=== PATIENT | male | born 1945 | race Caucasian/White ===

== ENCOUNTER → 2016-11-20 | Outpatient (REF) | payer MEDICARE, OTHER ==
[~2016-11-20] MED LIST: /DICL25CA; /FENT50PA; /FENT50PA TD; /IPRAINH INH; /MIRT15TA; /MIRT15TA PO; /QUET10TA; /SALMDISK; /TAMS4CA; ACET-654 PO; ALBU17IN INH; ALBU83IN INH; ALBUTEROL INH; ALEN70SO PO; ALEN70TA39 PO; ARIC10TA PO; ARTISOL10 OU; ASPI325T OR; ATAM25TA2 OR; ATROVENT; AUGM875T27 PO; BACT800T5 PO; BISA10SU2 RE; BUSP10TA PO; BUSP10TA2; BUSP10TA2 PO; CALCIUM/VITAMIN D PO; CALCTAB68 PO; CARB25TA PO; CIPR500T3 PO; CLOB0.057 TOP; CLON0.5T OR; CLON0.5T PO; CLON1TAB PO; COLA50CA; CYCL25CA5 OU; DENTCRE3 PO; DONETAB6 PO; EXCETAB; EXCETAB80 PO; FENT1DIS14 TD; FENT50PA TOP; FISH1000 PO; FLUN25SP; FLUTISP; FORMOTEROL FUMARATE INH; FURO20TA2; GABA300C3 PO; HYPROMELLOSE OD; IMIT100T OR; KLON1TAB; LIDO2JELLY TOP; LORA2TAB; LUBR0.5D OU; MELOPOW; META28.35 PO; META800T82 PO; MIDODRINE PO; MILKSUS PO; MIRALEX PO; MOMETASONE INH; NEUR300C PO; NICOTINE GUM; NORCOTAB PO; OLAN15TA PO; OLAN5TAB PO; OLAN7.5T PO; OMEP20CA3 PO; OMEP20TA7 OR; OXYC-517 PO; OXYC10TA12; OXYC10TA12 OR; PHEN16.2; PHEN16.2 OR; PHEN16.2 PO; PRED15SO3; PRIL20CA; REFR0.5D8 OP; REST0.05 OU; RISP4TAB OR; RIZA10TA4 PO; SENN8.6T5 PO; SENO8.6T10 PO; SIMV40TA2 PO; SIMV80TA; SIMV80TA OR; SKEL-29 PO; SKEL800T5; SKEL800T5 OR; SYMB16INH INH; TOBROPO OU; TROS20TA3 PO; VENL100T PO; VENL150C43 PO; VENL75TA2; VESICARE; VESICARE PO; VITA100066 PO; VITAMIN D50000 UNT; ZONI100C2 PO; ZONISAMIDE PO; ZOSTCRE TOP; [UNRECOGNIZED DRUG - OTHER]; asmanex; citracal; zonisamide
== END ==
LOC: M SFHCLERA 13:47
PROVIDERS: ATTEND Physician Assistant
DX: T83.510A Infection and inflammatory reaction due to cystostomy catheter, initial encounter (principal); Y93.89 Activity, other specified; Y92.89 Other specified places as the place of occurrence of the external cause; Y99.8 Other external cause status; X58.XXXA Exposure to other specified factors, initial encounter
CPT/HCPCS: 81002; 87070; 87077; 87088; 87186; G0463

== ENCOUNTER 2017-01-21 19:49 | Emergency (ER) | payer MEDICARE, OTHER ==
[~2017-01-21] VITALS: Ht 182.9 cm; Wt 95.2 kg
[~2017-01-21 19:49] MED LIST changes: +GABA-282 PO; -GABA300C3 PO
[2017-01-21 20:34] LABS: BASO % 0.8 % (0.0-1.0); EOS # 0.1 K/mm3 (0.0-0.50); LARGE UNSTAINED CELL # 0.3 K/mm3 (0.0-0.4); LARGE UNSTAINED CELL % 4.3 % (0.0-4.0); LYMPH # 2.4 K/mm3 (1.5-4.5); LYMPH % 41.8 % (24.0-44.0); MEAN CORPUSCULAR HEMOGLOBIN 31.7 pg (27.0-33.0); MEAN CORPUSCULAR HGB CONC 30.8 g/dl (32.0-36.5); MONO # 0.4 K/mm3 (0.0-0.8); MONO % 7.3 % (0.0-5.0); NEUTROPHILS # 2.6 K/mm3 (1.8-7.7); NEUTROPHILS % 43.8 % (36.0-66.0); PLATELET COUNT, AUTOMATED 308 k/mm3 (150-450); RED CELL DISTRIBUTION WIDTH 14.7 % (11.5-14.5); WHITE BLOOD COUNT 5.8 K/mm3 (4.0-10.0)
[2017-01-21 20:50] LABS: ANION GAP 10 MEQ/L (8-16); BLOOD UREA NITROGEN 21 MG/DL (7-18); CALCIUM LEVEL 8.8 MG/DL (8.8-10.2); CARBON DIOXIDE LEVEL 23 MEQ/L (21-32); CHLORIDE LEVEL 108 MEQ/L (98-107); CREATININE FOR GFR 0.91 MG/DL (0.70-1.30); GLOMERULAR FILTRATION RATE > 60.0 (>42); GLUCOSE, FASTING 89 MG/DL (83-110); PHENOBARBITAL LEVEL 2.8 UG/ML (15.0-40.0); POTASSIUM SERUM 4.2 MEQ/L (3.5-5.1); SODIUM LEVEL 141 MEQ/L (136-145)
[2017-01-21] MEDS ORDERED: NS 500 ML IV ONE (21:15)
[2017-01-21 22:16] VITALS: BP 115/63
== END 2017-01-21 23:03 | disposition home or self-care (01) ==
LOC: EDBD 19:49 → M ED 20:35
DX: F10.220 Alcohol dependence with intoxication, uncomplicated (principal); J44.9 Chronic obstructive pulmonary disease, unspecified; N40.0 Benign prostatic hyperplasia without lower urinary tract symptoms; E78.5 Hyperlipidemia, unspecified; K21.9 Gastro-esophageal reflux disease without esophagitis; G40.909 Epilepsy, unspecified, not intractable, without status epilepticus; N31.9 Neuromuscular dysfunction of bladder, unspecified; Z79.899 Other long term (current) drug therapy; Z88.1 Allergy status to other antibiotic agents; Z88.8 Allergy status to other drugs, medicaments and biological substances; Z91.018 Allergy to other foods; Z91.048 Other nonmedicinal substance allergy status
CPT/HCPCS: 36415; 80048; 80184; 85025; 96360; 96361; 99284; G0480

== ENCOUNTER → 2017-03-30 | Outpatient (CLI) | payer MEDICARE, OTHER ==
[~2017-03-30] MED LIST changes: -ACET-654 PO; +ACET1TAB17 PO; +ANEC4CRE3 TOP; -AUGM875T27 PO; +AUGM875T28 PO; +BACI500O8 TOP; +CALC1TAB74 PO; +DICL1GEL3 TD; +EUCECRE3 TOP; +FLON1SPR; +META1TAB22 PO; -META800T82 PO; +MIRA33504 PO; +MIRT15TA3 PO; +OXYC1SOL3 PO; +REFR1DRO6 OU; +SENN8.6T7 PO; +SIMV80TA PO; -SKEL-29 PO; +SKEL800T97 PO; +SODI0.9S IR; +TRIA25CR TOP; +VITA-121 PO
--- NOTE | 2017-03-30 14:48 | REP ---
PA and lateral chest: Comparison is 02/12/2016. Lung coombs are clear. Cardiac size is normal. The asha, mediastinum, bony thorax unremarkable. 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 Impression: There are no acute cardiopulmonary findings. Signed by Etienne Chang MD 03/30/2017 02:40 P
== END ==
LOC: M LRY 13:16
PROVIDERS: ATTEND Physician Assistant
DX: R05 Cough (principal); J44.1 Chronic obstructive pulmonary disease with (acute) exacerbation; J32.9 Chronic sinusitis, unspecified; T83.511A Infection and inflammatory reaction due to indwelling urethral catheter, initial encounter; N39.0 Urinary tract infection, site not specified
CPT/HCPCS: 71020; 81002; 87088; 87186; G0463

== ENCOUNTER → 2017-03-30 | Outpatient (REF) | payer MEDICARE, OTHER ==
[~2017-03-30] MED LIST changes: +ACET-654 PO; -ACET1TAB17 PO; -ANEC4CRE3 TOP; +AUGM875T27 PO; -AUGM875T28 PO; -BACI500O8 TOP; -CALC1TAB74 PO; -DICL1GEL3 TD; -EUCECRE3 TOP; -FLON1SPR; -META1TAB22 PO; +META800T82 PO; -MIRA33504 PO; -MIRT15TA3 PO; -OXYC1SOL3 PO; -REFR1DRO6 OU; -SENN8.6T7 PO; -SIMV80TA PO; +SKEL-29 PO; -SKEL800T97 PO; -SODI0.9S IR; -TRIA25CR TOP; -VITA-121 PO
== END ==
LOC: M SFHCLERA 14:55
PROVIDERS: ATTEND Physician Assistant
DX: N39.0 Urinary tract infection, site not specified (principal)

== ENCOUNTER 2017-06-17 12:15 | Emergency (ER) | payer OTHER, MEDICARE ==
[~2017-06-17] VITALS: Ht 175.3 cm; Wt 93.6 kg
[~2017-06-17 12:15] MED LIST changes: -ACET-654 PO; +ACET1TAB17 PO; -AUGM875T27 PO; +AUGM875T28 PO; +META1TAB22 PO; -META800T82 PO; -SKEL-29 PO; +SKEL800T97 PO
[2017-06-17] MEDS ORDERED: OXYC1SOL3 PO (12:29)
[2017-06-17 13:07] LABS: BASO % 0.7 % (0.0-1.0); EOS # 0.3 K/mm3 (0.0-0.50); EOS % 4.6 % (0.0-3.0); LARGE UNSTAINED CELL # 0.3 K/mm3 (0.0-0.4); LARGE UNSTAINED CELL % 4.4 % (0.0-4.0); LYMPH # 1.6 K/mm3 (1.5-4.5); MEAN CORPUSCULAR HEMOGLOBIN 32.8 pg (27.0-33.0); MEAN CORPUSCULAR HGB CONC 32.4 g/dl (32.0-36.5); MEAN CORPUSCULAR VOLUME 100.9 fl (80.0-96.0); MONO # 0.5 K/mm3 (0.0-0.8); MONO % 8.5 % (0.0-5.0); NEUTROPHILS # 3.6 K/mm3 (1.8-7.7); NEUTROPHILS % 56.7 % (36.0-66.0); PLATELET COUNT, AUTOMATED 306 k/mm3 (150-450); RED CELL DISTRIBUTION WIDTH 13.5 % (11.5-14.5); WHITE BLOOD COUNT 6.4 K/mm3 (4.0-10.0)
--- NOTE | 2017-06-17 13:34 | REP ---
Chest one-view HISTORY: Chest pain Comparison: 03/30/2017 Linear densities are present in the left lower lobe consistent with scar. The right lung is clear. The heart is normal in size. The pulmonary vasculature is normal in appearance. Impression: Left lower lobe scar. Signed by Jim Davis MD 06/17/2017 01:25 P
[2017-06-17] MEDS ORDERED: CARB25TA PO (13:49)
[2017-06-17] MEDS ORDERED: TOBROPO OU (13:49)
[2017-06-17] MEDS ORDERED: META1TAB22 PO (13:49)
[2017-06-17] MEDS ORDERED: DONETAB6 PO (13:49)
[2017-06-17] MEDS ORDERED: PHEN16.2 PO (13:49)
[2017-06-17] MEDS ORDERED: CALC1TAB74 PO (13:49)
[2017-06-17] MEDS ORDERED: SODI0.9S IR (13:49)
[2017-06-17] MEDS ORDERED: CLON1TAB PO (13:49)
[2017-06-17] MEDS ORDERED: ANEC4CRE3 TOP (13:49)
[2017-06-17] MEDS ORDERED: BACI500O8 TOP (13:49)
[2017-06-17] MEDS ORDERED: REST0.05 OU (13:49)
[2017-06-17] MEDS ORDERED: SIMV80TA PO (13:49)
[2017-06-17] MEDS ORDERED: ACET1TAB17 PO (13:49)
[2017-06-17] MEDS ORDERED: TROS20TA3 PO (13:49)
[2017-06-17] MEDS ORDERED: TRIA25CR TOP (13:49)
[2017-06-17] MEDS ORDERED: MIRA33504 PO (13:49)
[2017-06-17] MEDS ORDERED: SENN8.6T7 PO (13:49)
[2017-06-17] MEDS ORDERED: FLON1SPR (13:49)
[2017-06-17] MEDS ORDERED: EUCECRE3 TOP (13:49)
[2017-06-17] MEDS ORDERED: OXYC-517 PO (13:49)
[2017-06-17] MEDS ORDERED: OMEP20CA3 PO (13:49)
[2017-06-17] MEDS ORDERED: ZONI100C2 PO (13:49)
[2017-06-17] MEDS ORDERED: REFR1DRO6 OU (13:49)
[2017-06-17] MEDS ORDERED: ALBU83IN INH (13:49)
[2017-06-17] MEDS ORDERED: ALEN70TA39 PO (13:49)
[2017-06-17] MEDS ORDERED: VITA-121 PO (13:49)
[2017-06-17] MEDS ORDERED: RIZA10TA4 PO (13:49)
[2017-06-17] MEDS ORDERED: DICL1GEL3 TD (13:49)
[2017-06-17] MEDS ORDERED: MIRT15TA3 PO (13:51)
[2017-06-17] MEDS ORDERED: OLAN7.5T PO (13:51)
[2017-06-17] MEDS ORDERED: VENL150C43 PO (13:51)
[2017-06-17 14:20] LABS: ANION GAP 10 MEQ/L (8-16); BLOOD UREA NITROGEN 18 MG/DL (7-18); CALCIUM LEVEL 9.6 MG/DL (8.8-10.2); CARBON DIOXIDE LEVEL 26 MEQ/L (21-32); CHLORIDE LEVEL 107 MEQ/L (98-107); CREATININE FOR GFR 0.96 MG/DL (0.70-1.30); GLOMERULAR FILTRATION RATE > 60.0 (>42); GLUCOSE, FASTING 98 MG/DL (83-110); POTASSIUM SERUM 4.7 MEQ/L (3.5-5.1); SODIUM LEVEL 143 MEQ/L (136-145)
[2017-06-17] MEDS ORDERED: IPRATROPIUM 0.5MG/ALBUTEROL 2.5MG INH SOL UD 3ML (DUONEB)(J7620) NEB ONE (14:30)
[2017-06-17 15:08] VITALS: BP 154/69
--- NOTE | 2017-06-17 21:40 | ECGEPIP ---
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
== END 2017-06-17 15:14 | disposition home or self-care (01) ==
LOC: M ED 12:15
DX: M94.0 Chondrocostal junction syndrome [Tietze] (principal); J44.9 Chronic obstructive pulmonary disease, unspecified; Z87.891 Personal history of nicotine dependence; R06.02 Shortness of breath

== ENCOUNTER → 2017-08-03 | Outpatient (CLI) | payer MEDICARE, OTHER ==
[~2017-08-03] MED LIST changes: +ANEC4CRE3 TOP; +BACI500O8 TOP; +CALC1TAB74 PO; +DICL1GEL3 TD; +EUCECRE3 TOP; +FLON1SPR; +MIRA33504 PO; +MIRT15TA3 PO; +OXYC1SOL3 PO; +REFR1DRO6 OU; +SENN8.6T7 PO; +SIMV80TA PO; +SODI0.9S IR; +TRIA25CR TOP; +VITA-121 PO
--- NOTE | 2017-08-03 14:19 | REP ---
Chest x-ray: Two views. History: Shortness of breath. Comparison study: June 17, 2017 and March 30, 2017. Findings: The lungs are symmetrically aerated and free of infiltrate. Emphysematous changes are noted in the upper lobes, right more so than left. The pleural angles are sharp. Heart size is normal. Pulmonary vasculature is not increased. Impression: Hyperinflation consistent with some degree of COPD. No acute infiltrate. Signed by Jose Angel Benavides MD 08/03/2017 02:50 P
== END ==
LOC: M LRY 13:15
PROVIDERS: ATTEND Nurse Practitioner Family
DX: R06.02 Shortness of breath (principal); J98.4 Other disorders of lung
CPT/HCPCS: 71020; G0463

== ENCOUNTER 2017-09-09 08:25 | Inpatient (IN) | payer MEDICARE, OTHER ==
[~2017-09-09] VITALS: Ht 175.3 cm; Wt 89.0 kg
[2017-09-09 09:26] LABS: VENOUS BASE EXCESS -5.2 (-2.0-2.0); VENOUS O2 SATURATION 88.8 % (60.0-80.0); VENOUS PARTIAL PRESSURE CO2 33.4 mmHg (38.0-50.0); VENOUS TOTAL CO2 20.2 MEQ/L (24.0-28.0)
--- NOTE | 2017-09-09 09:26 | ECGEPIP ---
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
[2017-09-09 09:28] LABS: MEAN CORPUSCULAR HEMOGLOBIN 33.5 pg (27.0-33.0); MEAN CORPUSCULAR HGB CONC 34.3 g/dl (32.0-36.5); MEAN CORPUSCULAR VOLUME 97.8 fl (80.0-96.0); PLATELET COUNT, AUTOMATED 152 10^3/uL (150-450); RED CELL DISTRIBUTION WIDTH 13.8 % (11.5-14.5); WHITE BLOOD COUNT 16.2 10^3/uL (4.0-10.0)
[2017-09-09 09:29] LABS: POSITIVE MORPH POS FLAG
[2017-09-09 09:30] LABS: ADD MANUAL DIFFER YES; BLASTS POS FLAG; DIFF SLIDE NUMBER 156
--- NOTE | 2017-09-09 09:41 | REP ---
PORTABLE CHEST: Single view. HISTORY: Altered mental status. COMPARISON STUDY: August 03, 2017. FINDINGS: The lungs are symmetrically aerated and clear. Pleural angles are sharp. Heart is not enlarged. The left hemidiaphragm is very slightly elevated. Pulmonary vasculature is not increased. EKG monitoring electrodes overlie the chest. No significant bony abnormality is seen. IMPRESSION: No active disease. Signed by Jose Angel Benavides MD 09/09/2017 11:18 A
[2017-09-09 09:53] LABS: ALBUMIN 2.7 GM/DL (3.2-5.2); ALBUMIN/GLOBULIN RATIO 0.71 (1.00-1.93); ALKALINE PHOSPHATASE 63 U/L (45-117); ALT/SGPT 9 U/L (12-78); ANION GAP 11 MEQ/L (8-16); AST/SGOT 33 U/L (7-37); BILIRUBIN,DIRECT 0.2 MG/DL (0.0-0.2); BILIRUBIN,TOTAL 0.3 MG/DL (0.2-1.0); BLOOD UREA NITROGEN 13 MG/DL (7-18); CALCIUM LEVEL 9.1 MG/DL (8.8-10.2); CARBON DIOXIDE LEVEL 21 MEQ/L (21-32); CHLORIDE LEVEL 96 MEQ/L (98-107); CREATININE FOR GFR 1.38 MG/DL (0.70-1.30); GLOMERULAR FILTRATION RATE 54.1 (>42); GLUCOSE, FASTING 123 MG/DL (83-110); POTASSIUM SERUM 3.3 MEQ/L (3.5-5.1); SODIUM LEVEL 128 MEQ/L (136-145); TOTAL PROTEIN 6.5 GM/DL (6.4-8.2)
[2017-09-09 09:57] LABS: METHADONE URINE NEGATIVE (NEGATIVE)
[2017-09-09 10:04] LABS: BANDS 12 % (< 11)
[2017-09-09 10:05] LABS: TOXIC VACUOLATION 1+
[2017-09-09] MEDS ORDERED: GRX1OIN TOP (10:07)
[2017-09-09 10:15] LABS: OSMOLALITY SERUM 265 MOSM/KG (280-301)
[2017-09-09] MEDS ORDERED: REST0.05 OU (10:23)
[2017-09-09] MEDS ORDERED: CEFTRIAXONE SOD 2 GM in APPROPRIATE DILUENT 1 EA IV ONE (10:30)
[2017-09-09] MEDS ORDERED: NS 500 ML IV ONE (10:30)
[2017-09-09] MEDS ORDERED: ONDANSETRON 4MG/2ML VIAL (J2405) IV PRN (11:45)
--- NOTE | 2017-09-09 11:48 | REP ---
Clinical: Flank pain. Comparison: 05/08/2016. Findings: Acute left perinephric and periureteral stranding without hydroureternephrosis or obstructing calculus suggests pyelonephritis and should be correlated clinically. Bilateral renovascular calcifications are identified along with 2 mm nonobstructing left renal calculus. Liver, spleen, pancreas, gallbladder, and bilateral adrenal glands are normal for noncontrast evaluation. IVC filter is identified and stable in position. The enteric system is without obstruction or acute inflammatory process. A suprapubic catheter is identified in partially collapsed bladder. Prostate gland is within normal limits. No ascites. No free air. No adenopathy. Atherosclerotic changes to the vasculature without aneurysm. Musculoskeletal structures demonstrate degenerative changes. Lung bases demonstrate chronic interstitial changes. Impression: 1. Findings most compatible with acute left pyelonephritis. 2. Chronic stable changes as described above. Signed by Moe García MD 09/09/2017 11:39 A
[2017-09-09] MEDS ORDERED: TRIAMCINOLONE ACETONIDE 0.025 % 80 GM CREAM TOP PRN (12:00)
[2017-09-09] MEDS ORDERED: oxyCODONE 5MG TAB PO PRN (12:00)
[2017-09-09] MEDS ORDERED: ALBUTEROL SULFATE 2.5 MG/0.5 ML INH NEB SOLN INH PRN (12:00)
[2017-09-09] MEDS ORDERED: BACITRACIN OINT 30GM TOP PRN (12:00)
[2017-09-09] MEDS ORDERED: VANCOMYCIN HCL 1,000 MG, VIAL MATE ADAPTER 1 EACH in D5W 250 ML IV ONE (12:00)
[2017-09-09] MEDS ORDERED: clonazePAM 1 MG TAB PO PRN (12:00)
[2017-09-09] MEDS ORDERED: MIRALAX *UNIT DOSE* 17GM PACKET PO PRN (12:00)
[2017-09-09] MEDS: NS 1,000 ML IV SCH (12:11)
[2017-09-09] MEDS ORDERED: ACETAMINOPHEN 325 MG TAB PO ONE (12:30)
[2017-09-09] MEDS ORDERED: POTASSIUM CHLORIDE 10 MEQ SR TABLET PO ONE (12:30)
[2017-09-09] MEDS ORDERED: oxyCODONE 5MG TAB PO ONE (12:30)
[2017-09-09] MEDS: LACTOBACILLUS ACIDOPHILUS CAP (BACID) PO SCH ×2 (12:30→18:00)
[2017-09-09] MEDS ORDERED: NS 1,000 ML IV ONE (13:00)
[2017-09-09 13:01] LABS: CALCIUM LEVEL 9.3 MG/DL (8.8-10.2); CREATININE FOR GFR 1.44 MG/DL (0.70-1.30); GLOMERULAR FILTRATION RATE 51.5 (>42); POTASSIUM SERUM 3.5 MEQ/L (3.5-5.1)
--- NOTE | 2017-09-09 13:25 | HPE ---
DATE OF ADMISSION: 09/09/2017 [facility] CHIEF COMPLAINT: Fever, chills. HISTORY OF PRESENT ILLNESS: This is a 72-year-old male with history of chronic indwelling Hearn catheter changed monthly, history cerebral vascular accident (CVA), chronic obstructive pulmonary disease (COPD), deep venous thrombosis (DVT), persistent left-sided weakness, reflux, degenerative joint disease, Parkinson's disease, hypercholesterolemia, posttraumatic stress syndrome (PTSD), seizure disorder and venous insufficiency who presents to the emergency room with 3-day complaint of ongoing fevers, which are subjective not documented, chills since Thursday as well as cloudy urine. The patient complains of generalized weakness, malaise, and a dry cough with no nausea or vomiting, no rhinorrhea, sore throat, changes in vision or headaches due to patient's came home from a shift and saw him shaking in the bathroom, very weak and brought him to the emergency room. She had noticed cloudy malodorous urine. In the emergency room , he was found to be shivering with acute left pyelonephritis on CT abdomen and pelvis. The hospitalist service was called for admission. PAST MEDICAL HISTORY: 1. Recurrent urinary tract infection (UTI) secondary to chronic indwelling catheter changed every month. 2. CVA with persistent left-sided weakness. 3. COPD. 4. Deep venous thrombosis. 5. Reflux. 6. Degenerative joint disease. 7. Hypercholesterolemia. 8. Parkinson's disease. 9. PTSD. 10. Seizure disorder. 11. Venous insufficiency. PAST SURGICAL HISTORY: Carpal tunnel repair bilaterally. HOME MEDICATIONS: - calcium vitamin D one tablet by mouth twice a day - acetaminophen 650 by mouth four times a day as needed - rizatriptan 10 mg as needed for migraines - alendronate 70 mg weekly. - ANE cream topically every 6 hours as needed. - Refresh eye drops one OU nightly. - donepezil 10 mg daily - menthol topically every 6 hours - phenobarbital 16.2 mg nightly - Restasis 0.05% OU twice a day. SOCIAL HISTORY: Denies active smoking. No alcohol use. Lives with his . Has caregivers 24-7. Walks with a wheeled walker. Retired. FAMILY HISTORY: Noncontributory due to age. REVIEW OF SYSTEMS: Per history of present illness (HPI), 12-point system otherwise negative. PHYSICAL EXAMINATION: Vitals: Temperature 99.7, pulse 130, sinus rhythm. Respiratory rate 20, blood pressure 165/71, 99% on room air. Generally, the patient is awake, alert, oriented to person and place. Able to answer questions. He is shivering at the bedside without rigors. No jugular venous distention or thyromegaly. Dry mucous membranes. No cervical lymphadenopathy or thyromegaly. Lungs are clear to auscultation. No wheezing, rales or rhonchi. Heart: S1, S2, sinus tachycardia. No murmurs, rubs or gallops. Abdomen is soft nontender, nondistended. Positive bowel sounds. Indwelling Hearn catheter, malodorous urine noted on the UA. Extremities: No cyanosis, clubbing or pitting edema. Left-sided CVA tenderness. LAB DATA: White count 16.2, hemoglobin 10, hematocrit 31, platelet count 152, sodium 128, potassium 3.2, chloride 96, bicarbonate 21, BUN 13, creatinine 1.38, m glucose of 265, lactic acid 1.3, calcium 9.1. Total bilirubin 0.3, direct bilirubin 0.28, AST 33, ALT 9, alkaline phosphatase 63, ammonia 18, total CK 291 , MB fraction 2.7, troponin less than 0.02. Total protein 6.5, albumin at 2.7, TSH0.885. CT abdomen and pelvis shows left-sided pyelonephritis. Chronic stable changes as above. Chest x-ray: No acute cardiopulmonary process. Previous urine culture results shows Pseudomonas proteus and Enterococcus enterobacter. Current urine culture is still pending. The patient's baseline creatinine from June 2017 of 0.96. ASSESSMENT/PLAN: This is a 72-year-old male with history of CVA, Parkinson's, degenerative joint disease, deep venous thrombosis, reflux, posttraumatic stress syndrome, hypercholesterolemia, seizure, venous insufficiency was in her usual state of health until Thursday when he developed subjective fevers, malodorous urine, malaise and generalized weakness found to have left-sided pyelonephritis. CURRENT ISSUES: 1. Sepsis secondary to urinary tract infection. White count is 16,000, heart rate of 130 with abnormal urinalysis and symptoms consistent with urinary tract infection. The patient will be admitted for IV antibiotics intravenous fluids and supportive care, pain management. 2. Left-sided pyelonephritis: Previous culture results grew out Citrobacter, Pseudomonas Enterococcus, enterobacter and Klebsiella, therefore, will provide with broad spectrum coverage with ceftriaxone and vancomycin for now. Once culture results are available, we will de-escalate the antibiotics, Bacid to prevent C difficile. 3. Hyponatremia was likely secondary to dehydration due to fevers. Will recheck basic metabolic panel every 6 hours and adjust fluids accordingly. Chest x-ray remains clear. No signs of pulmonary nodules to suggest syndrome of inappropriate secretion of antidiuretic hormone (SIADH). 4. Electrolyte abnormalities: He has been supplemented with potassium. Check magnesium level and supplement if needed. 5. History of Parkinson's disease: Resume all medications. 6. Chronic indwelling Hearn catheter currently with pyelonephritis changed every month. 7. Anemia of chronic disease: No acute indication for red blood cell transfusion. 8. Sinus tachycardia secondary to acute sepsis from urinary tract infection. Supportive care, IV fluids and antibiotics. 9. History of seizure disorder: Resume home medications. 10. Hyperlipidemia on Zocor. 11. Chronic back pain in Skelaxin and oxycodone. 12. Deep venous thrombosis prophylaxis with heparin subcutaneously. MTDD
--- NOTE | 2017-09-09 15:32 | PHACANCOPD ---
PHARMACY VANCOMYCIN DOSING Pt Demographics Demographics Patient Age:72 , Weight:98.180 , Gender: male Adjusted Body Weight Date: 09/09/17, Adjusted Body Weight: Kg Events Past 24 Hours Events Past 24 Hours: YES: Elevation in WBC, Pending Diagnostics Vancomycin Vancomycin indication: UTI - ENTEROCOCCUS Vancomycin Target Ranges: 10-20 mcg/ml Vancomycin Load Y/N: No Load Dose Date Time Vancomycin Load Dose: Date: Time: Vancomycin Dose Date: 09/09/17. Current Vancomycin Dose: [1g IV Q12H] Intermittent Dosing?: No Labs Labs Item Value Date Time White Blood Count 16.2 10^3/uL H 09/09/17 0915 Band Neutrophils 12 % H 09/09/17 0915 Creatinine 1.44 MG/DL H 09/09/17 1223 Creatinine 1.38 MG/DL H 09/09/17 0916 Urine Leukocyte Esterase 2+ H 09/09/17 0924 Urine WBC (Auto) TNTC /HPF H 09/09/17 0924 Micro Microbiology 09/09/17 Blood Culture, Received Pending 09/09/17 Blood Culture, Received Pending 09/09/17 MRSA Screen, Resulted Pending 09/09/17 Respiratory Virus Panel (PCR) (CHIP) - Final, Resulted 09/09/17 Urine Culture, Received Pending Creatinine Clearance Date:09/09/17. Estimated Creatinine Clearance: [~49ml/min]. Assessment and Plan Maintaining Current Dose?: Yes Reason for dose change: No Dose Change Pharmacist Note Pharmacist Note Date: 09/09/17. Pharmacist note: Day #1 IV vancomycin initiated at 1g IV Q12H for the treatment of a UTI - aiming for a goal trough of 10-20mcg/ml. The patient has a chronic indwelling leon catheter and a remarkable urinalysis with WBC TNTC and + leukocyte esterase. WBC, bands, and pulse are all elevated. The patient is currently afebrile. No PMH of MRSA or vanco use here at [facility]. The patient's baseline scr is ~1, and his current scr is 1.38. We will continue to monitor and schedule a vancomycin trough when needed. [facility] Sep 09, 2017 15:32
[2017-09-09 16:00] VITALS: BP 146/74
[2017-09-09] MEDS: SINEMET 25-100 MG TAB PO SCH ×2 (16:00→22:59)
[2017-09-09] MEDS: METAXALONE 800 MG TABLET PO SCH ×2 (16:00→23:01)
[2017-09-09] MEDS: SENOKOT S TAB PO SCH ×2 (17:27→23:00)
[2017-09-09] MEDS: VENLAFAXINE **XR** 75MG CAPSULE PO SCH (17:27)
[2017-09-09] MEDS: HEPARIN SOD (PORCINE) 5000 UNITS/ML VIAL SC SCH ×2 (17:30→23:02)
[2017-09-09 18:33] LABS: CALCIUM LEVEL 8.8 MG/DL (8.8-10.2); CREATININE FOR GFR 1.32 MG/DL (0.70-1.30); GLOMERULAR FILTRATION RATE 56.9 (>42); POTASSIUM SERUM 3.3 MEQ/L (3.5-5.1)
[2017-09-09 20:00] VITALS: BP 120/58
[2017-09-09 21:25] VITALS: BP 138/74
[2017-09-09] MEDS: ZONISAMIDE 100 MG CAP (ZONEGRAN) PO SCH (22:59)
[2017-09-09] MEDS: SIMVASTATIN 40 MG TAB PO SCH (22:59)
[2017-09-09] MEDS: MIRTAZAPINE 15 MG TAB PO SCH (23:00)
[2017-09-09] MEDS: TROSPIUM 20 MG TAB PO SCH (23:00)
[2017-09-09] MEDS: OLANZapine 2.5MG TABLET PO SCH (23:01)
[2017-09-09] MEDS: TOBRADEX OPHTH OINT 3.5 GM OU SCH (23:01)
[2017-09-09] MEDS: OMEPRAZOLE 20 MG CAP PO SCH (23:04)
[2017-09-09] MEDS: VANCOMYCIN HCL 1,000 MG, VIAL MATE ADAPTER 1 EACH in D5W 250 ML IV SCH (23:04)
[2017-09-09] MEDS: ACETAMINOPHEN TAB 650MG DOSE (2X325MG) PO PRN (23:39)
[2017-09-09 23:59] VITALS: BP 146/82
[2017-09-10] VITALS (8 sets, daily range): BP systolic 111–144; BP diastolic 58–80
[2017-09-10 00:50] LABS: CREATININE FOR GFR 1.42 MG/DL (0.70-1.30); GLOMERULAR FILTRATION RATE 52.3 (>42); POTASSIUM SERUM 3.7 MEQ/L (3.5-5.1)
[2017-09-10 05:39] LABS: BASO % 0.1 % (0.0-1.0); IMMATURE GRANULOCYTE % 0.7 % (0-0); LYMPH # 1.2 10^3/uL (1.5-4.5); LYMPH % 8.5 % (24.0-44.0); MEAN CORPUSCULAR HEMOGLOBIN 32.8 pg (27.0-33.0); MEAN CORPUSCULAR HGB CONC 33.2 g/dl (32.0-36.5); MEAN CORPUSCULAR VOLUME 98.7 fl (80.0-96.0); MONO # 1.2 10^3/uL (0.0-0.8); MONO % 9.1 % (0.0-5.0); NEUTROPHILS # 11.2 10^3/uL (1.8-7.7); NEUTROPHILS % 81.6 % (36.0-66.0); PLATELET COUNT, AUTOMATED 136 10^3/uL (150-450); WHITE BLOOD COUNT 13.7 10^3/uL (4.0-10.0)
[2017-09-10] MEDS: NS 1,000 ML IV SCH (05:47)
[2017-09-10] MEDS: HEPARIN SOD (PORCINE) 5000 UNITS/ML VIAL SC SCH ×3 (06:00→21:43)
[2017-09-10 06:01] LABS: CALCIUM LEVEL 8.6 MG/DL (8.8-10.2); CREATININE FOR GFR 1.35 MG/DL (0.70-1.30); GLOMERULAR FILTRATION RATE 55.5 (>42); POTASSIUM SERUM 3.6 MEQ/L (3.5-5.1)
[2017-09-10] MEDS: ACETAMINOPHEN TAB 650MG DOSE (2X325MG) PO PRN ×3 (06:16→17:33)
[2017-09-10] MEDS: PIPERACILLIN/TAZOBACTAM SOD 3.375 GM in APPROPRIATE DILUENT 1 EA IV SCH ×3 (08:48→20:14)
[2017-09-10] MEDS: EUCERIN 120GM CREAM TOP SCH (08:49)
--- NOTE | 2017-09-10 08:56 | ECGEPIP ---
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
--- NOTE | 2017-09-10 10:51 | REP ---
Clinical: Shortness of breath . Comparison: 09/09/2017 . Findings: The mediastinum and cardiac silhouette are stable and within normal limits for portable technique. The lung coombs are clear without acute consolidation, effusion, or pneumothorax. Skeletal structures are intact. Impression: No acute cardiopulmonary process appreciated. Signed by Moe García MD 09/10/2017 10:42 A
--- NOTE | 2017-09-10 10:58 | IPN ---
DATE: 09/09/2017 Patient seen and examined at the bedside. Chart has been reviewed. This morning, the patient appears lethargic. Had received one dose of oxycodone yesterday due to chronic pain. He is repeatedly febrile despite vancomycin and ceftriaxone. Patient does have a history of Enterococcus enterobacter, Pseudomonas Citrobacter in the urine in the past. This morning, patient otherwise denies any dysuria, urgency or frequency. He has had some fever, but no chills. No chest pain, pressure or tightness. No cough and no nausea or vomiting, abdominal pain or any diarrhea. He continues to be lethargic but is answering questions, though is slightly slow to respond, but no upper or lower extremity paresthesias or weakness. The patient's sodium level has improved from 128 at 9 a.m. yesterday morning to 133 less than 10-12 mEq over a 24 hour period. He appears to be answering questions appropriately this morning. Vitals: T-max of 102.2, current temperature 99.1, pulse 103 sinus rhythm, episodes of sinus tachycardia, respiratory rate 18-20, blood pressure 126/63, 96% on 2 liters nasal cannula. Generally, patient is lethargic, answers questions however. He is appropriate with his name, where he is and the date. No facial asymmetry. Tongue is midline. No pronator drift. Able to speak in full sentences. Lungs are diminished. Heart S1, S2. Sinus tachycardia. Abdomen is soft, nontender, nondistended. Positive bowel sounds. Extremities no cyanosis or clubbing. [place] in color. Warm to touch. LABORATORY DATA: White count 13.7, hemoglobin 10, hematocrit 31, platelet count 136, sodium 133, potassium 3.6, chloride 104, bicarb 21, BUN 14, creatinine 1.35, glucose 100, previous creatinine was 1.42. INPUT AND OUTPUT: Input of 2350, output 1425. Current weight is 98.18 kg yesterday, 94 kg today. Microbiology: Urine culture is pending. Blood culture preliminary with gram negative rods. Urine culture 09/09 appears contaminated. Methicillin-resistant Staphylococcus aureus (MRSA) screen respiratory panel is pending. CT abdomen and pelvis shows acute left pyelonephritis, chronic stable changes, pneumonia, arterial blood gas are pending. ASSESSMENT/PLAN: This is a 72-year-old male with history of CVA with chronic right sided weakness, Parkinson's disease, dementia, seizure disorder, chronic obstructive pulmonary disease (COPD), reflux, venous insufficiency, DVT, dyslipidemia, neuropathy, bladder dysfunction with suprapubic catheter, history of migraines headaches, posttraumatic stress disorder (PTSD), former smoker, chronic left sided weakness from old CVA, carpal tunnel repair who presents to the emergency room with confusion and lethargy, malodorous urine and cloudy urine since Thursday. Patient has had a prior history of Citrobacter, Enterococcus, enterobacter and Pseudomonas urinary tract infection admitted yesterday for UTI sepsis, found to have a left pyelonephritis on CT of the abdomen and pelvis with a white count of 16.2000, fever 101.2. CURRENT ISSUES: 1. Sepsis secondary to acute left pyelonephritis. The patient has been given broad spectrum antibiotics with vancomycin due to prior history of Enterococcus as well as gram negative coverage with ceftriaxone, however due to persistent fever and deteriorating clinical status, the patient's ceftriaxone was discontinued and he was placed on broad spectrum coverage with intravenous Zosyn for better gram negative coverage. AST this time, urine culture appears contaminated. Will reobtain a urine culture. Continue with full supportive care. 2. Acute metabolic encephalopathy secondary to sepsis urinary tract infection with persistent white count of 13,000, fever of 102.2, currently on broad spectrum antibiotics. Will obtain arterial blood gas, ammonia level to rule out other metabolic causes. Due to prior history of CVA will obtain a CT of the head without contrast and if coal neurological deficit is noted will check neuro checks every 4 hours. 3. Hyponatremia. Sodium level 128 on admission was likely secondary to dehydration. Improved to 133 at 5:00 a.m. this morning with less than 10 mEq waste/materials exchange specialist a 24 hour period and less likely to cause central pontine myelinolysis. At this time, patient is lethargic and therefore we will discontinue his opioids, oxycodone and monitor his clinical status. 4. History of seizure disorder. Continue with his home medications. 5. Previous evaluation for seizure disorder with EEG performed and read by neurology due to worsening mental state. If patient is stable may obtain an EEG to rule out epileptiform activity. 6. History of chronic indwelling Hearn catheter. At risk for recurrent UTIs. Currently being treated with broad spectrum antibiotics, Hearn care with changes every month. 7. Chronic obstructive pulmonary disease (COPD) on nebulizers as needed. Continue supplemental oxygen for saturations 90-92%. 8. History of Parkinson's disease. Chronic. 9. PTSD, chronic. 10. Venous insufficiency, chronic. 11. Hypercholesterolemia, chronic. 12. Reflux, chronic. 13. Deep vein thrombosis (DVT) prophylaxis with compression stockings and subcutaneous heparin. 14. Bacteremia with gram negative rods. Continue with Zosyn for now. Recheck blood cultures in the morning.
[2017-09-10] MEDS ORDERED: CEFTRIAXONE SOD 2 GM in APPROPRIATE DILUENT 1 EA IV SCH (11:00)
--- NOTE | 2017-09-10 11:02 | REP ---
Clinical: Altered mental status possible acute cerebrovascular infarct. Comparison: 04/01/2016 . Findings: Age-related atrophy, periventricular leukomalacia and microvascular ischemic changes are appreciated. The ventricles and sulci are symmetric. Rubio-white differentiation is maintained. There is no evidence for acute intracranial hemorrhage, mass/mass effect, pathology or infarction. No extra-axial fluid collection. Calvarium is intact. Paranasal sinuses and mastoid air cells are clear. Impression: Age related atrophy and microvascular ischemic changes. No acute intracranial hemorrhage, infarction, or mass/mass effect. Signed by Moe García MD 09/10/2017 10:53 A
[2017-09-10] MEDS: VANCOMYCIN HCL 1,000 MG, VIAL MATE ADAPTER 1 EACH in D5W 250 ML IV SCH (11:21)
[2017-09-10] MEDS: TROSPIUM 20 MG TAB PO SCH ×2 (11:25→20:16)
[2017-09-10] MEDS: LACTOBACILLUS ACIDOPHILUS CAP (BACID) PO SCH ×3 (11:25→17:33)
[2017-09-10] MEDS: FLUTICASONE PROP 0.05% NASAL SPRAY 16 GM (FLONASE) SCH (11:25)
[2017-09-10] MEDS: SINEMET 25-100 MG TAB PO SCH ×3 (11:25→20:15)
[2017-09-10] MEDS: VENLAFAXINE **XR** 75MG CAPSULE PO SCH (11:25)
[2017-09-10] MEDS: VITAMIN D 1,000 INTERNATIONAL UNITS TABLET PO SCH (11:29)
[2017-09-10] MEDS: SENOKOT S TAB PO SCH ×3 (11:30→20:15)
[2017-09-10] MEDS: OMEPRAZOLE 20 MG CAP PO SCH ×2 (11:30→20:15)
[2017-09-10] MEDS ORDERED: FUROSEMIDE 100 MG/10 ML VIAL (J1940) IV ONE (11:45)
[2017-09-10 12:36] LABS: CREATININE FOR GFR 1.55 MG/DL (0.70-1.30); GLOMERULAR FILTRATION RATE 47.3 (>42); POTASSIUM SERUM 3.6 MEQ/L (3.5-5.1)
--- NOTE | 2017-09-10 15:05 | REP ---
Ventilation-perfusion lung scan: History: Shortness of breath. Comparison chest x-ray September 10, 2017. Technique: 1.0 mCi of technetium-99m DTPA aerosol is administered for the ventilation study and is followed by a 5.5 mCi dose of technetium-99m MAA for the perfusion study. A series of eight planar images are acquired for each portion of the study. Findings: The ventilation images demonstrate central bronchial deposition of inspired tracer bilaterally consistent with some degree of COPD. On perfusion exam images there is more homogeneous distribution of tracer throughout the lung coombs bilaterally. No definite perfusion defect is seen. Impression: Low probability scan for pulmonary embolus. Signed by Jose Angel Benavides MD 09/10/2017 04:09 P
[2017-09-10 15:25] LABS: ABG BASE EXCESS -3.7 (-2.0-2.0); ABG HCO3 19.4 MEQ/L (22.0-26.0); ABG PARTIAL PRESSURE O2 81.9 mmHg (75.0-100.0); ABG STANDARD HCO3 21.3 MEQ/L (22.0-26.0); ABG TOTAL CO2 20.3 MEQ/L (23.0-31.0); ABG pH (ARTERIAL) 7.444 UNITS (7.350-7.450)
[2017-09-10 18:34] LABS: CALCIUM LEVEL 8.7 MG/DL (8.8-10.2); CREATININE FOR GFR 1.61 MG/DL (0.70-1.30); GLOMERULAR FILTRATION RATE 45.3 (>42); POTASSIUM SERUM 3.3 MEQ/L (3.5-5.1)
[2017-09-10] MEDS ORDERED: POTASSIUM CHLORIDE 10 MEQ SR TABLET PO ONE (20:00)
[2017-09-10] MEDS: SIMVASTATIN 40 MG TAB PO SCH (20:15)
[2017-09-10] MEDS: ZONISAMIDE 100 MG CAP (ZONEGRAN) PO SCH (20:15)
[2017-09-10] MEDS: OLANZapine 2.5MG TABLET PO SCH (20:16)
[2017-09-10] MEDS: MIRTAZAPINE 15 MG TAB PO SCH (20:16)
[2017-09-10] MEDS: TOBRADEX OPHTH OINT 3.5 GM OU SCH (20:16)
[2017-09-10 21:31] LABS: CALCIUM LEVEL 8.5 MG/DL (8.8-10.2); CREATININE FOR GFR 1.67 MG/DL (0.70-1.30); GLOMERULAR FILTRATION RATE 43.4 (>42); POTASSIUM SERUM 3.2 MEQ/L (3.5-5.1)
[2017-09-11] VITALS: BP 158/79
[2017-09-11] MEDS: VANCOMYCIN HCL 1,000 MG, VIAL MATE ADAPTER 1 EACH in D5W 250 ML IV SCH ×3 (00:11→23:36)
[2017-09-11] MEDS: ACETAMINOPHEN TAB 650MG DOSE (2X325MG) PO PRN (00:13)
[2017-09-11 00:17] LABS: CALCIUM LEVEL 8.9 MG/DL (8.8-10.2); CREATININE FOR GFR 1.76 MG/DL (0.70-1.30); GLOMERULAR FILTRATION RATE 40.8 (>42); POTASSIUM SERUM 3.4 MEQ/L (3.5-5.1)
[2017-09-11] MEDS ORDERED: POTASSIUM CHLORIDE 10 MEQ SR TABLET PO ONE ×2 (01:30→06:45)
[2017-09-11] MEDS: PIPERACILLIN/TAZOBACTAM SOD 3.375 GM in APPROPRIATE DILUENT 1 EA IV SCH ×5 (01:39→20:10)
[2017-09-11 04:00] VITALS: BP 121/69
[2017-09-11] MEDS: HEPARIN SOD (PORCINE) 5000 UNITS/ML VIAL SC SCH ×3 (05:31→21:58)
[2017-09-11 05:44] LABS: BASO % 0.1 % (0.0-1.0); EOS % 0.2 % (0.0-3.0); IMMATURE GRANULOCYTE % 0.5 % (0-0); LYMPH # 1.1 10^3/uL (1.5-4.5); LYMPH % 9.6 % (24.0-44.0); MEAN CORPUSCULAR HEMOGLOBIN 32.5 pg (27.0-33.0); MEAN CORPUSCULAR HGB CONC 34.2 g/dl (32.0-36.5); MEAN CORPUSCULAR VOLUME 94.9 fl (80.0-96.0); MONO # 1.4 10^3/uL (0.0-0.8); MONO % 12.3 % (0.0-5.0); NEUTROPHILS # 8.5 10^3/uL (1.8-7.7); NEUTROPHILS % 77.3 % (36.0-66.0); PLATELET COUNT, AUTOMATED 149 10^3/uL (150-450); RED CELL DISTRIBUTION WIDTH 14.1 % (11.5-14.5)
[2017-09-11 06:05] LABS: CALCIUM LEVEL 8.8 MG/DL (8.8-10.2); CREATININE FOR GFR 1.71 MG/DL (0.70-1.30); GLOMERULAR FILTRATION RATE 42.2 (>42); POTASSIUM SERUM 3.3 MEQ/L (3.5-5.1)
[2017-09-11] MEDS ORDERED: KCL 10MEQ IN 100ML SWI (KRUN) 10 MEQ in APPROPRIATE DILUENT 1 EA IV ONE ×2 (06:30)
[2017-09-11 07:45] VITALS: BP 130/78
[2017-09-11] MEDS: LACTOBACILLUS ACIDOPHILUS CAP (BACID) PO SCH ×3 (08:00→17:01)
--- NOTE | 2017-09-11 09:14 | REP ---
Urinary tract sonography: History: Acute on chronic renal failure. Comparison CT abdomen study is from September 09, 2017. Sonographic findings: Scanning through the level of the urinary bladder shows a Hearn catheter in an otherwise empty urinary bladder. Renal cortical echogenicity pattern is unremarkable. There are is no evidence of hydronephrosis on either side. Right renal dimensions are 10.1 x 6.3 x 5.2 cm. Left renal dimensions are 10.7 x 6.4 x 7.5 cm. No renal mass, cyst or a definite calculus is seen. There is a trace of free fluid in Morison's pouch between the liver and the right kidney. Incidental note is made of question of minimal amount of sludge in the gallbladder. Impression: No evidence of hydronephrosis. No cyst or mass seen. No calculus identified. Signed by Jose Angel Benavides MD 09/11/2017 09:38 A
[2017-09-11] MEDS: FLUTICASONE PROP 0.05% NASAL SPRAY 16 GM (FLONASE) SCH (09:21)
[2017-09-11] MEDS: NS 1,000 ML IV SCH ×2 (09:21→21:58)
[2017-09-11] MEDS: EUCERIN 120GM CREAM TOP SCH (09:22)
[2017-09-11] MEDS: TROSPIUM 20 MG TAB PO SCH ×2 (10:57→20:17)
[2017-09-11] MEDS: SINEMET 25-100 MG TAB PO SCH ×3 (10:57→20:17)
[2017-09-11] MEDS: OMEPRAZOLE 20 MG CAP PO SCH ×2 (10:57→20:16)
[2017-09-11] MEDS: SENOKOT S TAB PO SCH ×3 (10:57→20:17)
[2017-09-11 11:31] LABS: CREATININE FOR GFR 1.81 MG/DL (0.70-1.30); GLOMERULAR FILTRATION RATE 39.5 (>42); POTASSIUM SERUM 3.3 MEQ/L (3.5-5.1)
[2017-09-11 12:00] VITALS: BP 131/67
[2017-09-11] MEDS: VENLAFAXINE **XR** 75MG CAPSULE PO SCH (12:22)
[2017-09-11] MEDS: VITAMIN D 1,000 INTERNATIONAL UNITS TABLET PO SCH (12:22)
--- NOTE | 2017-09-11 13:57 | IPN ---
DATE: 09/11/2017 Patient seen and examined at the bedside. Chart has been reviewed. Patient continues to be febrile with T-max of 102. Microbiology grew out E. Coli. Two sets of blood cultures, most likely secondary to sepsis from UTI. White count however is improved from 16,000 on admission to 11,000. The patient has noted that he has been choking on solids. Swallow evaluation today was negative for aspiration. He was resumed back no his normal diet. Intake and output has been adequate through his Hearn catheter. He had 3.8 liters yesterday, current weight is 95.9 kg. He has no complaints of dysuria, urgency or frequency, or chills, despite fever of 102 T-max. Urinalysis was contaminated from admission. Vital signs: T-max of 102, current temperature 101. Blood pressure 130/78. Pulse of 118, respiratory rate of 30. 92% on 3 liters nasal cannula. Generally, awake, alert and oriented to person and place. No jugular venous distention (JVD). Lungs are diminished. Heart S1, S2. Sinus tachycardia. Abdomen is soft, nontender, nondistended. Suprapubic catheter noted. Extremities no cyanosis or clubbing. LABORATORY DATA: White count 11, hemoglobin 10, hematocrit 29, platelet count 149, sodium 131, potassium 3.3, chloride 99, bicarb 21, BUN 17, creatinine 1.8, glucose 107. Two sets of blood cultures 09/09, E. Coli. Urine culture contaminated 09/09. Methicillin-resistant Staphylococcus aureus (MRSA) and respiratory syncytial virus (RSV) panel was negative. ASSESSMENT/PLAN: This is a 72-year-old male with history of chronic indwelling Hearn catheter, changed monthly. History of cerebrovascular accident (CVA), chronic obstructive pulmonary disease (COPD), prior history of deep vein thrombosis (DVT), left sided weakness, reflux, Parkinson's, posttraumatic stress disorder (PTSD), and seizure disorder who presented to the emergency room with a three day history of fever, cloudy urine, altered mental status, found to have left sided pyelonephritis. CURRENT ISSUES: 1. Left sided acute pyelonephritis. The patient is currently on Zosyn. Urine culture was contaminated. No signs of Enterococcus on the blood culture. At this time, repeat UA to be done to rule out Enterococcus infection, then will discontinue and deescalate the patient's antibiotics. The patient will need 14 days of antibiotics for E. coli bacteremia, which appears to be transient from his pyelonephritis. White count is decreasing despite persistent fevers. Will change antibiotics once the patient is afebrile for 24 hours. 2. Acute on chronic renal failure. Creatinine 1.8 from baseline of 1.3 to 1.4. Avoid nephrotoxins. Renally dose all medications. Trial of IV fluids. 3. Dysphagia to solids. Nothing by mouth status, swallow evaluation. Rule out aspiration. If negative, may resume diet. 4. Parkinson's disease. Continue on home medications. 5. Hyperlipidemia. Continue simvastatin. History of seizure disorder. Continue on home medications. 5. Reflux. Continue omeprazole. 6. History of CVA with chronic right sided weakness. Physical therapy and occupational therapy. Patient will need continued intravenous antibiotics for at least 10 days to 14 days due to bacteremia. Await final culture results before changing antibiotics. The patient is medically stable for medical/surgical. [facility]
[2017-09-11 15:45] VITALS: BP 159/81
[2017-09-11 18:28] LABS: CALCIUM LEVEL 8.5 MG/DL (8.8-10.2); CREATININE FOR GFR 1.57 MG/DL (0.70-1.30); GLOMERULAR FILTRATION RATE 46.6 (>42); POTASSIUM SERUM 3.4 MEQ/L (3.5-5.1)
[2017-09-11] MEDS: ZONISAMIDE 100 MG CAP (ZONEGRAN) PO SCH (20:16)
[2017-09-11] MEDS: OLANZapine 2.5MG TABLET PO SCH (20:17)
[2017-09-11] MEDS: MIRTAZAPINE 15 MG TAB PO SCH (20:17)
[2017-09-11] MEDS: SIMVASTATIN 40 MG TAB PO SCH (21:57)
[2017-09-11 22:00] VITALS: BP 153/78
[2017-09-11] MEDS: TOBRADEX OPHTH OINT 3.5 GM OU SCH (23:36)
[2017-09-12] MEDS: PIPERACILLIN/TAZOBACTAM SOD 3.375 GM in APPROPRIATE DILUENT 1 EA IV SCH (02:10)
[2017-09-12] MEDS: ACETAMINOPHEN TAB 650MG DOSE (2X325MG) PO PRN (04:27)
[2017-09-12] MEDS: HEPARIN SOD (PORCINE) 5000 UNITS/ML VIAL SC SCH ×3 (05:44→21:25)
[2017-09-12 06:00] VITALS: BP 160/80
[2017-09-12 06:08] LABS: BASO % 0.1 % (0.0-1.0); EOS # 0.1 10^3/uL (0.0-0.50); EOS % 1.3 % (0.0-3.0); IMMATURE GRANULOCYTE % 0.9 % (0-0); LYMPH # 1.2 10^3/uL (1.5-4.5); LYMPH % 12.3 % (24.0-44.0); MEAN CORPUSCULAR HEMOGLOBIN 32.5 pg (27.0-33.0); MEAN CORPUSCULAR HGB CONC 34.5 g/dl (32.0-36.5); MEAN CORPUSCULAR VOLUME 94.2 fl (80.0-96.0); MONO % 10.6 % (0.0-5.0); NEUTROPHILS % 74.8 % (36.0-66.0); PLATELET COUNT, AUTOMATED 178 10^3/uL (150-450); RED CELL DISTRIBUTION WIDTH 14.1 % (11.5-14.5); WHITE BLOOD COUNT 9.4 10^3/uL (4.0-10.0)
[2017-09-12 07:28] LABS: CALCIUM LEVEL 8.3 MG/DL (8.8-10.2); CREATININE FOR GFR 1.42 MG/DL (0.70-1.30); GLOMERULAR FILTRATION RATE 52.3 (>42); POTASSIUM SERUM 3.4 MEQ/L (3.5-5.1)
--- NOTE | 2017-09-12 09:24 | IPNPDOC ---
Date Seen The patient was seen on 09/12/17. Progress Note SUBJECTIVE: Patient seen and examined at the bedside. Chart has been reviewed. He complains of generalized weakness and fatigue. Microbiology grew out E. Coli. Two sets of blood cultures, most likely secondary to sepsis from UTI. White count however is improved from 16,000 on admission to 11,000. The patient has noted that he has been choking on solids. Swallow evaluation was negative for aspiration. He was resumed back no his normal diet. He has no complaints of dysuria, urgency or frequency, or chills Urinalysis was contaminated from admission. Vital signs stable Generally, awake, alert and oriented to person and place. No jugular venous distention (JVD). Lungs are diminished. Heart S1, S2. Sinus tachycardia. Abdomen is soft, nontender, nondistended. Suprapubic catheter noted. Extremities no cyanosis or clubbing. LABORATORY DATA: reviewed Two sets of blood cultures 09/09, E. Coli. Urine culture contaminated 09/09. Methicillin-resistant Staphylococcus aureus (MRSA) and respiratory syncytial virus (RSV) panel was negative. ASSESSMENT/PLAN: This is a 72-year-old male with history of chronic indwelling Hearn catheter, changed monthly. History of cerebrovascular accident (CVA), chronic obstructive pulmonary disease (COPD), prior history of deep vein thrombosis (DVT), left sided weakness, reflux, Parkinson's, posttraumatic stress disorder (PTSD), and seizure disorder who presented to the emergency room with a three day history of fever, cloudy urine, altered mental status, found to have left sided pyelonephritis. CURRENT ISSUES: 1. Left sided acute pyelonephritis/Transient bacteremia from UTI. The patient is currently on Zosyn. Urine culture was contaminated. No signs of Enterococcus on the blood culture. At this time, repeat UA to be done to rule out Enterococcus infection, then will discontinue and deescalate the patient's antibiotics. The patient will need 14 days of antibiotics for E. coli bacteremia, which appears to be transient from his pyelonephritis. White count is decreasing despite persistent fevers. Will change antibiotics once the patient is afebrile for 24 hours. Awaiting urine culture prior to discontinuation of vancomycin for possible enterococcus. repeat ua still concerning with bacteremia and pyuria. 2. Acute on chronic renal failure. Creatinine 1.8 from baseline of 1.3 to 1.4. Avoid nephrotoxins. Renally dose all medications. Trial of IV fluids. 3. Dysphagia to solids.Swallow eval was negative for aspiration. may resume previous oral diet 4. Parkinson's disease. Continue on home medications. 5. Hyperlipidemia. Continue simvastatin. History of seizure disorder. Continue on home medications. 5. Reflux. Continue omeprazole. 6. Transient E. coli bacteremia secondary to acute pyelonepritis. white count is normal. will continue zosyn. 7. History of CVA with chronic right sided weakness. Physical therapy and occupational therapy. Patient will need continued intravenous antibiotics for at least 10 days to 14 days due to bacteremia. Await final culture results before changing antibiotics. The patient is medically stable for medical/surgical. VS, I&O, 24H, [facility] Vital Signs/I&O Vital Signs Date Time Temp Pulse Resp B/P (MAP) Pulse Ox O2 Delivery O2 Flow Rate FiO2 09/12/17 06:00 98.2 105 17 160/80 (106) 95 Nasal Cannula 3.0 Laboratory Data 24H LABS Laboratory Tests 2 09/11/17 10:58: Anion Gap 11, Glomerular Filtration Rate 39.5L, Blood Urea Nitrogen 17, Creatinine 1.81H, Sodium Level 131L, Potassium Level 3.3L, Chloride Level 99, Carbon Dioxide Level 21, Calcium Level 9.0, Vancomycin Level Trough 14.4 09/11/17 13:31: Urine Appearance CLOUDYH, Urine Color YELLOW, Urine pH 5.0, Urine Specific Elrod 1.013, Urine Protein 2+H, Urine Glucose (UA) NEGATIVE, Urine Ketones NEGATIVE, Urine Urobilinogen 0.2, Urine Bilirubin NEGATIVE, Urine Leukocyte Esterase 2+H, Urine Blood 2+H, Urine Nitrite NEGATIVE, Urine WBC (Auto) 26H, Urine RBC (Auto) 9H, Urine Hyaline Casts (Auto) 0, Urine Bacteria (Auto) 1+H, Urine Squamous Epithelial Cells 1, Urine Amorphous Sediment SMALLH, Urine Mucus (Auto) SMALL, Urine Sperm (Auto) 09/11/17 18:00: Anion Gap 10, Glomerular Filtration Rate 46.6, Blood Urea Nitrogen 18, Creatinine 1.57H, Sodium Level 130L, Potassium Level 3.4L, Chloride Level 99, Carbon Dioxide Level 21, Calcium Level 8.5L 09/12/17 05:38: Immature Granulocyte % (Auto) 0.9H, White Blood Count 9.4, Red Blood Count 2.77L , Hemoglobin 9.0L, Hematocrit 26.1L, Mean Corpuscular Volume 94.2, Mean Corpuscular Hemoglobin 32.5, Mean Corpuscular Hemoglobin Concent 34.5, Red Cell Distribution Width 14.1, Platelet Count 178, Neutrophils (%) (Auto) 74.8H, Lymphocytes (%) (Auto) 12.3L, Monocytes (%) (Auto) 10.6H, Eosinophils (%) (Auto ) 1.3, Basophils (%) (Auto) 0.1, Neutrophils # (Auto) 7.0, Lymphocytes # (Auto) 1.2L, Monocytes # (Auto) 1.0H, Eosinophils # (Auto) 0.1, Basophils # (Auto) 0.0 , Immature Granulocyte # (Auto) 0.1H, Nucleated Red Blood Cells % (auto) 0.0 CBC/BMP Laboratory Tests 09/11/17 10:58 Calcium Level 9.0 09/11/17 18:00 Calcium Level 8.5 L 09/12/17 05:38 Red Blood Count 2.77 L, Mean Corpuscular Volume 94.2, Mean Corpuscular Hemoglobin 32.5, Mean Corpuscular Hemoglobin Concent 34.5, Red Cell Distribution Width 14.1, Neutrophils (%) (Auto) 74.8 H, Lymphocytes (%) (Auto) 12.3 L, Monocytes (%) (Auto) 10.6 H, Eosinophils (%) (Auto) 1.3, Basophils (%) ( Auto) 0.1, Neutrophils # (Auto) 7.0, Lymphocytes # (Auto) 1.2 L, Monocytes # ( Auto) 1.0 H, Eosinophils # (Auto) 0.1, Basophils # (Auto) 0.0 Microbiology Microbiology 09/11/17 Blood Culture - Preliminary, Resulted No growth after 24 hours . All specim... 09/11/17 Blood Culture - Preliminary, Resulted No growth after 24 hours . All specim... 09/09/17 Blood Culture - Final, Complete Escherichia Coli 09/09/17 Blood Culture - Final, Complete Escherichia Coli 09/09/17 MRSA Screen - Final, Complete 09/09/17 Respiratory Virus Panel (PCR) ([facility]) - Final, Complete 09/09/17 Urine Culture - Final, Complete VIRAJ,RADHA C. MD Sep 12, 2017 07:12
[2017-09-12] MEDS: SINEMET 25-100 MG TAB PO SCH ×3 (10:22→21:23)
[2017-09-12] MEDS: SENOKOT S TAB PO SCH ×3 (10:22→21:23)
[2017-09-12] MEDS: OMEPRAZOLE 20 MG CAP PO SCH ×2 (10:22→21:23)
[2017-09-12] MEDS: VITAMIN D 1,000 INTERNATIONAL UNITS TABLET PO SCH (10:22)
[2017-09-12] MEDS: LACTOBACILLUS ACIDOPHILUS CAP (BACID) PO SCH ×3 (10:22→17:38)
[2017-09-12] MEDS: TROSPIUM 20 MG TAB PO SCH ×2 (10:22→21:32)
[2017-09-12] MEDS: FLUTICASONE PROP 0.05% NASAL SPRAY 16 GM (FLONASE) SCH (10:23)
[2017-09-12] MEDS: EUCERIN 120GM CREAM TOP SCH (10:23)
[2017-09-12] MEDS: CEFTRIAXONE SOD 2 GM in APPROPRIATE DILUENT 1 EA IV SCH (11:15)
[2017-09-12] MEDS: VENLAFAXINE **XR** 75MG CAPSULE PO SCH (13:59)
[2017-09-12 14:00] VITALS: BP 130/72
[2017-09-12] MEDS: VANCOMYCIN HCL 1,000 MG, VIAL MATE ADAPTER 1 EACH in D5W 250 ML IV SCH ×2 (14:00→23:58)
--- NOTE | 2017-09-12 15:10 | EEG ---
DATE OF PROCEDURE: 09/11/2017 REFERRING PHYSICIAN: Dr. Christina Fong DIAGNOSIS: Lethargy, history of seizures. EEG NUMBER: [id number]. HISTORY: The patient is a 72-year-old man with a history of stroke and seizures who was admitted to [facility] due to subjective fever, malaise and generalized weakness. This EEG was done to rule out epileptic potential. He is currently taking vancomycin, Zosyn, zonisamide, Sinemet, Zyprexa, mirtazapine, Effexor, simvastatin. TECHNICAL DESCRIPTION: This digital EEG was recorded by 21 scalp, ear and two EKG electrodes and was reviewed in bipolar and referential montages following reformatting in 10-20 international electrode placement system. INTERPRETATION: The patient was noted to be in awake and drowsy states during this EEG. Resting awake background rhythm consisted of 7 Hz theta activity measuring 15-50 microvolts in amplitude. Stage I and II sleep were reviewed and were symmetric bilaterally. Hyperventilation could not be performed. Photic stimulation remained unremarkable. EKG revealed normal sinus rhythm. No focal, lateralizing or epileptiform abnormalities were seen. No clinical or electrographic seizures were recorded. CONCLUSION: This EEG in awake, drowsy states, stage I and II sleep is abnormal due to presence of mild generalized slowing and disorganization of background consistent with nonspecific diffuse cerebral dysfunction such as seen in encephalopathy due to multiple potential causes. No epileptiform abnormalities were seen. Clinical correlation is recommended.
[2017-09-12] MEDS: SIMVASTATIN 40 MG TAB PO SCH (21:22)
[2017-09-12] MEDS: ZONISAMIDE 100 MG CAP (ZONEGRAN) PO SCH (21:23)
[2017-09-12] MEDS: OLANZapine 2.5MG TABLET PO SCH (21:23)
[2017-09-12] MEDS: TOBRADEX OPHTH OINT 3.5 GM OU SCH (21:24)
[2017-09-12] MEDS: MIRTAZAPINE 15 MG TAB PO SCH (21:24)
[2017-09-13 05:53] LABS: BASO % 0.4 % (0.0-1.0); EOS # 0.2 10^3/uL (0.0-0.50); EOS % 1.4 % (0.0-3.0); IMMATURE GRANULOCYTE % 1.6 % (0-0); LYMPH # 1.3 10^3/uL (1.5-4.5); LYMPH % 11.2 % (24.0-44.0); MEAN CORPUSCULAR HEMOGLOBIN 32.4 pg (27.0-33.0); MEAN CORPUSCULAR HGB CONC 34.7 g/dl (32.0-36.5); MEAN CORPUSCULAR VOLUME 93.6 fl (80.0-96.0); MONO # 1.2 10^3/uL (0.0-0.8); MONO % 10.2 % (0.0-5.0); NEUTROPHILS # 8.6 10^3/uL (1.8-7.7); NEUTROPHILS % 75.2 % (36.0-66.0); PLATELET COUNT, AUTOMATED 250 10^3/uL (150-450); RED CELL DISTRIBUTION WIDTH 14.3 % (11.5-14.5); WHITE BLOOD COUNT 11.4 10^3/uL (4.0-10.0)
[2017-09-13 06:00] VITALS: BP 142/77
[2017-09-13 06:10] LABS: CALCIUM LEVEL 9.3 MG/DL (8.8-10.2); CREATININE FOR GFR 1.36 MG/DL (0.70-1.30); POTASSIUM SERUM 3.1 MEQ/L (3.5-5.1)
[2017-09-13] MEDS: HEPARIN SOD (PORCINE) 5000 UNITS/ML VIAL SC SCH ×3 (06:13→21:53)
[2017-09-13] MEDS ORDERED: POTASSIUM CHLORIDE 10 MEQ SR TABLET PO ONE (08:00)
--- NOTE | 2017-09-13 08:24 | IPNPDOC ---
Date Seen The patient was seen on 09/13/17. Progress Note Patient seen and examined at the bedside. Chart has been reviewed. He complains of generalized weakness and fatigue, improved from yesterday. He denies fever. Microbiology grew out E. Coli. Two sets of blood cultures, most likely secondary to sepsis from UTI. White count however is improved from 16,000 on admission to 11,000. The patient has noted that he has been choking on solids. Swallow evaluation was negative for aspiration. He was resumed back no his normal diet. He has no complaints of dysuria, urgency or frequency, or chills Urinalysis was contaminated from admission. Vital signs stable Generally, awake, alert and oriented to person and place. No jugular venous distention (JVD). Lungs are diminished. Heart S1, S2. Sinus tachycardia. Abdomen is soft, nontender, nondistended. Suprapubic catheter noted. Extremities no cyanosis or clubbing. LABORATORY DATA: reviewed Two sets of blood cultures 09/09, E. Coli. Urine culture contaminated 09/09. Methicillin-resistant Staphylococcus aureus (MRSA) and respiratory syncytial virus (RSV) panel was negative. ASSESSMENT/PLAN: This is a 72-year-old male with history of chronic indwelling Hearn catheter, changed monthly. History of cerebrovascular accident (CVA), chronic obstructive pulmonary disease (COPD), prior history of deep vein thrombosis (DVT), left sided weakness, reflux, Parkinson's, posttraumatic stress disorder (PTSD), and seizure disorder who presented to the emergency room with a three day history of fever, cloudy urine, altered mental status, found to have left sided pyelonephritis. CURRENT ISSUES: 1. Left sided acute pyelonephritis/Transient bacteremia from UTI. The patient is currently on Zosyn. Urine culture was contaminated. No signs of Enterococcus on the blood culture. At this time, repeat UA to be done to rule out Enterococcus infection, then will discontinue and deescalate the patient's antibiotics. The patient will need 14 days of antibiotics for E. coli bacteremia, which appears to be transient from his pyelonephritis. White count is decreasing despite persistent fevers. Will change antibiotics once the patient is afebrile for 24 hours. Awaiting urine culture prior to discontinuation of vancomycin for possible enterococcus. repeat ua still concerning with bacteremia and pyuria. 2. Acute on chronic renal failure. Creatinine 1.8 from baseline of 1.3 to 1.4. Avoid nephrotoxins. Renally dose all medications. Trial of IV fluids. 3. Dysphagia to solids.Swallow eval was negative for aspiration. may resume previous oral diet 4. Parkinson's disease. Continue on home medications. 5. Hyperlipidemia. Continue simvastatin. History of seizure disorder. Continue on home medications. 5. Reflux. Continue omeprazole. 6. Transient E. coli bacteremia secondary to acute pyelonepritis. white count is normal. will continue zosyn. 7. History of CVA with chronic right sided weakness. Physical therapy and occupational therapy. Patient will need continued intravenous antibiotics for at least 10 days to 14 days due to bacteremia. Await final urine culture results before changing antibiotics. Discontinue vancomycin if negative enterococcus in urine culture. VS, I&O, 24H, [facility] Vital Signs/I&O Vital Signs Date Time Temp Pulse Resp B/P (MAP) Pulse Ox O2 Delivery O2 Flow Rate FiO2 09/12/17 22:00 98.6 74 20 94 Nasal Cannula 3.0 09/12/17 14:00 130/72 (91) Laboratory Data Microbiology Microbiology 09/11/17 Blood Culture - Preliminary, Resulted No growth after 24 hours . All specim... 09/11/17 Blood Culture - Preliminary, Resulted No growth after 24 hours . All specim... 09/09/17 Blood Culture - Final, Complete Escherichia Coli 09/09/17 Blood Culture - Final, Complete Escherichia Coli 09/09/17 MRSA Screen - Final, Complete 09/09/17 Respiratory Virus Panel (PCR) ([facility]) - Final, Complete 09/12/17 Urine Culture, Received Pending 09/09/17 Urine Culture - Final, Complete RADHA CALI MD Sep 13, 2017 05:44
[2017-09-13] MEDS: SINEMET 25-100 MG TAB PO SCH ×3 (09:56→21:53)
[2017-09-13] MEDS: SENOKOT S TAB PO SCH ×3 (09:56→21:53)
[2017-09-13] MEDS: TROSPIUM 20 MG TAB PO SCH ×2 (09:56→21:55)
[2017-09-13] MEDS: OMEPRAZOLE 20 MG CAP PO SCH ×2 (09:56→21:53)
[2017-09-13] MEDS: VITAMIN D 1,000 INTERNATIONAL UNITS TABLET PO SCH (09:56)
[2017-09-13] MEDS: LACTOBACILLUS ACIDOPHILUS CAP (BACID) PO SCH ×3 (09:56→17:10)
[2017-09-13] MEDS: EUCERIN 120GM CREAM TOP SCH (09:57)
[2017-09-13] MEDS: FLUTICASONE PROP 0.05% NASAL SPRAY 16 GM (FLONASE) SCH (09:57)
[2017-09-13] MEDS: CEFTRIAXONE SOD 2 GM in APPROPRIATE DILUENT 1 EA IV SCH (10:07)
--- NOTE | 2017-09-13 12:02 | PHACANCOPD ---
PHARMACY VANCOMYCIN DOSING Pt Demographics Demographics Patient Age:72 , Weight:95.900 , Gender: male Adjusted Body Weight Date: 09/09/17, Adjusted Body Weight: Kg Events Past 24 Hours Events Past 24 Hours: YES: Change in CrCl, NO: Dialysis, Diuretic Therapy, Fever, Elevation in WBC, Pending Diagnostics , Pending Procedures, Other Vancomycin Vancomycin indication: UTI - ENTEROCOCCUS Vancomycin Target Ranges: 10-20 mcg/ml Vancomycin Load Y/N: No Load Dose Date Time Vancomycin Load Dose: Date: Time: Vancomycin Dose Date: 09/13/17. Current Vancomycin Dose: [750mg IV q12h @16] Date: 09/09/17. Current Vancomycin Dose: [1g IV Q12H] Intermittent Dosing?: No Labs Labs Item Value Date Time White Blood Count 11.4 10^3/uL H 09/13/17 0515 White Blood Count 9.4 10^3/uL 09/12/17 0538 White Blood Count 11.0 10^3/uL H 09/11/17 0516 Vancomycin Level Trough 21.4 UG/ML H 09/13/17 1056 Vancomycin Level Trough 14.4 UG/ML 09/11/17 1058 Creatinine 1.36 MG/DL H 09/13/17 0515 Creatinine 1.42 MG/DL H 09/12/17 0538 Creatinine 1.57 MG/DL H 09/11/17 1800 Micro Microbiology 09/11/17 Blood Culture - Preliminary, Resulted No Growth after 48 hours. All Specime... 09/11/17 Blood Culture - Preliminary, Resulted No Growth after 48 hours. All Specime... 09/09/17 Blood Culture - Final, Complete Escherichia Coli 09/09/17 Blood Culture - Final, Complete Escherichia Coli 09/09/17 MRSA Screen - Final, Complete 09/09/17 Respiratory Virus Panel (PCR) ([facility]) - Final, Complete 09/12/17 Urine Culture, Received Pending 09/09/17 Urine Culture - Final, Complete Creatinine Clearance Date:09/09/17. Estimated Creatinine Clearance: [~49ml/min]. Assessment and Plan Maintaining Current Dose?: No Reason for dose change: Change in serum Cr, Trough too high Pharmacist Note Pharmacist Note Date: 09/13/17. Pharmacist note: repeat vanco trough came back high at 21.4 mcg/ ml. I have reduced his dosing to 750mg IV q12h. First urine culture was contaminated, repeat urine culture done yesterday is pending. Blood cultures positive for E. coli x2, on IV Rocephin. MRSA screen is negative. SCr continues to fluctuate. We will continue to monitor renal function and make adjustments as necessary. Date: 09/09/17. Pharmacist note: Day #1 IV vancomycin initiated at 1g IV Q12H for the treatment of a UTI - aiming for a goal trough of 10-20mcg/ml. The patient has a chronic indwelling leon catheter and a remarkable urinalysis with WBC TNTC and + leukocyte esterase. WBC, bands, and pulse are all elevated. The patient is currently afebrile. No PMH of MRSA or vanco use here at [facility]. The patient's baseline scr is ~1, and his current scr is 1.38. We will continue to monitor and schedule a vancomycin trough when needed. Tino Suazo.D. Sep 13, 2017 12:02
[2017-09-13 14:00] VITALS: BP 130/77
[2017-09-13] MEDS: VENLAFAXINE **XR** 75MG CAPSULE PO SCH (14:22)
[2017-09-13] MEDS: VANCOMYCIN HCL 750 MG, VIAL MATE ADAPTER 1 EACH in D5W 250 ML IV SCH (17:10)
[2017-09-13] MEDS: ZONISAMIDE 100 MG CAP (ZONEGRAN) PO SCH (21:54)
[2017-09-13] MEDS: SIMVASTATIN 40 MG TAB PO SCH (21:55)
[2017-09-13] MEDS: MIRTAZAPINE 15 MG TAB PO SCH (21:55)
[2017-09-13] MEDS: OLANZapine 2.5MG TABLET PO SCH (21:56)
[2017-09-13] MEDS: TOBRADEX OPHTH OINT 3.5 GM OU SCH (21:56)
[2017-09-13 22:00] VITALS: BP 156/84
[2017-09-14] MEDS: VANCOMYCIN HCL 750 MG, VIAL MATE ADAPTER 1 EACH in D5W 250 ML IV SCH ×2 (03:52→15:59)
[2017-09-14 06:00] VITALS: BP 132/71
[2017-09-14] MEDS: HEPARIN SOD (PORCINE) 5000 UNITS/ML VIAL SC SCH ×3 (06:01→22:18)
[2017-09-14 06:11] LABS: BASO # 0.1 10^3/uL (0.0-0.2); BASO % 0.4 % (0.0-1.0); EOS # 0.1 10^3/uL (0.0-0.50); EOS % 1.1 % (0.0-3.0); IMMATURE GRANULOCYTE % 2.2 % (0-0); LYMPH # 1.9 10^3/uL (1.5-4.5); LYMPH % 16.6 % (24.0-44.0); MEAN CORPUSCULAR HEMOGLOBIN 32.9 pg (27.0-33.0); MEAN CORPUSCULAR HGB CONC 35.1 g/dl (32.0-36.5); MEAN CORPUSCULAR VOLUME 93.6 fl (80.0-96.0); MONO # 1.2 10^3/uL (0.0-0.8); MONO % 10.1 % (0.0-5.0); NEUTROPHILS % 69.6 % (36.0-66.0); PLATELET COUNT, AUTOMATED 327 10^3/uL (150-450); RED CELL DISTRIBUTION WIDTH 14.6 % (11.5-14.5); WHITE BLOOD COUNT 11.5 10^3/uL (4.0-10.0)
[2017-09-14 07:05] LABS: CALCIUM LEVEL 9.3 MG/DL (8.8-10.2); CREATININE FOR GFR 1.31 MG/DL (0.70-1.30); GLOMERULAR FILTRATION RATE 57.4 (>42); POTASSIUM SERUM 3.4 MEQ/L (3.5-5.1)
[2017-09-14] MEDS: TROSPIUM 20 MG TAB PO SCH ×2 (10:18→22:17)
[2017-09-14] MEDS: SENOKOT S TAB PO SCH ×3 (10:18→22:16)
[2017-09-14] MEDS: LACTOBACILLUS ACIDOPHILUS CAP (BACID) PO SCH ×3 (10:18→18:05)
[2017-09-14] MEDS: OMEPRAZOLE 20 MG CAP PO SCH ×2 (10:18→22:17)
[2017-09-14] MEDS: SINEMET 25-100 MG TAB PO SCH ×3 (10:19→22:17)
[2017-09-14] MEDS: EUCERIN 120GM CREAM TOP SCH (10:19)
[2017-09-14] MEDS: VITAMIN D 1,000 INTERNATIONAL UNITS TABLET PO SCH (10:19)
[2017-09-14] MEDS: FLUTICASONE PROP 0.05% NASAL SPRAY 16 GM (FLONASE) SCH (10:19)
[2017-09-14] MEDS: CEFTRIAXONE SOD 2 GM in APPROPRIATE DILUENT 1 EA IV SCH (10:21)
--- NOTE | 2017-09-14 11:13 | IPNPDOC ---
Date Seen The patient was seen on 09/14/17. Progress Note SUBJECTIVE: Patient seen and examined at the bedside. Chart has been reviewed. He is anxious to go home, but complains of generalized weakness and fatigue, improved from yesterday. He denies fever. Microbiology grew out E. Coli. Two sets of blood cultures, most likely secondary to sepsis from UTI. White count however is improved from 16,000 on admission to 11,000. The patient has noted that he has been choking on solids. Swallow evaluation was negative for aspiration. He was resumed back no his normal diet. He has no complaints of dysuria, urgency or frequency, or chills Urinalysis was contaminated from admission. Vital signs stable Generally, awake, alert and oriented to person and place. No jugular venous distention (JVD). Lungs are diminished. Heart S1, S2. Sinus tachycardia. Abdomen is soft, nontender, nondistended. Suprapubic catheter noted. Extremities no cyanosis or clubbing. LABORATORY DATA: reviewed Two sets of blood cultures 09/09, E. Coli. Urine culture contaminated 09/09. Methicillin-resistant Staphylococcus aureus (MRSA) and respiratory syncytial virus (RSV) panel was negative. ASSESSMENT/PLAN: This is a 72-year-old male with history of chronic indwelling Hearn catheter, changed monthly. History of cerebrovascular accident (CVA), chronic obstructive pulmonary disease (COPD), prior history of deep vein thrombosis (DVT), left sided weakness, reflux, Parkinson's, posttraumatic stress disorder (PTSD), and seizure disorder who presented to the emergency room with a three day history of fever, cloudy urine, altered mental status, found to have left sided pyelonephritis. CURRENT ISSUES: 1. Left sided acute pyelonephritis/Transient bacteremia from UTI. The patient is on ceftriaxone and vancomycin, s/p zosyn. Urine culture was contaminated. No signs of Enterococcus on the blood culture. At this time, repeat UA and waiting for urine culture to rule out Enterococcus infection, then will discontinue vancomycin and deescalate the patient's antibiotics. The patient will need 14 days of antibiotics for E. coli bacteremia, which appears to be transient from his pyelonephritis. Afebrile and feeling better.Awaiting urine culture prior to discontinuation of vancomycin for possible enterococcus. 2. Acute on chronic renal failure. resolved. Avoid nephrotoxins. Renally dose all medications. s/p Trial of IV fluids. 3. Dysphagia to solids.Swallow eval was negative for aspiration. may resume previous oral diet 4. Parkinson's disease. Continue on home medications. 5. Hyperlipidemia. Continue simvastatin. History of seizure disorder. Continue on home medications. 5. Reflux. Continue omeprazole. 6. Transient E. coli bacteremia secondary to acute pyelonephritis. white count is normal. will continue zosyn. 7. History of CVA with chronic right sided weakness. Physical therapy and occupational therapy. Disposition: Awaiting physical therapy clearance. Patient will need antibiotics for at least 10 days to 14 days for pyelonephritis and transient bacteremia. Await final urine culture results before hospital discharge. Discontinue vancomycin if negative enterococcus in urine culture. VS, I&O, 24H, Fishbone Vital Signs/I&O Vital Signs Date Time Temp Pulse Resp B/P (MAP) Pulse Ox O2 Delivery O2 Flow Rate FiO2 09/14/17 06:00 98.0 103 20 132/71 (91) 96 Nasal Cannula 2.0 Laboratory Data 24H LABS Laboratory Tests 2 09/13/17 10:56: Vancomycin Level Trough 21.4H 09/14/17 05:46: Immature Granulocyte % (Auto) 2.2H, White Blood Count 11.5H, Red Blood Count 2.98L, Hemoglobin 9.8L, Hematocrit 27.9L, Mean Corpuscular Volume 93.6, Mean Corpuscular Hemoglobin 32.9, Mean Corpuscular Hemoglobin Concent 35.1, Red Cell Distribution Width 14.6H, Platelet Count 327, Neutrophils (%) (Auto) 69.6H, Lymphocytes (%) (Auto) 16.6L, Monocytes (%) (Auto) 10.1H, Eosinophils (%) (Auto ) 1.1, Basophils (%) (Auto) 0.4, Neutrophils # (Auto) 8.0H, Lymphocytes # (Auto ) 1.9, Monocytes # (Auto) 1.2H, Eosinophils # (Auto) 0.1, Basophils # (Auto) 0.1 , Immature Granulocyte # (Auto) 0.3H, Nucleated Red Blood Cells % (auto) 0.0 CBC/BMP Laboratory Tests 09/14/17 05:46 Red Blood Count 2.98 L, Mean Corpuscular Volume 93.6, Mean Corpuscular Hemoglobin 32.9, Mean Corpuscular Hemoglobin Concent 35.1, Red Cell Distribution Width 14.6 H, Neutrophils (%) (Auto) 69.6 H, Lymphocytes (%) (Auto ) 16.6 L, Monocytes (%) (Auto) 10.1 H, Eosinophils (%) (Auto) 1.1, Basophils (% ) (Auto) 0.4, Neutrophils # (Auto) 8.0 H, Lymphocytes # (Auto) 1.9, Monocytes # (Auto) 1.2 H, Eosinophils # (Auto) 0.1, Basophils # (Auto) 0.1 Microbiology Microbiology 09/11/17 Blood Culture - Preliminary, Resulted No Growth after 72 hours. All specime... 09/11/17 Blood Culture - Preliminary, Resulted No Growth after 72 hours. All specime... 09/09/17 Blood Culture - Final, Complete Escherichia Coli 09/09/17 Blood Culture - Final, Complete Escherichia Coli 09/09/17 MRSA Screen - Final, Complete 09/09/17 Respiratory Virus Panel (PCR) ([facility]) - Final, Complete 09/12/17 Urine Culture, Received Pending 09/09/17 Urine Culture - Final, Complete RADHA CALI MD Sep 14, 2017 06:48
[2017-09-14] MEDS: VENLAFAXINE **XR** 75MG CAPSULE PO SCH (12:43)
[2017-09-14 14:00] VITALS: BP 129/72
[2017-09-14] MEDS: TOBRADEX OPHTH OINT 3.5 GM OU SCH (21:00)
[2017-09-14 22:00] VITALS: BP 143/81
[2017-09-14] MEDS: ZONISAMIDE 100 MG CAP (ZONEGRAN) PO SCH (22:16)
[2017-09-14] MEDS: OLANZapine 2.5MG TABLET PO SCH (22:16)
[2017-09-14] MEDS: MIRTAZAPINE 15 MG TAB PO SCH (22:17)
[2017-09-14] MEDS: SIMVASTATIN 40 MG TAB PO SCH (22:18)
[2017-09-15] MEDS: VANCOMYCIN HCL 750 MG, VIAL MATE ADAPTER 1 EACH in D5W 250 ML IV SCH ×2 (04:02→16:49)
[2017-09-15] MEDS: HEPARIN SOD (PORCINE) 5000 UNITS/ML VIAL SC SCH ×3 (05:48→21:53)
[2017-09-15 06:00] VITALS: BP 134/91
--- NOTE | 2017-09-15 07:49 | PHACANCOPD ---
PHARMACY VANCOMYCIN DOSING Pt Demographics Demographics Patient Age:72 , Weight:95.900 , Gender: male Adjusted Body Weight Date: 09/09/17, Adjusted Body Weight: Kg Vancomycin Vancomycin indication: UTI - ENTEROCOCCUS Vancomycin Target Ranges: 10-20 mcg/ml Vancomycin Load Y/N: No Load Dose Date Time Vancomycin Load Dose: Date: Time: Vancomycin Dose Date: 09/13/17. Current Vancomycin Dose: [750mg IV q12h @16] Date: 09/09/17. Current Vancomycin Dose: [1g IV Q12H] Intermittent Dosing?: No Labs Micro Microbiology 09/11/17 Blood Culture - Preliminary, Resulted No Growth after 72 hours. All specime... 09/11/17 Blood Culture - Preliminary, Resulted No Growth after 72 hours. All specime... 09/09/17 Blood Culture - Final, Complete Escherichia Coli 09/09/17 Blood Culture - Final, Complete Escherichia Coli 09/09/17 MRSA Screen - Final, Complete 09/09/17 Respiratory Virus Panel (PCR) ([facility]) - Final, Complete 09/12/17 Urine Culture, Received Pending 09/09/17 Urine Culture - Final, Complete Creatinine Clearance Date:09/09/17. Estimated Creatinine Clearance: [~49ml/min]. Assessment and Plan Maintaining Current Dose?: Yes Reason for dose change: No Dose Change Pharmacist Note Pharmacist Note 09/15/17: I have scheduled a follow-up vancomycin trough to be drawn today at 1500, prior to the 5th dose on the new 750mg q12h regimen, to ensure that the pt is therapeutic. Urine culture is still pending. We will continue to monitor and make further dose adjustments if needed. Date: 09/13/17. Pharmacist note: repeat vanco trough came back high at 21.4 mcg/ ml. I have reduced his dosing to 750mg IV q12h. First urine culture was contaminated, repeat urine culture done yesterday is pending. Blood cultures positive for E. coli x2, on IV Rocephin. MRSA screen is negative. SCr continues to fluctuate. We will continue to monitor renal function and make adjustments as necessary. Date: 09/09/17. Pharmacist note: Day #1 IV vancomycin initiated at 1g IV Q12H for the treatment of a UTI - aiming for a goal trough of 10-20mcg/ml. The patient has a chronic indwelling leon catheter and a remarkable urinalysis with WBC TNTC and + leukocyte esterase. WBC, bands, and pulse are all elevated. The patient is currently afebrile. No PMH of MRSA or vanco use here at [facility]. The patient's baseline scr is ~1, and his current scr is 1.38. We will continue to monitor and schedule a vancomycin trough when needed. [facility] Sep 15, 2017 07:49
[2017-09-15] MEDS: LACTOBACILLUS ACIDOPHILUS CAP (BACID) PO SCH ×3 (07:56→16:49)
[2017-09-15] MEDS: TROSPIUM 20 MG TAB PO SCH ×2 (09:23→21:54)
[2017-09-15] MEDS: VITAMIN D 1,000 INTERNATIONAL UNITS TABLET PO SCH (09:24)
[2017-09-15] MEDS: SINEMET 25-100 MG TAB PO SCH ×3 (09:24→21:54)
[2017-09-15] MEDS: SENOKOT S TAB PO SCH ×3 (09:24→21:54)
[2017-09-15] MEDS: OMEPRAZOLE 20 MG CAP PO SCH ×2 (09:24→21:54)
[2017-09-15] MEDS: FLUTICASONE PROP 0.05% NASAL SPRAY 16 GM (FLONASE) SCH (09:25)
[2017-09-15] MEDS: EUCERIN 120GM CREAM TOP SCH (09:25)
[2017-09-15 10:00] VITALS: BP 158/90
[2017-09-15] MEDS: CEFTRIAXONE SOD 2 GM in APPROPRIATE DILUENT 1 EA IV SCH (10:30)
[2017-09-15] MEDS: VENLAFAXINE **XR** 75MG CAPSULE PO SCH (13:18)
--- NOTE | 2017-09-15 13:32 | IPNPDOC ---
Text Note Date of Service The patient was seen on 09/15/17. NOTE SUBJECTIVE: Patient seen and examined at the bedside. Does not offer any new complaints. Does say he still has some abdominal pain. No fever or chills, no chest pain or cough , says his left side is weak. PHYSICAL EXAM: Vital signs : as below General : awake, alert and oriented to person and place. HEENT: Normocephalic atraumatic , moist mucus membranes, anicteric eyes. NECK: No jugular venous distention (JVD). RESP: Bilateral vesicular breath sounds, no ronchi or crackles. CVS: Heart S1, S2 regular, no rub murmur or gallop. Abdomen : soft, nontender, nondistended. Suprapubic catheter noted. Extremities: no cyanosis or clubbing. LABORATORY DATA: reviewed Two sets of blood cultures 09/09, E. Coli. Urine culture contaminated 09/09. Methicillin-resistant Staphylococcus aureus (MRSA) and respiratory syncytial virus (RSV) panel was negative. 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 PLAN: Acute pyelonephritis from UTI related to chronic suprapubic catheter: The patient is on ceftriaxone and vancomycin. Urine culture initially contaminated awaiting new one. will continue current antibiotics till final culture back. Transient E. coli bacteremia secondary to acute pyelonephritis. white count is normal. will continue ceftriaxone and vancomycin till final urine cultures are back. Encephalopathy: from infection on the background of dementia. Acute on chronic renal failure. resolved. Avoid nephrotoxins. Renally dose all medications. s/p Trial of IV fluids. Dysphagia to solids.Swallow evaluation was negative for aspiration. Parkinson's disease. Continue on home medications. Hyperlipidemia. Continue simvastatin. History of seizure disorder. Continue on home medications. Reflux. Continue omeprazole. History of CVA with chronic left sided weakness. Physical therapy and occupational therapy. Dementia: related to old CVA and parkinsons disease. will continue with donepezil COPD with chronic respiratory failure with hypoxia : will continue with prn nebulizations and oxygen. History of Urinary retention: Has chronic suprapubic catheter Disposition: Awaiting physical therapy clearance. Patient will need antibiotics for at least 10 days to 14 days for pyelonephritis and transient bacteremia. Await final urine culture results before hospital discharge. Discontinue vancomycin if negative enterococcus in urine culture. VS,Fishbone, I+O VS, Fishbone, I+O Vital Signs Date Time Temp Pulse Resp B/P (MAP) Pulse Ox O2 Delivery O2 Flow Rate FiO2 09/15/17 10:00 98.1 124 17 158/90 (112) 92 Nasal Cannula 2.0 I&O- Last 24 Hours up to 6 AM 09/16/17 06:00 Intake Total 480 ml Output Total 1200 ml Balance -720 ml TITO LUNA MD Sep 15, 2017 13:31
[2017-09-15 14:00] VITALS: BP 134/68
[2017-09-15] MEDS: DONEPEZIL 5 MG TAB PO SCH (16:49)
[2017-09-15] MEDS: OLANZapine 2.5MG TABLET PO SCH (21:53)
[2017-09-15] MEDS: ZONISAMIDE 100 MG CAP (ZONEGRAN) PO SCH (21:53)
[2017-09-15] MEDS: MIRTAZAPINE 15 MG TAB PO SCH (21:54)
[2017-09-15] MEDS: SIMVASTATIN 40 MG TAB PO SCH (21:54)
[2017-09-15] MEDS: PHENobarbital 30 MG TAB PO SCH (21:54)
[2017-09-15] MEDS: TOBRADEX OPHTH OINT 3.5 GM OU SCH (21:55)
[2017-09-15 22:00] VITALS: BP 133/73
[2017-09-15] MEDS: ACETAMINOPHEN TAB 650MG DOSE (2X325MG) PO PRN (22:01)
[2017-09-16] MEDS: VANCOMYCIN HCL 750 MG, VIAL MATE ADAPTER 1 EACH in D5W 250 ML IV SCH ×2 (03:52→16:45)
[2017-09-16 06:00] VITALS: BP 155/84
[2017-09-16] MEDS: HEPARIN SOD (PORCINE) 5000 UNITS/ML VIAL SC SCH ×3 (06:00→23:12)
[2017-09-16 06:31] LABS: MEAN CORPUSCULAR HEMOGLOBIN 31.9 pg (27.0-33.0); MEAN CORPUSCULAR HGB CONC 34.4 g/dl (32.0-36.5); MEAN CORPUSCULAR VOLUME 92.9 fl (80.0-96.0); PLATELET COUNT, AUTOMATED 438 10^3/uL (150-450); RED CELL DISTRIBUTION WIDTH 15.1 % (11.5-14.5); WHITE BLOOD COUNT 13.8 10^3/uL (4.0-10.0)
[2017-09-16 06:34] LABS: ADD MANUAL DIFFER YES; DIFF SLIDE NUMBER 82; POS COUNT POS FLAG; POSITIVE MORPH POS FLAG
[2017-09-16 06:56] LABS: CALCIUM LEVEL 9.9 MG/DL (8.8-10.2); CREATININE FOR GFR 1.29 MG/DL (0.70-1.30); GLOMERULAR FILTRATION RATE 58.5 (>42); POTASSIUM SERUM 3.4 MEQ/L (3.5-5.1)
[2017-09-16 08:42] LABS: BASOPHILS 1 % (0-4); EOSINOPHILS 2 % (0-5)
[2017-09-16] MEDS: LACTOBACILLUS ACIDOPHILUS CAP (BACID) PO SCH ×3 (08:42→16:45)
[2017-09-16 10:00] VITALS: BP 160/80
[2017-09-16] MEDS: FLUTICASONE PROP 0.05% NASAL SPRAY 16 GM (FLONASE) SCH (10:29)
[2017-09-16] MEDS: EUCERIN 120GM CREAM TOP SCH (10:30)
[2017-09-16] MEDS: SINEMET 25-100 MG TAB PO SCH ×3 (10:31→23:11)
[2017-09-16] MEDS: OMEPRAZOLE 20 MG CAP PO SCH ×2 (10:31→23:11)
[2017-09-16] MEDS: TROSPIUM 20 MG TAB PO SCH ×2 (10:31→23:11)
[2017-09-16] MEDS: SENOKOT S TAB PO SCH ×3 (10:31→23:11)
[2017-09-16] MEDS: VITAMIN D 1,000 INTERNATIONAL UNITS TABLET PO SCH (10:32)
[2017-09-16] MEDS: DONEPEZIL 5 MG TAB PO SCH (10:32)
[2017-09-16] MEDS: CEFTRIAXONE SOD 2 GM in APPROPRIATE DILUENT 1 EA IV SCH (10:48)
[2017-09-16] MEDS: VENLAFAXINE **XR** 75MG CAPSULE PO SCH (11:43)
--- NOTE | 2017-09-16 11:48 | IPNPDOC ---
Text Note Date of Service The patient was seen on 09/16/17. NOTE SUBJECTIVE: Patient seen and examined at the bedside. Does say he still has some abdominal discomfort. Denies vomiting or nausea. Has been having soft bowel movements. No fever or chills, no chest pain or cough , says his left side is weak. A bed bug was found on the patient at admission. Says has been trying to get rid of bed bugs since summer . Has spent a lot of money on various treatments. PHYSICAL EXAM: Vital signs : as below General : awake, alert and oriented to person and place. HEENT: Normocephalic atraumatic , moist mucus membranes, anicteric eyes. NECK: No jugular venous distention (JVD). RESP: Bilateral vesicular breath sounds, no ronchi or crackles. CVS: Heart S1, S2 regular, no rub murmur or gallop. Abdomen : soft, nontender, nondistended. Suprapubic catheter noted. Extremities: no cyanosis or clubbing. LABORATORY DATA: reviewed Two sets of blood cultures 09/09, E. Coli. Urine culture contaminated 09/09. Methicillin-resistant Staphylococcus aureus (MRSA) and respiratory syncytial virus (RSV) panel was negative. 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 PLAN: Acute pyelonephritis from UTI related to chronic suprapubic catheter: The patient is on ceftriaxone and vancomycin. Urine culture initially contaminated New one still shows enterococcus again so will continue with the vancomycin. Transient E. coli bacteremia secondary to acute pyelonephritis. white count is normal. will continue ceftriaxone and vancomycin till final urine cultures are back. Encephalopathy: from infection on the background of dementia. Acute on chronic renal failure. resolved. Avoid nephrotoxins. Renally dose all medications. s/p Trial of IV fluids. Dysphagia to solids.Swallow evaluation was negative for aspiration. Parkinson's disease. Continue on home medications. Hyperlipidemia. Continue simvastatin. History of seizure disorder. Continue on home medications. Reflux. Continue omeprazole. History of CVA with chronic left sided weakness. Physical therapy and occupational therapy. Dementia: related to old CVA and parkinsons disease. will continue with donepezil COPD with chronic respiratory failure with hypoxia : will continue with prn nebulizations and oxygen. History of Urinary retention: Has chronic suprapubic catheter Disposition:Has 24 x7 care for ADLs at home. Will await PT recommendation. Patient will need antibiotics for 14 days for pyelonephritis and transient bacteremia related to suprapubic catheter. VS,Fishbone, I+O VS, Fishbone, I+O Laboratory Tests 09/16/17 06:02 Red Blood Count 3.10 L, Mean Corpuscular Volume 92.9, Mean Corpuscular Hemoglobin 31.9, Mean Corpuscular Hemoglobin Concent 34.4, Red Cell Distribution Width 15.1 H, Calcium Level 9.9 Vital Signs Date Time Temp Pulse Resp B/P (MAP) Pulse Ox O2 Delivery O2 Flow Rate FiO2 09/16/17 10:00 98.2 92 18 160/80 (106) 96 Nasal Cannula 2.0 TITO LUNA MD Sep 16, 2017 11:48
[2017-09-16 18:00] VITALS: BP 102/62
[2017-09-16 22:00] VITALS: BP 134/69
[2017-09-16] MEDS: ZONISAMIDE 100 MG CAP (ZONEGRAN) PO SCH (23:10)
[2017-09-16] MEDS: PHENobarbital 30 MG TAB PO SCH (23:10)
[2017-09-16] MEDS: MIRTAZAPINE 15 MG TAB PO SCH (23:10)
[2017-09-16] MEDS: SIMVASTATIN 40 MG TAB PO SCH (23:11)
[2017-09-16] MEDS: OLANZapine 2.5MG TABLET PO SCH (23:11)
[2017-09-16] MEDS: TOBRADEX OPHTH OINT 3.5 GM OU SCH (23:12)
[2017-09-17 04:00] VITALS: BP 145/73
[2017-09-17] MEDS: VANCOMYCIN HCL 750 MG, VIAL MATE ADAPTER 1 EACH in D5W 250 ML IV SCH (04:33)
[2017-09-17] MEDS: HEPARIN SOD (PORCINE) 5000 UNITS/ML VIAL SC SCH ×2 (06:21→13:20)
[2017-09-17 06:49] LABS: MEAN CORPUSCULAR HGB CONC 33.6 g/dl (32.0-36.5); MEAN CORPUSCULAR VOLUME 95.3 fl (80.0-96.0); PLATELET COUNT, AUTOMATED 471 10^3/uL (150-450); RED CELL DISTRIBUTION WIDTH 15.3 % (11.5-14.5); WHITE BLOOD COUNT 13.3 10^3/uL (4.0-10.0)
[2017-09-17 06:50] LABS: ADD MANUAL DIFFER YES; DIFF SLIDE NUMBER 60; POS COUNT POS FLAG; POSITIVE MORPH POS FLAG
[2017-09-17 07:19] LABS: ANION GAP 10 MEQ/L (8-16); BLOOD UREA NITROGEN 13 MG/DL (7-18); CALCIUM LEVEL 9.8 MG/DL (8.8-10.2); CARBON DIOXIDE LEVEL 22 MEQ/L (21-32); CHLORIDE LEVEL 104 MEQ/L (98-107); CREATININE FOR GFR 1.25 MG/DL (0.70-1.30); GLOMERULAR FILTRATION RATE > 60.0 (>42); GLUCOSE, FASTING 136 MG/DL (83-110); POTASSIUM SERUM 3.5 MEQ/L (3.5-5.1); SODIUM LEVEL 136 MEQ/L (136-145)
[2017-09-17 07:24] LABS: BANDS 1 % (< 11); BASOPHILS 1 % (0-4); EOSINOPHILS 1 % (0-5)
[2017-09-17 07:25] LABS: ANISOCYTOSIS 1+
[2017-09-17 08:00] VITALS: BP 142/72
[2017-09-17] MEDS: CEFTRIAXONE SOD 2 GM in APPROPRIATE DILUENT 1 EA IV SCH (10:00)
[2017-09-17] MEDS: FLUTICASONE PROP 0.05% NASAL SPRAY 16 GM (FLONASE) SCH (10:40)
[2017-09-17] MEDS: EUCERIN 120GM CREAM TOP SCH (10:40)
[2017-09-17] MEDS: OMEPRAZOLE 20 MG CAP PO SCH (10:41)
[2017-09-17] MEDS: TROSPIUM 20 MG TAB PO SCH (10:41)
[2017-09-17] MEDS: LACTOBACILLUS ACIDOPHILUS CAP (BACID) PO SCH ×2 (10:41→13:14)
[2017-09-17] MEDS: DONEPEZIL 5 MG TAB PO SCH (10:42)
[2017-09-17] MEDS: SENOKOT S TAB PO SCH (10:42)
[2017-09-17] MEDS: SINEMET 25-100 MG TAB PO SCH (10:42)
[2017-09-17] MEDS: VITAMIN D 1,000 INTERNATIONAL UNITS TABLET PO SCH (10:42)
[2017-09-17] MEDS ORDERED: LEVO500T3 PO (11:01)
[2017-09-17] MEDS: VENLAFAXINE **XR** 75MG CAPSULE PO SCH (11:11)
[2017-09-17 14:00] VITALS: BP 117/56
--- NOTE | 2017-09-19 18:29 | DSES ---
DATE OF ADMISSION: 09/09/2017 DATE OF DISCHARGE: 09/17/2017 PRIMARY CARE PROVIDER: [facility] in [place]. DISCHARGE DIAGNOSES: 1. Acute pyelonephritis. 2. Urinary tract infection (UTI) related to chronic suprapubic catheter. 3. Escherichia (E) coli bacteremia secondary to acute pyelonephritis. 4. Acute metabolic encephalopathy. 5. Acute on chronic renal failure. 6. Parkinson's disease. 7. Hyperlipidemia. 8. Dementia. 9. History of seizure disorder. 10. History of CVA with chronic left sided paresis. 11. Chronic obstructive pulmonary disease (COPD) with chronic respiratory failure on home oxygen. 12. History of urinary retention, has chronic suprapubic catheter. 13. Completely dependent of activities of daily living. 14. Posttraumatic stress disorder (PTSD). DISCHARGE MEDICATIONS: - levofloxacin 500 mg daily - acetaminophen 650 mg by mouth four times a day as needed for pain - albuterol sulfate 2.5 mg nebulizer solution one Respule every 6 hours as needed for shortness of breath - alendronate 70 mg once a week - Bacitracin one dose topically daily as needed for infection - calcium and vitamin D one tablet by mouth twice a day - carbidopa/levodopa 25/100 one tablet by mouth three times a day - Refresh 1% one drop in both eyes at bedtime - cholecalciferol 1000 units by mouth daily - temazepam 1 mg by mouth three times a day as needed for anxiety - diclofenac sodium 1% gel 2 grams topically twice a day as needed for pain - docusate senna two tablets by mouth three times a day - donepezil 10 mg by mouth daily - Eucerin cream one dose topically daily - Flonase one spray in both nostrils daily - GRX analgesic balm topically every 6 hours as needed for pain - metolazone 800 mg by mouth three times a day - mirtazapine 7.5 mg by mouth at bedtime - olanzapine 7.5 mg by mouth at bedtime - omeprazole 40 mg twice a day - oxycodone 5 mg by mouth twice a day as needed for pain - phenobarbital 16.2 mg by mouth at bedtime - MiraLAX 17 grams by mouth daily as needed for constipation - Restasis 0.05% both eyes twice a day - rizatriptan 10 mg by mouth as needed for migraine - simvastatin 40 mg at bedtime - Tobramycin dexamethasone eyedrops one drop in both eyes at bedtime - triamcinolone cream one dose topically three times a day as needed for itching - trospium 20 mg by mouth twice a day - venlafaxine 300 mg by mouth daily - zonisamide 300 mg by mouth at bedtime HOSPITAL COURSE: This is a 72-year-old male with a history of stroke with left sided hemiparesis, advanced Parkinson's disease, dementia, completely dependent with activities of daily living from home with 24/7 care, presented to the hospital for a fever and chills, along with cloudy urine. The patient also complained of weakness and malaise and a dry cough along with some noted increased sleepiness and abnormal baseline mental status. The patient was found to have chronic suprapubic catheter related urinary tract infection and pyelonephritis, along with E coli bacteremia. The patient was treated with ceftriaxone. The patient's urine also grew Enterococcus, so he also finished an 8 day course of vancomycin. Subsequently, the patient was changed to oral levofloxacin, to which both Enterococcus and E coli were sensitive, to complete a total of 14-day course. After treatment of his urinary tract infection, his mental status came back to baseline. He was evaluated by physical therapy (PT) and was felt to be at his baseline functional status. His repeat blood cultures after two days of antibiotics were negative. On the day of discharge, the patient did not have any complaints and his vitals were stable. PHYSICAL EXAMINATION: VITAL SIGNS: 98.1, pulse 105, respiratory rate 18, blood pressure 117/60, pulse oximetry 96% with 3 liters nasal cannula. GENERAL: The patient is alert and oriented to place and person. HEENT: Normocephalic, atraumatic. Moist mucous membranes. Anicteric eyes. CHEST: Clear to auscultation. CARDIOVASCULAR: S1, S2 regular. No rub, murmur, or gallop. ABDOMEN: Obese, soft, nontender. Bowel sounds present. EXTREMITIES: No edema. LABORATORY DATA: WBC 13.3, hemoglobin 9.6, platelets 471. Sodium 136, potassium 3.5, chloride 104, bicarbonate 22, BUN 13, creatinine 1.25, glucose 136, calcium 9.8. DISPOSITION: The patient is discharged home with reinstatement of home services. DISCHARGE INSTRUCTIONS: The patient is to followup with primary care provider in 1 to 2 weeks' time. Diet as tolerated. Activity as tolerated.
== END 2017-09-17 14:35 | disposition home or self-care (01) | DRG 871 ==
LOC: EDBD 08:25 → M ED 08:25 → M ED INP 11:40 → M PCU 21:21 → M MSPAV 09-11 15:16
PROVIDERS: ADMIT General Practice; ATTEND Internal Medicine Nephrology
DX: A41.9 Sepsis, unspecified organism (principal); G93.41 Metabolic encephalopathy; N39.0 Urinary tract infection, site not specified; E87.1 Hypo-osmolality and hyponatremia; I69.354 Hemiplegia and hemiparesis following cerebral infarction affecting left non-dominant side; N12 Tubulo-interstitial nephritis, not specified as acute or chronic; B96.20 Unspecified Escherichia coli [E. coli] as the cause of diseases classified elsewhere; J44.9 Chronic obstructive pulmonary disease, unspecified; E78.5 Hyperlipidemia, unspecified; K21.9 Gastro-esophageal reflux disease without esophagitis; G20 Parkinson's disease; E78.00 Pure hypercholesterolemia, unspecified; F43.10 Post-traumatic stress disorder, unspecified; Z87.440 Personal history of urinary (tract) infections; Z96.0 Presence of urogenital implants; Z79.899 Other long term (current) drug therapy; Z86.718 Personal history of other venous thrombosis and embolism; Z99.81 Dependence on supplemental oxygen

== ENCOUNTER 2017-12-21 18:53 | Inpatient (IN) | payer MEDICARE, OTHER ==
[2017-12-21 19:50] LABS: HEMATOCRIT 28.9 % (42.0-52.0); HEMOGLOBIN 9.4 g/dl (14.0-18.0); MEAN CORPUSCULAR HEMOGLOBIN 30.8 pg (27.0-33.0); MEAN CORPUSCULAR HGB CONC 32.5 g/dl (32.0-36.5); MEAN CORPUSCULAR VOLUME 94.8 fl (80.0-96.0); PLATELET COUNT, AUTOMATED 455 10^3/uL (150-450); RED BLOOD COUNT 3.05 10^6/uL (4.30-6.10); RED CELL DISTRIBUTION WIDTH 13.9 % (11.5-14.5); WHITE BLOOD COUNT 13.4 10^3/uL (4.0-10.0)
[2017-12-21 19:54] LABS: ADD MANUAL DIFFER YES; DIFF SLIDE NUMBER 337; POSITIVE MORPH POS FLAG
[2017-12-21 20:11] LABS: ALBUMIN 2.6 GM/DL (3.2-5.2); ALBUMIN/GLOBULIN RATIO 0.44 (1.00-1.93); ALKALINE PHOSPHATASE 238 U/L (45-117); ALT/SGPT 88 U/L (12-78); ANION GAP 10 MEQ/L (8-16); AST/SGOT 287 U/L (7-37); BILIRUBIN,DIRECT 0.5 MG/DL (0.0-0.2); BILIRUBIN,TOTAL 0.7 MG/DL (0.2-1.0); BLOOD UREA NITROGEN 12 MG/DL (7-18); CALCIUM LEVEL 9.8 MG/DL (8.8-10.2); CARBON DIOXIDE LEVEL 21 MEQ/L (21-32); CHLORIDE LEVEL 99 MEQ/L (98-107); CREATININE FOR GFR 1.18 MG/DL (0.70-1.30); GLOMERULAR FILTRATION RATE > 60.0 (>42); GLUCOSE, FASTING 101 MG/DL (70-100); POTASSIUM SERUM 3.7 MEQ/L (3.5-5.1); SODIUM LEVEL 130 MEQ/L (136-145); TOTAL PROTEIN 8.5 GM/DL (6.4-8.2)
[2017-12-21 20:16] LABS: AMORPHOUS SEDIMENT MODERATE (NEGATIVE); APPEARANCE, URINE CLOUDY (CLEAR); BACTERIA, URINE AUTO 3+ (NEGATIVE); BILIRUBIN, URINE AUTO NEGATIVE (NEGATIVE); BLOOD, URINE BLOOD 2+ (NEGATIVE); COLOR, URINE AMBER (YELLOW); GLUCOSE, URINE (UA) AUTO NEGATIVE (NEGATIVE); KETONE, URINE AUTO TRACE mg/dL (NEGATIVE); LEUKOCYTE ESTERASE, URINE AUTO 3+ (NEGATIVE); NITRITE, URINE AUTO POSITIVE (NEGATIVE); PROTEIN, URINE AUTO 2+ mg/dL (NEGATIVE); RBC, URINE AUTO 6 /HPF (0-3); SPECIFIC GRAVITY URINE AUTO 1.017 (1.002-1.035); SQUAMOUS EPITHELIAL CELL UR AU 1 /HPF (0-6); UROBILINOGEN, URINE AUTO 0.2 mg/dL (0.0-2.0); WBC, URINE AUTO TNTC /HPF (0-3)
[2017-12-21] MEDS: diphenhydrAMINE INJ 50MG/ML VIAL (J1200) IV (20:20)
[2017-12-21] MEDS: AZITHROMYCIN INJ 500 MG, VIAL MATE ADAPTER 1 EACH in D5W 250 ML IV (20:20)
[2017-12-21] MEDS: ACETAMINOPHEN 325 MG TAB PO (20:20)
[2017-12-21 20:24] LABS: LACTIC ACID SEPSIS PROTOCOL 0.9 MMOL/L (0.4-2.0)
[2017-12-21 20:29] LABS: ATYPICAL LYMPH 4 % (0-5); BANDS 2 % (< 11); LYMPHOCYTES 7 % (16-52); MONOCYTES 10 % (0-8); NEUTROPHILS 77 % (35-75)
[2017-12-21 20:30] LABS: HYPOCHROMASIA 1+; PLATELET ESTIMATE NORMAL (NORMAL)
[2017-12-21] MEDS: IPRATROPIUM 0.5MG/ALBUTEROL 2.5MG INH SOL UD 3ML (DUONEB)(J7620) NEB (20:54)
[2017-12-21] MEDS: CEFUROXIME SODIUM 1.5 GM in D5W MINI-BAG PLUS 50 ML IV (20:55)
[2017-12-21] MEDS ORDERED: SENOKOT S TAB PO (21:00)
[2017-12-21 21:25] LABS: INFLUENZA A AMPLIFICATION NEGATIVE (NEGATIVE); INFLUENZA B AMPLIFICATION NEGATIVE (NEGATIVE)
[2017-12-21] MEDS ORDERED: ONDANSETRON 4MG/2ML VIAL (J2405) IV (21:45)
[2017-12-21] MEDS ORDERED: FLUTICASONE PROP 0.05% NASAL SPRAY 16 GM (FLONASE) (21:45)
[2017-12-21] MEDS ORDERED: ACETAMINOPHEN TAB 650MG DOSE (2X325MG) PO (21:45)
[2017-12-21] MEDS ORDERED: TRIAMCINOLONE ACETONIDE 0.025 % 80 GM CREAM TOP (21:45)
[2017-12-21] MEDS ORDERED: RIZATRIPTAN MLT 10 MG TAB PO (21:45)
[2017-12-21] MEDS ORDERED: ALBUTEROL SULFATE 2.5 MG/0.5 ML INH NEB SOLN NEB (21:45)
[2017-12-21] MEDS: clonazePAM 1 MG TAB PO (22:42)
[2017-12-21] MEDS: MIRTAZAPINE 15 MG TAB PO (22:42)
[2017-12-21] MEDS: SIMVASTATIN 40 MG TAB PO (22:45)
[2017-12-21] MEDS: ZONISAMIDE 100 MG CAP (ZONEGRAN) PO (22:45)
[2017-12-21] MEDS: SINEMET 25-100 MG TAB PO (22:45)
[2017-12-21] MEDS: OLANZapine 2.5MG TABLET PO (22:46)
[2017-12-21] MEDS: TOBRADEX OPHTH OINT 3.5 GM OU (22:46)
[2017-12-21] MEDS: NS 1,000 ML IV (22:48)
[2017-12-22] MEDS ORDERED: AMPICILLIN SOD/SULBACTAM SOD 1.5 GM in D5W 50 ML IV
[2017-12-22] MEDS ORDERED: CEFTRIAXONE SOD 2 GM in APPROPRIATE DILUENT 1 EA IV (02:00)
[2017-12-22] MEDS: PIPERACILLIN/TAZOBACTAM SOD 3.375 GM in APPROPRIATE DILUENT 1 EA IV ×4 (02:27→21:48)
[2017-12-22] MEDS: HEPARIN SOD (PORCINE) 5000 UNITS/ML VIAL SC ×3 (05:51→21:50)
[2017-12-22] MEDS: NS 1,000 ML IV ×2 (05:51→14:24)
[2017-12-22 06:09] LABS: HEMATOCRIT 27.1 % (42.0-52.0); HEMOGLOBIN 8.8 g/dl (14.0-18.0); MEAN CORPUSCULAR HEMOGLOBIN 30.4 pg (27.0-33.0); MEAN CORPUSCULAR HGB CONC 32.5 g/dl (32.0-36.5); MEAN CORPUSCULAR VOLUME 93.8 fl (80.0-96.0); PLATELET COUNT, AUTOMATED 459 10^3/uL (150-450); RED BLOOD COUNT 2.89 10^6/uL (4.30-6.10); RED CELL DISTRIBUTION WIDTH 13.7 % (11.5-14.5); WHITE BLOOD COUNT 13.5 10^3/uL (4.0-10.0)
[2017-12-22 06:25] LABS: ANION GAP 8 MEQ/L (8-16); BLOOD UREA NITROGEN 16 MG/DL (7-18); CALCIUM LEVEL 9.4 MG/DL (8.8-10.2); CARBON DIOXIDE LEVEL 23 MEQ/L (21-32); CHLORIDE LEVEL 102 MEQ/L (98-107); CREATININE FOR GFR 1.32 MG/DL (0.70-1.30); GLOMERULAR FILTRATION RATE 56.9 (>42); GLUCOSE, FASTING 97 MG/DL (70-100); POTASSIUM SERUM 3.8 MEQ/L (3.5-5.1); SODIUM LEVEL 133 MEQ/L (136-145)
[2017-12-22 08:11] LABS: ALBUMIN 2.4 GM/DL (3.2-5.2); ALBUMIN/GLOBULIN RATIO 0.44 (1.00-1.93); ALKALINE PHOSPHATASE 273 U/L (45-117); ALT/SGPT 106 U/L (12-78); AST/SGOT 863 U/L (7-37); BILIRUBIN,DIRECT 0.4 MG/DL (0.0-0.2); BILIRUBIN,TOTAL 0.6 MG/DL (0.2-1.0); TOTAL PROTEIN 7.9 GM/DL (6.4-8.2)
[2017-12-22] MEDS ORDERED: TROSPIUM 20 MG TAB PO (09:00)
[2017-12-22] MEDS: clonazePAM 1 MG TAB PO ×3 (10:36→21:49)
[2017-12-22] MEDS: EUCERIN 120GM CREAM TOP (10:36)
[2017-12-22] MEDS: VITAMIN D 1,000 INTERNATIONAL UNITS TABLET PO (10:36)
[2017-12-22] MEDS: METAXALONE 800 MG TABLET PO ×3 (10:36→21:48)
[2017-12-22] MEDS: OMEPRAZOLE 20 MG CAP PO ×2 (10:36→21:49)
[2017-12-22] MEDS: SINEMET 25-100 MG TAB PO ×3 (10:36→21:49)
[2017-12-22] MEDS: VENLAFAXINE **XR** 75MG CAPSULE PO (10:37)
[2017-12-22] MEDS: SENOKOT S TAB PO ×3 (10:37→21:58)
[2017-12-22 13:20] LABS: CPK CREATINE PHOSPHOKINASE 149 U/L (39-308); TROPONIN I < 0.02 NG/ML (< 0.10)
[2017-12-22 13:27] LABS: MB/CK RELATIVE INDEX 0.67 (< OR =4)
[2017-12-22 13:36] LABS: ACETAMINOPHEN LEVEL < 2.0 UG/ML (10.0-30.0)
[2017-12-22] MEDS ORDERED: AZITHROMYCIN INJ 500 MG, VIAL MATE ADAPTER 1 EACH in D5W 250 ML IV (21:00)
[2017-12-22] MEDS ORDERED: AZITHROMYCIN 250 MG TAB PO (21:00)
[2017-12-22] MEDS: SIMVASTATIN 40 MG TAB PO (21:48)
[2017-12-22] MEDS: OLANZapine 2.5MG TABLET PO (21:49)
[2017-12-22] MEDS: ZONISAMIDE 100 MG CAP (ZONEGRAN) PO (21:49)
[2017-12-22] MEDS: TOBRADEX OPHTH OINT 3.5 GM OU (21:50)
[2017-12-22] MEDS: MIRTAZAPINE 15 MG TAB PO (21:50)
[2017-12-23] MEDS: PIPERACILLIN/TAZOBACTAM SOD 3.375 GM in APPROPRIATE DILUENT 1 EA IV ×4 (03:15→21:40)
[2017-12-23] MEDS: NS 1,000 ML IV (03:16)
[2017-12-23] MEDS: HEPARIN SOD (PORCINE) 5000 UNITS/ML VIAL SC ×3 (05:57→21:40)
[2017-12-23 06:33] LABS: HEMATOCRIT 23.7 % (42.0-52.0); HEMOGLOBIN 7.6 g/dl (14.0-18.0); MEAN CORPUSCULAR HEMOGLOBIN 30.2 pg (27.0-33.0); MEAN CORPUSCULAR HGB CONC 32.1 g/dl (32.0-36.5); PLATELET COUNT, AUTOMATED 433 10^3/uL (150-450); RED BLOOD COUNT 2.52 10^6/uL (4.30-6.10); RED CELL DISTRIBUTION WIDTH 14.1 % (11.5-14.5); WHITE BLOOD COUNT 11.4 10^3/uL (4.0-10.0)
[2017-12-23 07:09] LABS: ALBUMIN/GLOBULIN RATIO 0.41 (1.00-1.93); ALKALINE PHOSPHATASE 282 U/L (45-117); ALT/SGPT 208 U/L (12-78); ANION GAP 10 MEQ/L (8-16); AST/SGOT 2051 U/L (7-37); BILIRUBIN,DIRECT 0.4 MG/DL (0.0-0.2); BILIRUBIN,TOTAL 0.5 MG/DL (0.2-1.0); BLOOD UREA NITROGEN 13 MG/DL (7-18); CALCIUM LEVEL 8.1 MG/DL (8.8-10.2); CARBON DIOXIDE LEVEL 21 MEQ/L (21-32); CHLORIDE LEVEL 107 MEQ/L (98-107); CREATININE FOR GFR 1.08 MG/DL (0.70-1.30); GLOMERULAR FILTRATION RATE > 60.0 (>42); GLUCOSE, FASTING 92 MG/DL (70-100); MAGNESIUM LEVEL 2.1 MG/DL (1.8-2.4); POTASSIUM SERUM 3.1 MEQ/L (3.5-5.1); SODIUM LEVEL 138 MEQ/L (136-145); TOTAL PROTEIN 6.9 GM/DL (6.4-8.2)
[2017-12-23] MEDS: POTASSIUM CHLORIDE 10 MEQ SR TABLET PO (08:36)
[2017-12-23] MEDS: clonazePAM 1 MG TAB PO ×3 (08:37→21:40)
[2017-12-23] MEDS: SINEMET 25-100 MG TAB PO ×3 (08:37→21:40)
[2017-12-23] MEDS: OMEPRAZOLE 20 MG CAP PO ×2 (08:37→21:40)
[2017-12-23] MEDS: METAXALONE 800 MG TABLET PO ×3 (08:37→21:39)
[2017-12-23] MEDS: VITAMIN D 1,000 INTERNATIONAL UNITS TABLET PO (08:37)
[2017-12-23] MEDS: EUCERIN 120GM CREAM TOP (08:38)
[2017-12-23 08:41] LABS: INR 0.97
[2017-12-23 08:42] LABS: PARTIAL THROMBOPLASTIN TIME 42.8 SECONDS (26.8-37.9)
[2017-12-23] MEDS: SENOKOT S TAB PO ×3 (08:42→21:42)
[2017-12-23 09:04] LABS: LDH LACTATE DEHYDROGENASE 1406 U/L (87-241)
[2017-12-23 09:34] LABS: HEPATITIS B SURFACE ANTIGEN NEGATIVE (NEGATIVE)
[2017-12-23 09:50] LABS: HEPATITIS B CORE ANTIBODY IGM NEGATIVE (NEGATIVE)
[2017-12-23 09:50] LABS: HEPATITIS C VIRUS ABY INDEX 0.1 INDEX (<0.8)
[2017-12-23 09:52] LABS: HEPATITIS A ANTIBODY IGM NEGATIVE (NEGATIVE)
[2017-12-23] MEDS: VENLAFAXINE **XR** 75MG CAPSULE PO (11:19)
[2017-12-23 12:10] LABS: HEMATOCRIT 24.6 % (42.0-52.0); HEMOGLOBIN 8.1 g/dl (14.0-18.0)
[2017-12-23] MEDS: ZONISAMIDE 100 MG CAP (ZONEGRAN) PO (21:39)
[2017-12-23] MEDS: OLANZapine 2.5MG TABLET PO (21:39)
[2017-12-23] MEDS: TOBRADEX OPHTH OINT 3.5 GM OU (21:40)
[2017-12-23] MEDS: MIRTAZAPINE 15 MG TAB PO (21:40)
[2017-12-24] MEDS: PIPERACILLIN/TAZOBACTAM SOD 3.375 GM in APPROPRIATE DILUENT 1 EA IV (03:15)
[2017-12-24] MEDS: HEPARIN SOD (PORCINE) 5000 UNITS/ML VIAL SC ×3 (05:20→21:33)
[2017-12-24 05:53] LABS: HEMATOCRIT 27.3 % (42.0-52.0); HEMOGLOBIN 8.8 g/dl (14.0-18.0); MEAN CORPUSCULAR HEMOGLOBIN 30.1 pg (27.0-33.0); MEAN CORPUSCULAR HGB CONC 32.2 g/dl (32.0-36.5); MEAN CORPUSCULAR VOLUME 93.5 fl (80.0-96.0); PLATELET COUNT, AUTOMATED 514 10^3/uL (150-450); RED BLOOD COUNT 2.92 10^6/uL (4.30-6.10); RED CELL DISTRIBUTION WIDTH 14.6 % (11.5-14.5); WHITE BLOOD COUNT 11.7 10^3/uL (4.0-10.0)
[2017-12-24 06:32] LABS: ALBUMIN/GLOBULIN RATIO 0.36 (1.00-1.93); ALKALINE PHOSPHATASE 307 U/L (45-117); ALT/SGPT 184 U/L (12-78); ANION GAP 10 MEQ/L (8-16); AST/SGOT 1201 U/L (7-37); BILIRUBIN,TOTAL 0.4 MG/DL (0.2-1.0); BLOOD UREA NITROGEN 13 MG/DL (7-18); CALCIUM LEVEL 8.9 MG/DL (8.8-10.2); CARBON DIOXIDE LEVEL 21 MEQ/L (21-32); CHLORIDE LEVEL 108 MEQ/L (98-107); CREATININE FOR GFR 1.09 MG/DL (0.70-1.30); GLOMERULAR FILTRATION RATE > 60.0 (>42); GLUCOSE, FASTING 97 MG/DL (70-100); MAGNESIUM LEVEL 2.2 MG/DL (1.8-2.4); POTASSIUM SERUM 3.4 MEQ/L (3.5-5.1); SODIUM LEVEL 139 MEQ/L (136-145); TOTAL PROTEIN 7.6 GM/DL (6.4-8.2)
[2017-12-24] MEDS: CEFDINIR 300 MG CAP (OMNICEF) PO ×2 (07:40→21:30)
[2017-12-24] MEDS: SENOKOT S TAB PO ×3 (07:40→21:00)
[2017-12-24] MEDS: SINEMET 25-100 MG TAB PO ×3 (07:41→21:31)
[2017-12-24] MEDS: METAXALONE 800 MG TABLET PO ×3 (07:41→21:31)
[2017-12-24] MEDS: VITAMIN D 1,000 INTERNATIONAL UNITS TABLET PO (07:41)
[2017-12-24] MEDS: OMEPRAZOLE 20 MG CAP PO ×2 (07:41→21:30)
[2017-12-24] MEDS: clonazePAM 1 MG TAB PO ×3 (07:41→21:31)
[2017-12-24] MEDS: EUCERIN 120GM CREAM TOP (07:42)
[2017-12-24] MEDS: POTASSIUM CHLORIDE 10 MEQ SR TABLET PO (07:42)
[2017-12-24] MEDS: VENLAFAXINE **XR** 75MG CAPSULE PO (11:48)
[2017-12-24] MEDS: ZONISAMIDE 100 MG CAP (ZONEGRAN) PO (21:30)
[2017-12-24] MEDS: OLANZapine 2.5MG TABLET PO (21:30)
[2017-12-24] MEDS: MIRTAZAPINE 15 MG TAB PO (21:31)
[2017-12-24] MEDS: TOBRADEX OPHTH OINT 3.5 GM OU (21:33)
[2017-12-25] MEDS: oxyCODONE 5MG TAB PO ×2 (01:58→21:58)
[2017-12-25] MEDS: HEPARIN SOD (PORCINE) 5000 UNITS/ML VIAL SC ×3 (05:24→21:52)
[2017-12-25 07:05] LABS: HEMATOCRIT 25.7 % (42.0-52.0); HEMOGLOBIN 8.5 g/dl (14.0-18.0); MEAN CORPUSCULAR HEMOGLOBIN 30.7 pg (27.0-33.0); MEAN CORPUSCULAR HGB CONC 33.1 g/dl (32.0-36.5); MEAN CORPUSCULAR VOLUME 92.8 fl (80.0-96.0); PLATELET COUNT, AUTOMATED 580 10^3/uL (150-450); RED BLOOD COUNT 2.77 10^6/uL (4.30-6.10); RED CELL DISTRIBUTION WIDTH 14.5 % (11.5-14.5); WHITE BLOOD COUNT 13.4 10^3/uL (4.0-10.0)
[2017-12-25 07:27] LABS: ALBUMIN 2.1 GM/DL (3.2-5.2); ALBUMIN/GLOBULIN RATIO 0.38 (1.00-1.93); ALKALINE PHOSPHATASE 269 U/L (45-117); ALT/SGPT 226 U/L (12-78); ANION GAP 10 MEQ/L (8-16); AST/SGOT 806 U/L (7-37); BILIRUBIN,TOTAL 0.4 MG/DL (0.2-1.0); BLOOD UREA NITROGEN 10 MG/DL (7-18); CALCIUM LEVEL 8.7 MG/DL (8.8-10.2); CARBON DIOXIDE LEVEL 20 MEQ/L (21-32); CHLORIDE LEVEL 106 MEQ/L (98-107); CREATININE FOR GFR 1.03 MG/DL (0.70-1.30); GLOMERULAR FILTRATION RATE > 60.0 (>42); GLUCOSE, FASTING 94 MG/DL (70-100); POTASSIUM SERUM 3.2 MEQ/L (3.5-5.1); SODIUM LEVEL 136 MEQ/L (136-145); TOTAL PROTEIN 7.7 GM/DL (6.4-8.2)
[2017-12-25] MEDS: EUCERIN 120GM CREAM TOP (08:51)
[2017-12-25] MEDS: SINEMET 25-100 MG TAB PO ×3 (08:51→21:47)
[2017-12-25] MEDS: CEFDINIR 300 MG CAP (OMNICEF) PO ×2 (08:51→21:47)
[2017-12-25] MEDS: METAXALONE 800 MG TABLET PO ×3 (08:51→21:47)
[2017-12-25] MEDS: clonazePAM 1 MG TAB PO ×3 (08:51→21:46)
[2017-12-25] MEDS: OMEPRAZOLE 20 MG CAP PO ×2 (08:51→21:46)
[2017-12-25] MEDS: SENOKOT S TAB PO ×3 (08:51→21:46)
[2017-12-25] MEDS: VITAMIN D 1,000 INTERNATIONAL UNITS TABLET PO (08:51)
[2017-12-25] MEDS: VENLAFAXINE **XR** 75MG CAPSULE PO (11:06)
[2017-12-25] MEDS: POTASSIUM CHLORIDE 10 MEQ SR TABLET PO (13:16)
[2017-12-25] MEDS: ZONISAMIDE 100 MG CAP (ZONEGRAN) PO (21:46)
[2017-12-25] MEDS: OLANZapine 2.5MG TABLET PO (21:47)
[2017-12-25] MEDS: MIRTAZAPINE 15 MG TAB PO (21:49)
[2017-12-25] MEDS: TOBRADEX OPHTH OINT 3.5 GM OU (21:49)
[2017-12-26] MEDS: HEPARIN SOD (PORCINE) 5000 UNITS/ML VIAL SC ×3 (05:25→20:52)
[2017-12-26 06:43] LABS: HEMATOCRIT 27.5 % (42.0-52.0); MEAN CORPUSCULAR HEMOGLOBIN 30.6 pg (27.0-33.0); MEAN CORPUSCULAR HGB CONC 32.7 g/dl (32.0-36.5); MEAN CORPUSCULAR VOLUME 93.5 fl (80.0-96.0); PLATELET COUNT, AUTOMATED 602 10^3/uL (150-450); RED BLOOD COUNT 2.94 10^6/uL (4.30-6.10); RED CELL DISTRIBUTION WIDTH 14.6 % (11.5-14.5); WHITE BLOOD COUNT 14.9 10^3/uL (4.0-10.0)
[2017-12-26 07:00] LABS: ALBUMIN 2.3 GM/DL (3.2-5.2); ALKALINE PHOSPHATASE 234 U/L (45-117); ALT/SGPT 186 U/L (12-78); ANION GAP 12 MEQ/L (8-16); AST/SGOT 334 U/L (7-37); BILIRUBIN,TOTAL 0.3 MG/DL (0.2-1.0); BLOOD UREA NITROGEN 9 MG/DL (7-18); CALCIUM LEVEL 9.4 MG/DL (8.8-10.2); CARBON DIOXIDE LEVEL 20 MEQ/L (21-32); CHLORIDE LEVEL 106 MEQ/L (98-107); CREATININE FOR GFR 0.94 MG/DL (0.70-1.30); GLOMERULAR FILTRATION RATE > 60.0 (>42); GLUCOSE, FASTING 102 MG/DL (70-100); MAGNESIUM LEVEL 2.3 MG/DL (1.8-2.4); POTASSIUM SERUM 3.5 MEQ/L (3.5-5.1); SODIUM LEVEL 138 MEQ/L (136-145); TOTAL PROTEIN 8.1 GM/DL (6.4-8.2)
[2017-12-26] MEDS: METAXALONE 800 MG TABLET PO ×3 (08:55→20:54)
[2017-12-26] MEDS: VITAMIN D 1,000 INTERNATIONAL UNITS TABLET PO (08:55)
[2017-12-26] MEDS: clonazePAM 1 MG TAB PO ×3 (08:56→20:56)
[2017-12-26] MEDS: OMEPRAZOLE 20 MG CAP PO ×2 (08:56→20:55)
[2017-12-26] MEDS: SENOKOT S TAB PO ×3 (08:56→20:56)
[2017-12-26] MEDS: BACTRIM 160MG/800MG DS TAB PO ×2 (08:56→20:54)
[2017-12-26] MEDS: SINEMET 25-100 MG TAB PO ×3 (08:56→20:58)
[2017-12-26] MEDS: LevoFLOXacin 500 MG TABLET PO (08:56)
[2017-12-26] MEDS: EUCERIN 120GM CREAM TOP (08:57)
[2017-12-26] MEDS: oxyCODONE 5MG TAB PO ×2 (09:04→19:20)
[2017-12-26] MEDS: VENLAFAXINE **XR** 75MG CAPSULE PO (11:43)
[2017-12-26] MEDS: ZONISAMIDE 100 MG CAP (ZONEGRAN) PO (20:53)
[2017-12-26] MEDS: OLANZapine 2.5MG TABLET PO (20:54)
[2017-12-26] MEDS: MIRTAZAPINE 15 MG TAB PO (20:57)
[2017-12-26] MEDS: TOBRADEX OPHTH OINT 3.5 GM OU (21:00)
[2017-12-27] MEDS: LevoFLOXacin 500 MG TABLET PO (06:19)
[2017-12-27] MEDS: HEPARIN SOD (PORCINE) 5000 UNITS/ML VIAL SC ×3 (06:19→20:40)
[2017-12-27 06:32] LABS: HEMATOCRIT 29.1 % (42.0-52.0); HEMOGLOBIN 9.4 g/dl (14.0-18.0); MEAN CORPUSCULAR HEMOGLOBIN 30.2 pg (27.0-33.0); MEAN CORPUSCULAR HGB CONC 32.3 g/dl (32.0-36.5); MEAN CORPUSCULAR VOLUME 93.6 fl (80.0-96.0); PLATELET COUNT, AUTOMATED 640 10^3/uL (150-450); RED BLOOD COUNT 3.11 10^6/uL (4.30-6.10); RED CELL DISTRIBUTION WIDTH 14.9 % (11.5-14.5); WHITE BLOOD COUNT 15.1 10^3/uL (4.0-10.0)
[2017-12-27 06:52] LABS: ALBUMIN 2.3 GM/DL (3.2-5.2); ALBUMIN/GLOBULIN RATIO 0.38 (1.00-1.93); ALKALINE PHOSPHATASE 218 U/L (45-117); ALT/SGPT 130 U/L (12-78); ANION GAP 12 MEQ/L (8-16); AST/SGOT 191 U/L (7-37); BILIRUBIN,TOTAL 0.2 MG/DL (0.2-1.0); BLOOD UREA NITROGEN 10 MG/DL (7-18); CALCIUM LEVEL 9.6 MG/DL (8.8-10.2); CARBON DIOXIDE LEVEL 19 MEQ/L (21-32); CHLORIDE LEVEL 104 MEQ/L (98-107); CREATININE FOR GFR 0.96 MG/DL (0.70-1.30); GLOMERULAR FILTRATION RATE > 60.0 (>42); GLUCOSE, FASTING 101 MG/DL (70-100); MAGNESIUM LEVEL 2.1 MG/DL (1.8-2.4); POTASSIUM SERUM 3.5 MEQ/L (3.5-5.1); SODIUM LEVEL 135 MEQ/L (136-145); TOTAL PROTEIN 8.3 GM/DL (6.4-8.2)
[2017-12-27] MEDS: VITAMIN D 1,000 INTERNATIONAL UNITS TABLET PO (08:41)
[2017-12-27] MEDS: SENOKOT S TAB PO ×3 (08:42→20:40)
[2017-12-27] MEDS: EUCERIN 120GM CREAM TOP (08:42)
[2017-12-27] MEDS: SINEMET 25-100 MG TAB PO ×3 (08:42→20:41)
[2017-12-27] MEDS: BACTRIM 160MG/800MG DS TAB PO ×2 (08:42→20:39)
[2017-12-27] MEDS: OMEPRAZOLE 20 MG CAP PO ×2 (08:42→20:40)
[2017-12-27] MEDS: clonazePAM 1 MG TAB PO ×3 (08:43→20:40)
[2017-12-27] MEDS: METAXALONE 800 MG TABLET PO ×3 (08:46→20:41)
[2017-12-27 08:51] LABS: REASON FOR REVIEW WBC/LEUKEMIA/BLAST; SLIDE REVIEW Report; SOURCE PERIPHERAL SMEAR
[2017-12-27] MEDS: VENLAFAXINE **XR** 75MG CAPSULE PO (12:30)
[2017-12-27] MEDS: DONEPEZIL 5 MG TAB PO (15:44)
[2017-12-27] MEDS: PHENobarbital 30 MG TAB PO (20:39)
[2017-12-27] MEDS: OLANZapine 2.5MG TABLET PO (20:39)
[2017-12-27] MEDS: ZONISAMIDE 100 MG CAP (ZONEGRAN) PO (20:40)
[2017-12-27] MEDS: MIRTAZAPINE 15 MG TAB PO (20:41)
[2017-12-27] MEDS: TOBRADEX OPHTH OINT 3.5 GM OU (20:41)
[2017-12-27] MEDS: oxyCODONE 5MG TAB PO (21:09)
[2017-12-28] MEDS: LevoFLOXacin 500 MG TABLET PO (06:31)
[2017-12-28] MEDS: HEPARIN SOD (PORCINE) 5000 UNITS/ML VIAL SC ×3 (06:31→21:55)
[2017-12-28 07:24] LABS: HEMATOCRIT 31.4 % (42.0-52.0); HEMOGLOBIN 10.1 g/dl (14.0-18.0); MEAN CORPUSCULAR HGB CONC 32.2 g/dl (32.0-36.5); MEAN CORPUSCULAR VOLUME 93.2 fl (80.0-96.0); PLATELET COUNT, AUTOMATED 730 10^3/uL (150-450); RED BLOOD COUNT 3.37 10^6/uL (4.30-6.10); RED CELL DISTRIBUTION WIDTH 14.9 % (11.5-14.5); WHITE BLOOD COUNT 15.3 10^3/uL (4.0-10.0)
[2017-12-28 07:46] LABS: ALBUMIN 2.5 GM/DL (3.2-5.2); ALKALINE PHOSPHATASE 211 U/L (45-117); ALT/SGPT 169 U/L (12-78); ANION GAP 10 MEQ/L (8-16); AST/SGOT 234 U/L (7-37); BILIRUBIN,TOTAL 0.2 MG/DL (0.2-1.0); BLOOD UREA NITROGEN 13 MG/DL (7-18); CALCIUM LEVEL 10.2 MG/DL (8.8-10.2); CARBON DIOXIDE LEVEL 22 MEQ/L (21-32); CHLORIDE LEVEL 103 MEQ/L (98-107); CREATININE FOR GFR 1.07 MG/DL (0.70-1.30); GLOMERULAR FILTRATION RATE > 60.0 (>42); GLUCOSE, FASTING 112 MG/DL (70-100); MAGNESIUM LEVEL 2.3 MG/DL (1.8-2.4); POTASSIUM SERUM 3.9 MEQ/L (3.5-5.1); SODIUM LEVEL 135 MEQ/L (136-145); TOTAL PROTEIN 8.8 GM/DL (6.4-8.2)
[2017-12-28] MEDS: VITAMIN D 1,000 INTERNATIONAL UNITS TABLET PO (08:58)
[2017-12-28] MEDS: METAXALONE 800 MG TABLET PO ×3 (08:59→21:56)
[2017-12-28] MEDS: clonazePAM 1 MG TAB PO ×3 (08:59→21:56)
[2017-12-28] MEDS: BACTRIM 160MG/800MG DS TAB PO (08:59)
[2017-12-28] MEDS: OMEPRAZOLE 20 MG CAP PO ×2 (08:59→21:56)
[2017-12-28] MEDS: SENOKOT S TAB PO ×3 (08:59→21:56)
[2017-12-28] MEDS: SINEMET 25-100 MG TAB PO ×3 (08:59→21:57)
[2017-12-28] MEDS: DONEPEZIL 5 MG TAB PO (09:00)
[2017-12-28] MEDS: oxyCODONE 5MG TAB PO ×2 (09:00→18:43)
[2017-12-28] MEDS: EUCERIN 120GM CREAM TOP (09:01)
[2017-12-28] MEDS: VENLAFAXINE **XR** 75MG CAPSULE PO (13:12)
[2017-12-28] MEDS: LIDOCAINE 5% OINT 30 GM TOP (18:49)
[2017-12-28] MEDS: TOBRADEX OPHTH OINT 3.5 GM OU (21:55)
[2017-12-28] MEDS: PHENobarbital 30 MG TAB PO (21:56)
[2017-12-28] MEDS: MIRTAZAPINE 15 MG TAB PO (21:57)
[2017-12-28] MEDS: ZONISAMIDE 100 MG CAP (ZONEGRAN) PO (21:57)
[2017-12-28] MEDS: OLANZapine 2.5MG TABLET PO (22:00)
[2017-12-29] MEDS: LevoFLOXacin 750 MG TABLET PO (05:59)
[2017-12-29] MEDS: HEPARIN SOD (PORCINE) 5000 UNITS/ML VIAL SC ×3 (05:59→20:27)
[2017-12-29 07:29] LABS: ALBUMIN 2.5 GM/DL (3.2-5.2); ALKALINE PHOSPHATASE 189 U/L (45-117); ALT/SGPT 120 U/L (12-78); ANION GAP 12 MEQ/L (8-16); AST/SGOT 193 U/L (7-37); BILIRUBIN,TOTAL 0.3 MG/DL (0.2-1.0); BLOOD UREA NITROGEN 18 MG/DL (7-18); CALCIUM LEVEL 10.2 MG/DL (8.8-10.2); CARBON DIOXIDE LEVEL 21 MEQ/L (21-32); CHLORIDE LEVEL 101 MEQ/L (98-107); CREATININE FOR GFR 1.29 MG/DL (0.70-1.30); GLOMERULAR FILTRATION RATE 58.5 (>42); GLUCOSE, FASTING 101 MG/DL (70-100); MAGNESIUM LEVEL 2.2 MG/DL (1.8-2.4); SODIUM LEVEL 134 MEQ/L (136-145); TOTAL PROTEIN 8.8 GM/DL (6.4-8.2)
[2017-12-29] MEDS: SENOKOT S TAB PO ×3 (10:58→20:30)
[2017-12-29] MEDS: SINEMET 25-100 MG TAB PO ×3 (10:58→20:29)
[2017-12-29] MEDS: OMEPRAZOLE 20 MG CAP PO ×2 (10:58→20:30)
[2017-12-29] MEDS: VENLAFAXINE **XR** 75MG CAPSULE PO (10:58)
[2017-12-29] MEDS: EUCERIN 120GM CREAM TOP (10:59)
[2017-12-29] MEDS: DONEPEZIL 5 MG TAB PO (10:59)
[2017-12-29] MEDS: METAXALONE 800 MG TABLET PO ×3 (10:59→20:30)
[2017-12-29] MEDS: VITAMIN D 1,000 INTERNATIONAL UNITS TABLET PO (10:59)
[2017-12-29] MEDS: clonazePAM 1 MG TAB PO ×3 (10:59→20:30)
[2017-12-29 15:44] LABS: CONTROL LINE MONO RF C INT CTR LINE PRESENT; MONO REFLEX EBV COMP NEGATIVE (NEGATIVE)
[2017-12-29 15:59] LABS: FERRITIN 259 NG/ML (26-388); IRON (FE) 33 UG/DL (65-175); PERCENT SATURATION 12.8 % (19.7-50.0); TOTAL IRON BINDING CAPACITY 258 UG/DL (250-450)
[2017-12-29] MEDS: LIDOCAINE 5% (LIDODERM) PATCH TD (16:21)
[2017-12-29] MEDS: OLANZapine 2.5MG TABLET PO (20:28)
[2017-12-29] MEDS: PHENobarbital 30 MG TAB PO (20:28)
[2017-12-29] MEDS: MIRTAZAPINE 15 MG TAB PO (20:28)
[2017-12-29] MEDS: ZONISAMIDE 100 MG CAP (ZONEGRAN) PO (20:29)
[2017-12-29] MEDS: **NOTE PATIENT COMMENT** MISC XX (20:30)
[2017-12-29] MEDS: TOBRADEX OPHTH OINT 3.5 GM OU (20:30)
[2017-12-30] MEDS: LevoFLOXacin 750 MG TABLET PO (05:40)
[2017-12-30] MEDS: HEPARIN SOD (PORCINE) 5000 UNITS/ML VIAL SC ×3 (05:41→21:01)
[2017-12-30 06:47] LABS: BASO # 0.1 10^3/uL (0.0-0.2); BASO % 0.9 % (0.0-1.0); EOS # 0.2 10^3/uL (0.0-0.50); EOS % 2.1 % (0.0-3.0); HEMATOCRIT 30.8 % (42.0-52.0); HEMOGLOBIN 9.9 g/dl (14.0-18.0); IMMATURE GRANULOCYTE % 4.2 % (0-3.0); LYMPH # 2.7 10^3/uL (1.5-4.5); LYMPH % 26.9 % (24.0-44.0); MEAN CORPUSCULAR HEMOGLOBIN 29.8 pg (27.0-33.0); MEAN CORPUSCULAR HGB CONC 32.1 g/dl (32.0-36.5); MEAN CORPUSCULAR VOLUME 92.8 fl (80.0-96.0); MONO # 1.1 10^3/uL (0.0-0.8); MONO % 11.4 % (0.0-5.0); NEUTROPHILS # 5.4 10^3/uL (1.8-7.7); NEUTROPHILS % 54.5 % (36.0-66.0); PLATELET COUNT, AUTOMATED 697 10^3/uL (150-450); RED BLOOD COUNT 3.32 10^6/uL (4.30-6.10); RED CELL DISTRIBUTION WIDTH 14.9 % (11.5-14.5); WHITE BLOOD COUNT 9.9 10^3/uL (4.0-10.0)
[2017-12-30 06:57] LABS: INR 1.04; PARTIAL THROMBOPLASTIN TIME 30.9 SECONDS (26.8-37.9); PROTHROMBIN TIME 13.7 SECONDS (12.4-14.5)
[2017-12-30 07:09] LABS: ALBUMIN 2.5 GM/DL (3.2-5.2); ALBUMIN/GLOBULIN RATIO 0.37 (1.00-1.93); ALKALINE PHOSPHATASE 192 U/L (45-117); ALT/SGPT 137 U/L (12-78); ANION GAP 10 MEQ/L (8-16); AST/SGOT 166 U/L (7-37); BILIRUBIN,TOTAL 0.2 MG/DL (0.2-1.0); BLOOD UREA NITROGEN 20 MG/DL (7-18); C REACTIVE PROTEIN QUANTITATIV 8.34 MG/DL (0.00-0.30); CALCIUM LEVEL 10.2 MG/DL (8.8-10.2); CARBON DIOXIDE LEVEL 21 MEQ/L (21-32); CHLORIDE LEVEL 102 MEQ/L (98-107); CREATININE FOR GFR 1.28 MG/DL (0.70-1.30); GLUCOSE, FASTING 104 MG/DL (70-100); POTASSIUM SERUM 4.2 MEQ/L (3.5-5.1); SODIUM LEVEL 133 MEQ/L (136-145); TOTAL PROTEIN 9.2 GM/DL (6.4-8.2)
[2017-12-30] MEDS: OMEPRAZOLE 20 MG CAP PO ×2 (09:05→21:01)
[2017-12-30] MEDS: clonazePAM 1 MG TAB PO ×3 (09:06→21:01)
[2017-12-30] MEDS: SENOKOT S TAB PO ×3 (09:06→21:01)
[2017-12-30] MEDS: METAXALONE 800 MG TABLET PO ×3 (09:06→21:01)
[2017-12-30] MEDS: DONEPEZIL 5 MG TAB PO (09:06)
[2017-12-30] MEDS: VITAMIN D 1,000 INTERNATIONAL UNITS TABLET PO (09:06)
[2017-12-30] MEDS: SINEMET 25-100 MG TAB PO ×3 (09:07→21:00)
[2017-12-30] MEDS: LIDOCAINE 5% (LIDODERM) PATCH TD (09:07)
[2017-12-30] MEDS: EUCERIN 120GM CREAM TOP (09:08)
[2017-12-30] MEDS: VENLAFAXINE **XR** 75MG CAPSULE PO (12:18)
[2017-12-30] MEDS: oxyCODONE 5MG TAB PO (14:33)
[2017-12-30] MEDS: **NOTE PATIENT COMMENT** MISC XX (21:00)
[2017-12-30] MEDS: OLANZapine 2.5MG TABLET PO (21:00)
[2017-12-30] MEDS: TOBRADEX OPHTH OINT 3.5 GM OU (21:00)
[2017-12-30] MEDS: ZONISAMIDE 100 MG CAP (ZONEGRAN) PO (21:00)
[2017-12-30] MEDS: MIRTAZAPINE 15 MG TAB PO (21:01)
[2017-12-30] MEDS: PHENobarbital 30 MG TAB PO (21:01)
[2017-12-31] MEDS: LevoFLOXacin 750 MG TABLET PO (05:14)
[2017-12-31] MEDS: HEPARIN SOD (PORCINE) 5000 UNITS/ML VIAL SC (05:14)
[2017-12-31 06:50] LABS: BASO # 0.1 10^3/uL (0.0-0.2); BASO % 0.7 % (0.0-1.0); EOS # 0.2 10^3/uL (0.0-0.50); EOS % 2.4 % (0.0-3.0); HEMATOCRIT 31.9 % (42.0-52.0); HEMOGLOBIN 10.1 g/dl (14.0-18.0); IMMATURE GRANULOCYTE % 3.8 % (0-3.0); LYMPH # 2.7 10^3/uL (1.5-4.5); LYMPH % 31.8 % (24.0-44.0); MEAN CORPUSCULAR HEMOGLOBIN 29.9 pg (27.0-33.0); MEAN CORPUSCULAR HGB CONC 31.7 g/dl (32.0-36.5); MEAN CORPUSCULAR VOLUME 94.4 fl (80.0-96.0); MONO # 0.9 10^3/uL (0.0-0.8); MONO % 10.6 % (0.0-5.0); NEUTROPHILS # 4.2 10^3/uL (1.8-7.7); NEUTROPHILS % 50.7 % (36.0-66.0); PLATELET COUNT, AUTOMATED 639 10^3/uL (150-450); RED BLOOD COUNT 3.38 10^6/uL (4.30-6.10); RED CELL DISTRIBUTION WIDTH 14.9 % (11.5-14.5); WHITE BLOOD COUNT 8.4 10^3/uL (4.0-10.0)
[2017-12-31 07:13] LABS: ALBUMIN 2.7 GM/DL (3.2-5.2); ALBUMIN/GLOBULIN RATIO 0.44 (1.00-1.93); ALKALINE PHOSPHATASE 176 U/L (45-117); ALT/SGPT 113 U/L (12-78); ANION GAP 8 MEQ/L (8-16); AST/SGOT 163 U/L (7-37); BILIRUBIN,TOTAL 0.2 MG/DL (0.2-1.0); BLOOD UREA NITROGEN 23 MG/DL (7-18); C REACTIVE PROTEIN QUANTITATIV 5.92 MG/DL (0.00-0.30); CALCIUM LEVEL 10.4 MG/DL (8.8-10.2); CARBON DIOXIDE LEVEL 22 MEQ/L (21-32); CHLORIDE LEVEL 104 MEQ/L (98-107); CREATININE FOR GFR 1.31 MG/DL (0.70-1.30); GLOMERULAR FILTRATION RATE 57.4 (>42); GLUCOSE, FASTING 100 MG/DL (70-100); POTASSIUM SERUM 4.1 MEQ/L (3.5-5.1); SODIUM LEVEL 134 MEQ/L (136-145); TOTAL PROTEIN 8.8 GM/DL (6.4-8.2)
[2017-12-31] MEDS: LIDOCAINE 5% (LIDODERM) PATCH TD (08:24)
[2017-12-31] MEDS: ACETAMINOPHEN TAB 650MG DOSE (2X325MG) PO (08:25)
[2017-12-31] MEDS: clonazePAM 1 MG TAB PO (08:55)
[2017-12-31] MEDS: SINEMET 25-100 MG TAB PO (09:16)
[2017-12-31] MEDS: DONEPEZIL 5 MG TAB PO (09:16)
[2017-12-31] MEDS: OMEPRAZOLE 20 MG CAP PO (09:17)
[2017-12-31] MEDS: METAXALONE 800 MG TABLET PO (09:17)
[2017-12-31] MEDS: VITAMIN D 1,000 INTERNATIONAL UNITS TABLET PO (09:17)
[2017-12-31] MEDS: EUCERIN 120GM CREAM TOP (09:18)
[2017-12-31] MEDS: SENOKOT S TAB PO (09:23)
[2017-12-31] MEDS: VENLAFAXINE **XR** 75MG CAPSULE PO (12:13)
[2018-01-01 00:07] LABS: EBV VIRAL CAPSID AG IgM <36.0 U/mL (0.0-35.9)
[2018-01-01 00:07] LABS: EBV AB TO NUCLEAR ANTIGEN <18.0 U/mL (0.0-17.9); EBV VIRAL CAPSID AG IgG <18.0 U/mL (0.0-17.9)
[2018-01-02 00:06] LABS: BODY FLUID CULTURE Not Indicated (.); LEGIONELLA ANTIGEN URINE Negative (Negative); ORGANISM ID Not indicated. (.); SPECIMEN SOURCE Urine (.); URINE STREP PNEUMONIAE ANTIGEN Negative (Negative)
== END 2017-12-31 12:50 | DRG 698 ==
LOC: M MSPAV 12-22 00:06 → M MS5PR 12-25 15:49 → M ED 18:53 → M ED INP 22:45
DX: T83.518A Infection and inflammatory reaction due to other urinary catheter, initial encounter (principal); J18.9 Pneumonia, unspecified organism; N39.0 Urinary tract infection, site not specified; I69.354 Hemiplegia and hemiparesis following cerebral infarction affecting left non-dominant side; E87.1 Hypo-osmolality and hyponatremia; J44.9 Chronic obstructive pulmonary disease, unspecified; K21.9 Gastro-esophageal reflux disease without esophagitis; E78.00 Pure hypercholesterolemia, unspecified; G20 Parkinson's disease; G40.909 Epilepsy, unspecified, not intractable, without status epilepticus; D63.8 Anemia in other chronic diseases classified elsewhere; F43.10 Post-traumatic stress disorder, unspecified; R74.0 Nonspecific elevation of levels of transaminase and lactic acid dehydrogenase [LDH]; I87.2 Venous insufficiency (chronic) (peripheral); Z99.81 Dependence on supplemental oxygen; Z79.899 Other long term (current) drug therapy; Z88.1 Allergy status to other antibiotic agents; Z88.8 Allergy status to other drugs, medicaments and biological substances; Z91.018 Allergy to other foods; Y84.6 Urinary catheterization as the cause of abnormal reaction of the patient, or of later complication, without mention of misadventure at the time of the procedure; M54.2 Cervicalgia; G43.909 Migraine, unspecified, not intractable, without status migrainosus; B96.20 Unspecified Escherichia coli [E. coli] as the cause of diseases classified elsewhere; B95.61 Methicillin susceptible Staphylococcus aureus infection as the cause of diseases classified elsewhere; B95.5 Unspecified streptococcus as the cause of diseases classified elsewhere; Z87.891 Personal history of nicotine dependence

== ENCOUNTER 2018-03-10 14:15 | Inpatient (IN) | payer OTHER, MEDICARE ==
[2018-03-11 01:19] LABS: CK-MB VALUE MASS 1.3 NG/ML (<3.6); CPK CREATINE PHOSPHOKINASE 52 U/L (39-308); TROPONIN I < 0.02 NG/ML (< 0.10)
[2018-03-11] MEDS ORDERED: MOM 30ML SUSPENSION UDC PO (02:15)
[2018-03-11] MEDS ORDERED: DOCUSATE SODIUM 100 MG CAP PO (02:15)
[2018-03-11] MEDS ORDERED: ALBUTEROL SULFATE 2.5 MG/0.5 ML INH NEB SOLN INH (02:15)
[2018-03-11] MEDS ORDERED: ACETAMINOPHEN TAB 650MG DOSE (2X325MG) PO (02:15)
[2018-03-11] MEDS ORDERED: ONDANSETRON 4MG/2ML VIAL (J2405) IV (02:15)
[2018-03-11] MEDS: MIRTAZAPINE 7.5MG PER 1/2 TABLET PO ×2 (03:37→20:30)
[2018-03-11] MEDS: OLANZapine 2.5MG TABLET PO ×2 (03:37→20:31)
[2018-03-11] MEDS: ZONISAMIDE 100 MG CAP (ZONEGRAN) PO ×2 (03:38→20:32)
[2018-03-11 05:24] LABS: BASO # 0.1 10^3/uL (0.0-0.2); BASO % 0.8 % (0.0-1.0); EOS # 0.4 10^3/uL (0.0-0.50); EOS % 4.8 % (0.0-3.0); HEMATOCRIT 30.9 % (42.0-52.0); IMMATURE GRANULOCYTE % 0.4 % (0-3.0); LYMPH # 2.6 10^3/uL (1.5-4.5); LYMPH % 32.5 % (24.0-44.0); MEAN CORPUSCULAR HEMOGLOBIN 31.5 pg (27.0-33.0); MEAN CORPUSCULAR HGB CONC 32.4 g/dl (32.0-36.5); MEAN CORPUSCULAR VOLUME 97.5 fl (80.0-96.0); MONO # 0.9 10^3/uL (0.0-0.8); NEUTROPHILS % 50.5 % (36.0-66.0); PLATELET COUNT, AUTOMATED 280 10^3/uL (150-450); RED BLOOD COUNT 3.17 10^6/uL (4.30-6.10); RED CELL DISTRIBUTION WIDTH 15.7 % (11.5-14.5); WHITE BLOOD COUNT 7.8 10^3/uL (4.0-10.0)
[2018-03-11 05:45] LABS: ANION GAP 6 MEQ/L (8-16); BLOOD UREA NITROGEN 21 MG/DL (7-18); CALCIUM LEVEL 7.9 MG/DL (8.8-10.2); CARBON DIOXIDE LEVEL 24 MEQ/L (21-32); CHLORIDE LEVEL 112 MEQ/L (98-107); CPK CREATINE PHOSPHOKINASE 58 U/L (39-308); CREATININE FOR GFR 1.18 MG/DL (0.70-1.30); GLOMERULAR FILTRATION RATE > 60.0 (>42); GLUCOSE, FASTING 101 MG/DL (70-100); MB/CK RELATIVE INDEX 1.72 (< OR =4); POTASSIUM SERUM 3.6 MEQ/L (3.5-5.1); SODIUM LEVEL 142 MEQ/L (136-145); TROPONIN I < 0.02 NG/ML (< 0.10)
[2018-03-11] MEDS: METAXALONE 800 MG TABLET PO ×2 (09:02→20:33)
[2018-03-11] MEDS: SINEMET 25-100 MG TAB PO ×3 (09:02→20:33)
[2018-03-11] MEDS: OMEPRAZOLE 20 MG CAP PO ×2 (09:02→20:33)
[2018-03-11] MEDS: CALCIUM/VITAMIN D 500 MG TAB PO ×2 (09:02→20:31)
[2018-03-11] MEDS: FLUTICASONE PROP 0.05% NASAL SPRAY 16 GM (FLONASE) (09:02)
[2018-03-11] MEDS: VITAMIN D 1,000 INTERNATIONAL UNITS TABLET PO (09:03)
[2018-03-11] MEDS: clonazePAM 1 MG TAB PO (09:06)
[2018-03-11] MEDS: oxyCODONE 5MG TAB PO ×2 (09:09→20:32)
[2018-03-11] MEDS: VENLAFAXINE **XR** 75MG CAPSULE PO (12:36)
[2018-03-11 12:52] LABS: CK-MB VALUE MASS 1.1 NG/ML (<3.6); CPK CREATINE PHOSPHOKINASE 65 U/L (39-308); MB/CK RELATIVE INDEX 1.69 (< OR =4); TROPONIN I < 0.02 NG/ML (< 0.10)
[2018-03-11 14:21] LABS: KETONE, URINE AUTO RFX NEGATIVE (NEGATIVE); LEUKOCYTE ESTERASE UR AUTO RFX 2+ (NEGATIVE); NITRITE, URINE AUTO RFX POSITIVE (NEGATIVE); RBC, URINE AUTO RFX 1 /HPF (0-3); SQUAM EPITHELIAL CELL UR AURFX 0 /HPF (0-6); WBC, URINE AUTO RFX 3 /HPF (0-3)
[2018-03-11] MEDS: SIMVASTATIN 40 MG TAB PO (20:33)
[2018-03-12 05:48] LABS: BASO # 0.1 10^3/uL (0.0-0.2); BASO % 0.8 % (0.0-1.0); EOS # 0.3 10^3/uL (0.0-0.50); EOS % 3.1 % (0.0-3.0); HEMATOCRIT 34.4 % (42.0-52.0); HEMOGLOBIN 10.8 g/dl (13.5-17.5); IMMATURE GRANULOCYTE % 0.4 % (0-3.0); LYMPH # 2.7 10^3/uL (1.5-4.5); LYMPH % 32.8 % (24.0-44.0); MEAN CORPUSCULAR HEMOGLOBIN 31.1 pg (27.0-33.0); MEAN CORPUSCULAR HGB CONC 31.4 g/dl (32.0-36.5); MEAN CORPUSCULAR VOLUME 99.1 fl (80.0-96.0); MONO % 12.2 % (0.0-5.0); NEUTROPHILS # 4.2 10^3/uL (1.8-7.7); NEUTROPHILS % 50.7 % (36.0-66.0); PLATELET COUNT, AUTOMATED 276 10^3/uL (150-450); RED BLOOD COUNT 3.47 10^6/uL (4.30-6.10); RED CELL DISTRIBUTION WIDTH 15.7 % (11.5-14.5); WHITE BLOOD COUNT 8.4 10^3/uL (4.0-10.0)
[2018-03-12 06:09] LABS: ANION GAP 6 MEQ/L (8-16); BLOOD UREA NITROGEN 13 MG/DL (7-18); CALCIUM LEVEL 8.8 MG/DL (8.8-10.2); CARBON DIOXIDE LEVEL 24 MEQ/L (21-32); CHLORIDE LEVEL 110 MEQ/L (98-107); CREATININE FOR GFR 1.23 MG/DL (0.70-1.30); GLOMERULAR FILTRATION RATE > 60.0 (>42); GLUCOSE, FASTING 117 MG/DL (70-100); SODIUM LEVEL 140 MEQ/L (136-145)
[2018-03-12] MEDS: VITAMIN D 1,000 INTERNATIONAL UNITS TABLET PO (08:02)
[2018-03-12] MEDS: METAXALONE 800 MG TABLET PO (08:02)
[2018-03-12] MEDS: CALCIUM/VITAMIN D 500 MG TAB PO (08:02)
[2018-03-12] MEDS: SINEMET 25-100 MG TAB PO (08:02)
[2018-03-12] MEDS: OMEPRAZOLE 20 MG CAP PO (08:02)
[2018-03-12] MEDS: FLUTICASONE PROP 0.05% NASAL SPRAY 16 GM (FLONASE) (08:06)
[2018-03-12] MEDS: oxyCODONE 5MG TAB PO (08:06)
[2018-03-12] MEDS: CEFEPIME HCL 1 GM in D5W MINI-BAG PLUS 50 ML IV (10:55)
[2018-03-12] MEDS: VENLAFAXINE **XR** 75MG CAPSULE PO (11:55)
== END 2018-03-12 12:47 | disposition home or self-care (01) | DRG 463 ==
LOC: M ED 14:15 → M PCU 21:18
DX: N39.0 Urinary tract infection, site not specified (principal); J96.11 Chronic respiratory failure with hypoxia; G20 Parkinson's disease; E55.9 Vitamin D deficiency, unspecified; J44.9 Chronic obstructive pulmonary disease, unspecified; G40.909 Epilepsy, unspecified, not intractable, without status epilepticus; B96.5 Pseudomonas (aeruginosa) (mallei) (pseudomallei) as the cause of diseases classified elsewhere; M54.5 Low back pain; Z66 Do not resuscitate; I95.1 Orthostatic hypotension; J30.9 Allergic rhinitis, unspecified; M81.0 Age-related osteoporosis without current pathological fracture; K21.9 Gastro-esophageal reflux disease without esophagitis; E78.00 Pure hypercholesterolemia, unspecified; R33.9 Retention of urine, unspecified; F32.9 Major depressive disorder, single episode, unspecified; Z87.440 Personal history of urinary (tract) infections; Z87.820 Personal history of traumatic brain injury; Z96.0 Presence of urogenital implants; Z91.018 Allergy to other foods; Z88.8 Allergy status to other drugs, medicaments and biological substances; Z87.891 Personal history of nicotine dependence; Z79.899 Other long term (current) drug therapy; Z88.1 Allergy status to other antibiotic agents

== ENCOUNTER → 2018-03-10 | Outpatient (CLI) | payer OTHER ==
[~2018-03-10] MED LIST changes: -/DICL25CA; -/FENT50PA; -/FENT50PA TD; -/IPRAINH INH; -/MIRT15TA; -/MIRT15TA PO; -/QUET10TA; -/SALMDISK; -/TAMS4CA; -ACET1TAB17 PO; -ALBU17IN INH; -ALBU83IN INH; -ALBUTEROL INH; -ALEN70SO PO; -ALEN70TA39 PO; -ANEC4CRE3 TOP; -ARIC10TA PO; -ARTISOL10 OU; -ASPI325T OR; -ATAM25TA2 OR; -ATROVENT; -AUGM875T28 PO; -BACI500O8 TOP; -BACT800T5 PO; -BISA10SU2 RE; -BUSP10TA PO; -BUSP10TA2; -BUSP10TA2 PO; -CALC1TAB74 PO; -CALCIUM/VITAMIN D PO; -CALCTAB68 PO; -CARB25TA PO; -CIPR500T3 PO; -CLOB0.057 TOP; -CLON0.5T OR; -CLON0.5T PO; -CLON1TAB PO; -COLA50CA; -CYCL25CA5 OU; -DENTCRE3 PO; -DICL1GEL3 TD; -DONETAB6 PO; -EUCECRE3 TOP; -EXCETAB; -EXCETAB80 PO; -FENT1DIS14 TD; -FENT50PA TOP; -FISH1000 PO; -FLON1SPR; -FLUN25SP; -FLUTISP; -FORMOTEROL FUMARATE INH; -FURO20TA2; -GABA-282 PO; -HYPROMELLOSE OD; -IMIT100T OR; -KLON1TAB; -LIDO2JELLY TOP; +LIDOCAINE 5% (LIDODERM) PATCH As Ordered; +LIDOCAINE 5% (LIDODERM) PATCH TD; -LORA2TAB; -LUBR0.5D OU; -MELOPOW; -META1TAB22 PO; -META28.35 PO; -MIDODRINE PO; -MILKSUS PO; -MIRA33504 PO; -MIRALEX PO; -MIRT15TA3 PO; -MOMETASONE INH; -NEUR300C PO; -NICOTINE GUM; -NORCOTAB PO; -OLAN15TA PO; -OLAN5TAB PO; -OLAN7.5T PO; -OMEP20CA3 PO; -OMEP20TA7 OR; -OXYC-517 PO; -OXYC10TA12; -OXYC10TA12 OR; -OXYC1SOL3 PO; -PHEN16.2; -PHEN16.2 OR; -PHEN16.2 PO; -PRED15SO3; -PRIL20CA; -REFR0.5D8 OP; -REFR1DRO6 OU; -REST0.05 OU; -RISP4TAB OR; -RIZA10TA4 PO; -SENN8.6T5 PO; -SENN8.6T7 PO; -SENO8.6T10 PO; -SIMV40TA2 PO; -SIMV80TA; -SIMV80TA OR; -SIMV80TA PO; -SKEL800T5; -SKEL800T5 OR; -SKEL800T97 PO; -SODI0.9S IR; -SYMB16INH INH; -TOBROPO OU; -TRIA25CR TOP; -TROS20TA3 PO; -VENL100T PO; -VENL150C43 PO; -VENL75TA2; -VESICARE; -VESICARE PO; -VITA-121 PO; -VITA100066 PO; -VITAMIN D50000 UNT; -ZONI100C2 PO; -ZONISAMIDE PO; -ZOSTCRE TOP; -[UNRECOGNIZED DRUG - OTHER]; -asmanex; -citracal; +oxyCODONE 5MG TAB As Ordered; +oxyCODONE 5MG TAB PO; -zonisamide
[2018-03-10 22:39] LABS: ABG BASE EXCESS -3.1 (-2.0-2.0); ABG HCO3 21.6 MEQ/L (22.0-26.0); ABG O2 SATURATION 95.3 % (95.0-99.0); ABG PARTIAL PRESSURE O2 91.3 mmHg (75.0-100.0); ABG STANDARD HCO3 21.9 MEQ/L (22.0-26.0); ABG TOTAL CO2 22.7 MEQ/L (23.0-31.0); ABG pH (ARTERIAL) 7.384 UNITS (7.350-7.450)
[2018-03-10 23:29] LABS: ALBUMIN 3.2 GM/DL (3.2-5.2); ALBUMIN/GLOBULIN RATIO 0.89 (1.00-1.93); ALKALINE PHOSPHATASE 41 U/L (45-117); ALT/SGPT 14 U/L (12-78); ANION GAP 8 MEQ/L (8-16); AST/SGOT 22 U/L (7-37); BILIRUBIN,DIRECT < 0.1 MG/DL (0.0-0.2); BILIRUBIN,TOTAL 0.2 MG/DL (0.2-1.0); BLOOD UREA NITROGEN 26 MG/DL (7-18); CALCIUM LEVEL 8.3 MG/DL (8.8-10.2); CARBON DIOXIDE LEVEL 23 MEQ/L (21-32); CHLORIDE LEVEL 111 MEQ/L (98-107); CK-MB VALUE MASS 1.5 NG/ML (<3.6); CPK CREATINE PHOSPHOKINASE 58 U/L (39-308); CREATININE FOR GFR 1.35 MG/DL (0.70-1.30); GLOMERULAR FILTRATION RATE 55.5 (>42); GLUCOSE, FASTING 129 MG/DL (70-100); MB/CK RELATIVE INDEX 2.58 (< OR =4); POTASSIUM SERUM 4.1 MEQ/L (3.5-5.1); SODIUM LEVEL 142 MEQ/L (136-145); TOTAL PROTEIN 6.8 GM/DL (6.4-8.2); TROPONIN I < 0.02 NG/ML (< 0.10)
[2018-03-11 01:30] LABS: HEMOGLOBIN 10.1 g/dl (13.5-17.5); MEAN CORPUSCULAR HEMOGLOBIN 31.2 pg (27.0-33.0); MEAN CORPUSCULAR HGB CONC 31.6 g/dl (32.0-36.5); MEAN CORPUSCULAR VOLUME 98.8 fl (80.0-96.0); PLATELET COUNT, AUTOMATED 302 10^3/uL (150-450); RED BLOOD COUNT 3.24 10^6/uL (4.30-6.10); RED CELL DISTRIBUTION WIDTH 15.9 % (11.5-14.5); WHITE BLOOD COUNT 7.2 10^3/uL (4.0-10.0)
[2018-03-11 02:29] LABS: APPEARANCE, URINE CLEAR (CLEAR); BACTERIA, URINE AUTO NEGATIVE (NEGATIVE); BILIRUBIN, URINE AUTO NEGATIVE (NEGATIVE); BLOOD, URINE BLOOD NEGATIVE (NEGATIVE); COLOR, URINE YELLOW (YELLOW); GLUCOSE, URINE (UA) AUTO NEGATIVE (NEGATIVE); KETONE, URINE AUTO NEGATIVE (NEGATIVE); LEUKOCYTE ESTERASE, URINE AUTO 2+ (NEGATIVE); NITRITE, URINE AUTO POSITIVE (NEGATIVE); PROTEIN, URINE AUTO NEGATIVE (NEGATIVE); RBC, URINE AUTO 1 /HPF (0-3); SQUAMOUS EPITHELIAL CELL UR AU 0 /HPF (0-6); UROBILINOGEN, URINE AUTO 0.2 mg/dL (0.0-2.0); WBC, URINE AUTO 3 /HPF (0-3)
[2018-03-11 14:59] LABS: PROLACTIN 10.4 NG/ML (2.1-17.7)
== END ==
LOC: M RAD 13:45
DX: M54.16 Radiculopathy, lumbar region (principal)

== ENCOUNTER 2018-09-24 14:20 | Inpatient (IN) | payer OTHER, MEDICARE ==
[2018-09-24 15:29] LABS: HEMOGLOBIN 9.4 g/dl (13.5-17.5); MEAN CORPUSCULAR HEMOGLOBIN 32.8 pg (27.0-33.0); MEAN CORPUSCULAR HGB CONC 32.4 g/dl (32.0-36.5); PLATELET COUNT, AUTOMATED 166 10^3/uL (150-450); RED BLOOD COUNT 2.87 10^6/uL (4.30-6.10); RED CELL DISTRIBUTION WIDTH 13.7 % (11.5-14.5); WHITE BLOOD COUNT 9.7 10^3/uL (4.0-10.0)
[2018-09-24 15:32] LABS: ADD MANUAL DIFFER YES; DIFF SLIDE NUMBER 250; POSITIVE MORPH POS FLAG
[2018-09-24 15:37] LABS: APPEARANCE, URINE HAZY (CLEAR); BACTERIA, URINE AUTO 1+ (NEGATIVE); BILIRUBIN, URINE AUTO NEGATIVE (NEGATIVE); BLOOD, URINE BLOOD 2+ (NEGATIVE); COLOR, URINE YELLOW (YELLOW); GLUCOSE, URINE (UA) AUTO NEGATIVE (NEGATIVE); KETONE, URINE AUTO NEGATIVE (NEGATIVE); LEUKOCYTE ESTERASE, URINE AUTO 3+ (NEGATIVE); NITRITE, URINE AUTO NEGATIVE (NEGATIVE); PROTEIN, URINE AUTO 2+ mg/dL (NEGATIVE); RBC, URINE AUTO 6 /HPF (0-3); RENAL EPITHELIAL CELLS 4 /HPF; SPECIFIC GRAVITY URINE AUTO 1.009 (1.002-1.035); SQUAMOUS EPITHELIAL CELL UR AU 1 /HPF (0-6); UROBILINOGEN, URINE AUTO 0.2 mg/dL (0.0-2.0); WBC, URINE AUTO 87 /HPF (0-3)
[2018-09-24 15:49] LABS: LACTIC ACID SEPSIS PROTOCOL 1.3 MMOL/L (0.4-2.0)
[2018-09-24 15:53] LABS: ALBUMIN 2.4 GM/DL (3.2-5.2); ALBUMIN/GLOBULIN RATIO 0.57 (1.00-1.93); ALKALINE PHOSPHATASE 65 U/L (45-117); ALT/SGPT 6 U/L (12-78); ANION GAP 8 MEQ/L (8-16); AST/SGOT 27 U/L (7-37); BILIRUBIN,DIRECT 0.2 MG/DL (0.0-0.2); BILIRUBIN,TOTAL 0.4 MG/DL (0.2-1.0); BLOOD UREA NITROGEN 15 MG/DL (7-18); CALCIUM LEVEL 8.7 MG/DL (8.8-10.2); CARBON DIOXIDE LEVEL 24 MEQ/L (21-32); CHLORIDE LEVEL 96 MEQ/L (98-107); CPK CREATINE PHOSPHOKINASE 166 U/L (39-308); GLOMERULAR FILTRATION RATE 42.4 (>42); GLUCOSE, FASTING 121 MG/DL (70-100); MB/CK RELATIVE INDEX 1.45 (< OR =4); POTASSIUM SERUM 3.5 MEQ/L (3.5-5.1); SODIUM LEVEL 128 MEQ/L (136-145); TOTAL PROTEIN 6.6 GM/DL (6.4-8.2); TROPONIN I < 0.02 NG/ML (< 0.10)
[2018-09-24 15:54] LABS: BANDS 15 % (< 11); BASOPHILS 1 % (0-4); LYMPHOCYTES 14 % (16-52); MONOCYTES 8 % (0-8); NEUTROPHILS 62 % (35-75); PLATELET ESTIMATE NORMAL (NORMAL)
[2018-09-24 16:11] LABS: INFLUENZA A AMPLIFICATION NEGATIVE (NEGATIVE); INFLUENZA B AMPLIFICATION NEGATIVE (NEGATIVE)
[2018-09-24] MEDS: NS 1,000 ML IV (16:34)
[2018-09-24] MEDS: CEFEPIME HCL 2 GM in D5W MINI-BAG PLUS 50 ML IV (16:47)
[2018-09-24] MEDS ORDERED: ONDANSETRON 4MG/2ML VIAL (J2405) IV (18:15)
[2018-09-24] MEDS ORDERED: FLUTICASONE PROP 0.05% NASAL SPRAY 16 GM (FLONASE) (18:15)
[2018-09-24] MEDS ORDERED: MOM 30ML SUSPENSION UDC PO (18:15)
[2018-09-24] MEDS ORDERED: RIZATRIPTAN MLT 10 MG TAB PO (18:15)
[2018-09-24] MEDS ORDERED: SENOKOT S TAB PO (18:15)
[2018-09-24] MEDS ORDERED: PILL CRUSHER/CUTTER 1 EACH XX (19:15)
[2018-09-24] MEDS: VANCOMYCIN HCL 1,000 MG, VIAL MATE ADAPTER 1 EACH in D5W 250 ML IV ×2 (20:01→21:55)
[2018-09-24] MEDS ORDERED: VANCOMYCIN HCL 750 MG, VIAL MATE ADAPTER 1 EACH in D5W 250 ML IV (21:00)
[2018-09-24] MEDS: OLANZapine 2.5MG TABLET PO (21:55)
[2018-09-24] MEDS: TOBRADEX OPHTH OINT 3.5 GM OU (21:55)
[2018-09-24] MEDS: TROSPIUM 20 MG TAB PO (21:55)
[2018-09-24] MEDS: PHENobarbital 30 MG TAB PO (21:56)
[2018-09-24] MEDS: ZONISAMIDE 100 MG CAP (ZONEGRAN) PO (21:56)
[2018-09-24] MEDS: SINEMET 25-100 MG TAB PO (21:56)
[2018-09-24] MEDS: OMEPRAZOLE 20 MG CAP PO (21:56)
[2018-09-24] MEDS: SIMVASTATIN 40 MG TAB PO (21:56)
[2018-09-24] MEDS: VITAMIN D 1,000 INTERNATIONAL UNITS TABLET PO (21:57)
[2018-09-24] MEDS: MIRTAZAPINE 15 MG TAB PO (21:57)
[2018-09-24] MEDS: HEPARIN SOD (PORCINE) 5000 UNITS/ML VIAL SC (21:57)
[2018-09-24] MEDS: clonazePAM 1 MG TAB PO (21:57)
[2018-09-24] MEDS: SYMBICORT 160/4.5MCG INHALER 6GM INH (23:20)
[2018-09-25] MEDS: CEFEPIME HCL 2 GM in D5W MINI-BAG PLUS 50 ML IV ×2 (04:11→17:24)
[2018-09-25] MEDS: HEPARIN SOD (PORCINE) 5000 UNITS/ML VIAL SC ×3 (05:08→21:21)
[2018-09-25] MEDS: LIDOCAINE 5% (LIDODERM) PATCH TD (05:09)
[2018-09-25 06:43] LABS: BASO % 0.1 % (0.0-1.0); EOS % 0.2 % (0.0-3.0); HEMATOCRIT 28.1 % (42.0-52.0); HEMOGLOBIN 9.3 g/dl (13.5-17.5); IMMATURE GRANULOCYTE % 0.6 % (0-3.0); LYMPH # 1.4 10^3/uL (1.5-4.5); LYMPH % 12.6 % (24.0-44.0); MEAN CORPUSCULAR HEMOGLOBIN 32.5 pg (27.0-33.0); MEAN CORPUSCULAR HGB CONC 33.1 g/dl (32.0-36.5); MEAN CORPUSCULAR VOLUME 98.3 fl (80.0-96.0); MONO # 1.6 10^3/uL (0.0-0.8); MONO % 14.7 % (0.0-5.0); NEUTROPHILS # 7.9 10^3/uL (1.8-7.7); NEUTROPHILS % 71.8 % (36.0-66.0); PLATELET COUNT, AUTOMATED 167 10^3/uL (150-450); RED BLOOD COUNT 2.86 10^6/uL (4.30-6.10); RED CELL DISTRIBUTION WIDTH 13.6 % (11.5-14.5); WHITE BLOOD COUNT 11.1 10^3/uL (4.0-10.0)
[2018-09-25 07:09] LABS: ANION GAP 10 MEQ/L (8-16); BLOOD UREA NITROGEN 17 MG/DL (7-18); CALCIUM LEVEL 8.5 MG/DL (8.8-10.2); CARBON DIOXIDE LEVEL 22 MEQ/L (21-32); CHLORIDE LEVEL 99 MEQ/L (98-107); CREATININE FOR GFR 1.69 MG/DL (0.70-1.30); GLOMERULAR FILTRATION RATE 42.7 (>42); GLUCOSE, FASTING 106 MG/DL (70-100); POTASSIUM SERUM 3.6 MEQ/L (3.5-5.1); SODIUM LEVEL 131 MEQ/L (136-145)
[2018-09-25] MEDS: SYMBICORT 160/4.5MCG INHALER 6GM INH ×2 (07:26→20:24)
[2018-09-25] MEDS: MIRALAX *UNIT DOSE* 17GM PACKET PO (09:19)
[2018-09-25] MEDS: clonazePAM 1 MG TAB PO ×2 (09:19→21:20)
[2018-09-25] MEDS: TROSPIUM 20 MG TAB PO ×2 (09:19→21:19)
[2018-09-25] MEDS: VANCOMYCIN HCL 1,000 MG, VIAL MATE ADAPTER 1 EACH in D5W 250 ML IV ×2 (09:19→21:21)
[2018-09-25] MEDS: SINEMET 25-100 MG TAB PO ×3 (09:19→21:19)
[2018-09-25] MEDS: VITAMIN D 1,000 INTERNATIONAL UNITS TABLET PO ×2 (09:19→21:19)
[2018-09-25] MEDS: OMEPRAZOLE 20 MG CAP PO ×2 (09:19→21:20)
[2018-09-25] MEDS: EUCERIN 120GM CREAM TOP (09:20)
[2018-09-25] MEDS: VENLAFAXINE **XR** 75MG CAPSULE PO (13:42)
[2018-09-25] MEDS: NS 1,000 ML IV (13:47)
[2018-09-25 13:58] LABS: RETIC HEMOGLOBIN EQUIVALENT 28.6 pg (24-36); RETICULOCYTE # 28.7 10^9/L (17-77)
[2018-09-25 14:02] LABS: FERRITIN 84 NG/ML (26-388); IRON (FE) 9 UG/DL (65-175); TOTAL IRON BINDING CAPACITY 226 UG/DL (250-450)
[2018-09-25] MEDS: OLANZapine 2.5MG TABLET PO (21:19)
[2018-09-25] MEDS: ZONISAMIDE 100 MG CAP (ZONEGRAN) PO (21:19)
[2018-09-25] MEDS: PHENobarbital 30 MG TAB PO (21:19)
[2018-09-25] MEDS: SIMVASTATIN 40 MG TAB PO (21:20)
[2018-09-25] MEDS: MIRTAZAPINE 15 MG TAB PO (21:20)
[2018-09-25] MEDS: TOBRADEX OPHTH OINT 3.5 GM OU (21:21)
[2018-09-25] MEDS: **NOTE PATIENT COMMENT** MISC XX (21:39)
[2018-09-26] MEDS: CEFEPIME HCL 2 GM in D5W MINI-BAG PLUS 50 ML IV (05:03)
[2018-09-26] MEDS: HEPARIN SOD (PORCINE) 5000 UNITS/ML VIAL SC ×3 (05:39→22:00)
[2018-09-26] MEDS: ALBUTEROL SULFATE 2.5 MG/0.5 ML INH NEB SOLN INH (06:00)
[2018-09-26] MEDS: SYMBICORT 160/4.5MCG INHALER 6GM INH ×2 (07:23→19:49)
[2018-09-26 08:04] LABS: HEMATOCRIT 28.8 % (42.0-52.0); HEMOGLOBIN 9.3 g/dl (13.5-17.5); MEAN CORPUSCULAR HGB CONC 32.3 g/dl (32.0-36.5); PLATELET COUNT, AUTOMATED 197 10^3/uL (150-450); RED BLOOD COUNT 2.91 10^6/uL (4.30-6.10); RED CELL DISTRIBUTION WIDTH 13.7 % (11.5-14.5); WHITE BLOOD COUNT 10.1 10^3/uL (4.0-10.0)
[2018-09-26 08:25] LABS: ANION GAP 10 MEQ/L (8-16); BLOOD UREA NITROGEN 16 MG/DL (7-18); CALCIUM LEVEL 8.6 MG/DL (8.8-10.2); CARBON DIOXIDE LEVEL 22 MEQ/L (21-32); CHLORIDE LEVEL 100 MEQ/L (98-107); CREATININE FOR GFR 1.51 MG/DL (0.70-1.30); GLOMERULAR FILTRATION RATE 48.6 (>42); GLUCOSE, FASTING 108 MG/DL (70-100); POTASSIUM SERUM 3.2 MEQ/L (3.5-5.1); SODIUM LEVEL 132 MEQ/L (136-145); VANCOMYCIN LEVEL TROUGH 24.5 UG/ML (10.0-20.0)
[2018-09-26] MEDS: MIRALAX *UNIT DOSE* 17GM PACKET PO (08:34)
[2018-09-26] MEDS: SINEMET 25-100 MG TAB PO ×3 (08:34→20:40)
[2018-09-26] MEDS: VITAMIN D 1,000 INTERNATIONAL UNITS TABLET PO ×2 (08:34→20:41)
[2018-09-26] MEDS: TROSPIUM 20 MG TAB PO ×2 (08:35→20:40)
[2018-09-26] MEDS: EUCERIN 120GM CREAM TOP (08:35)
[2018-09-26] MEDS: clonazePAM 1 MG TAB PO ×2 (08:35→20:40)
[2018-09-26] MEDS: OMEPRAZOLE 20 MG CAP PO ×2 (08:35→20:40)
[2018-09-26] MEDS: NS 1,000 ML IV (11:22)
[2018-09-26] MEDS: VENLAFAXINE **XR** 75MG CAPSULE PO (11:22)
[2018-09-26 12:34] LABS: REASON FOR REVIEW RBC MORPHOLOGY; RETIC HEMOGLOBIN EQUIVALENT 24.8 pg (24-36); RETICULOCYTE # 23.2 10^9/L (17-77); RETICULOCYTE % 0.8 % (0.5-1.5); SLIDE REVIEW Report; SOURCE PERIPHERAL SMEAR
[2018-09-26] MEDS: POTASSIUM CHLORIDE 10 MEQ SR TABLET PO (13:09)
[2018-09-26] MEDS: cefTRIAXone SOD 1 GM in D5W MINI-BAG PLUS 50 ML IV (13:09)
[2018-09-26] MEDS ORDERED: VANCOMYCIN HCL 1,000 MG, VIAL MATE ADAPTER 1 EACH in D5W 250 ML IV (17:00)
[2018-09-26] MEDS: ZONISAMIDE 100 MG CAP (ZONEGRAN) PO (20:40)
[2018-09-26] MEDS: OLANZapine 2.5MG TABLET PO (20:40)
[2018-09-26] MEDS: MIRTAZAPINE 15 MG TAB PO (20:41)
[2018-09-26] MEDS: TOBRADEX OPHTH OINT 3.5 GM OU (20:41)
[2018-09-26] MEDS: SIMVASTATIN 40 MG TAB PO (20:41)
[2018-09-26] MEDS: PHENobarbital 30 MG TAB PO (20:42)
[2018-09-27 05:14] LABS: HEMATOCRIT 30.4 % (42.0-52.0); HEMOGLOBIN 9.8 g/dl (13.5-17.5); MEAN CORPUSCULAR HGB CONC 32.2 g/dl (32.0-36.5); MEAN CORPUSCULAR VOLUME 99.3 fl (80.0-96.0); PLATELET COUNT, AUTOMATED 233 10^3/uL (150-450); RED BLOOD COUNT 3.06 10^6/uL (4.30-6.10); RED CELL DISTRIBUTION WIDTH 13.9 % (11.5-14.5); WHITE BLOOD COUNT 7.1 10^3/uL (4.0-10.0)
[2018-09-27 05:41] LABS: ANION GAP 9 MEQ/L (8-16); BLOOD UREA NITROGEN 14 MG/DL (7-18); CALCIUM LEVEL 9.1 MG/DL (8.8-10.2); CARBON DIOXIDE LEVEL 22 MEQ/L (21-32); CHLORIDE LEVEL 104 MEQ/L (98-107); CREATININE FOR GFR 1.41 MG/DL (0.70-1.30); GLOMERULAR FILTRATION RATE 52.6 (>42); GLUCOSE, FASTING 101 MG/DL (70-100); POTASSIUM SERUM 4.1 MEQ/L (3.5-5.1); SODIUM LEVEL 135 MEQ/L (136-145)
[2018-09-27] MEDS: NS 1,000 ML IV (06:09)
[2018-09-27] MEDS: HEPARIN SOD (PORCINE) 5000 UNITS/ML VIAL SC ×3 (06:09→21:32)
[2018-09-27] MEDS: VITAMIN D 1,000 INTERNATIONAL UNITS TABLET PO ×2 (08:41→20:43)
[2018-09-27] MEDS: TROSPIUM 20 MG TAB PO ×2 (08:42→20:42)
[2018-09-27] MEDS: MIRALAX *UNIT DOSE* 17GM PACKET PO (08:42)
[2018-09-27] MEDS: SINEMET 25-100 MG TAB PO ×3 (08:42→20:42)
[2018-09-27] MEDS: clonazePAM 1 MG TAB PO ×2 (08:42→20:42)
[2018-09-27] MEDS: OMEPRAZOLE 20 MG CAP PO ×2 (08:42→20:43)
[2018-09-27] MEDS: EUCERIN 120GM CREAM TOP (08:43)
[2018-09-27] MEDS: SYMBICORT 160/4.5MCG INHALER 6GM INH ×2 (09:27→21:17)
[2018-09-27 11:19] LABS: VITAMIN B12 LEVEL 546 PG/ML (247-911)
[2018-09-27 11:19] LABS: FOLATE 17.2 NG/ML (>5.4)
[2018-09-27] MEDS: VENLAFAXINE **XR** 75MG CAPSULE PO (11:57)
[2018-09-27] MEDS: cefTRIAXone SOD 1 GM in D5W MINI-BAG PLUS 50 ML IV (13:52)
[2018-09-27] MEDS: ZONISAMIDE 100 MG CAP (ZONEGRAN) PO (20:41)
[2018-09-27] MEDS: OLANZapine 2.5MG TABLET PO (20:42)
[2018-09-27] MEDS: SIMVASTATIN 40 MG TAB PO (20:42)
[2018-09-27] MEDS: MIRTAZAPINE 15 MG TAB PO (20:43)
[2018-09-27] MEDS: PHENobarbital 30 MG TAB PO (20:44)
[2018-09-27] MEDS: TOBRADEX OPHTH OINT 3.5 GM OU (20:44)
[2018-09-28] MEDS: HEPARIN SOD (PORCINE) 5000 UNITS/ML VIAL SC ×3 (05:51→21:01)
[2018-09-28] MEDS: SYMBICORT 160/4.5MCG INHALER 6GM INH ×2 (07:15→20:44)
[2018-09-28 07:56] LABS: HEMATOCRIT 28.7 % (42.0-52.0); HEMOGLOBIN 9.4 g/dl (13.5-17.5); MEAN CORPUSCULAR HEMOGLOBIN 32.3 pg (27.0-33.0); MEAN CORPUSCULAR HGB CONC 32.8 g/dl (32.0-36.5); MEAN CORPUSCULAR VOLUME 98.6 fl (80.0-96.0); PLATELET COUNT, AUTOMATED 303 10^3/uL (150-450); RED BLOOD COUNT 2.91 10^6/uL (4.30-6.10); WHITE BLOOD COUNT 9.1 10^3/uL (4.0-10.0)
[2018-09-28] MEDS: EUCERIN 120GM CREAM TOP (07:56)
[2018-09-28] MEDS: MIRALAX *UNIT DOSE* 17GM PACKET PO (07:57)
[2018-09-28] MEDS: VITAMIN D 1,000 INTERNATIONAL UNITS TABLET PO ×2 (07:57→20:57)
[2018-09-28] MEDS: OMEPRAZOLE 20 MG CAP PO ×2 (07:57→20:56)
[2018-09-28] MEDS: SINEMET 25-100 MG TAB PO ×3 (07:58→20:57)
[2018-09-28] MEDS: TROSPIUM 20 MG TAB PO ×2 (07:58→20:57)
[2018-09-28] MEDS: clonazePAM 1 MG TAB PO ×2 (07:58→20:57)
[2018-09-28 08:25] LABS: ANION GAP 8 MEQ/L (8-16); BLOOD UREA NITROGEN 12 MG/DL (7-18); CARBON DIOXIDE LEVEL 22 MEQ/L (21-32); CHLORIDE LEVEL 104 MEQ/L (98-107); CREATININE FOR GFR 1.23 MG/DL (0.70-1.30); GLOMERULAR FILTRATION RATE > 60.0 (>42); GLUCOSE, FASTING 105 MG/DL (70-100); POTASSIUM SERUM 3.8 MEQ/L (3.5-5.1); SODIUM LEVEL 134 MEQ/L (136-145)
[2018-09-28] MEDS: VENLAFAXINE **XR** 75MG CAPSULE PO (12:13)
[2018-09-28] MEDS: cefTRIAXone SOD 1 GM in D5W MINI-BAG PLUS 50 ML IV (13:20)
[2018-09-28] MEDS: PHENobarbital 30 MG TAB PO (20:56)
[2018-09-28] MEDS: MIRTAZAPINE 15 MG TAB PO (20:57)
[2018-09-28] MEDS: OLANZapine 2.5MG TABLET PO (20:57)
[2018-09-28] MEDS: SIMVASTATIN 40 MG TAB PO (20:58)
[2018-09-28] MEDS: ZONISAMIDE 100 MG CAP (ZONEGRAN) PO (20:58)
[2018-09-28] MEDS: TOBRADEX OPHTH OINT 3.5 GM OU (20:58)
[2018-09-28] MEDS: ACETAMINOPHEN TAB 650MG DOSE (2X325MG) PO (21:08)
[2018-09-29] MEDS: HEPARIN SOD (PORCINE) 5000 UNITS/ML VIAL SC ×3 (05:32→21:26)
[2018-09-29 06:00] LABS: HEMATOCRIT 31.4 % (42.0-52.0); HEMOGLOBIN 10.2 g/dl (13.5-17.5); MEAN CORPUSCULAR HEMOGLOBIN 32.1 pg (27.0-33.0); MEAN CORPUSCULAR HGB CONC 32.5 g/dl (32.0-36.5); MEAN CORPUSCULAR VOLUME 98.7 fl (80.0-96.0); PLATELET COUNT, AUTOMATED 383 10^3/uL (150-450); RED BLOOD COUNT 3.18 10^6/uL (4.30-6.10)
[2018-09-29 06:21] LABS: ANION GAP 10 MEQ/L (8-16); BLOOD UREA NITROGEN 14 MG/DL (7-18); CALCIUM LEVEL 9.7 MG/DL (8.8-10.2); CARBON DIOXIDE LEVEL 22 MEQ/L (21-32); CHLORIDE LEVEL 106 MEQ/L (98-107); CREATININE FOR GFR 1.25 MG/DL (0.70-1.30); GLOMERULAR FILTRATION RATE > 60.0 (>42); GLUCOSE, FASTING 112 MG/DL (70-100); POTASSIUM SERUM 3.8 MEQ/L (3.5-5.1); SODIUM LEVEL 138 MEQ/L (136-145)
[2018-09-29] MEDS: SINEMET 25-100 MG TAB PO ×3 (08:24→20:27)
[2018-09-29] MEDS: OMEPRAZOLE 20 MG CAP PO ×2 (08:24→20:25)
[2018-09-29] MEDS: MIRALAX *UNIT DOSE* 17GM PACKET PO (08:24)
[2018-09-29] MEDS: TROSPIUM 20 MG TAB PO ×2 (08:24→20:27)
[2018-09-29] MEDS: clonazePAM 1 MG TAB PO ×2 (08:24→20:25)
[2018-09-29] MEDS: VITAMIN D 1,000 INTERNATIONAL UNITS TABLET PO ×2 (08:24→20:27)
[2018-09-29] MEDS: EUCERIN 120GM CREAM TOP (08:24)
[2018-09-29] MEDS: SYMBICORT 160/4.5MCG INHALER 6GM INH ×2 (09:50→21:23)
[2018-09-29] MEDS: VENLAFAXINE **XR** 75MG CAPSULE PO (12:25)
[2018-09-29] MEDS: ALBUTEROL SULFATE 2.5 MG/0.5 ML INH NEB SOLN INH (13:08)
[2018-09-29] MEDS: cefTRIAXone SOD 1 GM in D5W MINI-BAG PLUS 50 ML IV (14:42)
[2018-09-29] MEDS: ZONISAMIDE 100 MG CAP (ZONEGRAN) PO (20:25)
[2018-09-29] MEDS: MIRTAZAPINE 15 MG TAB PO (20:26)
[2018-09-29] MEDS: TOBRADEX OPHTH OINT 3.5 GM OU (20:27)
[2018-09-29] MEDS: SIMVASTATIN 40 MG TAB PO (20:27)
[2018-09-29] MEDS: PHENobarbital 30 MG TAB PO (20:27)
[2018-09-29] MEDS: OLANZapine 2.5MG TABLET PO (20:27)
[2018-09-30] MEDS: HEPARIN SOD (PORCINE) 5000 UNITS/ML VIAL SC ×3 (05:20→22:00)
[2018-09-30 06:14] LABS: HEMATOCRIT 29.9 % (42.0-52.0); HEMOGLOBIN 9.8 g/dl (13.5-17.5); MEAN CORPUSCULAR HEMOGLOBIN 32.1 pg (27.0-33.0); MEAN CORPUSCULAR HGB CONC 32.8 g/dl (32.0-36.5); PLATELET COUNT, AUTOMATED 473 10^3/uL (150-450); RED BLOOD COUNT 3.05 10^6/uL (4.30-6.10); WHITE BLOOD COUNT 10.4 10^3/uL (4.0-10.0)
[2018-09-30 06:36] LABS: ANION GAP 10 MEQ/L (8-16); BLOOD UREA NITROGEN 15 MG/DL (7-18); CARBON DIOXIDE LEVEL 23 MEQ/L (21-32); CHLORIDE LEVEL 103 MEQ/L (98-107); CREATININE FOR GFR 1.26 MG/DL (0.70-1.30); GLOMERULAR FILTRATION RATE 59.9 (>42); GLUCOSE, FASTING 126 MG/DL (70-100); POTASSIUM SERUM 3.8 MEQ/L (3.5-5.1); SODIUM LEVEL 136 MEQ/L (136-145)
[2018-09-30] MEDS: SYMBICORT 160/4.5MCG INHALER 6GM INH ×2 (07:57→20:36)
[2018-09-30] MEDS: MIRALAX *UNIT DOSE* 17GM PACKET PO (09:00)
[2018-09-30] MEDS: clonazePAM 1 MG TAB PO ×2 (09:49→22:24)
[2018-09-30] MEDS: OMEPRAZOLE 20 MG CAP PO ×2 (09:49→22:22)
[2018-09-30] MEDS: EUCERIN 120GM CREAM TOP (09:49)
[2018-09-30] MEDS: TROSPIUM 20 MG TAB PO ×2 (09:49→22:24)
[2018-09-30] MEDS: SINEMET 25-100 MG TAB PO ×3 (09:49→22:24)
[2018-09-30] MEDS: VITAMIN D 1,000 INTERNATIONAL UNITS TABLET PO ×2 (09:49→22:24)
[2018-09-30] MEDS: VENLAFAXINE **XR** 75MG CAPSULE PO (13:11)
[2018-09-30] MEDS: cefTRIAXone SOD 1 GM in D5W MINI-BAG PLUS 50 ML IV (13:11)
[2018-09-30] MEDS: TOBRADEX OPHTH OINT 3.5 GM OU (21:00)
[2018-09-30] MEDS: PHENobarbital 30 MG TAB PO (22:22)
[2018-09-30] MEDS: OLANZapine 2.5MG TABLET PO (22:23)
[2018-09-30] MEDS: SIMVASTATIN 40 MG TAB PO (22:23)
[2018-09-30] MEDS: MIRTAZAPINE 15 MG TAB PO (22:24)
[2018-09-30] MEDS: ZONISAMIDE 100 MG CAP (ZONEGRAN) PO (22:24)
[2018-10-01] MEDS: HEPARIN SOD (PORCINE) 5000 UNITS/ML VIAL SC ×2 (06:00→14:44)
[2018-10-01 06:11] LABS: HEMATOCRIT 33.1 % (42.0-52.0); HEMOGLOBIN 10.8 g/dl (13.5-17.5); MEAN CORPUSCULAR HEMOGLOBIN 32.1 pg (27.0-33.0); MEAN CORPUSCULAR HGB CONC 32.6 g/dl (32.0-36.5); MEAN CORPUSCULAR VOLUME 98.5 fl (80.0-96.0); PLATELET COUNT, AUTOMATED 533 10^3/uL (150-450); RED BLOOD COUNT 3.36 10^6/uL (4.30-6.10); RED CELL DISTRIBUTION WIDTH 14.4 % (11.5-14.5); WHITE BLOOD COUNT 10.6 10^3/uL (4.0-10.0)
[2018-10-01 06:31] LABS: ANION GAP 9 MEQ/L (8-16); BLOOD UREA NITROGEN 16 MG/DL (7-18); CALCIUM LEVEL 10.1 MG/DL (8.8-10.2); CARBON DIOXIDE LEVEL 23 MEQ/L (21-32); CHLORIDE LEVEL 105 MEQ/L (98-107); GLOMERULAR FILTRATION RATE 57.8 (>42); GLUCOSE, FASTING 107 MG/DL (70-100); POTASSIUM SERUM 4.1 MEQ/L (3.5-5.1); SODIUM LEVEL 137 MEQ/L (136-145)
[2018-10-01] MEDS: SYMBICORT 160/4.5MCG INHALER 6GM INH (08:06)
[2018-10-01] MEDS: VITAMIN D 1,000 INTERNATIONAL UNITS TABLET PO (08:47)
[2018-10-01] MEDS: EUCERIN 120GM CREAM TOP (08:47)
[2018-10-01] MEDS: TROSPIUM 20 MG TAB PO (08:47)
[2018-10-01] MEDS: SINEMET 25-100 MG TAB PO (08:47)
[2018-10-01] MEDS: clonazePAM 1 MG TAB PO (08:47)
[2018-10-01] MEDS: OMEPRAZOLE 20 MG CAP PO (08:47)
[2018-10-01] MEDS: ACETAMINOPHEN TAB 650MG DOSE (2X325MG) PO (08:48)
[2018-10-01] MEDS: VENLAFAXINE **XR** 75MG CAPSULE PO (12:40)
[2018-10-01] MEDS: cefTRIAXone SOD 1 GM in D5W MINI-BAG PLUS 50 ML IV (14:00)
== END 2018-10-01 15:26 | disposition home health service (06) | DRG 698 ==
LOC: M ED 14:20 → M ED INP 18:09 → M PCU 20:14
DX: T83.518A Infection and inflammatory reaction due to other urinary catheter, initial encounter (principal); A41.51 Sepsis due to Escherichia coli [E. coli]; G93.41 Metabolic encephalopathy; N17.9 Acute kidney failure, unspecified; E87.1 Hypo-osmolality and hyponatremia; I69.354 Hemiplegia and hemiparesis following cerebral infarction affecting left non-dominant side; G40.909 Epilepsy, unspecified, not intractable, without status epilepticus; G43.909 Migraine, unspecified, not intractable, without status migrainosus; F41.9 Anxiety disorder, unspecified; F32.9 Major depressive disorder, single episode, unspecified; K21.9 Gastro-esophageal reflux disease without esophagitis; J44.9 Chronic obstructive pulmonary disease, unspecified; G20 Parkinson's disease; D64.9 Anemia, unspecified; Z79.899 Other long term (current) drug therapy; M81.0 Age-related osteoporosis without current pathological fracture; R33.9 Retention of urine, unspecified; M54.5 Low back pain; E78.49 Other hyperlipidemia; Y83.1 Surgical operation with implant of artificial internal device as the cause of abnormal reaction of the patient, or of later complication, without mention of misadventure at the time of the procedure

== ENCOUNTER → 2019-01-10 | Outpatient (REF) | payer MEDICARE, OTHER ==
[~2019-01-10] MED LIST changes: +ACET1TAB55 PO; +ALBU17IN INH; +ALBU83IN INH; +ALBUTEROL INH; +ALEN70SO PO; +ALEN70TA74 PO; +ANEC4CRE3 TOP; +ARIC10TA PO; +ARTISOL10 OU; +ASPI325T OR; +ATAM25TA2 OR; +ATRO0.063 INH; +ATROVENT; +AUGM875T28 PO; +BACI500O8 TOP; +BACT800T5 PO; +BISA10SU2 RE; +BUSP10TA PO; +BUSP10TA2; +BUSP10TA2 PO; +CALC1TAB74 PO; +CALCIUM/VITAMIN D PO; +CALCTAB68 PO; +CARB25TA9 PO; +CEFD1CAP8 PO; +CEFD300CAP PO; +CIPR500T3 PO; +CLOB0.057 TOP; +CLON0.5T OR; +CLON0.5T PO; +CLON1TAB8 PO; +COLA50CA; +CYCL25CA5 OU; +DENTCRE3 PO; +DICL1CAP; +DICL1GEL3 TD; +DONETAB6 PO; +EUCECRE3 TOP; +EXCETAB; +EXCETAB80 PO; +FENT1DIS14 TD; +FENT1DIS15; +FENT1DIS15 TD; +FENT50DI33 TOP; +FISH1000 PO; +FLOM0.4C39; +FLON1SPR; +FLUN25SP; +FLUT50SP12; +FORMOTEROL FUMARATE INH; +FURO20TA2; +GABA-843 PO; +GRX1OIN TOP; +HYDR-3715 PO; +HYPROMELLOSE OD; +IMIT100T OR; +KLON1TAB; +LEVA750T7 PO; +LEVO500T3 PO; +LIDO1CRE2 TOP; +LIDO2JELLY TOP; +LIDO5TD TD; -LIDOCAINE 5% (LIDODERM) PATCH As Ordered; -LIDOCAINE 5% (LIDODERM) PATCH TD; +LORA2TAB; +LUBR0.5D OU; +MELOPOW; +META1TAB22 PO; +META28.35 PO; +MIDODRINE PO; +MILK120011 PO; +MIRA33504 PO; +MIRALEX PO; +MIRT15TA3 PO; +MIRT1TAB20; +MIRT1TAB20 PO; +MOMETASONE INH; +NEUR300C PO; +NICOTINE GUM; +OLAN15TA PO; +OLAN5TAB PO; +OLAN7.5T PO; +OMEP20CA3 PO; +OMEP20TA7 OR; +OXYC-517 PO; +OXYC10TA12; +OXYC10TA12 OR; +OXYC1SOL3 PO; +PHEN16.2; +PHEN16.2 OR; +PHEN16.2 PO; +PRED15SO3; +PRIL20CA; +REFR0.5D8 OP; +REFR1DRO6 OU; +REST0.05 OU; +RISP4TAB OR; +RIZA10TA4 PO; +SENN1TAB41 PO; +SENN8.6T5 PO; +SENO8.6T10 PO; +SERE1AER; +SERO1TAB; +SIMV40TA2 PO; +SIMV80TA; +SIMV80TA OR; +SIMV80TA13 PO; +SKEL800T5; +SKEL800T5 OR; +SKEL800T97 PO; +SODI0.9S IR; +SYMB16INH INH; +TOBROPO OU; +TRIA25CR TOP; +TROS20TA3 PO; +VENL100T PO; +VENL150C43 PO; +VENL75TA2; +VESICARE; +VESICARE PO; +VITA-121 PO; +VITA100066 PO; +VITAMIN D50000 UNT; +ZONI100C2 PO; +ZONISAMIDE PO; +ZOSTCRE TOP; +[UNRECOGNIZED DRUG - OTHER]; +asmanex; +citracal; -oxyCODONE 5MG TAB As Ordered; -oxyCODONE 5MG TAB PO; +zonisamide
== END ==
LOC: M SFHCLERA 11:45
PROVIDERS: ATTEND Physician Assistant
DX: R82.90 Unspecified abnormal findings in urine (principal)
CPT/HCPCS: 81002; 87088; 87186; G0463

== ENCOUNTER → 2019-02-02 | Outpatient (CLI) | payer OTHER ==
--- NOTE | 2019-02-04 23:44 | ECHO ---
DATE OF PROCEDURE: 02/02/2019 DATE OF : 1945 AGE: 73 REFERRING PROVIDER: Azeb Jones MD, [employer] PATIENT LOCATION: Outpatient. REASON FOR THE ECHOCARDIOGRAM: Shortness of breath, diastolic heart failure. 2D MEASUREMENTS: IVS: 1.1 cm LV: 3.5 cm LVPW: 1.1 cm LA: 4.6 cm Aorta: 3.2 cm DOPPLER MEASUREMENTS: Peak velocity across the aortic valve: 0.84 m/s Peak velocity across the LVOT: 0.73 m/s Mitral E: 0.63, Mitral A: 0.7 with a ratio of 0.8 2D COMMENTS: 1. Normal left ventricular size, wall thickness, and normal global left ventricular systolic function. The estimated global left ventricular systolic ejection fraction is 65-70%. 2. Mildly enlarged left atrium. Normal right atrium and right ventricle. 3. The atrial septum appeared to be normal without evidence of defect or shunt. 4. Normal aortic root. 5. Trace to small pericardial effusion noted, no evidence of cardiac tamponade. 6. Mildly calcified aortic valve with normal leaflet excursion. Mildly calcified mitral annulus with normal anterior mitral valve leaflet motion. Normal tricuspid valve. The pulmonic valve and proximal pulmonary artery branches were not well visualized. 7. The inferior vena cava was not visualized. DOPPLER: It detects trace mitral regurgitation. Abnormal relaxation pattern was noted across the mitral valve leaflets as well as the mitral valve annulus consistent with trace of grade 1 left ventricular diastolic dysfunction. IMPRESSION: 1. Normal global left ventricular systolic function. There are some features of left ventricular diastolic dysfunction, impaired relaxation. 2. Aortic valve sclerosis without stenosis or aortic regurgitation. 3. Mitral annulus calcification with trace mitral regurgitation and a mildly enlarged left atrium. 4. Trace to small pericardial effusion noted, no evidence of cardiac tamponade. 5. Could not assess the pulmonary artery pressure, there was no significant tricuspid regurgitation detected. 6. Not mentioned above, the study was technically limited due to poor acoustic window.
== END ==
LOC: M CARPUL 08:58
DX: I50.32 Chronic diastolic (congestive) heart failure (principal); I35.8 Other nonrheumatic aortic valve disorders

== ENCOUNTER → 2019-02-19 | Outpatient (REF) | payer MEDICARE, OTHER | LOC: M SFHCLERA 15:49 | PROVIDERS: ATTEND Physician Assistant | DX: R50.9 Fever, unspecified (principal) | CPT/HCPCS: 81002; 87088; 87186; 96372; G0463; J0696 ==

== ENCOUNTER → 2019-03-02 | Outpatient (CLI) | payer OTHER ==
--- NOTE | 2019-03-02 15:52 | REP ---
Clinical: Bilateral lower extremity swelling/edema . Technique: Rubio scale and color Doppler evaluation using linear high frequency transducer. Findings: Ultrasound examination of the right and left lower extremity deep venous structures from the common femoral vein to the popliteal vein demonstrates normal compressibility flow and wave patterns in response to respiration and augmentation. There is no evidence for deep venous thrombosis. A 2.2 x 1.0 x 1.5 cm lymph node is identified in the right groin. Partial duplication to the right mid femoral vein. Impression: No evidence for deep venous thrombosis. Electronically Signed by Moe García MD 03/02/2019 03:44 P
== END ==
LOC: M RAD 09:43
PROVIDERS: ATTEND Internal Medicine Pulmonary Disease
DX: Z86.718 Personal history of other venous thrombosis and embolism (principal)

== ENCOUNTER 2019-05-24 11:53 | Emergency (ER) | payer MEDICARE, OTHER ==
[~2019-05-24] VITALS: Ht 175.3 cm; Wt 100.0 kg
[~2019-05-24 11:53] MED LIST changes: -OMEP20CA3 PO; +OMEP20CA4 PO
[2019-05-24 13:53] LABS: BASO # 0.1 10^3/uL (0.0-0.2); BASO % 0.6 % (0.0-1.0); EOS # 0.2 10^3/uL (0.0-0.50); EOS % 2.6 % (0.0-3.0); HEMATOCRIT 31.9 % (42.0-52.0); LYMPH # 1.9 10^3/uL (1.5-4.5); MEAN CORPUSCULAR HEMOGLOBIN 32.6 pg (27.0-33.0); MEAN CORPUSCULAR HGB CONC 31.3 g/dl (32.0-36.5); MEAN CORPUSCULAR VOLUME 103.9 fl (80.0-96.0); MONO # 0.9 10^3/uL (0.0-0.8); MONO % 11.1 % (0.0-5.0); NEUTROPHILS # 5.1 10^3/uL (1.8-7.7); NEUTROPHILS % 62.1 % (36.0-66.0); PLATELET COUNT, AUTOMATED 309 10^3/uL (150-450); RED BLOOD COUNT 3.07 10^6/uL (4.30-6.10); WHITE BLOOD COUNT 8.2 10^3/uL (4.0-10.0)
[2019-05-24 15:48] LABS: BLOOD UREA NITROGEN 12 MG/DL (7-18); CALCIUM LEVEL 9.1 MG/DL (8.8-10.2); CARBON DIOXIDE LEVEL 23 MEQ/L (21-32); CHLORIDE LEVEL 114 MEQ/L (98-107); CK-MB VALUE MASS 1.9 NG/ML (<3.6); CPK CREATINE PHOSPHOKINASE 75 U/L (39-308); CREATININE FOR GFR 1.19 MG/DL (0.70-1.30); GLOMERULAR FILTRATION RATE > 60.0 (>42); GLUCOSE, FASTING 94 MG/DL (70-100); MB/CK RELATIVE INDEX 2.53 (< OR =4); POTASSIUM SERUM 3.9 MEQ/L (3.5-5.1); SODIUM LEVEL 145 MEQ/L (136-145); TROPONIN I < 0.02 NG/ML (< 0.10)
[2019-05-24] MEDS ORDERED: D 101000 PO (17:11)
[2019-05-24] MEDS ORDERED: EUCE1CRE2 TOP (17:11)
[2019-05-24] MEDS ORDERED: MIRA3350 PO (17:11)
[2019-05-24] MEDS ORDERED: VENTAER INH (17:11)
[2019-05-24] MEDS ORDERED: MILKSUS3 PO (17:11)
[2019-05-24] MEDS ORDERED: REME15TA PO (17:11)
[2019-05-24] MEDS ORDERED: REFR1GEL OU (17:11)
[2019-05-24] MEDS ORDERED: ZOCO80TA PO (17:11)
[2019-05-24] MEDS ORDERED: TIOT18INH INH (17:13)
--- NOTE | 2019-05-24 17:14 | HPEPDOC ---
General Date of Admission PATIENT IS DECLINING ADMISSION . Date of Service: May 24, [address] PETERSON Chief Complaint The patient is a 73-year-old male admitted with a reason for visit of FALL. Patient has 24 hour caregivers and states this AM he was undressing to take a shower, removed his urostomy pouch and slipped on his clothes. He states he did not have syncope, did not hit his head and did not have a seizure or pass out. He states he called for the nurse who was "sitting and chatting on the phone", he was able to pick himself up and she called EMS. patient states he does not want to stay in the hospital He had syncope work up in February with negative MRI, and normal echo. Source: Patient Exam Limitations: No limitations Home Medications Scheduled Alendronate Sodium (Alendronate Sodium) 70 Mg Tab, 70 MG PO QWEEK, (Reported) THURSDAY Budesonide/Formoterol (Symbicort 160-4.5 Mcg Inhaler) 60 Puff/Inhaler Aers, 2 PUFF INH BID, (Reported) Calcium Carbonate/Vitamin D3 (Calcium 600-Vit D3 400 Tablet) 1 Tab Tab, 1 TAB PO BID, (Reported) Carbidopa/Levodopa (Carbidopa-Levodopa 25-100 Tab) 1 Tab Tab, 1 TAB PO TID, (Reported) Carboxymethylcellulose Sodium (Refresh Liquigel) 1 % Chandan, 1 DROP OU TID, (Reported) Cefdinir (Cefdinir) 300 Mg Cap, 300 MG PO BID Cholecalciferol (Vitamin D-3) 1,000 Unit Tab, 1,000 UNIT PO BID, (Reported) Clonazepam (Clonazepam) 1 Mg Tab, 1 MG PO BID, (Reported) Cyclosporine (Restasis) 0.05 % Emu, 1 DROP OU BID, (Reported) Donepezil Hcl (Donepezil HCl Odt) 10 Mg Tab, 10 MG PO DAILY, (Reported) Eucerin (Eucerin) 1 Cre Cre, 1 DOSE TOP DAILY, (Reported) APPLY TO AREAS WITH DRY SKIN Metaxalone (Metaxalone) 800 Mg Tab, 800 MG PO TID, (Reported) Mirtazapine (Mirtazapine) 15 Mg Tab, 7.5 MG PO QHS, (Reported) Olanzapine (Olanzapine) 7.5 Mg Tab, 7.5 MG PO QHS, (Reported) Omeprazole (Omeprazole) 20 Mg Cap, 40 MG PO BID, (Reported) Phenobarbital (Phenobarbital) 16.2 Mg Tab, 16.2 MG PO QHS, (Reported) Polyethylene Glycol (Miralax) 1 Pow Pow, 17 GM PO DAILY, (Reported) Simvastatin - High Dose (Simvastatin) 80 Mg Tab, 40 MG PO QHS, (Reported) Tobramycin/Dexamethasone (Tobradex Eye Ointment) 1 Dose/3.5 Gm Oint, 1 DOSE OU QHS, (Reported) Trospium Chloride (Trospium Chloride) 20 Mg Tab, 20 MG PO BID, (Reported) Venlafaxine HCl (Venlafaxine HCl ER) 150 Mg Cap, 300 MG PO DAILY, (Reported) 1200 Zonisamide (Zonisamide) 100 Mg Cap, 300 MG PO QHS, (Reported) Scheduled PRN Acetaminophen (Acetaminophen) 325 Mg Tab, 650 MG PO QID PRN for PAIN, (Reported) Albuterol Sulf (Albuterol Sulfate) 2.5 Mg/3 Ml Nebu, 2.5 MG INH Q6H PRN for SHORTNESS OF BREATH, (Reported) Diclofenac Sodium (Diclofenac Sodium) 1 % Gel, 2 GRAMS TD BID PRN for PAIN, (Reported) APPLIES TO PAINFUL AREAS ON HIPS, KNEES AND BACK PRN Fluticasone Propionate (Flonase Allergy Relief) 50 Mcg/Act Spr, 1 SPRAY NA DAILY PRN for NASAL CONGESTION, (Reported) Lidocaine (Lidocaine) 4 % Cre, 1 DOSE TOP Q6H PRN for PAIN, (Reported) MIX WITH MENTHOL M SALICYLATE Lidocaine (Lidocaine) 5 % Pad, 1 PATCH TD DAILY PRN for PAIN, (Reported) Methyl Salicylate/Menthol (Analgesic [place]) 30 Gm Oint, 1 DOSE TOP Q6H PRN for PAIN, (Reported) MIX WITH ANECREAM 4% Milk Of Magnesia (Milk of Magnesia) 1,200 Mg/15 Ml Shameka, 30 ML PO DAILY PRN for CONSTIPATION, (Reported) Oxycodone HCl (Oxycodone HCl) 5 Mg Tab, 5 MG PO BID PRN for PAIN, (Reported) Rizatriptan Benzoate (Rizatriptan) 10 Mg Tab, 10 MG PO BID PRN for MIGRAINE, (Reported) Sennosides/Docusate Sodium (Senna-S Tablet) 1 Tab Tab, 2 TAB PO TID PRN for CONSTIPATION, (Reported) Allergies Coded Allergies: chocolate flavor (Verified Allergy, Severe, DIFFICULTY BREATHING, 05/24/19) erythromycin base (Verified Allergy, Mild, RASH, 05/24/19) nicotine (Verified Allergy, Unknown, PATCH, 05/24/19) carbamazepine (Verified Adverse Reaction, Intermediate, PANCREATITIS, 05/24/19) phenytoin (Verified Adverse Reaction, Intermediate, PANCREATITIS, 05/24/19) sertraline (Verified Adverse Reaction, Intermediate, HALLUCINATIONS, 05/24/19) valproic acid (Verified Adverse Reaction, Intermediate, PANCREATITIS, 05/24/19) Past Medical History Medical History history of Parkinson's, history of Traumatic brain injury, seizure disorder, COPD and 2 L home O2, depression, osteoporosis, chronic lower back pain Neurogenic bladder with chronic suprapubic catheter Pseudomonas UTI - treated in 09/2018; recurrent UTI Chronic venous stasis PAST SURGICAL HISTORY: Carpal tunnel, suprapubic catheter, left shoulder repair SOCIAL HISTORY: Occasional alcohol. E-cigarette use. FAMILY HISTORY: father from parkinson complications, mother brain tumor A-FIB/CHADSVASC A-FIB History Current/History of A-Fib/PAF?: No Review of Systems Other systems 10 systems reviewed and negative except as per HPI. Patient states recurrent falls due to parkinson/imbalance Physical Examination General Exam: Positive: Alert, Cooperative, No Acute Distress Eye Exam: Positive: PERRLA, Conjunctiva & lids normal, EOMI ENT Exam: Positive: Atraumatic, Mucous membr. moist/pink, Pharynx Normal, Other ENT (masked facies) Neck Exam: Positive: Supple, +2 carotid pulse wo bruit Chest Exam: Positive: Clear to auscultation, Normal air movement Heart Exam: Positive: Rate Normal Extremity Exam: Positive: Other (venous stasis changes chronic to bilateral lower legs) Neuro Exam: Positive: Normal Speech, Strength at 5/5 X4 ext, Normal Tone, Sens ation Intact, Cranial Nerves 3-12 NL, Other (tremor; normal for age Hip ROM and leg lifts.) Psych Exam: Positive: Mental status NL, Mood NL, Oriented x 3 Vital Signs Vital Signs Date Time Temp Pulse Resp B/P (MAP) Pulse Ox O2 Delivery O2 Flow Rate FiO2 05/24/19 15:38 113 17 99 05/24/19 15:30 153/71 (98) 05/24/19 12:18 97.9 Nasal Cannula 3.0 Laboratory Data Labs 24H Laboratory Tests 2 05/24/19 12:28: Immature Granulocyte % (Auto) 0.6, White Blood Count 8.2, Red Blood Count 3.07L, Hemoglobin 10.0L, Hematocrit 31.9L, Mean Corpuscular Volume 103.9H, Mean Corpuscular Hemoglobin 32.6, Mean Corpuscular Hemoglobin Concent 31.3L, Red Cell Distribution Width 15.2H, Platelet Count 309, Neutrophils (%) (Auto) 62.1, Lymphocytes (%) (Auto) 23.0L, Monocytes (%) (Auto) 11.1H, Eosinophils (%) (Auto) 2.6, Basophils (%) (Auto) 0.6, Neutrophils # (Auto) 5.1, Lymphocytes # (Auto) 1.9, Monocytes # (Auto) 0.9H, Eosinophils # (Auto) 0.2, Basophils # (Auto) 0.1, Nucleated Red Blood Cells % (auto) 0.0 05/24/19 13:26: Bedside Glucose (Misc Panel) 100 05/24/19 14:55: Anion Gap 8, Glomerular Filtration Rate > 60.0, Blood Urea Nitrogen 12, Creatinine 1.19, Sodium Level 145, Potassium Level 3.9, Chloride Level 114H, Carbon Dioxide Level 23, Calcium Level 9.1, Total Creatine Kinase 75, Creatine Kinase MB 1.9, Creatine Kinase MB Relative Index 2.53, Troponin I < 0.02, Thyroid Stimulating Hormone (TSH) 1.880 CBC/BMP Laboratory Tests 05/24/19 12:28 Red Blood Count 3.07 L, Mean Corpuscular Volume 103.9 H, Mean Corpuscular Hemoglobin 32.6, Mean Corpuscular Hemoglobin Concent 31.3 L, Red Cell Distribu tion Width 15.2 H, Neutrophils (%) (Auto) 62.1, Lymphocytes (%) (Auto) 23.0 L, Monocytes (%) (Auto) 11.1 H, Eosinophils (%) (Auto) 2.6, Basophils (%) (Auto) 0.6, Neutrophils # (Auto) 5.1, Lymphocytes # (Auto) 1.9, Monocytes # (Auto) 0.9 H, Eosinophils # (Auto) 0.2, Basophils # (Auto) 0.1 05/24/19 14:55 Calcium Level 9.1, Total Creatine Kinase 75 Assessment/Plan S/P fall due to gait instability associated with parkinson Patient has 24 hour caregivers at home. Uses walker. declines hospitalization. Caregiver at bedside and states patient is at his baseline condition Admission is being cancelled since this is NOT syncope but a fall without i njury/sequelae. Plan / VTE VTE Prophylaxis Ordered?: No JORGE FANG DO May 24, 2019 16:10
[2019-05-24] MEDS ORDERED: EUCECRE8 TOP (17:15)
--- NOTE | 2019-05-24 17:26 | REP ---
CT HEAD WITHOUT CONTRAST: REASON: Unilateral weakness, facial droop. COMPARISON: CT head without contrast of 03/10/2018. TECHNIQUE: Axial CT of the head was performed without contrast. FINDINGS: There is no acute intracranial hemorrhage, midline shift or mass effect. There is similar appearance of cerebral volume loss with prominence of the ventricles. There is asymmetry of the lateral ventricles, left smaller than right, unchanged in appearance. There are similar periventricular white matter changes which are nonspecific but suggestive of microvascular ischemic disease. Note is made of carotid and vertebral artery calcification. There is no visible soft tissue swelling or calvarial fracture. The orbits are intact. The visualized paranasal sinuses are grossly aerated. The mastoid air cells are partially opacified, similar to prior. IMPRESSION: 1. No acute intracranial abnormality. 2. Similar white matter changes suggestive of microvascular ischemic disease. 3. Dense vascular calcifications. 4. Fluid within the mastoid air cells bilaterally, similar to prior. Electronically Signed by Leobardo Azar MD 05/25/2019 07:28 A
[2019-05-24] MEDS ORDERED: MAXA10TA14 PO (17:31)
[2019-05-24] MEDS ORDERED: DONE10TA90 PO (17:35)
[2019-05-24 17:49] VITALS: BP 161/75
--- NOTE | 2019-05-24 18:09 | REP ---
CT CERVICAL SPINE WITHOUT CONTRAST: REASON FOR EXAMINATION: Syncope. COMPARISON: CT of the cervical spine of 02/12/2016. TECHNIQUE: Axial CT of the cervical spine was performed without contrast with bone reformatted images in the axial, sagittal and coronal planes. FINDINGS: There is no acute fracture or subluxation. There is a similar appearance of multilevel degenerative changes with disc osteophyte complex formation, disc space narrowing and subchondral cyst formation, most notably at C5-C6. Note is made of ossification of the cervical ligaments at C1-C2, similar to prior. The spinal canal is unremarkable. The posterior paraspinal soft-tissues are within normal limits. Note is made of bilateral cervical carotid artery calcifications. There is no apical pneumothorax. IMPRESSION: 1. No acute fracture or subluxation of the cervical spine. 2. Degenerative cervical changes, most significant at C5-C6, similar to prior. Electronically Signed by Leobardo Azar MD 05/25/2019 07:37 A
[2019-05-24] MEDS ORDERED: HEPARIN SOD (PORCINE) 5000 UNITS/ML VIAL SQ SCH (21:00)
--- NOTE | 2019-05-25 07:16 | ECGEPIP ---
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
== END 2019-05-24 18:01 | disposition home or self-care (01) ==
LOC: M ED 11:53 → EDBD 11:53 → M ED INP 16:01 → UNDOADMIN 16:01 → M ED 18:01
DX: R55 Syncope and collapse (principal); G20 Parkinson's disease; M54.30 Sciatica, unspecified side; I87.2 Venous insufficiency (chronic) (peripheral); Z87.820 Personal history of traumatic brain injury; J44.9 Chronic obstructive pulmonary disease, unspecified; F33.9 Major depressive disorder, recurrent, unspecified; M81.0 Age-related osteoporosis without current pathological fracture; G40.909 Epilepsy, unspecified, not intractable, without status epilepticus; N31.9 Neuromuscular dysfunction of bladder, unspecified; Z79.899 Other long term (current) drug therapy; Z88.1 Allergy status to other antibiotic agents; Z88.8 Allergy status to other drugs, medicaments and biological substances; Z91.018 Allergy to other foods

== ENCOUNTER → 2019-08-03 | Outpatient (CLI) | payer MEDICARE, OTHER ==
[~2019-08-03] MED LIST changes: +D 101000 PO; +DONE10TA90 PO; +EUCE1CRE2 TOP; +EUCECRE8 TOP; +MAXA10TA14 PO; +MILKSUS3 PO; +MIRA3350 PO; +REFR1GEL OU; +REME15TA PO; -RIZA10TA4 PO; +RIZA10TA58 PO; +TIOT18INH INH; +VENTAER INH; +ZOCO80TA PO
--- NOTE | 2019-08-03 11:37 | REP ---
Two views right clavicle: 08/03/2019. Indication: Clavicular pain. Comparison: CT study dated 05/24/2019. Findings: There is no acute fracture, subluxation or dislocation. The acromioclavicular and sternoclavicular joints are unremarkable. Impression: No acute fracture. Electronically Signed by Dale Menard DO 08/03/2019 11:28 A
--- NOTE | 2019-08-03 12:06 | REP ---
Six views right ribs/chest: 08/03/2019. Indication: Right rib pain. Comparison: 03/10/2018. Findings: Osseous structures are diffusely osteopenic. No acute right rib fracture is detected. Chronic seventh rib fracture on the right is redemonstrated. There is no evidence of lung contusion. There is no pleural effusion or pneumothorax. The cardiomediastinal silhouette is unremarkable. Vena cava filter is noted. Impression: No acute rib fracture, or lung contusion. Electronically Signed by Dale Menard DO 08/03/2019 11:57 A
== END ==
LOC: M LRY 10:32
PROVIDERS: ATTEND Nurse Practitioner Family
DX: R07.81 Pleurodynia (principal)
CPT/HCPCS: 71101; 73000; G0463

== ENCOUNTER → 2019-08-22 | Outpatient (CLI) | payer MEDICARE, OTHER ==
--- NOTE | 2019-08-22 15:10 | REP ---
Digital diagnostic unilateral left breast mammography with CAD, 3-D tomography, and focused left breast sonography. History: Painful lump left breast. Followup imaging. Gynecomastia pattern in the past. Comparison mammography and sonography May 10, 2018 from [facility]. Mammographic findings: There is a flame-shaped area of subareolar density on the left breast consistent with gynecomastia. This is radiographically unchanged from the May 10, 2018 prior study. No mass-like features are noted. No spiculation or architectural distortion is seen. No microcalcification or worrisome skin changes appreciated. Sonographic findings: Subareolar region of the left and right breast are scanned sonographically. There is hypoechoic fibroglandular tissue posterior to the right nipple consistent with mild gynecomastia. There is more hypoechoic tissue posterior the left nipple in an area measuring 4.3 x 2.8 x 2.0 cm. These findings are unchanged from comparison sonography. Impression: BIRADS 2: BI-RADS/ACR category 2 mammogram. Benign Findings. Stable BIRADS category 2 benign findings. Gynecomastia pattern left breast and to a lesser extent right breast. Unchanged. Clinical followup is advised. This mammogram was interpreted with the aid of an FDA-approved computer-aided detection system. The patient states that she/he has not had a clinical breast exam in over a year. The patient letter being requested is m2. Electronically Signed by Jose Angel Benavides MD 08/22/2019 05:11 P
== END ==
LOC: M RAD 10:13
PROVIDERS: ATTEND Internal Medicine
DX: R92.8 Other abnormal and inconclusive findings on diagnostic imaging of breast (principal)
CPT/HCPCS: 76642; 77065; G0279

== ENCOUNTER → 2021-01-07 | Outpatient (CLI) | payer OTHER, MEDICARE ==
[~2021-01-07] MED LIST changes: -ALEN70TA74 PO; +ALEN70TA82 PO; +GABA-282 PO; -GABA-843 PO; +MIRT-62 PO; +OMEP1CAP73 PO; -OMEP20CA4 PO; -REME15TA PO; -SIMV40TA2 PO; +SIMV40TA20 PO; +ZONI100C17 PO; -ZONI100C2 PO
--- NOTE | 2021-01-07 11:55 | REP ---
INDICATION: CONTUSION COMPARISON: None. TECHNIQUE: Frontal view of the chest with multiple views of the left hemithorax. FINDINGS: Frontal view of the chest demonstrates no acute cardiopulmonary process, contusion, effusion, or pneumothorax. Very subtle nondisplaced fracture along the anterolateral margin of the left 8/9 ribs cannot be excluded. IMPRESSION: Cannot exclude very subtle nondisplaced anterolateral left 8/9 rib fracture. <Electronically signed by Moe García > 01/07/21 [id number]
== END ==
LOC: M WUC 10:58
PROVIDERS: ATTEND Physician Assistant
DX: S20.212A Contusion of left front wall of thorax, initial encounter (principal); X58.XXXA Exposure to other specified factors, initial encounter; Y92.89 Other specified places as the place of occurrence of the external cause; Y93.89 Activity, other specified; Y99.8 Other external cause status

== ENCOUNTER → 2021-01-31 | Outpatient (REF) | payer OTHER, MEDICARE ==
[2021-01-31 18:24] LABS: APPEARANCE, URINE HAZY (CLEAR); BACTERIA, URINE AUTO 2+ (NEGATIVE); BILIRUBIN, URINE AUTO NEGATIVE (NEGATIVE); BLOOD, URINE BLOOD 1+ (NEGATIVE); COLOR, URINE YELLOW (YELLOW); GLUCOSE, URINE (UA) AUTO NEGATIVE (NEGATIVE); KETONE, URINE AUTO NEGATIVE (NEGATIVE); LEUKOCYTE ESTERASE, URINE AUTO 2+ (NEGATIVE); MUCUS, URINE SMALL (NEGATIVE); NITRITE, URINE AUTO POSITIVE (NEGATIVE); PROTEIN, URINE AUTO NEGATIVE (NEGATIVE); RBC, URINE AUTO 1 /HPF (0-3); SPECIFIC GRAVITY URINE AUTO 1.005 (1.002-1.035); SQUAMOUS EPITHELIAL CELL UR AU 0 /HPF (0-6); UROBILINOGEN, URINE AUTO 0.2 mg/dL (0.0-2.0); WBC, URINE AUTO 4 /HPF (0-3)
== END ==
LOC: M LAB REF 16:34
PROVIDERS: ATTEND Physician Assistant
DX: N39.0 Urinary tract infection, site not specified (principal)

== ENCOUNTER → 2021-02-28 | Outpatient (CLI) | payer OTHER ==
--- NOTE | 2021-03-01 02:42 | REP ---
INDICATION: LUNG SCREENING COMPARISON: 05/28/2020 TECHNIQUE: Axial noncontrast images from the thoracic inlet to the upper abdomen using low-dose lung screening technique (LDCT). FINDINGS: Advanced COPD/emphysematous changes are again appreciated throughout the bilateral lung coombs. There is a stable 6.5 mm noncalcified nodule along the anterior periphery of the right middle lobe (image 67). No further acute consolidation, new suspicious nodule or mass lesion. No effusion. No pneumothorax. No obvious significant adenopathy. IMPRESSION: Stable 6.5 mm noncalcified nodule in the right middle lobe. No further acute consolidation or suspicious nodule/mass. Lung-RADS category 2. Annual low-dose CT surveillance recommended. <Electronically signed by Moe García > 03/01/21 [id number]
== END ==
LOC: M RAD 11:17
PROVIDERS: ATTEND Internal Medicine Pulmonary Disease
DX: Z12.2 Encounter for screening for malignant neoplasm of respiratory organs (principal); J44.9 Chronic obstructive pulmonary disease, unspecified; Z87.891 Personal history of nicotine dependence; R91.1 Solitary pulmonary nodule

== ENCOUNTER → 2021-04-12 | Outpatient (CLI) | payer OTHER ==
[~2021-04-12] MED LIST changes: -OLAN15TA PO; +OLAN15TA13 PO; +OLAN1TAB16 PO; -OLAN5TAB PO; -OLAN7.5T PO; +OLAN7.5T8 PO
--- NOTE | 2021-04-12 15:45 | REP ---
INDICATION: RETENSION OF URINE. COMPARISON: 09/11/2017. FINDINGS: Multiple ultrasonographic images of the right kidney show the right kidney to measure 10.6 x 5.4 x 3.9 cm. The renal cortical echotexture is unremarkable. There are no solid masses. Two subcentimeter sized tiny anechoic structures are seen both consistent with tiny renal cortical cysts. There is good corticomedullary differentiation. There is no hydronephrosis. There are no perinephric fluid collections. Multiple ultrasonographic images of the left kidney show the left kidney to measure 9.1 x 5.1 x 4.7 cm. The renal cortical echotexture is unremarkable. In the upper pole medially there is a 1.7 x 1.9 x 2.6 cm sized hypoechoic but solid-appearing nodule.. There is good corticomedullary differentiation. There is no hydronephrosis. There are no perinephric fluid collections. IMPRESSION: 1. Solid appearing left renal nodule as described above. Pre and postcontrast enhanced renal CT is recommended for further evaluation. 2. Tiny simple appearing right renal cyst. 3. Sludge within the gallbladder was identified when scanning the right kidney. <Electronically signed by Leonard Ortiz > 04/12/21 [id number]
== END ==
LOC: M RAD 14:37
PROVIDERS: ATTEND Urology
DX: N28.1 Cyst of kidney, acquired (principal); K82.9 Disease of gallbladder, unspecified

== ENCOUNTER → 2021-05-10 | Outpatient (REF) | payer OTHER ==
[2021-05-10 14:17] LABS: APPEARANCE, URINE CLEAR (CLEAR); BACTERIA, URINE AUTO NEGATIVE (NEGATIVE); BILIRUBIN, URINE AUTO NEGATIVE (NEGATIVE); BLOOD, URINE BLOOD NEGATIVE (NEGATIVE); COLOR, URINE STRAW (YELLOW); GLUCOSE, URINE (UA) AUTO NEGATIVE (NEGATIVE); KETONE, URINE AUTO NEGATIVE (NEGATIVE); LEUKOCYTE ESTERASE, URINE AUTO 2+ (NEGATIVE); MUCUS, URINE SMALL (NEGATIVE); NITRITE, URINE AUTO POSITIVE (NEGATIVE); PROTEIN, URINE AUTO NEGATIVE (NEGATIVE); RBC, URINE AUTO 1 /HPF (0-3); SPECIFIC GRAVITY URINE AUTO 1.006 (1.002-1.035); SQUAMOUS EPITHELIAL CELL UR AU 0 /HPF (0-6); UROBILINOGEN, URINE AUTO 0.2 mg/dL (0.0-2.0); WBC, URINE AUTO 8 /HPF (0-3)
== END ==
LOC: M SMT 12:48
PROVIDERS: ATTEND Urology
DX: R33.9 Retention of urine, unspecified (principal)

== ENCOUNTER 2021-08-31 23:59 | Emergency (ER) | payer OTHER ==
[~2021-08-31] VITALS: Ht 175.3 cm; Wt 86.4 kg
--- OUTSIDE RECORDS SUMMARY | 2021-09-01 00:04 | CCD ---
Author Author [facility] Organization [facility] Address Unknown Phone Unavailable Care Team Providers Care Rn Wound Name Role Phone Farzana Zepeda Unavailable Unavailable Farzana Zepeda Unavailable Unavailable Farzana Zepeda Unavailable Unavailable DuaneFarzana loredo Unavailable Unavailable DuaneFarzana loredo Unavailable Unavailable DuaneFarzana loredo Unavailable Unavailable DuaneFarzana loredo Unavailable Unavailable DuaneFarzana loredo Unavailable Unavailable DuaneFarzana loredo Unavailable Unavailable Farzana Zepeda Unavailable Unavailable Farzana Zepeda Unavailable Unavailable DuaneFarzana loredo Unavailable Unavailable DuaneFarzana loredo Unavailable Unavailable DuaneFarzana loredo Unavailable Unavailable DuaneFarzana loredo Unavailable Unavailable DuaneFarzana loredo Unavailable Unavailable DuaneFarzana loredo Unavailable Unavailable DuaneFarzana loredo Unavailable Unavailable DuaneFarzana loredo Unavailable Unavailable DuaneFarzana loredo Unavailable Unavailable DuaneFarzana loredo Unavailable Unavailable DuaneFarzana loredo Unavailable Unavailable DuaneFarzana loredo Unavailable Unavailable Duane, Matthew MD Unavailable Unavailable Duane, Matthew MD Unavailable Unavailable Duane, Matthew MD Unavailable Unavailable Duane, Matthew MD Unavailable Unavailable Duane, Matthew MD Unavailable Unavailable Duane, Matthew MD Unavailable Unavailable Duane, Matthew MD Unavailable Unavailable Duane, Matthew MD Unavailable Unavailable Duane, Matthew MD Unavailable Unavailable Duane, Matthew MD Unavailable Unavailable Duane, Matthew MD Unavailable Unavailable Duane, Matthew MD Unavailable Unavailable Duane, Matthew MD Unavailable Unavailable Duane, Matthew MD Unavailable Unavailable Duane, Matthew MD Unavailable Unavailable Duane, Matthew MD Unavailable Unavailable Duane, Matthew MD Unavailable Unavailable Duane, Matthew MD Unavailable Unavailable Duane, Matthew MD Unavailable Unavailable Duane, Matthew MD Unavailable Unavailable Duane, Matthew MD Unavailable Unavailable Duane, Matthew MD Unavailable Unavailable Duane, Matthew MD Unavailable Unavailable Duane, Matthew MD Unavailable Unavailable Duane, Matthew MD Unavailable Unavailable Duane, Matthew MD Unavailable Unavailable Duane, Matthew MD Unavailable Unavailable Duane, Matthew MD Unavailable Unavailable Duane, Matthew MD Unavailable Unavailable Duane, Matthew MD Unavailable Unavailable Duane, Matthew MD Unavailable Unavailable Duane, Matthew MD Unavailable Unavailable Duane, Matthew MD Unavailable Unavailable Duane, Matthew MD Unavailable Unavailable Duane, Matthew MD Unavailable Unavailable Duane, Matthew MD Unavailable Unavailable Duane, Matthew MD Unavailable Unavailable Duane, Matthew MD Unavailable Unavailable Duane, Matthew MD Unavailable Unavailable MbENRICO millerO EPOMASHA JAIN Unavailable Unavailable MbENRICO millerO KATE JAIN Unavailable Unavailable MbameENRICOO EPOMASHA JAIN Unavailable Unavailable MbameENRICOO EPOSI MD Unavailable Unavailable Mbame SILO EPOSI MD Unavailable Unavailable Mbpaul SILO EPOSI MD Unavailable Unavailable MIRIAM ARNDT MD Unavailable Unavailable MIRIAM ARNDT MD Unavailable Unavailable MIRIAM ARNDT MD Unavailable Unavailable MIRIAM ARNDT MD Unavailable Unavailable MIRIAM ARNDT MD Unavailable Unavailable MIRIAM ARNDT MD Unavailable Unavailable MIRIAM ARNDT MD Unavailable Unavailable MIRIAM ARNDT MD Unavailable Unavailable MIRIAM ARNDT MD Unavailable Unavailable MIRIAM ARNDT MD Unavailable Unavailable MIRIAM ARNDT MD Unavailable Unavailable MIRIAM ARNDT MD Unavailable Unavailable MIRIAM ARNDT MD Unavailable Unavailable MIRIAM ARNDT MD Unavailable Unavailable MIRIAM ARNDT MD Unavailable Unavailable MIRIAM ARNDT MD Unavailable Unavailable HEMIRIAM WOO MD Unavailable Unavailable SILVIA, SUZEI PA Unavailable Unavailable SILVIA, SUZIE PA Unavailable Unavailable SILVIA, SUZIE PA Unavailable Unavailable SILVIA, SUZIE PA Unavailable Unavailable SILVIA, SUZIE PA Unavailable Unavailable SILVIA, SUZIE PA Unavailable Unavailable SILVIA, SUZIE PA Unavailable Unavailable SILVIA, SUZIE PA Unavailable Unavailable SILVIA, SUZIE PA Unavailable Unavailable SILVIA, SUZIE PA Unavailable Unavailable SILVIA, SUZIE PA Unavailable Unavailable SILVIA, SUZIE PA Unavailable Unavailable SILVIA, SUZIE PA Unavailable Unavailable SILVIA, SUZIE PA Unavailable Unavailable SILVIA, SUZIE PA Unavailable Unavailable SILVIA, SUZIE PA Unavailable Unavailable SILVIA, SUZIE PA Unavailable Unavailable SILVIA, SUZIE PA Unavailable Unavailable SILVIA, SUZIE PA Unavailable Unavailable SILVIA, SUZIE PA Unavailable Unavailable SILVIA, SUZIE PA Unavailable Unavailable SILVIA, SUZIE PA Unavailable Unavailable SILVIA, SUZIE PA Unavailable Unavailable SILVIA, SUZIE PA Unavailable Unavailable SILVIA, SUZIE PA Unavailable Unavailable SILVIA, SUZIE PA Unavailable Unavailable SILVIA, SUZIE PA Unavailable Unavailable SILVIA, SUZIE PA Unavailable Unavailable SILVIA, SUZIE PA Unavailable Unavailable SILVIA, SUZIE PA Unavailable Unavailable SILVIA, SUZIE PA Unavailable Unavailable SILVIA, SUZIE PA Unavailable Unavailable SILVIA, SUZIE PA Unavailable Unavailable SILVIA, SUZIE PA Unavailable Unavailable SILVIA, SUZIE PA Unavailable Unavailable SILVIA, SUZIE PA Unavailable Unavailable Jumalon, M Екатерина PARTITION MAKING MACHINE OPERATOR Unavailable Unavailable Jumalon, M Екатерина PARTITION MAKING MACHINE OPERATOR Unavailable Unavailable Jumalon, M Екатерина PARTITION MAKING MACHINE OPERATOR Unavailable Unavailable Jumalon, M Екатерина PARTITION MAKING MACHINE OPERATOR Unavailable Unavailable Jumalon, M Екатерина PARTITION MAKING MACHINE OPERATOR Unavailable Unavailable Jumalon, M Екатерина PARTITION MAKING MACHINE OPERATOR Unavailable Unavailable Jumalon, M Екатерина PARTITION MAKING MACHINE OPERATOR Unavailable Unavailable Jumalon, M Екатерина PARTITION MAKING MACHINE OPERATOR Unavailable Unavailable Jumalon, M Екатерина PARTITION MAKING MACHINE OPERATOR Unavailable Unavailable Jumalon, M Екатерина PARTITION MAKING MACHINE OPERATOR Unavailable Unavailable Jumalon, M Екатерина PARTITION MAKING MACHINE OPERATOR Unavailable Unavailable Jumalon, M Екатерина PARTITION MAKING MACHINE OPERATOR Unavailable Unavailable Jumalon, M Екатерина PARTITION MAKING MACHINE OPERATOR Unavailable Unavailable Jumalon, M Екатерина PARTITION MAKING MACHINE OPERATOR Unavailable Unavailable Jumalon, M Екатерина PARTITION MAKING MACHINE OPERATOR Unavailable Unavailable Jumalon, M Екатерина PARTITION MAKING MACHINE OPERATOR Unavailable Unavailable Jumalon, M Екатерина PARTITION MAKING MACHINE OPERATOR Unavailable Unavailable Jumalon, M Екатерина PARTITION MAKING MACHINE OPERATOR Unavailable Unavailable Jumalon, M Екатерина PARTITION MAKING MACHINE OPERATOR Unavailable Unavailable Jumalon, M Екатерина PARTITION MAKING MACHINE OPERATOR Unavailable Unavailable Jumalon, M Екатерина PARTITION MAKING MACHINE OPERATOR Unavailable Unavailable Jumalon, M Екатерина PARTITION MAKING MACHINE OPERATOR Unavailable Unavailable Jumalon, M Екатерина PARTITION MAKING MACHINE OPERATOR Unavailable Unavailable Jumalon, M Екатерина PARTITION MAKING MACHINE OPERATOR Unavailable Unavailable Jumalon, M Екатерина PARTITION MAKING MACHINE OPERATOR Unavailable Unavailable Jumalon, M Екатерина PARTITION MAKING MACHINE OPERATOR Unavailable Unavailable Jumalon, M Екатерина PARTITION MAKING MACHINE OPERATOR Unavailable Unavailable Jumalon, M Екатерина PARTITION MAKING MACHINE OPERATOR Unavailable Unavailable Jumalon, M Екатерина PARTITION MAKING MACHINE OPERATOR Unavailable Unavailable Jumalon, M Екатерина PARTITION MAKING MACHINE OPERATOR Unavailable Unavailable Lencho PHILLIPS MD Unavailable Unavailable Lencho PHILLIPS MD Unavailable Unavailable Lencho PHILLIPS MD Unavailable Unavailable Lencho PHILLIPS MD Unavailable Unavailable Lencho PHILLIPS MD Unavailable Unavailable Lencho PHILLIPS MD Unavailable Unavailable Lencho PHILLIPS MD Unavailable Unavailable Lencho PHILLIPS MD Unavailable Unavailable Lencho PHILLIPS MD Unavailable Unavailable Lencho PHILLIPS MD Unavailable Unavailable Lencho PHILLIPS MD Unavailable Unavailable Lencho PHILLIPS MD Unavailable Unavailable Lencho PHILLIPS MD Unavailable Unavailable Lencho PHILLIPS MD Unavailable Unavailable Lencho PHILLIPS MD Unavailable Unavailable Lencho PHILLIPS MD Unavailable Unavailable Lencho PHILLIPS MD Unavailable Unavailable Lencho PHILLIPS MD Unavailable Unavailable Lencho PHILLIPS MD Unavailable Unavailable Lencho PHILLIPS MD Unavailable Unavailable Lencho PHILLIPS MD Unavailable Unavailable Lencho PHILLIPS MD Unavailable Unavailable Lencho PHILLIPS MD Unavailable Unavailable Lencho PHILLIPS MD Unavailable Unavailable Lencho HPILLIPS MD Unavailable Unavailable Lencho PHILLIPS MD Unavailable Unavailable Lencho PHILLIPS MD Unavailable Unavailable Lencho PHILLIPS MD Unavailable Unavailable Lencho PHILLIPS MD Unavailable Unavailable Lencho PHILLIPS MD Unavailable Unavailable Lencho PHILLIPS MD Unavailable Unavailable Lencho PHILLIPS MD Unavailable Unavailable Lencho PHILLIPS MD Unavailable Unavailable Lencho PHILLIPS MD Unavailable Unavailable Lencho PHILLIPS MD Unavailable Unavailable Lencho PHILLIPS MD Unavailable Unavailable Lencho PHILLIPS MD Unavailable Unavailable Lencho PHILLIPS MD Unavailable Unavailable Lencho PHILLIPS MD Unavailable Unavailable Lencho PHILLIPS MD Unavailable Unavailable Lencho PHILLIPS MD Unavailable Unavailable Lencho PHILLIPS MD Unavailable Unavailable Lencho PHILLIPS MD Unavailable Unavailable Lencho PHILLIPS MD Unavailable Unavailable Lencho PHILLIPS MD Unavailable Unavailable Lencho PHILLIPS MD Unavailable Unavailable Lencho PHILLIPS MD Unavailable Unavailable Lencho PHILLIPS MD Unavailable Unavailable Lencho PHILLIPS MD Unavailable Unavailable Lencho PHILLIPS MD Unavailable Unavailable Lencho PHILLIPS MD Unavailable Unavailable Lencho PHILLIPS MD Unavailable Unavailable Lencho PHILLIPS MD Unavailable Unavailable Lencho PHILLIPS MD Unavailable Unavailable Lencho PHILLIPS MD Unavailable Unavailable Lencho PHILLIPS MD Unavailable Unavailable Lencho PHILLIPS MD Unavailable Unavailable Lencho PHILLIPS MD Unavailable Unavailable Lencho PHILLIPS MD Unavailable Unavailable Lencho PHILLIPS MD Unavailable Unavailable Lencho PHILLIPS MD Unavailable Unavailable Lencho PHILLIPS MD Unavailable Unavailable Lencho PHILLIPS MD Unavailable Unavailable Lencho PHILLIPS MD Unavailable Unavailable Lencho PHILLIPS MD Unavailable Unavailable Lencho PHILLIPS MD Unavailable Unavailable CHRIS, J MARCELLA DPM PC Unavailable Unavailable CHRIS, J MARCELLA D[facility] Unavailable Unavailable CHRIS, J MARCELLA [facility] Unavailable Unavailable CHRIS, J MARCELLA [facility] Unavailable Unavailable CHRIS, J MARCELLA [facility] Unavailable Unavailable CHRIS, J MARCELLA [facility] Unavailable Unavailable CHRIS, J MARCELLA [facility] Unavailable Unavailable CHRIS, J MARCELLA [facility] Unavailable Unavailable CHRIS, J MARCELLA [facility] Unavailable Unavailable CHRIS, J MARCELLA [facility] Unavailable Unavailable CHRIS, J MARCELLA [facility] Unavailable Unavailable CHRIS, J MARCELLA [facility] Unavailable Unavailable CHRIS, J MARCELLA [facility] Unavailable Unavailable CHRIS, J MARCELLA [facility] Unavailable Unavailable CHRIS, J MARCELLA [facility] Unavailable Unavailable CHRIS, J MARCELLA [facility] Unavailable Unavailable CHRIS, J MARCELLA [facility] Unavailable Unavailable CHRIS, J MARCELLA [facility] Unavailable Unavailable CHRIS, J MARCELLA [facility] Unavailable Unavailable Lencho PEREZ [facility]CE[facility]A [facility] Unavailable Unavailable Lencho PEREZ [facility] Unavailable Unavailable Lencho PEREZ [facility] Unavailable Unavailable Lencho PEREZ [facility] Unavailable Unavailable Lencho PEREZ [facility] Unavailable Unavailable Lencho PEREZ [facility] Unavailable Unavailable Lencho PEREZ [facility] Unavailable Unavailable Lencho PEREZ [facility] Unavailable Unavailable Lencho PEREZA [facility] Unavailable Unavailable LARRY III, J MARLO Unavailable Unavailable LARRY III, J MALRO Unavailable Unavailable LARRY III, J MARLO Unavailable Unavailable LARRY III, J MARLO Unavailable Unavailable LARRY III, J MARLO Unavailable Unavailable LARRY III, J MARLO Unavailable Unavailable Re-disclosure Warning The records that you are about to access may contain information from federally-assisted alcohol or drug abuse programs. If such information is present, then the following federally mandated warning applies: This information has been disclosed to you from records protected by federal confidentiality rules (42 CFR part 2). The federal rules prohibit you from making any further disclosure of this information unless further disclosure is expressly permitted by the written consent of the person to whom it pertains or as otherwise permitted by 42 CFR part 2. A general authorization for the release of medical or other information is NOT sufficient for this purpose. The Federal rules restrict any use of the information to criminally investigate or prosecute any alcohol or drug abuse patient.The records that you are about to access may contain highly sensitive health information, the redisclosure of which is protected by Article 27-F of the [facility] Public Health law. If you continue you may have access to information: Regarding HIV / AIDS; Provided by facilities licensed or operated by the [facility] Office of Mental Health; or Provided by the [facility] Office for People With Developmental Disabilities. If such information is present, then the following [facility] mandated warning applies: This information has been disclosed to you from confidential records which are protected by state law. State law prohibits you from making any further disclosure of this information without the specific written consent of the person to whom it pertains, or as otherwise permitted by law. Any unauthorized further disclosure in violation of state law may result in a fine or correction sentence or both. A general authorization for the release of medical or other information is NOT sufficient authorization for further disc losure. Allergies and Adverse Reactions Type Description Substance Reaction Status Data Source(s ) Propensity to adverse reactions CARBAMAZEPINE CARBAMAZEPINE Propensity to adverse reactions LAMOTRIGINE LAMOTRIGINE Drug allergy DIVALPROEX SODIUM DIVALPROEX SODIUM Propensity to adverse reactions CHOCOLATE CHOCOLATE Propensity to adverse reactions NO KNOWN ALLERGIES NO KNOWN ALLERGIES Family History Family Member Name Family Member Gender Family Member Status Date o f Status Description Data Source(s) Unknown Unknown Problem [facility]ENT ([facility], ) Encounters Encounter Providers Location Date Indications Data Source(s ) Outpatient Attender: DELFINO PHILLIPS MD 08/20/2021 11:15: 00 AM [facility] Outpatient Attender: MARCELLA PEREZ DPM 08/07/2021 10:57:00 AM EDT - 08/07/2021 10:57:00 AM EDT [facility] Outpatient Attender: MARCELLA FRANKS 05/28/2021 09:56:00 AM EDT - 05/28/2021 09:56:00 AM EDT [facility] (Cysto1) Urology [address] [place] [address] 05/10/2021 12:00:00 AM EDT eCW1 ([facility]) Outpatient Attender: Matthew Zepeda MD Main office [facility] 04/22/2021 12:30:00 PM EDT [facility]ENT ([facility], ) [place] [address] [facility] [address] 04/05/2021 12:00:00 AM EDT eCW1 ([facility]) Outpatient Attender: MIRIAM ARNDT MDAkasandra tender: MARLO JUAREZ IIIAdmitter: KATE Bailey MDReferrer: KATE Bailey MD [id number] 03/20/2021 12:00:00 A M EDT - 03/21/2021 04:22:00 PM EDT Tachycardia, unspecified Tachycardia, unspecified Patient discharged. Outpatient Attender: MARCELLA PEREZ DPM 03/19/2021 09:11:00 AM EDT - 03/19/2021 09:11:00 AM EDT [facility] Outpatient Attender: MARCELLA PEREZ DPM [facility] 01/08/2021 08:55:00 AM EDT - 01/08/2021 08:55:00 AM EDT [facility] Outpatient Attender: SUZIE finnegan 01/07/2021 09:40:00 AM EDT MEDENT ([facility]) Outpatient Attender: MARCELLA PEREZ DPM PC 10/29/2020 09:26:00 AM EST - 10/29/2020 09:26:00 AM [facility] Outpatient Attender: MARCELLA PEREZ DPM PC 08/20/2020 09:25:00 AM EST - 08/20/2020 09:25:00 AM [facility] Екатерина [facility] Riley, OCCUPATIONAL SAFETY SPECIALIST: [id number], [address], [place] [address], Ph. Attender: Екатерина Riley PARTITION MAKING MACHINE OPERATOR [place] - [facility] - Main Office 08/06/2020 12:00:00 AM EDT ATHE NA ([facility]) Office Visit Attender: Matthew Zepeda MD Main office - [facility] 07/31/2020 11:00:00 AM EDT MED[facility] ([facility] ) Medications Medication Brand Name Start Date Product Form Dose Route Admi nistrative Instructions Pharmacy Instructions Status Indications Reaction Description Data Source(s) Carbidopa 25 MG / Levodopa 100 MG Oral Tablet [Sinemet] Sine met 04/22/2021 12:00:00 AM EDT ORAL active M EDENT ([facility]) Carbidopa 25 MG / Levodopa 100 MG Oral Tablet [Sinemet] Sine met 04/22/2021 12:00:00 AM EDT ORAL completed [facility] ([facility]) Mirtazapine 15 MG Oral Tablet mirtazapine (REMERON) ta blet 7.5 mg mirtazapine (REMERON) tablet 7.5 mg 03/21/2021 10:00:00 PM EDT 7.5 mg Oral active 7.5 mg, Oral, Nightly, First dose on Thu03/21/21 at 2200, For 30 days Medication administered onsite olanzapine 2.5 MG Oral Tablet OLANZapine (ZYPREXA) tab let 2.5 mg OLANZapine (ZYPREXA) tablet 2.5 mg 03/21/2021 10:00:00 PM EDT 2.5 mg Oral active 2.5 mg, Oral, Nightly, First dose on [facility] 03/21/21 at 2200, For 30 days Medication administered onsite Donepezil hydrochloride 5 MG Oral Tablet donepezil (AR ICEPT) tablet 10 mg donepezil (ARICEPT) tablet 10 mg 03/21/2021 10:00:00 PM EDT 10 mg Oral active 10 mg, Oral, Nightly, First dose on [facility] 03/21/21 at 2200, For 30 days Medication administered onsite Simvastatin 20 MG Oral Tablet simvastatin (ZOCOR) tabl et 40 mg simvastatin (ZOCOR) tablet 40 mg 03/21/2021 10:00:00 PM EDT 40 mg Oral active 40 mg, Oral, Nightly, First dose on [facility] 03/21/21 at 2200, For 30 days Medication administered onsite Phenobarbital 16.2 MG Oral Tablet PHENobarbital (LUMIN AL) tablet 16.2 mg PHENobarbital (LUMINAL) tablet 16.2 mg 03/21/2021 03:00:00 PM EDT 16.2 mg Oral active 16.2 mg, Oral, Every evening, First dose (after last modification) on [facility] 03/21/21 at 1500, For 30 days Medication administered onsite zonisamide 100 MG Oral Capsule zonisamide (ZONEGRAN) c apsule 300 mg zonisamide (ZONEGRAN) capsule 300 mg 03/21/2021 03:00:00 PM EDT 300 mg Oral active 300 mg, Oral, Every evening, First dose (after last modification) on [facility] 03/21/21 at 1500, For 30 days Medication administered onsite Carbidopa 25 MG / Levodopa 100 MG Oral T ablet carbidopa-levodopa (SINEMET) 25- 100 MG per tablet 1 tablet carbidopa-levodopa (SINEMET) 25-100 MG p er tablet 1 tablet 03/21/2021 03:00:00 PM EDT 1 {tbl} Oral active 1 tablet, Oral, Three Times Daily Standard, First dose (after last modification) on [facility] 03/21/21 at 1500, For 89 doses Medication administered onsite 0.4 ML Enoxaparin sodium 100 MG/ML Prefi lled Syringe enoxaparin sodium (LOVENOX) injection 40 mg enoxaparin sodium (LOVENOX) injection 40 mg 03/21/2021 09:00:00 AM EDT 40 mg Subcutaneous active 40 mg, Subcutaneous, Daily Standard, First dose on [facility] 03/21/21 at 0900, For 30 days
Non Patients: body weight < 150 kg, CrCl > 30 mL/min. Guidelines for Lovenox: MUST wait 24 hours before starting Enoxaparin if patient has epidural catheter. D/C Enoxaparin 10-12 hours prior to removing epidural catheter. May restart Enoxaparin 24 hours after epidural catheter has been removed.
Medication administered onsite 60 ACTUAT Budesonide 0.16 MG/ACTUAT / fo rmoterol fumarate 0.0045 MG/ACTUAT Metered Dose Inhaler budesonide-formoterol (SYMBICORT) 160-4.5 MCG/ACT inhaler 2 puff budesonide-formoterol (SYMBICORT) 160-4.5 MCG/ACT inha ler 2 puff 03/21/2021 09:00:00 AM EDT 2 {puff} Inhalation active 2 puff, Inhalation, 2 Times Daily, First dose on [facility] 03/21/21 at 0900, For 14 days
Shake well before using
Medication administered onsite Carbidopa 25 MG / Levodopa 100 MG Oral T ablet carbidopa-levodopa (SINEMET) 25- 100 MG per tablet 1 tablet carbidopa-levodopa (SINEMET) 25-100 MG p er tablet 1 tablet 03/21/2021 09:00:00 AM EDT 1 {tbl} Oral aborted 1 tablet, Oral, Three Times Daily Standard, First dose on [facility] 03/21/21 at 0900, For 30 days Medication administered onsite pantoprazole 40 MG Delayed Release Oral Tablet pantoprazole (PROTONIX) EC tablet 40 mg pantoprazole (PROTONIX) EC tablet 40 mg 03/21/2021 09:00:00 AM E DT 40 mg Oral active 40 mg, Ora l, Daily Standard, First dose on [facility] 03/21/21 at 0900, For 30 days
Do not crush or chew
Medication administered onsite psyllium powder 1 packet [id number] 03/21/2021 09:00:00 AM EDT 1 {p acket} Oral active 1 packet, Oral, Daily Standard, First dose on [facility] 03/21/21 at 0900, For 30 days Medication administered onsite POLYETHYLENE GLYCOL 3350 142 MG/ML Oral Solution polyethylene glycol (MIRALAX) packet 17 g polyethylene glycol (MIRALAX) packet 17 g 03/21/2021 0 9:00:00 AM EDT 17 g Oral active 17 g, Or al, Daily Standard, First dose on [facility] 03/21/21 at 0900, For 3 days Medication administered onsite tiotropium (SPIRIVA RESPIMAT) inhalation spray 2 puff [id number] 03/21/2021 09:00:00 AM EDT 2 {puff} Inhalation active 2 pu ff, Inhalation, Daily Standard, First dose on [facility] 03/21/21 at 0900, For 30 days Medication administered onsite 24 HR venlafaxine 150 MG Extended Releas e Oral Capsule venlafaxine (EFFEXOR-XR) 24 hr capsule 300 mg venlafaxine (EFFEXOR-XR) 24 hr capsule 300 mg 03/21/20 09:00:00 AM EDT 300 mg Oral active 300 mg, Oral, Daily Standard, First dose on [facility] 03/21/21 at 0900, For 30 days
Do not crush or chew
Medication administered onsite trospium chloride 20 MG Oral Tablet trospium (SANCTURA ) tablet 20 mg trospium (SANCTURA) tablet 20 mg 03/21/2021 09:00:00 AM EDT 20 mg Oral active 20 mg, Oral, 2 Times Daily, First dose on [facility] 03/21/21 at 0900, For 30 days Medication administered onsite Clonazepam 0.5 MG Oral Tablet clonazePAM (KLONOPIN) ta blet 0.25 mg clonazePAM (KLONOPIN) tablet 0.25 mg 03/21/2021 04:46:26 AM EDT 0.25 mg Oral active 0.25 mg, Oral, Three Times Daily-PRN, anxiety, Starting on Thu03/21/21 at 0446, For 3 days Medication administered onsite Carbidopa 25 MG / Levodopa 100 MG Extend ed Release Oral Tablet carbidopa- levodopa (SINEMET CR) 25-100 MG per tablet 1 tablet carbidopa-levodopa (SINEMET CR) 25-100 MG per tablet 1 tablet 03/21/2021 01:00:00 AM EDT 1 {tbl} Oral completed 1 tablet, Oral, Once , On [facility] 03/21/21 at 0100, For 1 dose
Do not crush or chew
Medication administered onsite Oxycodone Hydrochloride 5 MG Oral Tablet oxyCODONE (ROXICODONE) immediate release tablet 5 mg oxyCODONE (ROXICODONE) immediate release tablet 5 mg 03/21/2021 12:45:00 AM EDT 5 mg Oral completed 5 mg, Oral, Once, On [facility] 03/21/21 at 0045, For 1 dose
Oxycodone immediate release is limited to 10 mg per dose. Higher doses ( only) require Pain Service consultation and approval.
Medication administered onsite metaxalone 800 MG Oral Tablet metaxalone (SKELAXIN) ta blet 800 mg metaxalone (SKELAXIN) tablet 800 mg 03/20/2021 11:00:00 PM EDT 800 mg Oral active 800 mg, Oral, Every 8 hours, First dose on Thu 1 at 2300, For 30 days Medication administered onsite NaCl infusion 0.9 % [id number] 03/20/2021 11:00:00 PM EDT Intravenous active at 100 mL/hr, Intrav enous, Continuous, Starting on Thu03/20/21 at 2300, For 1 day Medication administered onsite Albuterol 0.83 MG/ML Inhalant Solution a lbuterol (PROVENTIL) nebulizer solution 2.5 mg albuterol (PROVENTIL) nebulizer solution 2.5 mg 2020 10:59:21 PM EDT 2.5 mg Nebulization active 2.5 mg, Nebulization, Every 6 hours PRN, Wheezing, Starting on Thu03/20/21 at 2259, For 4 days Medication administered onsite Acetaminophen 325 MG Oral Tablet acetaminophen (TYLENO L) tablet 650 mg acetaminophen (TYLENOL) tablet 650 mg 03/20/2021 10:59:20 PM EDT 65 0 mg Oral active 650 mg, Oral, E very 6 hours PRN, Mild Pain (Pain Scale Score 1- 3), Starting on Thu03/20/21 at 2259, For 30 days
Maximum daily dose of acetaminophen is 3,000 mg from all sources in 24 hours.
Medication administered onsite sodium chloride 0.9 % bolus 500 mL [id number] 03/20/2021 07:00:00 PM EDT 500 mL Intravenous completed 500 mL, Intravenous, Once, On Thu03/20/21 at 1900, For 1 dose Medication administered onsite sodium chloride 0.9 % bolus 500 mL [id number] 03/20/2021 05:15:00 PM EDT 500 mL Intravenous completed 500 mL, Intravenous, Once, On Thu03/20/21 at 1715, For 1 dose Medication administered onsite iohexol (OMNIPAQUE) 350 MG/ML contrast injection 75 mL [id number] 03/20/2021 01:15:00 PM EDT 75 mL Given by IV completed 75 mL, Given by IV, 1 TIME IMAGING, On Thu03/20/21 at 1315, For 1 dose Medication administered onsite Simvastatin 40 MG Oral Tablet Simvastatin 40 MG Oral T ablet (ZOCOR) Simvastatin 40 MG Oral Tablet (ZOCOR) 40 mg Oral aborted Take 40 mg by mouth nightly Simvastatin 80 MG Oral Tablet simvastatin (ZOCOR) 80 M G tablet simvastatin (ZOCOR) 80 MG tablet 80 mg Oral aborted Take 80 mg by mouth nightly. rizatriptan 10 MG Oral Tablet rizatriptan (MAXALT) 10 MG tablet rizatriptan (MAXALT) 10 MG tablet 10 mg Oral aborted Take 10 mg by mouth as needed for Migraine. May repeat in 2 hours if needed Ciprofloxacin 100 MG/ML Oral Suspension ciprofloxacin (CIPRO) 500 MG/5ML (10%) suspension ciprofloxacin (CIPRO) 500 MG/5ML (10%) suspension Oral aborted Take by mouth Two Times Daily. VITAMIN D, CHOLECALCIFEROL, PO 1 {tbl} Oral aborted Take 1 tablet by mouth daily olanzapine 2.5 MG Oral Tablet OLANZapine 2.5 MG Oral T ablet (ZYPREXA) OLANZapine 2.5 MG Oral Tablet (ZYPREXA) 2.5 mg Oral aborted Take 2.5 mg by mouth nightly Capsaicin 0.75 MG/ML Topical Cream capsicum (ZOSTRIX) 0.075 % topical cream capsicum (ZOSTRIX) 0.075 % topical cream Topical aborted Apply topically Three times daily. Carboxymethylcellulose Sodium 5 MG/ML Op hthalmic Solution carboxymethylcellulose (REFRESH PLUS) 0.5 % SOLN carboxymethylcellulose (REFRESH PLUS) 0.5 % SOLN 1 [drp] Both Eyes aborted Place 1 dr op into both eyes Three times daily as needed [place]asta-3 Fatty Acids (FISH OIL PO) Oral aborte d Take by mouth. 72 HR Fentanyl 0.05 MG/HR Transdermal Patch fentaNYL ( DURAGESIC) 50 MCG/HR fentaNYL (DURAGESIC) 50 MCG/HR 1 {patch} Transdermal aborted Place 1 patch onto the skin every 3 (three) days. flunisolide (NASALIDE) 25 MCG/ACT (0.025%) SOLN [id number] 2 {spray} Inhalation aborted Inhale 2 spray s into the lungs every 12 (twelve) hours. Docusate Sodium 50 MG Oral Capsule docusate sodium (CO LACE) 50 MG capsule docusate sodium (COLACE) 50 MG capsule Oral aborted Take by mouth daily. Donepezil hydrochloride 5 MG Oral Tablet donepezil (AR ICEPT) 5 MG tablet donepezil (ARICEPT) 5 MG tablet 5 mg Oral aborte d Take 5 mg by mouth nightly. Omeprazole 20 MG Delayed Release Oral Ca psule omeprazole (PRILOSEC) 20 MG capsule omeprazole (PRILOSEC) 20 MG capsule 20 mg Oral aborted Take 20 mg by mouth daily. midodrine hydrochloride 5 MG Oral Tablet midodrine (MS OAMATINE) 5 MG tablet midodrine (PROAMATINE) 5 MG tablet 5 mg Oral abo rted Take 5 mg by mouth Three times daily. Psyllium 14.2 MG/ML Oral Suspension psyllium (METAMUCI L) 28.3 % PACK psyllium (METAMUCIL) 28.3 % PACK 1 {packet} Oral aborted Take 1 packet by mouth daily With juice Insurance Providers Payer name Policy type / Coverage type Policy ID Covered democrat ID Covered democrat's relationship to rivero Policy Rivero Plan Information State Ins Fund () Workers Compensation [id number] Self [id number] A OTHER B [id number] Self [id number] 2 OTHER B [id number] Self [id number] COMMERCIAL GENERIC U [id number] Self [id number] HUMANA MEDICARE ADVANTAGE G [id number] Self [id number] OTHER B [id number] Self [id number] 2 OTHER B [id number] Self [id number] 'S ADMINISTRATION [id number] SP [id number] HUMANA GOLD [id number] SP [id number] [facility] OPTIONS [id number] SP [id number] MEDICARE PART A [facility] [id number] 18 [id number] OPTUM VA O [id number] S [id number] OPTUM VA O UNAVAILABLE [id number] S UNAVAILA BLE ONE CALL CARE MANAGEMENT O [id number] S [id number] MEDICARE [id number] SP [id number] [place] [id number] 18 [id number] MEDICARE [id number] SP [id number] HEALTH NET VA CHOICE [id number] SP [id number] [facility] O [id number] S [id number] MEDICARE [id number] SP [id number] MEDICARE PART A [facility] [id number] 18 [id number] ANSI-Commercial [id number] ANSI-Medicare Part B [id number] ANSI-Not a Secondary Insurance [id number] [place]/136E O [id number] S [id number] AARP O [id number] S [id number] MEDICARE C [id number] S [id number] A STATE INSURANCE FUND [id number] SP [id number] [facility]/136E O [id number] S [id number] [facility]ALTH [facility] VA CHOICE [id number] SP [id number] [employer]EFIT O [id number] S [id number] [employer] O [id number] S [id number] STATE INSURANCE FUND O [id number] S [id number] STATE INSURANCE FUND [id number] SP [id number] [facility] CHOICE O [id number] S [id number] [place] Medicare Primary [id number] Self [id number] [facility] Commercial [id number] Self [id number] OPTUM VA CCN [id number] SP [id number] STATE INSURANCE FUND [id number] SP [id number] NON VA CARE [id number] SP [id number] [facility]/136E [id number] SP [id number] [place] Medicare Primary [id number] Self VA CCN OPTUM [id number] S [id number] HUMANA MEDICARE O [id number] 18 [id number] VA CCN OPTUM [id number] 18 [id number] AARP HE[employer] CARE OPTIONS [id number] 18 [id number] OPTUM VA CCN [id number] SP [id number] [id number] SP [id number] 'S ADMINISTRATION [id number] SP [id number] Problems, Conditions, and Diagnoses Code Display Name Description Problem Type Effective Dates Data Source(s) R601 Generalized edema Generalized edema Diagnosis 08/07/2021 10:57:00 AM [facility] M2040 Other hammer toe(s) (acquired), unspecif ied foot Other hammer toe(s) (acquired), unspecified foot Diagnosis [facility] Enthesopathy, unspecified Enthesopathy, unspecified Di agnosis 08/07/2021 10:57:00 AM [facility] [id number] Pain in left foot Pain in left foot Diagnosis 08/07/2021 10:57:00 AM [facility] M46198 Pain in right foot Pain in right foot Diagnosis 10:57:00 AM [facility] L84 Corns and callosities Corns and callosities Diagnosis 08/07/2021 10:57:00 AM [facility] L600 Ingrowing nail Ingrowing nail Diagnosis 08/07/2021 10:57: 00 AM [facility] 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 Diagnosis 08/07/2021 10:57: 00 AM [facility] 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, bilateral legs Unspecified atherosclerosis of [place] ar teries of extremities, bilateral legs Diagnosis 08/07/2021 10:57:00 AM [facility] R00.0 Tachycardia, unspecified Tachycardia, unspecified Diag nosis 03/21/2021 05:34:55 AM [facility] neurological evaluation neurological evaluation Diagno sis 03/20/2021 01:00:00 PM [facility] R33.9 [id number] Retention of urine Problem 04/05/2021 12:00: 00 AM EDT [facility] ([facility]) N35.911 [id number] 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, unspecified stricture type Problem 04/05/2021 12:00:00 AM EDT [facility] ([facility]) S90.32xA Contusion of foot Contusion of foot Problem 01/08/2021 12:00:00 AM EDT [facility] ([facility]) Surgeries/Procedures Procedure Description Date Indications Data Source(s) [place] Hyperkeratotic Lesion, 2-4 05/28/2021 12:00:00 AM EDT [facility] ([facility]) Med: Lidocaine Jelly 2% 6ml Intravesically (Glydo) 05/10/2021 12:00:00 AM EDT eCW1 ([facility]) OFFICE OUTPATIENT VISIT 25 MINUTES 04/22/2021 12:00:00 AM EDT [facility] ([facility], ) STAPH AUREUS MRSA PCR <td>STAPH AUREUS MRSA PCR</td><td>Routine</td><td>03/21/2021 6:02 AM EDT</td><td></td><td> </td> 03/21/2021 06:02:00 AM [facility] HEPATITIS C ANTIBODY <td>HEPATITIS C ANTIBODY</td ><td>Routine</td><td>03/21/2021 1:03 AM EDT</td><td></td><td> </td> 03/21/2021 01:03:00 AM [facility] LACTATE <td>LACTIC ACID LEVEL, PLASM A</td><td>Routine</td><td>03/21/2021 1:03 AM EDT</td><td></td><td> </td> 03/21/2021 01:03:00 AM [facility] POCT ID NOW COVID-19 <td>POCT ID NOW COVID-19</td ><td>Routine</td><td>03/20/2021 10:40 PM EDT</td><td></td><td> </td> 03/20/2021 10:40:00 PM [facility] RESPIRATORY PATHOGEN PANEL <td>RESPIRATORY PATHOGEN PANEL</td><td>Routine</td><td>03/20/2021 10:32 PM EDT</td><td></td><td> </td> 03/20/2021 10:32:00 PM [facility] COVID-19 PCR <td>COVID-19 PCR</td><td>Rou misa</td><td>03/20/2021 10:32 PM EDT</td><td></td><td> </td> 03/20/2021 10:32:00 PM [facility] XR CHEST FRONTAL ONLY 18539 <td>XR CHEST FRONTAL ONLY 28624</td><td>STAT</td><td>03/20/2021 5:34 PM EDT</td><td></td><td> </td> 03/20/2021 05:34:04 PM [facility] URNLS DIP STICK/TABLET REAGENT AUTO MICROSCOPY <td>URI NALYSIS WITH MICROSCOPIC</td><td>STAT</td><td>03/20/2021 5:07 PM EDT</td><td></td><td> </td> 03/20/2021 05:07:00 PM [facility] EKG 12-LEAD - CMAXX REPORT <td>EKG 12-LEAD - CMAXX REPORT</td><td></td><td>03/20/2021 4:34 PM EDT</td><td></td><td></td> 03/20/2021 04:34:03 PM [facility] EKG 12-LEAD - CMAXX REPORT <td>EKG 12-LEAD - CMAXX REPORT</td><td></td><td>03/20/2021 4:34 PM EDT</td><td></td><td></td> 03/20/2021 04:34:03 PM [facility] EKG 12-LEAD <td>EKG 12-LEAD</td><td>STAT </td><td>03/20/2021 4:34 PM EDT</td><td></td><td> </td> 03/20/2021 04:34:03 PM [facility] EKG 12-LEAD - CMAXX REPORT <td>EKG 12-LEAD - CMAXX REPORT</td><td></td><td>03/20/2021 4:34 PM EDT</td><td></td><td></td> 03/20/2021 04:34:00 PM [facility] TROPONIN QUANTITATIVE <td>POCT ISTAT TROPONIN</td> <td>Routine</td><td>03/20/2021 1:32 PM EDT</td><td></td><td> </td> 03/20/2021 01:32:00 PM [facility] BASIC METABOLIC PANEL CALCIUM IONIZED <td>POCT ISTAT CHEM8</td><td>Routine</td><td>03/20/2021 1:30 PM EDT</td><td></td><td> </td> 03/20/2021 01:30:00 PM [facility] BLOOD GASES ANY COMBINATION PH PCO2 PO2 CO2 HCO3 <td>P OCT ISTAT VBG/LAC</td><td>Routine</td><td>03/20/2021 1:25 PM EDT</td><td></td><td> </td> 03/20/2021 01:25:00 PM [facility] COMPREHENSIVE METABOLIC PANEL <td>METABOLIC PANEL, COMPREHENSIVE</td><td>Routine</td><td>03/20/2021 1:21 PM EDT</td><td></td><td> </td> 03/20/2021 01:21:00 PM [facility] BLOOD COUNT COMPLETE AUTO&AUTO DIFRNTL WBC COUNT <td>C BC AND DIFFERENTIAL</td><td>Routine</td><td>03/20/2021 1:21 PM EDT</td><td></td><td> </td> 03/20/2021 01:21:00 PM [facility] TROPONIN QUANTITATIVE <td>TROPONIN T</td><td>Routi ne</td><td>03/20/2021 1:21 PM EDT</td><td></td><td> </td> 03/20/2021 01:21:00 PM [facility] DRUG SCREEN QUALITATIVE PHENOBARBITAL <td>PHENOBARBITA L LEVEL</td><td>Routine</td><td>03/20/2021 1:21 PM EDT</td><td></td><td> </td> 03/20/2021 01:21:00 PM [facility] CT ANGIOGRAPHY NECK W/CONTRAST/NONCONTRAST <td>CT WOJCIECH OGRAPHY NECK 06169</td><td>CODE</td><td>03/20/2021 1:19 PM EDT</td><td></td><td> </td> 03/20/2021 01:19:09 PM [facility] CT ANGIOGRAPHY HEAD W/CONTRAST/NONCONTRAST <td>CT WOJCIECH OGRAPHY HEAD 44916</td><td>CODE</td><td>03/20/2021 1:19 PM EDT</td><td></td><td> </td> 03/20/2021 01:19:09 PM [facility] Pare Hyperkeratotic Lesion, 2-4 03/19/2021 12:00:00 [facility] Pare Hyperkeratotic Lesion, 2-4 01/08/2021 12:00:00 AM EDT [facility] ([facility]) Pare Hyperkeratotic Lesion, 2-4 10/29/2020 12:00:00 AM EST [facility] ([facility]) Results ID Date Data Source URINE CULTURE 05/10/2021 12:00:00 AM EDT eCW1 ([facility]) Name Value Range Interpretation Code Description Data Yovana rce(s) Supporting Document(s) URINE CULTURE eCW1 ([facility]) ID Date Data Source UA URINALYSIS 05/10/2021 12:00:00 AM EDT eCW1 ([facility]) Name Value Range Interpretation Code Description Data Yovana rce(s) Supporting Document(s) UA URINALYSIS eCW1 ([facility]) ID Date Data Source [facility] RENAL US 04/12/2021 12:00:00 AM EDT eCW1 ([facility]) Name Value Range Interpretation Code Description Data Yovana rce(s) Supporting Document(s) [facility] RENAL US eCW1 ([facility]) ID Date Data Source [id number] 03/29/2021 10:00:35 AM EDT [facility] Name Value Range Interpretation Code Description Data Yovana rce(s) Supporting Document(s) ED Provider Note [facility] LNIFGm6pXlRRKpMy65/TFKvwHGXdn2GaJJoyVIp3WBqkGWGfJ2ZuMCU8vY7uKJL4JLxKIkQxIqWvMlO1 lbm [file] A+IW5hHAq+Gg1Em8WcnnW2fzJbNXt4NlGuBC0NHWOHX0RDJg== ID Date Data Source [id number] 03/21/2021 10:41:51 PM EDT [facility] Name Value Range Interpretation Code Description Data Yovana rce(s) Supporting Document(s) Progress Note [facility] PZVVMs4jEvXBKqCf58/CGHgrOQUbb5WlRAyfSOg6CFjrNTYaB6GlYXW3sX4uVCO6PJiWYvMlQmKaGpMc lbm [file] ICAgICAgICAgICAgICAgICAgICAgICAgICAgICAgIC AgICAgICAgICAgICAgICAgICAgICAgICAgICAgICAgDQogICAgICAgICAgICAgICAgICAgICAgICAgIC AgICAgICAgICAgICAgICAgICAgICAgICAgICAgICAgICAgICAgICAgICAgICAgICAgICAgICAgICAgIC AgICAgICAgICAgICAgDQogICAgICAgICAgICAgICAg ICAgICAgICAgICAgICAgICAgICAgICAgICAgICAgICAgICAgICAgICAgICAgICAgICAgICAgICAgICAg ICAgICAgICAgICAgICAgICAgICAgICAgDQogICAgICAgICAgICAgICAgICAgICAgICAgICAgICAgICAg ICAgICAgICAgICAgICAgICAgICAgICAgICAgICAgIC AgICAgICAgICAgICAgICAgICAgICAgICAgICAgICAgICAgDQogICAgICAgICAgICAgICAgICAgICAgIC AgICAgICAgICAgICAgICAgICAgICAgICAgICAgICAgICAgICAgICAgICAgICAgICAgICAgICAgICAgIC AgICAgICAgICAgICAgICAgDQogICAgICAgICAgICAg ICAgICAgICAgICAgICAgICAgICAgICAgICAgICAgICAgICAgICAgICAgICAgICAgICAgICAgICAgICAg ICAgICAgICAgICAgICAgICAgICAgICAgICAgDQogICAgICAgICAgICAgICAgICAgICAgICAgICAgICAg ICAgICAgICAgICAgICAgICAgICAgICAgICAgICAgIC AgICAgICAgICAgICAgICAgICAgICAgICAgICAgICAgICAgICAgDQogICAgICAgICAgICAgICAgICAgIC AgICAgICAgICAgICAgICAgICAgICAgICAgICAgICAgICAgICAgICAgICAgICAgICAgICAgICAgICAgIC AgICAgICAgICAgICAgICAgICAgDQogICAgICAgICAg ICAgICAgICAgICAgICAgICAgICAgICAgICAgICAgICAgICAgICAgICAgICAgICAgICAgICAgICAgICAg ICAgICAgICAgICAgICAgICAgICAgICAgICAgICAgDQogICAgICAgICAgICAgICAgICAgICAgICAgICAg ICAgICAgICAgICAgICAgICAgICAgICAgICAgICAgIC XtFRUiNETiJEWzMPMcSHApYXIoSYJyOLLrPISiBRTzMLSjMAKnQBJgRYh8N2fuOBCxETIiVE6nSGz7Cg 8+RMaDJyVxLXZ7puKdoD8DKB1th1PpZVqbIDTrg0VnNXj6CP8OTJVvWWpvDR8XZVphhr9GSXIaDWLfnX OLw5ziScFnLSU5CLGoOoluRM4IFKYzD2xuhjPbQBQv RDYQXEbiIWJZFUhyUFTVTOLvDFOzOpCpLeVsKNIgAASqHBTPXUU4SDYqZkFwNKoxYG0Bl2WfuRW2FTr+ Kr2TGL6zz8FhZExqGrIoID4qjb4GXOqEXbTtM8HmdvV1FLN2PZPiKp8PWWCdULEopAOkDHJpVBTLCxUz F6FoyM16ULENKg5+YAbsscXzQdiXAvE6AWDqm3NpYT s5OI9FDTAyMGo8rZZnEJXbL8Iyo6WxOt52EMHsEkyoOFU3tdZaLSEMtU6fz98vl4R1ODDGEXDgcDW7Ad SjJqHoPvPlGYD8XdWgSR5aZRnnLJ4YNAB6WNwyEQHkLLOeS6mVUgJmIGBbAlCzdIgcOH5NOuTyR3Ycvq VudCAzNyAwIFINCj4+JWmmcoOxNmiXNrK0VPEad3Ru LKb1OJ2HKKSdXOutZN8XTDHchZ7lMQdeUL0VHeYxEBBvPQACCaVzA38okSIjEHq9S7NoRtGsQPHvHclp ZXMgPDwvTmFtZXMgWyBdDQogID4+ID4+JRnvLH7HJFruqzMlCMXlMp3JXPIwGYRrHH1sHUHkSJTlJ2M2 eFmjMQJDDvKpD2itzylzUM2nZJKyW954sLcmbxDvKC H2MRRvSb1OMTScEJL5JRSkfZJcKhArNHACQVstNJ8PaDWuTTE3vQ4bFIsiZMBlKEQzP0rWQnQxdRpqHG 51bGwgbnVsbCBdDQo+Pl5KSQ1no0HvEVa2xvNpUOntIAZjSWtoCDVuAJFxWMRzHEH0OVX7RXTYCpRdTS TdKNLiMTkbNBEoCMJdux3QRODqOBI0PDbnGKPbPGTh PNGfRUmnGJHfVYSfWLA0AHElBPUuPK0RQsYiXSCnNMIgJUuqPIAhMREfsf1GGPXpMZHdIFZnPPAvHHZj HSHmHIwyCZOeEUV8JeP7VWXyPPWcLE2SKxDvYFIyQLqnZDOrKHErQJJzus6OAMTlLTKkNgPzUzHsJERa HKKnLFbbFAXvNUSwSrH2COSrRSMiCE9ZQtMrDRUoWI I2BAUzCOYgLIHyrg5GVUGlSIJzJBYhRFUaWRXrXZOuTQvwBCFtKIR0FgP3NUXxVMDnVO0PPhAdSATxDR amUDCiNOBgQEQida3IFRQdBBJzZzJ3NuSxQGIgKSFcQLbqUIYwZLMiPBG3HZKvNSLwWK9MPtHzVWMzLv JzSGGpXDKfYBJyvp1WJMEwBLIyToj2MYGnEGRnSIEb HUpyZZKoYEU0RKi3CMYvXOUsCB8STbAnVEMxStKrWDKxCFSpWEFgrq6ZJLKmNOBfVFZ3JTGoKECqXKAq GPuuUMHtYSG0XMN7KNSdUJYmCO5SGxLhWAGhPiWkQLIfDZVpUNVclq0DUQBlHHZtIfS3KADdCUQwPLEj BFyiEZKdWGQ9LtmiVZLvAMSgVQ8HLwNnEEJyTrt5UR CkGAPeCVWqsz5WUGUeINIySgl8WADzKFVcETFfTMkbXSCeBGG1YIFlEEDbIQCcEY4TNhTcZQAcXjleKS JeLSKxFWFxpq1ZJJLkUFXjTCJrNTOtNJSsNTOcYMozJMRkGIZ8LVo6HCXoEHPkHT9MTfLwISBzTZE2UB XsYFJoHCUtgm8GMFKiOJK6KDQ2LQHkINJkNVUeTNnw JRRlPOVvMEQ2OUCeBIViIW0DGnSzSCLyORH3MZYmBGVgIXDeli3OVMExZLC8FJf7ZmWmGSVoMGSdEEil OYSoVBXaXvQ7ZCIuZIXlUB1IKfJxZREmPZS3LZHaHCErWZKnyd3APBXuPIC3Oey9LKBlQDXgFOQgLKnm TLMsMXJhOEN7PGOpHKGwMV7CBuEdAWdeKYNUJud3ZE unP5y4LJK9DR5IH9Exe0NuNtwsJFNBUUqpUQ2ukwHvQFDjLt9FD3eHCmogRTV2VLFnVAZ1McPpQVKiBg d6HFAtAVR1JCE1LbLxOo4oTYGxEbqmKZReBSfzWyMtCeCkKGq5OoW7IHdkEQZ8NfO0NeOpKS3JGk9XIb G2XIE7kOUgVf0USJRbCnCVQlBgOT3DKUk= ID Date Data Source [id number] 03/21/2021 10:38:15 PM EDT [facility] Name Value Range Interpretation Code Description Data Yovana rce(s) Supporting Document(s) Progress Note [facility] CCBCTn2tTfQGFmXg31/DAKbbRYXhl9TyBWpoNRr3KVosHVXhP1WkKHH3mQ1wKYP0TIhAAmTpWwDfLcWw lbm [file] NpN4YSyoL4MfGuEbOhYtMDh3Ue9oVGXFLl3+MFiimQCfcWwnDFTKYxl4XIxVWoZpMX8QMDt= ID Date Data Source [id number] 03/21/2021 10:37:40 PM EDT [facility] Name Value Range Interpretation Code Description Data Yovana rce(s) Supporting Document(s) Consultation [facility] VKODFq7kZrVGZoNd71/KOWbiJSNjj9OlXIxuJKz8ODhbQQKmB9DoSOJ1uI9zTME5TXmNTmAsFiLiUqYi lbm [file] Maria E/iJ/kbUYtB/XJv2R/Pl/c3y9ll7WEI8op4RdCXRb [file] ICAgICAgICAgICAgICAgICAgICAgICAgICAgICAgICAgICAgICAgICAgICAgICAgICAgICAgICAgICAg ICAgICAgICAgICAgICAgICAgICANCiAgICAgICAgICAgICAgICAgICAgICAgICAgICAgICAgICAgICAg ICAgICAgICAgICAgICAgICAgICAgICAgICAgICAgIC AgICAgICAgICAgICAgICAgICAgICAgICAgICAgICANCiAgICAgICAgICAgICAgICAgICAgICAgICAgIC AgICAgICAgICAgICAgICAgICAgICAgICAgICAgICAgICAgICAgICAgICAgICAgICAgICAgICAgICAgIC AgICAgICAgICAgICANCiAgICAgICAgICAgICAgICAg ICAgICAgICAgICAgICAgICAgICAgICAgICAgICAgICAgICAgICAgICAgICAgICAgICAgICAgICAgICAg ICAgICAgICAgICAgICAgICAgICAgICANCiAgICAgICAgICAgICAgICAgICAgICAgICAgICAgICAgICAg ICAgICAgICAgICAgICAgICAgICAgICAgICAgICAgIC AgICAgICAgICAgICAgICAgICAgICAgICAgICAgICAgICANCiAgICAgICAgICAgICAgICAgICAgICAgIC AgICAgICAgICAgICAgICAgICAgICAgICAgICAgICAgICAgICAgICAgICAgICAgICAgICAgICAgICAgIC AgICAgICAgICAgICAgICANCiAgICAgICAgICAgICAg ICAgICAgICAgICAgICAgICAgICAgICAgICAgICAgICAgICAgICAgICAgICAgICAgICAgICAgICAgICAg ICAgICAgICAgICAgICAgICAgICAgICAgICANCiAgICAgICAgICAgICAgICAgICAgICAgICAgICAgICAg ICAgICAgICAgICAgICAgICAgICAgICAgICAgICAgIC AgICAgICAgICAgICAgICAgICAgICAgICAgICAgICAgICAgICANCiAgICAgICAgICAgICAgICAgICAgIC AgICAgICAgICAgICAgICAgICAgICAgICAgICAgICAgICAgICAgICAgICAgICAgICAgICAgICAgICAgIC AgICAgICAgICAgICAgICAgICANCiAgICAgICAgICAg ICAgICAgICAgICAgICAgICAgICAgICAgICAgICAgICAgICAgICAgICAgICAgICAgICAgICAgICAgICAg ICAgICAgICAgICAgICAgICAgICAgICAgICAgICANCjw/bTSzJ7tqbUBgufY8Z4bdRf6GNd0WTR8dv6Jv EXQhDClakxDlMovNZcJeWZIpDmwPIjr7GGfcKC3HeT IsA8MyS9EiASjwNM0YLJRzTSJftLPdBRMdDHObUwK0FKAsWHitWB2ZcAQkRPbrKRFfBHRrEqPhRARsHR NgAALzFFPrURLDLUJnWQKyWbSyDYArCGKlTTojYNHNHP6TIqAfX5IbwW68ZDxHWu2+DQplbmRvYmoNCj XxZVLqk9ByYCj8MF7ABJFyFpysf1MeCVDvJUEFIBme AJ9FLND2CBVnQFGeYv6FZSDwC096krQpCH5DRw4OElImDL4sgn7YVEGdXVPyFwvBCzt1ZLazNO0DzGTv SSpUk14gvAb1htKpbZQAk9wphVQqVXJgvYdaoLpqJGYuEFGuLf05KhIoCfGvPNK1XJNnPQ3nZFzaNP6I YIH2QQxgMDXrWLVrH0aDSmBtZCZkZhFkkFokNG8HOz BzY9SbftOqjOG8WANqQWCSEh5+GLdovbIkHllQNyBcXPJpk6PmXSp3BD7KPOAeUKaaIB0AHGMjlX8sFA ltMX2JRwXlZNLyHYGWIsLwL31txHIpPLu8T4WgKrNdROKzUidnFYEzPXfmXvFhNVHnLfUuAYypSM4+ID 4+YJsfCW0HGFjuehXpYLXcOm1ERADeGOErWZ2uFHUl MNWyK2N0sBjkIXPQEtVkD8vaysvyRN4mIKHtB443pOsfpmKkAVIyTQBoPy1FEVPkADI9VOXfaPIjAipl XGUPWXdkBC2GlVMyRBZ6xH4tEMahBJRpUDQhS9sQIiZfwNrqCG35gBghadKyiEJiIRz+Cd3ZGB6an2Mu TEd8qnIwOVbsFDRiXZglJAWgBXHfYCCwLRU6DIW9DD UQJuNqMZSyDJHzOGgdCKPgOQElbv8KIMSnDJT7LWOnWQYsAONjEPPdFWlqBZBgEJK9Ixb0KQQuOCYsWH 0DSwEsPBNnZEUlZYypBDJfCIMlfe0RLAFrOAIrXKI3AOXyGCAsKDOoYHtdRIOmIUX3UpB9PYLnXDIvNL 5XQwTuBYIcPRxyUhDzUIBwKCIklx8MDPLgJOGcMfMy QEVeWNNxMWJhDYcuRNCcLNEiYnH5QMWjOOOsEX1LAaIyYWXuUFS4ZZxeAPImHRDrmr4HAGOcXSLbFsz6 OaSuPCIjCZFeSAztCNJpASGpKLt6OIUePCVeFH2HHwFzUTRlACt9FUfkZWMdKSYfaa0BPRSwTLOcHkk4 BSJkPGRaLNRmQGktVEVySNNgSNL9EQJbPIHnLM2KGl PsARQxAySrNcLqWNUfDHKnbn7ANAUkGTSzDJd8ZcAdFGJkFRHvAMssVMIkRYC3PYOcYVOvQRUlZI3ATl AhJUZeRzZ3PyToUTIpKVVrbv4UJWKxDENtPeBdAYNmPDByKQWzQKuyMWGjMXB4HxGdQAViKSYjML0MFe AjOMNiLnapSzHsYTSvBHPeeg7QEUBrQITnAKO6YRPj HXPtYKEtIEszHZUdJUB1GnCtRQWeSHCqEN2VBfYfNMXyGkb5LFBcQOGsNDMdbb0IFKTpBTTvFMjkSVCa NZKlVJQzUBkoMICjRKK6UDpzULFuBPSnNE7TJuItFXGmHmH4CUSpUWNeSTKlvs9NDQKuUMPyMMB8UIGf YGBoPWKoYIjmACKxQCHnFlS1ASSxMDGhDM7XNzFdAL IzXdQbHBNpGVYlGMEnow3OKKJhQYUrYgKyWXTgNENcZXHjGRouEOUzUMSzIgV7SIEiFMPfAE1VGrMpTA IwOSIePSTiDATjFHYcnj8GGMJfTMV4GATqUmRlQLScGJJnMFvwLBSaYLY2MjPeGRXqRWVaLB1UWsAfYY UqAXU4JxTbSEMkRGOkdo8WNLBwIQX3GJGyVsVaXDOv TXVdQBxpOCFeAWK2SBF3IGAqKCMsPT6MKoNrCROrYGC6QvNvTOTnVORtng6QBCAnXZW0WkDnLFHyWMJp PKIjMJvlQRTjNOM0EYG5OOApNGQpAF1MBoLeGAebFKAVApe5HPlbC1t3ULN1Qs2SN0Szz5XbZREoHQZX OOjkHV8gyjMsSSQfFi3DM1dYWeidJaNaZDU8RiPjF2 O1Mjg6HWMpJvu5KAL3ONN6ApDaEL2xZPOwCWW4NBX4VkWbDqc8OJTlCTMyVGnnSewtMpp1CGAlMsEiDA 5QGj5SNcF2JKX5kVCdRu9NIKcdZKYVEyYiMX7SJAz= ID Date Data Source [id number] 03/21/2021 10:36:45 PM EDT [facility] Name Value Range Interpretation Code Description Data Yovana rce(s) Supporting Document(s) Progress Note [facility] BEJRSk5cVbEIPlTq46/YSLmlDNJwn5JwXEjaZRo7AXkqVCVrG8EcFVG5nL0rKSR6USlSBcUsScYxZqKp lbm [file] DT4b/lREn8FCAoISoDe7YKl0TMqf8o1p253O43z127AvEqA/[employer] Professor++C4ORD3OIOk5AsPG+ynyn0si+xePq [file] ICAgICAgICAgICAgICAgICAgICAgICAgICAgICAgICAgICAgICAgICAgICAgICAgICAgICAgICAgICAg JJPzSRHfLJXcKUDrMXKeBI7JJJVhLNLmPIRrAMAkPYYeIHApAKAqGNPiBOIuXYUnSIJsELZdKOJsNMDx ICAgICAgICAgICAgICAgICAgICAgICAgICAgICAgIC ZqOVOdEGViXHNlQVCsWOMsHCEoOTXlRCHvDK7TKFVcTXSqZONoYTRvEVWyWWQzEZKtPYUaYAImHOMjTL AgICAgICAgICAgICAgICAgICAgICAgICAgICAgICAgICAgICAgICAgICAgICAgICAgICAgICAgICAgIC LbKPFjREAeRZ8LFMXbRIVvJAVeZIXsRBSqYSLzNDCo ICAgICAgICAgICAgICAgICAgICAgICAgICAgICAgICAgICAgICAgICAgICAgICAgICAgICAgICAgICAg RHWlHROqBMGbOOCzIPVmDKOgFP9KTFGeWISsVGDpPEFdOVExCOUcPEIvDVVbYBVnDLJrNOYnIOLuMRTy ICAgICAgICAgICAgICAgICAgICAgICAgICAgICAgIC SlZVCwUNXiDUYiJOTwEEJdOKAtXSJsEBUvGYRlQC2ZRFTxNKCbDBLaVAIkJMRkPCLtCHEuPHQsMOFiYE AgICAgICAgICAgICAgICAgICAgICAgICAgICAgICAgICAgICAgICAgICAgICAgICAgICAgICAgICAgIC RyWWPeSPTeYMZjFE2BYPKzDREoQPFpNYVlKXPfRSZk ICAgICAgICAgICAgICAgICAgICAgICAgICAgICAgICAgICAgICAgICAgICAgICAgICAgICAgICAgICAg GNAlEXDrBCOyDHBoWFOmVVGyRJStKD4DIPWbFWYsKHHzQZViUHKyBEQpZJKgHCWgZIYqITPdRWKgWVGn ICAgICAgICAgICAgICAgICAgICAgICAgICAgICAgIC MkKVDhUXFhWORpSQEgYKOqSGAcGSWaUBXxPFJwEKJqNU8TTIWnYYTyBBWdNAYaLKKcGDEqVCFgSWIoEG AgICAgICAgICAgICAgICAgICAgICAgICAgICAgICAgICAgICAgICAgICAgICAgICAgICAgICAgICAgIC HvVTMrGGTxASOlXJRkKG6HWANrZUNwGHBpJEShUUEd ICAgICAgICAgICAgICAgICAgICAgICAgICAgICAgICAgICAgICAgICAgICAgICAgICAgICAgICAgICAg MBFyDORrPGWcKFMcGXFmMKAsTCNiRLRkSV2ETQ10xNCvs6C5LRPdDD2tufb/Nc6IQQmhxlMjlKGxER5Z QwBlKA8khg3FCkXkBJ7juu6RRRuRFyCtS9B5gPPnOA TvLNHCBoBmE37qYOxyNd39IYxmQGSrPsAsTHi4Pc5NKhYtN0qdQEVmQhB4KIBuVrW2KYBrWdApBJsoJL 6Bw0WqlJIpHXx+Hm2TQL4jz8PrHRmnONWeEM1xve5SRMaFGrJtA7HrlfP1ZCN8FPEtEs8LPUSfMGRasC ScIPRhYNXAOxYzA7FcqV68UDNJEk4+DQplbmRvYmoN PtB1QQQul8XyNNu6VV6BEIUfTYa0kALcTIDyD1Xps8HdOx45XGJqLplfT23fd0yjefMNFZppoMouNE1H HEG0FADsVC7jUINdBNKlFxY4FKVGZW6WDYJzFNGayBRkHGTnQHYLZC5VQPuoKDD7PLOoaqHhnHYiEOrk RE1ZZDCbrwXtTnZyWGIETFo+Vf4UIT4um7TgMQwkWs MjNC9zoe7NBWjKPsQuM8R4aPHaE8W1VVekGl3YCWCoDWYiArFcZKDHXHlhXR4IFS8oofS4TN0ZlFAqBA LfBSIfgYDdXQk0N56miKKbDSqfPM6VGDV+Brenda+Ht4APFQvARHeWDUxBpWwALMIGnQnJ6DdF9HEk3LaY0 JtRH41pSpkmwGyVXgfUM9NIG9rIXWgSSMGLH6OzKNp rW0oxiLoWCQzQOFLPfCxD33kpWKrADGdLOFfCAOsOj0VVOMiI2MxtrGuyOnfbuIcCZQbSIWJHG5HKAyu khGcrSHzbLvsQD86tPoyJO9OYc3FJgKwDN9doz1JeACpIy9OUTYdHu8YHLDdEREnUKYuYTY8TXKzGwUw YYznMGQqXPFnRUN2FAUcVSGwFN6PHnPiHZViTzd3TM VuJBCyJZAexs9CBKPaFYWhQGWqNPUjOFKcITVdTZafSVHrMHWoDQO8CBGlFERbUG3RQnVtIIIpVNIsCX SeGAYzQYFiar9BZXBjFXHsMWZ0TBJmLDYgKOIpLMhxMKFsSYS8TGV8YBWyBWBbOQ9LWbOkZEAjBBR1Hx ccRMGxZBWpku9WXMCcLXGqFjU1INJjMSExUMMhINtj BIGfPSR8QNz1OHYeQWIhZB9RQwSmDIYhSAgaOnYlBCEzKHVmjj5NJVUfOKYqVTNfJHNoWOXfWYBqHOca ALZfEQM8JyM3VAOiCCFfAF5EOdHoIGOiJFc1JXFzRGUkTVPhpx8YPKBoTWDeCDU6UWEzQBPpDYVpOTwg ONQbFQAdQBitSIBkBKDdZO7EIeYbTTQnLGT5VHKeZP YyJSXhdv7EGICiFXRoFYNuTkZyMDAyUQQjIKnuPEItJPM2HNS6UEHrQMZoUS7KSwVbSMZrMvuzYeTvUJ EfYFUcfm7DBGZpJHLvBCQnXTHlWKQpLTElOJjiFRMiOUA1CBqsRLZmJDWvZJ5PYiZqQCCkZwo4IOooCV IfLDCumn3THYPxLQCnFXH1LqSeMGJdBLOzJRkrYSMv PUKmMUWcMZMyLVXeYI2PUoBbWBGjFgJ1AnSzWQLbQRUhlo7XxBTdkXedgw9NFSaYPl4DwUrjGVD2BBjb Bn4gaORoPnYnTLGNVl3EklJgRBWkTHIZRXevAYPrOXZxKaAcJCLrYMMeMHA0WDQ3KOctLGXsALO3ANen EaS7PgX8YFDdUJUoWlA9CDM7LDH9EmcpT1Y6RRKxMw VjEWF8Jyg+FX7eCFx+Kp7Ra0NhwiW4xkFbDQvvZEveAR4ASXJYY1HZOj== ID Date Data Source [id number] 03/21/2021 02:24:53 PM EDT [facility] Name Value Range Interpretation Code Description Data Yovana rce(s) Supporting Document(s) Progress Note [facility] MLTFEs6vVdGANnVz40/QKOjtGACeo0VwWYldQOq8DVvjUGRcR4UoAMA6pL8hQBY2ODbNJgZpDfXeVuRs lbm [file] H6HOUkUIDxHG6oQKEPMl5+GVscmZNjcXcrKMWAYoE5Rwj1WVumHKVRCt7Q ID Date Data Source [id number] 03/21/2021 02:17:15 PM EDT [facility] Name Value Range Interpretation Code Description Data Yovana rce(s) Supporting Document(s) Discharge Summary [facility] SQRXEe9yKeMTEwYa39/USTztBBKjy7MkIVqoGAt6WPazHYKwM6TdGZW5sG5fTPK5QNwCVhIoReZtVxEp lbm [file] klBWZBTwQuHmVlIWllWGARWm3U ID Date Data Source [id number] 03/21/2021 12:49:09 PM EDT [facility] Name Value Range Interpretation Code Description Data Yovana rce(s) Supporting Document(s) Progress Note [facility] AMJJUu1hNmGDPuRt07/GMBdmZHSoq1HaFLmqWId0RMzvHXKjC5QfFNA7hA7tEFS3ZMmSZyZhNpVxTlIh lbm [file] AgICAgICAgICAgICAgICAgICAgICAgICAgICAgICAg LJUjVGRzSYEfKFOeWDAlYVOiQGHvIKDrDYGeHDJkRVUyOX2XMVHmMNAbJTQyNNJbAEAyLDXcBWDaDQOn ICAgICAgICAgICAgICAgICAgICAgICAgICAgICAgICAgICAgICAgICAgICAgICAgICAgICAgICAgICAg USXkOLEnUBAcBQOfWVFkAP5DAPUzPYIcCOBjHMZrUH AgICAgICAgICAgICAgICAgICAgICAgICAgICAgICAgICAgICAgICAgICAgICAgICAgICAgICAgICAgIC LlIWCvYENtLCVhZEQtCCZeFBCcNEMlLHWqXO1HIMTfWPJlJFPwTTUlGCPyJPFwUZRtHZXqWLJbBUArZG AgICAgICAgICAgICAgICAgICAgICAgICAgICAgICAg DARrDYJgWEEqPZHrOROoPBMxDWHoFCWcDEVfYRSxINZnVXZdUG3OTVKpLPHvOKTaVFXsNFWaVOHfWVNa ICAgICAgICAgICAgICAgICAgICAgICAgICAgICAgICAgICAgICAgICAgICAgICAgICAgICAgICAgICAg AESbSFUcVNHrGBGgHMHrNSUeIQ9MWHYeQTCaYOUcGZ AgICAgICAgICAgICAgICAgICAgICAgICAgICAgICAgICAgICAgICAgICAgICAgICAgICAgICAgICAgIC GxRXQkWJLlSXLqAODdYHAqOBDhNSDrKRTkLWLwFP5ZJYIhXOVwSRIbGIAkZQFbOYCxCAZiXOIkYHUhGI AgICAgICAgICAgICAgICAgICAgICAgICAgICAgICAg JENpNXHnIITpSWJkPVVwMPEzTXRrSYZmJYShZFDhTCJeRTOoLBTbVZ9YFVIhZQWaUVGpBZHtFMHsYLEo ICAgICAgICAgICAgICAgICAgICAgICAgICAgICAgICAgICAgICAgICAgICAgICAgICAgICAgICAgICAg IYJlVPLoZLZsCMJvLXMiHPFbYLRnMF6UDDTxUWKtCB AgICAgICAgICAgICAgICAgICAgICAgICAgICAgICAgICAgICAgICAgICAgICAgICAgICAgICAgICAgIC JoBANkTHXxSYWiBFGoTNMuWTCpCORyCRYzAVFqWYWtMR0FHAOxCKZwFEIoIWYrWJHbQHQtCNMfTUKcAB AgICAgICAgICAgICAgICAgICAgICAgICAgICAgICAg AADkKYZeGQBvXPXvEALuNEZtXZAbOPIuFQFeGKSgNKMlKARaWWZvQOOvHQ8BYD80dEIvp2I0SEChTB2k dyc/Gj4SVOtdiaFdqXYuJK4WVnXrQU8tuu8TPfCvEJ9oep8QRMmWWmBjX2K1cKMyOQCaUVHBYqIbC79p HRmaIg26LZdnDFQjXqZhLRu6Io3CMiQbI1mlDVDqXn Y4HLVzEbPbJLdoFU3Wt8SibPIxNEb+Bh6GYA1dy0ZjQKjpZKEcMD9yws1SBZgTOwRvO4DovjC7TUV7LY ScKo1RWDQdUULilECcYLOyORRURbMnL0WneP99HIJADl9+JUqieuIiUdsPYxC3NIXlk2EuIXi1YN9QJR RhPDa3wLSrYCOiV3Hdt7DmFa11LXYtEunoVy9xgZXw XCCQd9TivjrwKf6dHMHsYa3sJY4bSTWhVIWrHqI2ZMZRGF8UTEIsMDCshVOxPDQhRTQYPF0RJDuqLIR0 RBJkrmUmrWUrFAguMK3MWIRqfdTmIFLdXYVGSSv+Ah8URW8ap2IgTUreTgMlNV1zml2ANQmEPyQpU0Q6 xIXkX1Y8VMnxQr3NZOAcLZRoBNJdAKRKTUkbSD0ZUN 5uasN5VK0FyGUiYPMsJYLjhHLmPDc7W50tcENaCIisZG4FJYI+Brenda+Ol9GLQZxVQZvLPNcJjDqTXPLDr SqS2BfX7ROk8PcI8InJM88zBpgxjFgWGexAF1AUD7oREGvUBYNPN7BtNXewE6sugAfKXEtAYPAPfAqE3 6stWJcZGHkWVMsIHSaJg3OLRAxQ6UryhMjpCxzelYk XELtRGHXTB1WBJsacyZheLIfyOrnQN82fVimFK7ZNc6WUrUiHA6bfe3DdKHgPw6LGWEiOi3QNDXrNZVy JRLlRYM2HQSaKhJzBRwkOUPhUODaCAF7EPEtCKBjHT0TNrSyXANyMSI9ImnnMVQlRFDeml5WCDVcSJYd ZhX4YTFeDYNwCARsHRokORXrXHEfLMH8XDUuZOXpNY 6UOwAfMBZeCNB3KspvUTIlONLulj2QRWMzDGSpIccmDuNlPWWwEPTxQFrlNMBgUHNeENfrKUPtJUZgUY 7DBdEwOPMbGSUpMIzkCPKiDVRyjz5GTITlCUAnLFN7YWVjDERwYISlTIkoAQLpHPA8XxL0OQNyAQRsIN 3MUcOyALDuOYS5OqjdEFIpTZAolv3AISRsIMFtJACr TAXeNQPyEMXvRDgqGMGzLMF9ZDU6UOXuVUOlJN0SAbIsFCUeJKp0JKcaHFMsVCSxri1WORYnHCLmRkZw YEZvWXMbFJScPHasRMHaLGU9Fco2XIQaEXIhWB3SHwQnEOzyLRVIVlb0FQztM9z1XRGeTf5UN8Uxg9Rc CZApIFFOLXouUA5obkEpPXDoYa4LQ4bAJmmmWFP6GA SiMrG7PWF7GtKjWtYhMDXyZMo8INR2IzJyBy3vZEJrVLhnAOZ4HBb0UtcnLIQgKgLuKoJyXZJwPomvLF LeXfIcGT0YCf4IJkV2OFR1nEVvTq0GOkxsXF3BYIAEW7EPEr== ID Date Data Source [id number] 03/21/2021 11:19:52 AM EDT [facility] Name Value Range Interpretation Code Description Data Yovana rce(s) Supporting Document(s) [facility] LEVDPd6xQuXHKcHsj4PhDgNwFXOqRM8exfb8I0Q4rQPlM3TroYTep2wrG9LqT5OkMKGtJGQPSI9VjIYo jb2 [file] AwMDAwNzAyODUgMDAwMDAgbiAKMDAwMDAwMTYwOSAw SFYaGVWhGYujDXYgXOIrLmX4HYTfGEHwDS5jZcJzUZLcFIA9UUBvVMMdZFQgzsPEBUQdQDGoCYLfEML8 RNZlHXLoVXc1uvLjnZBjRdb1Hf6HdPayQUF7Zy9NzcGfBQGaFFFCKm3Ds698RFKcPEOQJbg+PgpzdGFy eIwdOZHNGqP7NtAEPDTPV3C= ID Date Data Source [id number] 03/21/2021 07:34:07 AM EDT [facility] Name Value Range Interpretation Code Description Data Yovana [facility](s) Supporting Document(s) History and Physical [facility] UPKXYk3xWfJQNzBs99/RJTdbYCUrp7QeMZfaABs3PLekVALcV4FqHGR0yX4kVLL4SDyICuKxAfMtEcJm lbm [file] AgICAgICAgICAgICAgICAgICAgICAgICAgICAgICAg ICAgICAgICAgICAgICAgICAgICAgICAgICAgICAgICAgICAgICAgDQogICAgICAgICAgICAgICAgICAg ICAgICAgICAgICAgICAgICAgICAgICAgICAgICAgICAgICAgICAgICAgICAgICAgICAgICAgICAgICAg ICAgICAgICAgICAgICAgICAgICAgDQogICAgICAgIC AgICAgICAgICAgICAgICAgICAgICAgICAgICAgICAgICAgICAgICAgICAgICAgICAgICAgICAgICAgIC AgICAgICAgICAgICAgICAgICAgICAgICAgICAgICAgDQogICAgICAgICAgICAgICAgICAgICAgICAgIC AgICAgICAgICAgICAgICAgICAgICAgICAgICAgICAg ICAgICAgICAgICAgICAgICAgICAgICAgICAgICAgICAgICAgICAgICAgDQogICAgICAgICAgICAgICAg ICAgICAgICAgICAgICAgICAgICAgICAgICAgICAgICAgICAgICAgICAgICAgICAgICAgICAgICAgICAg ICAgICAgICAgICAgICAgICAgICAgICAgDQogICAgIC AgICAgICAgICAgICAgICAgICAgICAgICAgICAgICAgICAgICAgICAgICAgICAgICAgICAgICAgICAgIC AgICAgICAgICAgICAgICAgICAgICAgICAgICAgICAgICAgDQogICAgICAgICAgICAgICAgICAgICAgIC AgICAgICAgICAgICAgICAgICAgICAgICAgICAgICAg ICAgICAgICAgICAgICAgICAgICAgICAgICAgICAgICAgICAgICAgICAgICAgDQogICAgICAgICAgICAg ICAgICAgICAgICAgICAgICAgICAgICAgICAgICAgICAgICAgICAgICAgICAgICAgICAgICAgICAgICAg ICAgICAgICAgICAgICAgICAgICAgICAgICAgDQogIC AgICAgICAgICAgICAgICAgICAgICAgICAgICAgICAgICAgICAgICAgICAgICAgICAgICAgICAgICAgIC AgICAgICAgICAgICAgICAgICAgICAgICAgICAgICAgICAgICAgDQogICAgICAgICAgICAgICAgICAgIC AgICAgICAgICAgICAgICAgICAgICAgICAgICAgICAg MROsHYSqQEYjVPZlPUWmMGAoHCFdVRPlPFTcJNWeCALxOSCuVGNvUHFmTHJoZWDtAUj5M3nmNRHoJKBu HV1cXKk7Vq6+EUpYRkPdQXW1maNruT1OCB6zt5IyWKekHQKad7YiFXu7AG7PIHKeWXaqWT4KNZnqdj3C JAKoNSArtJYHf3zhExMqFCN7KPYjWlerGC8OXVQeQ8 osyjZtGTPeIPNVLXdtSIKSZGnpGQOFZIUzXXBhKcJlMaDyKOBhJENiIYVLOQU3POJaOxYgIXGmXPLcYX 9WETMcO464xrPgOP8MQz3GQeBfSN9clg3WRYQmENAiHduKYji0NNhjUY9XmEXiiOU0LtInXCPCNfQuS7 ffa4UlMBIrRFWJPMrnFM6Ed7MmgIRkAUz+Yf2VUQ3c o6IvZFm1VkVjWR4ues8WGLaZAmFxY9AobHysJIvaZUYewKMWqbfySFHeNrggR0tgWO5BUHG5TDQnLE0e UILnBHZgJdJfMCVUAE8KUXFyMYTduTVxLRKdTQRLPL7JFHehLWX4QHIhjqOonGJdIApjBK4IJFMqroDn NDIgMCBSDQo+Co6BNL2oh8BmILp5MBMnPN9wuj1VOC hXHgJcX4Q6gUEbX5E9XMrbYr3GGUJoMKJwVUKtAOVZUApyPA9WTJ6vrxX6RV5DlNEgDBWfJARhkIXcQZ l1T60urFDqHNxyOU7KDVC+Brenda+Wy2UMCQfLQCgGHFoWaHmJDLKIuYlL0QbV8PWm5BeT8RlWI52xTejlp IwOKprWU6TMC3bXIGrMSKZPJ3OcLAsbA6dtdW5SrGw GBYFYcUzR97gxUXcQYTkBVNhQYDwRn7CLKXmW7NvwbNviZxnojDeLKZiHXKCID2BREanemXmiEBfyMix AQ56mYjhLX7ABz5QUsTrAL7xrp5PhQFhUf0DTJR9MA3ZREWwBZOlJGIcRZM7BWCmReNvZEwsYPNhZIIf CWV2PNXyXXSmLF3PQrTaHMTjRLy5YyZzQJFsSRHsci 8QYKLsIXO2DLT6SBIuQLMqWQTuQFrlRJHzNCHeLBW7PXGuIHEySN3VIhQwSUSdGDBkLAGpJIDoLUAwvl 3SLPIfUWGcBFL9VwLjHQOjFHZlZVtfCRJjYRX8ZiN7IESwMVHbUG6VQwXzKXWmBRg7PQwdZOYnNTCgue 6JXXJkJLSdKeYdDrUlKAYnQLOzMUqrCTLlZFOmGgO8 JWHoUYSxFY0YGnLpBHLnRVU1HMYlJVFcYYYvnt5DUUTmBGXeIdZ1ZJFmOQPaWLHnGRlpFNMpRGC0KVuf QTKpVSClFY4EGxQdFCJdNUt4ZVkcXQSjZFIfil0TMXJhZOPtXHK4AWGgAASzRTZtIUxjQQFiROD8UTg1 TVHxCIRjGO8JUzXrXEVsAkn9GpxhZWJeRGWdqd7ESA UkHRZgFOP6DQFuMKDyYNJyBXzhDSFpDHA9HhDoZKEyFZNiJW4AVdYeGWKkJwt1SUJqNZIhHOCxfq4SJX AmPQNvANLmTyWxFOUkOHFaWYncKRTpKKTdZgPlCMRbZQXkWR9HIoMnPHVkWnT4WETmFBNbVVKdxm3MXF YlYNCxKZi9OIVeKWHuQDPyQBusCRDcFLLnUYN9WZKj UAJzSR2RDcJlTKCdIoIpSbLnSGPyQKMjbj0FOKZzEUTxNrO1YDCePTBoTRUnRRtjCOTfAINtUahcNJKy DEYkFN3UWkFzDCSjHhC4YjJeWSJaUPKwbz5FAJPeVLSpCCLvTUQgOMAySXQbCZkdWXCgCEI9UkS6KXCv ZZLvVF4XVpTfIVQxHpQ3ZaVfYAJxNVQvhv3PBBVkSJ J1HzH6WdBjHAXmJFAiEEkzBVXwBXD0Kcr1NNNpKLKqLW7TChWhUVEdFHG9WSHoMIWbXJHnel3OIOZpSJ B9ZpF7GEFvAIUwBNLfRFbhBQKyNLF7NxcmYXSeKNMnMN6ORpUxGVCtITwnUfVwYFOzJEZezh0KDWUzIX J3JCKwLdAyTOJkNMIdTYihGPCaITL3DpVwBHCbNNZc VF5VRkPuWFBaUMqqXWQdYYYcNGLkbm8VPMLsCBB0ZFFtBFZiPDLtOGJwKNhyOBQoLSCgWbI3XGPfMRQo TM1DZfBtYOBqYRV9AXRcTGRoSYKhii4FjDRepVnimi3APWgLDo4YiTggLNZ6UYjwYo7lvWD7WJYuYVCN Lg0VzcUjHPEmOMGGGDzeECRrSVCaJKlqGeM1HSS2Pd BdCDLsLsmwY5OgEFBsZ5GrDDNlPeM6QHPoICVwZtp5Mjp6IuAuKgWrL7U2WGLiSyWvMrN0PvE+IF0gDQ o+Xa3Qd5WttcL0uvElAWf7YYy0KE4QGZQYM8XMPj== ID Date Data Source [id number] 03/25/2021 05:06:08 PM EDT [facility] Name Value Range Interpretation Code Description Data Yovana rce(s) Supporting Document(s) Zonisamide [Mass/volume] in Serum or Plasma 5.1 ug/mL 10.0-40.0 L (NOTE)This test was developed and its pe rformance characteristicsdetermined by [facility]. It has not been cleared or approvedby the Food and Drug Administration. 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 Name Value Range Interpretation Code Description Data Yovana rce(s) Supporting Document(s) ID Date Data Source [id number] 03/21/2021 04:46:00 AM EDT [facility] Name Value Range Interpretation Code Description Data Yovana rce(s) Supporting Document(s) Progress Note [facility] ZHTEWc8gTgBBBwQv25/VAJvyJPIxj4ReSFrqPRe4AVtkLAXhZ2UyVEI6lY1jPRM7TUdUPeNjOsWpOhTr lbm NvSpzLRySbSGWcDuvKKtGiJHduQawfhRIoTL2XoKN5WNVuQ97zTJDsVNVfO7AqPIXiWBP+Fe9AZIFwvR GsMB6QHsfF0WcnimH7ON9s4C9bPACJUzbvqXpc2+GzHfeWjpazYbBQOsBDvucGDrkoy29uUkIzyeMS5P 6XUbQfX1VUo1W2q3ufAbFE/s7BEmCHyfm4/5yUuSw0 P2CdnzW9IUyxaj5RLMHEXQZBdVYdC86/RoAlSjwhVgSgE3XONAxcTbGtM1jTyJB0C8/B8ThGT9FjAmIP vsOafDXXKCVFo2Ebff0ZH8aUJBbiXakk8oRQNeVSZeFo2LIHvdar5vHoWdbfwXtSS5UfFALqBJqw55Qt FSUV8x6i9spNEO14b5zFGKiD0jn3ymgJ7UJdjBYsgd TMZB+ysVsNOGOvU1k0ZJSPByDMwqzmo1pwdhtzt5W9UAVLLv+ir7IHGRNulaG7slxeCrNFdwm2eElySp Z+szWJA0HqBcY3ND2iPijesAoGbEx6zzUpYfnbS1LyfwyFvTRx1ROSQlybBYsIxyJvKZ7GsOYslac64P ngvitqwvkdwSfT18k8cconkwwQuHwY0QvlJoj/OtUi [file] ICAgICAgICAgICAgICAgICAgICAgICAgICAgICAgICAgICAgICAgICAgICAgICAgICAgICAgICAgICAg ICAgICAgICAgICAgICAgICAgICAgICAgICAgICAgIC AgICANCiAgICAgICAgICAgICAgICAgICAgICAgICAgICAgICAgICAgICAgICAgICAgICAgICAgICAgIC AgICAgICAgICAgICAgICAgICAgICAgICAgICAgICAgICAgICAgICAgICAgICANCiAgICAgICAgICAgIC AgICAgICAgICAgICAgICAgICAgICAgICAgICAgICAg ICAgICAgICAgICAgICAgICAgICAgICAgICAgICAgICAgICAgICAgICAgICAgICAgICAgICAgICANCiAg ICAgICAgICAgICAgICAgICAgICAgICAgICAgICAgICAgICAgICAgICAgICAgICAgICAgICAgICAgICAg ICAgICAgICAgICAgICAgICAgICAgICAgICAgICAgIC AgICAgICANCiAgICAgICAgICAgICAgICAgICAgICAgICAgICAgICAgICAgICAgICAgICAgICAgICAgIC AgICAgICAgICAgICAgICAgICAgICAgICAgICAgICAgICAgICAgICAgICAgICAgICANCiAgICAgICAgIC AgICAgICAgICAgICAgICAgICAgICAgICAgICAgICAg ICAgICAgICAgICAgICAgICAgICAgICAgICAgICAgICAgICAgICAgICAgICAgICAgICAgICAgICAgICAN CiAgICAgICAgICAgICAgICAgICAgICAgICAgICAgICAgICAgICAgICAgICAgICAgICAgICAgICAgICAg ICAgICAgICAgICAgICAgICAgICAgICAgICAgICAgIC AgICAgICAgICANCiAgICAgICAgICAgICAgICAgICAgICAgICAgICAgICAgICAgICAgICAgICAgICAgIC AgICAgICAgICAgICAgICAgICAgICAgICAgICAgICAgICAgICAgICAgICAgICAgICAgICANCiAgICAgIC AgICAgICAgICAgICAgICAgICAgICAgICAgICAgICAg ICAgICAgICAgICAgICAgICAgICAgICAgICAgICAgICAgICAgICAgICAgICAgICAgICAgICAgICAgICAg ICANCiAgICAgICAgICAgICAgICAgICAgICAgICAgICAgICAgICAgICAgICAgICAgICAgICAgICAgICAg ICAgICAgICAgICAgICAgICAgICAgICAgICAgICAgIC AgICAgICAgICAgICANCjw/iZCkE2uzzBVwoiW1B7ztYx5BDx9GVC3dr2PiAEAxEPbvixYuVqpDYaDrTR OcPkuVYhf1UWhoNI0KgKUmK6FvI4JbDPqsZT3ZFZLePVYbmZEyDWIhOLDdGmF3ZNZmJJplPH4UvTLiVD rfIBQjKJMwRP1OTMOyG560rwJkDH3FUe8GDyBsVV6e uy7IPYspKRNcKbmRPyz8OSzlIT6VjXWqnPMbXCDeWSVXUtXoE9zcn2ZfDKwzBVPTNAinUS3Dn3JjvDJb DQo+Nt8CRB6ki2EsVNrwWFQeMK1anh3OUSfXWmPkK1PxgDuhVMGic7srEFSqQU6clECwVGL9ABMgkH2e DLTGbJHhiJjlVXSsNFZsSz1iKG9dNOBcTUI9CbW2YI ADEB6ICFCrWXDxzPFdGZMtIEQNFE1DQDiqGWV4YSIeprLzqXOlZGwaQM0QWCJvwpMmYAflAMDCPVt+Pg 2CGL1fl6DvNAtlBJOqIE5woe3KFNoQJrLhK1U1iBOzY1Z3IGyhWk8BGOMuHVYeUKAwBHGLHWvsSD1VRP 4rzpG4KL4HjQOwFDAsHJAipASjDQf1D25iwVGwXCsw HR4EEUR+Brenda+Fy8XYLOiCWDmMJGsCuUkSPTQCpSqL0KrF4BEp1AlB5LrAI76aTzknbJkSQcxML3GRR5b UQThETTRMV7QvWOivW6hpqQlTrQyXWCRIcFwF57yoSSxKHRyRXJ0ZRCgRa6YDWJdM1WzvcPyiNcrxiXt TSWfXZWTOG9JBXhrxwSqtXPqgJshPL35zGphQA6NHh 8CQsXmRM1mwn8LpHZwJb0GUZOvAO5RLEDpMWUjMULqJKI1MDDiRkHsXPhxERBsKOZtBUD0MUJdLXWeKK 3VBfZvHVAgYKP9OCTqTUFdUPMpqd6ECAFdQJCpOlQ1WHGqGJNlNLCsARiwNEHmSWOlSGC7TCVeTEOxEM 2PHbMkIWQjPHW6INZlJUXoFCWpxc6GAQYqYWJpHFG9 BzUuMZWbJRNtVUrgUNQaALAeBdS8EGKqZSQeDU7WIjQcBFNnBLW8XUXzTHWvJXNmol0WTUTlYBGkFsJv IDKaDXGnOZHfUBxlRDLlHATzDWa7TXEiJVJoNF7VJnPgRCZjWVIcUKQpWUCtYCMsza9CAISoRJMoJPJ3 KUWrYNVdOHUwUCmyGZVxLSB3YsL2JRPhOTXeFF3GWe RtLVInJDI7HyIiQQFbYGErgm3LPZDaDKFmRCruIMZiDZBeNVWcWYbpJDSnBYA0YKBmYGFnDEKmAA0CQq CuOKOsXEy8HvuxWCFyZMVhki1QGWSrZTYzUvC7WSPqJPLsDPPnFDxuIXTbZAQ0Rvf1CTNbDQTkWU5ZQm MfUAnpAGAFAki4JQuoH1k7AGFaHF1OO9Tzy6OmIGdg OYPLNMvzQF1sefImHFBaHy6AO3iGLsm1VmR6IbY6UgG5OeCoBkWlNPD4UIIeE0XlLcXpRJv3YQ9mYIbs APDvDzRxNYSmCQZ7HbC5VJY8MwS9V9HzZoRzYxBjZwPjLR0JFs0YCnV1RUH9xIIyTm8ZGUX4PS5PACMN T0YNCg== ID Date Data Source [id number] 03/21/2021 01:51:31 AM EDT [facility] Name Value Range Interpretation Code Description Data Yovana rce(s) Supporting Document(s) Hepatitis C virus Ab [Presence] in Serum or Plasma by Immuno assay Non Reactive No serological evidence of active infect ion. If recent exposure is suspected, test for HCV RNA. ID Date Data Source [id number] 03/21/2021 01:38:45 AM EDT [facility] Name Value Range Interpretation Code Description Data Yovana rce(s) Supporting Document(s) Lactate [Moles/volume] in Serum or Plasma 1.2 mmol/l 0.5-2.2 ID Date Data Source [id number] 03/20/2021 10:40:00 PM EDT [facility] Name Value Range Interpretation Code Description Data Yovana rce(s) Supporting Document(s) SARS coronavirus 2 RdRp gene https://www.fda.gov/media/806513/downloa d [facility] This lab was ordered by [facility] and reported by [facility]. ID Date Data Source [id number] 03/20/2021 10:51:37 PM EDT [facility] Name Value Range Interpretation Code Description Data Yovana rce(s) Supporting Document(s) SARS coronavirus 2 RdRp gene Negative [facility] Test performed using the [employer] ID NOW C OVID-19 assay. This test is only for use under the Food and Drug Administration's Emergency Use Authorization. 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 Patient has symptoms related to [facility] When did you start to experience these symptoms [Date and time] [Phen X] Patient was hospitalized because of this condition patient was admitted to ICU for [facility] Patient resides in a congregate care setting status [facility] ID Date Data Source [id number] 03/20/2021 10:32:00 PM EDT [facility] Name Value Range Interpretation Code Description Data Yovana rce(s) Supporting Document(s) SARS-CoV-2 RNA 2019 nCoV Real-Time RT-PCR: NOT DETECTED [facility] This lab was ordered by [facility] and reported by [facility]. ID Date Data Source [id number] 03/21/2021 12:27:12 AM EDT [facility] Service Cmnt XXX-Imp : NoneRespiratory P CR Panel : PCR ResultsMicroorganism XXX Cult : See Labs Tab for 2019 nCoV RT-PCR resultsHAdV DNA QI GONZALO+non-probe : Not DetectedHCoV 229ERNA Nph QI GONZALO+non-probe : Not DetectedHCoV JAM5OXL Nph QI GONZALO+non-probe : Not SgvwufceHTfTVD65 RNA Nph QI GONZALO+non-probe : Not IeidumosVUzNIF16 RNA Upper resp QI GONZALO+probe : Not DetectedhMPV RNA Nph QINAA+non-probe : Not DetectedRV+EV RNA Nph QI GONZALO+non-probe : Not DetectedFLUAV RNA Nph QI GONZALO+ non-probe : Not DetectedFLUBV RNA Nph QI GONZALO+non-probe : Not DetectedHPIV1 RNA NphQINAA+non-probe : Not DetectedHPIV2 RNA Nph QINAA+non-probe : Not DetectedHPVI3 RNA Nph GONZALO+non-probe : Not DetectedHPIV4 RNA Nph Q GONZALO+non-probe : Not DetectedRSV RNA Nph Q GONZALO+non-probe : Not DetectedB pert.PT PrmtNph Q GONZALO+non-probe : Not DetectedC pneum DNA Nph Q GONZALO+non-probe : Not DetectedM pneum DNA Nph Q GONZALO+non-probe : Not DetectedB ciragBD898 DNA Nph GONZALO+non-probe : Not Detected Name Value Range Interpretation Code Description Data Yovana rce(s) Supporting Document(s) ID Date Data Source [id number] 03/21/2021 12:24:50 AM EDT [facility] Name Value Range Interpretation Code Description Data Yovana rce(s) Supporting Document(s) Specimen source [Identifier] of Unspecified specimen SARS-CoV-2 RNA 2019 nCoV Real-Time RT-PCR: NOT DETECTED Assay Performed [facility] Patients first test for [facility] 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 Patient has symptoms related to [facility] When did you start to experience these symptoms [Date and time] [Phen X] Patient was hospitalized because of this condition patient was admitted to ICU for [facility] Patient resides in a congregate care setting status [facility] ID Date Data Source [id number] 03/20/2021 05:34:31 PM EDT [facility] XR CHEST FRONTAL ONLY [id number] RESULTI nterpreted by:Cathy Amos MDINDICATION: Stroke.TECHNIQUE: XR CHEST FRONTAL ONLY [id number].COMPARISON: None available.FINDINGS: There are degenerative changes of the thoracic spine.The mediastinal contours are normal.There is no evidence of pleural disease.The lungs are clear apart from emphysematous changes.IMPRESSION: No acute cardiopulmonary disease.This document has been electronically signed by Parviz Marcano MD on 03/20/2021 5:16 PM Name Value Range Interpretation Code Description Data Yovana rce(s) Supporting Document(s) ID Date Data Source [id number] 03/20/2021 06:01:59 PM EDT [facility] Name Value Range Interpretation Code Description Data Yovana rce(s) Supporting Document(s) Color of Urine [facility] Clarity of Urine [facility] Specific gravity of Urine by Refractometry automated 1.017 1.003 -1.030 pH of Urine by Automated test strip 7.0 5.0-8.0 Protein [Mass/volume] in Urine by Automated test strip Neg [facility] Glucose [Mass/volume] in Urine by Automated test strip Neg [facility] Ketones [Mass/volume] in Urine by Automated test strip Neg [facility] Bilirubin.total [Presence] in Urine by Automated test strip Negative Hemoglobin [Presence] in Urine by [facility] test [facility] Leukocyte esterase [Presence] in Urine by Automated test strip Negative A Nitrite [Presence] in Urine by Automated test strip Negati ve Leukocytes [#/area] in Urine sediment by Automated count 1 /HPF 0 -5 Erythrocytes [#/area] in Urine sediment by Automated count 2 /HPF 0-3 ID Date Data Source [id number] 03/20/2021 01:40:39 PM T [facility] CT ANGIOGRAPHY HEAD [id number] RESULTInt erpreted by:Merced Jorgensen MDINDICATION: Left sided weakness TECHNIQUE: Non-contrast axial CT head images were obtained. CT angiography of the head and neck was performed following the administration of intravenous contrast. Multiple reconstructed images including MIP and 3D volume rendered images were then acquired using the source data at a separate workstation. Automated dose lowering techniques and/or adjustment according to patient size were utilized for this examination.COMPARISON: None.FINDINGS:NECT: No acute intracranial hemorrhage or acute major arterial territorial infarct. Ventricles are appropriate in size and configuration. The basal cisterns are patent. No abnormal extra-axial fluid collections are identified. The calvarium is intact. There are ill-defined small areas of low-attenuation scattered within the white matter which may be related to chronic small vessel ischemic disease.The visualized paranasal sinuses are clear. The mastoid air cells are clear bilaterally.CTA head: There is minimal atherosclerotic calcification involving the intracranial portions of the internal carotid arteries bilaterally and right vertebral artery. There is origin of the bilateral motorized squad captain. The intracranial segments of both internal carotid, anterior, middle, and posterior cerebral arteries are patent. The intracranial segments of the vertebral arteries and basilar artery are patent. No aneurysm, hemodynamically significant flow stenosis, or arteriovenous malformation is identified. The superior sagittal sinus, internal cerebral veins, straight sinus, transverse sinuses and sigmoid sinuses appear grossly unremarkable on this non-venous phase study. CTA neck: There is a three-vessel aortic arch. Calcified plaques are seen involving the aortic arch. Mild atherosclerotic plaque is seen in the proximal left CCA causing 40 to 50% relative stenosis, calcified plaques at the carotid bifurcation causing less than 10% relative stenosis on the right and 15-20% relative stenosis on the left.Calcified plaques in the proximal ICA causing 30% relative stenosis on the right and 50-60% relative stenosis on the left.The vertebral arteries are codominant. There is no evidence of dissection. IMPRESSION:1. No acute intracranial pathology.2. Very mild chronic microvascular ischemic changes of the white matter.3. 40 to 50 % relative stenosis at the proximal left CCA. 4. About 30% relative stenosis at the right proximal ICA and 50-60% relative stenosis at the left proximal ICA.5. 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 No intracranial focal stenosis or occlusion, aneurysm, or arteriovenous malformation.The degree of stenosis was assessed utilizing NASCET Criteria.Critical results reported to Dr. Amie Cristobal at 1:35 PM on March 17, 2021.This document has been electronically signed by Merced Jorgensen MD on 03/20/2021 1:38 PM Name Value Range Interpretation Code Description Data Yovana rce(s) Supporting Document(s) ID Date Data Source [id number] 03/20/2021 01:40:[address] [facility] [address] ANGIOGRAPHY NECK [id number] RESULTInt erpreted by:Merced Jorgensen MDINDICATION: Left sided weakness TECHNIQUE: Non-contrast axial CT head images were obtained. CT angiography of the head and neck was performed following the administration of intravenous contrast. Multiple reconstructed images including MIP and 3D volume rendered images were then acquired using the source data at a separate workstation. Automated dose lowering techniques and/or adjustment according to patient size were utilized for this examination.COMPARISON: None.FINDINGS:NECT: No acute intracranial hemorrhage or acute major arterial territorial infarct. Ventricles are appropriate in size and configuration. The basal cisterns are patent. No abnormal extra-axial fluid collections are identified. The calvarium is intact. There are ill-defined small areas of low-attenuation scattered within the white matter which may be related to chronic small vessel ischemic disease.The visualized paranasal sinuses are clear. The mastoid air cells are clear bilaterally.CTA head: There is minimal atherosclerotic calcification involving the intracranial portions of the internal carotid arteries bilaterally and right vertebral artery. There is origin of the bilateral motorized squad captain. The intracranial segments of both internal carotid, anterior, middle, and posterior cerebral arteries are patent. The intracranial segments of the vertebral arteries and basilar artery are patent. No aneurysm, hemodynamically significant flow stenosis, or arteriovenous malformation is identified. The superior sagittal sinus, internal cerebral veins, straight sinus, transverse sinuses and sigmoid sinuses appear grossly unremarkable on this non-venous phase study. CTA neck: There is a three-vessel aortic arch. Calcified plaques are seen involving the aortic arch. Mild atherosclerotic plaque is seen in the proximal left CCA causing 40 to 50% relative stenosis, calcified plaques at the carotid bifurcation causing less than 10% relative stenosis on the right and 15-20% relative stenosis on the left.Calcified plaques in the proximal ICA causing 30% relative stenosis on the right and 50-60% relative stenosis on the left.The vertebral arteries are codominant. There is no evidence of dissection. IMPRESSION:1. No acute intracranial pathology.2. Very mild chronic microvascular ischemic changes of the white matter.3. 40 to 50 % relative stenosis at the proximal left CCA. 4. About 30% relative stenosis at the right proximal ICA and 50-60% relative stenosis at the left proximal ICA.5. 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 No intracranial focal stenosis or occlusion, aneurysm, or arteriovenous malformation.The degree of stenosis was assessed utilizing NASCET Criteria.Critical results reported to Dr. Amie Cristobal at 1:35 PM on March 17, 2021.This document has been electronically signed by Merced Jorgensen MD on 03/20/2021 1:38 PM Name Value Range Interpretation Code Description Data Yovana rce(s) Supporting Document(s) ID Date Data Source [id number] 03/20/2021 01:48:13 PM [facility] Value Range Interpretation Code Description Data Yovana rce(s) Supporting Document(s) Troponin I.cardiac [Mass/volume] in Blood 0.01 ng/mL 0.00-0.08 ID Date Data Source [id number] 03/20/2021 01:48:13 PM [facility] Value Range Interpretation Code Description Data Yovana rce(s) Supporting Document(s) Sodium [Moles/volume] in Blood 138 mmol/L 136-145 Potassium [Moles/volume] in Blood 3.7 mmol/L 3.4-5.1 Chloride [Moles/volume] in Blood 108 mmol/L 98-107 H Carbon dioxide, total [Moles/volume] in Blood 21 mmol/L 22-29 L Calcium.ionized [Moles/volume] in Blood 1.16 mmol/L 1.13-1.32 Glucose [Mass/volume] in Blood 102 mg/dL 70-140 Urea nitrogen [Mass/volume] in Blood 8 mg/dL 8-23 Creatinine [Mass/volume] in Blood 1.1 mg/dL 0.70-1.20 Hematocrit [Volume Fraction] of Blood 33 % 41-53 L Hemoglobin [Mass/volume] in Blood by calculation 11.2 g/dL 13.5-18.0 [facility] ID Date Data Source [id number] 03/20/2021 01:48:13 PM [facility] Value Range Interpretation Code Description Data Yovana rce(s) Supporting Document(s) pH of Venous blood 7.31 7.36-7.[address] [facility] Carbon dioxide [Partial pressure] in Venous blood 41 mmHg 40-45 Oxygen [Partial pressure] in Venous blood 29 mmHg [facility] Base excess standard in Venous blood by calculation Oxygen saturation Calculated from oxygen partial pressure in Venous blood 50 % 60-85 L Lactate [Moles/volume] in Venous blood 3.0 mmol/L 0.5-2.2 H Bicarbonate [Moles/volume] in Venous blood 22 mmol/L ID Date Data Source [id number] 03/20/2021 04:08:36 PM [facility] Name Value Range Interpretation Code Description Data Yovana rce(s) Supporting Document(s) Phenobarbital [Mass/volume] in Serum or Plasma 3.3 ug/ml 15-40 L ID Date Data Source [id number] 03/20/2021 05:23:47 PM [facility] Name Value Range Interpretation Code Description Data Yovana rce(s) Supporting Document(s) Albumin [Mass/volume] in Serum or Plasma by Bromocresol green (BCG) dye binding method 3.2 g/dL 3.5-5.2 [facility] Bilirubin.total [Mass/volume] in Serum or Plasma <1.2 Calcium [Mass/volume] in Serum or Plasma 8.2 mg/dL 8.8-10.2 L Chloride [Moles/volume] in Serum or Plasma 105 mmol/L 98-107 Creatinine [Mass/volume] in Serum or Plasma 0.90 mg/dL 0.70-1.20 Glucose [Mass/volume] in Serum or Plasma 98 mg/dL 70-140 Alkaline phosphatase [Enzymatic activity/volume] in Serum or Plasma 55 U/L 40-129 Potassium [Moles/volume] in Serum or Plasma 3.6 mmol/L 3.4-5.1 Protein [Mass/volume] in Serum or Plasma 5.9 g/dL 6.4-8.3 L Sodium [Moles/volume] in Serum or Plasma 136 mmol/L 136-145 Aspartate aminotransferase [Enzymatic activity/volume] in Serum or Plasma 49 U/L <40 H Urea nitrogen [Mass/volume] in Serum or Plasma 8 mg/dL 8-23 Osmolality of Serum or Plasma by calculation 280 mosm/kg 275-300 Creatinine/Urea nitrogen [Mass Ratio] in Serum or Plasma 9 Bicarbonate [Moles/volume] in Serum 19 mmol/L 22-29 L Alanine aminotransferase [Enzymatic activity/volume] in Seru m or Plasma 31 U/L <41 Anion gap 3 in Serum or Plasma 13 mmol/L 8-15 Glomerular filtration rate/1.73 sq M pre dicted among non-blacks [Volume Rate/Area] in Serum or Plasma by Creatinine-based formula (MDRD) 82 mL/min/1.73m2 >60 Glomerular filtration rate/1.73 sq M pre dicted among blacks [Volume Rate/Area] in Serum or Plasma by Creatinine-based formula (MDRD) >60 ID Date Data Source [id number] 03/20/2021 05:34:42 PM EDT [facility] Name Value Range Interpretation Code Description Data Yovana rce(s) Supporting Document(s) Leukocytes [#/volume] in Blood by Automated count 5.0 10*3/uL 4-10 Erythrocytes [#/volume] in Blood by Automated count 2.56 10*6/uL 4.6- 6.1 L Hemoglobin [Mass/volume] in Blood 9.5 g/dL 13.5-18 L Hematocrit [Volume Fraction] of Blood by Automated count 28.4 % 4 1-53 L Erythrocyte mean corpuscular volume [Entitic volume] b y Automated count 110.8 fL 80-96 H Erythrocyte mean corpuscular hemoglobin [Entitic mass] by Automated count 37.0 pg 27-33 H Erythrocyte mean corpuscular hemoglobin concentration [Mass/volume] by Automated count 33.4 g/dL 32.0-36.0 [facility] distribution width [Ratio] by Automated count 16.3 % 11.5-14.5 H Platelets [#/volume] in Blood by Automated count 241 10*3/uL 150-400 Differential cell count method - Blood Neutrophils/100 leukocytes in Blood by Automated count 73 % Lymphocytes/100 leukocytes in Blood by Automated count 14 % Monocytes/100 leukocytes in Blood by Automated count 12 % Eosinophils/100 leukocytes in Blood by Automated count 0 % Basophils/100 leukocytes in Blood by Automated count 1 % Neutrophils [#/volume] in Blood by Automated count 3.61 10*3/uL 1.8-7 .0 Lymphocytes [#/volume] in Blood by Automated count 0.70 10*3/uL 1.2-4 .0 L Monocytes [#/volume] in Blood by Automated count 0.61 10*3/uL 0-0.8 Eosinophils [#/volume] in Blood by Automated count 0.01 10*3/uL 0-0.5 Basophils [#/volume] in Blood by Automated count 0.05 10*3/uL 0-0.2 Nucleated erythrocytes/100 leukocytes [Ratio] in Blood by Automated count 0 /100{WBCs} 0-0 ID Date Data Source [id number] 03/20/2021 06:10:42 PM EDT [facility] Name Value Range Interpretation Code Description Data Yovana rce(s) Supporting Document(s) Troponin T.cardiac [Mass/volume] in Serum or Plasma <0.01 Procedure Social History Code Duration Value Status Description Data Source(s ) Smoking 05/28/2021 12:00:00 AM EDT Never Smoked A Pipe complet ed Never Smoked A Pipe MEDENT ([facility]) Smoking 05/10/2021 12:00:00 AM EDT Former Smoker completed Former Smoker eCW1 ([facility]) Smoking 04/05/2021 12:00:00 AM EDT Former Smoker completed Former Smoker eCW1 ([facility]) Smoking 01/07/2021 12:00:00 AM EDT Patient is a former smoker completed Patient is a former smoker MEDENT ([facility], [facility]) Vital Signs ID Date Data Source UNK Name Value Range Interpretation Code Description Data Source(s) Body weight 231 [lb_av] 231 [lb_av] eCW1 ([facility]) Body height 69 [in_i] 69 [in_i] eCW1 ([facility]) Body mass index (BMI) [Ratio] 34.11 kg/m2 34.11 kg/m2 [facility] ([facility]) Heart rate 88 /min 88 /min eCW1 ([facility]) Respiratory rate 20 /min 20 /min eCW1 ([facility]) Body temperature 96.4 [degF] 96.4 [degF] eCW1 ( [facility]) Systolic blood pressure 134 mm[Hg] 134 mm[Hg] e CW1 ([facility]) Diastolic blood pressure 76 mm[Hg] 76 mm[Hg] eCW1 ([facility]) Body weight 231 [lb_av] 231 [lb_av] eCW1 ([facility]) Body height 69 [in_i] 69 [in_i] eCW1 ([facility]) Body mass index (BMI) [Ratio] 34.11 kg/m2 34.11 kg/m2 W1 ([facility]) Heart rate 83 /min 83 /min eCW1 ([facility]) Respiratory rate 19 /min 19 /min eCW1 ([facility]) Body temperature 98.1 [degF] 98.1 [degF] eCW1 ( [facility]) Systolic blood pressure 130 mm[Hg] 130 mm[Hg] e CW1 ([facility]) Diastolic blood pressure 79 mm[Hg] 79 mm[Hg] eCW1 ([facility]) Systolic blood pressure 113 mm[Hg] 113 mm[Hg] M EDENT ([facility], [facility]) Diastolic blood pressure 69 mm[Hg] 69 mm[Hg] MEDENT ([facility], [facility]) Heart rate 90 /min 90 /min MEDENT ([facility], [facility]) Respiratory rate 15 /min 15 /min MEDENT ( [facility], [facility]) Oxygen saturation in Arterial blood by Pulse oximetry 99 % 99 % MEDENT ([facility], [facility]) Body temperature 97.7 [degF] 97.7 [degF] MEDENT ([facility], [facility]) Body weight 182.00 [lb_av] 182.00 [lb_av] MEDEN T ([facility], [facility]) Body height 69 [in_i] 69 [in_i] MEDENT ([facility]) 5'9" Body mass index (BMI) [Ratio] 26.9 kg/m2 26.9 k g/m2 [facility] ([facility]) Body weight 188.00 [lb_av] 188.00 [lb_av] MEDEN T ([facility]) Body weight 85.277 kg 85.277 kg MEDENT ([facility]) Body height 69 [in_i] 69 [in_i] MEDENT ([facility]) 5'9" Body mass index (BMI) [Ratio] 27.8 kg/m2 27.8 [facility] Body surface area Derived from formula 2.01 m2 2.01 m2 [facility] ([facility]) ID Date Data Source [id number] 03/29/2021 10:00:35 AM [facility] Name Value Range Interpretation Code Description Data Source(s) WEIGHT RECORDED 193.12 lb 193.12 lb [facility] Patient Treatment Plan of Care Planned Activity Planned Date Details Description Data Source (s) Donepezil hydrochloride 5 MG Oral Tablet 03/21/2021 10:00:00 PM [facility] Mirtazapine 15 MG Oral Tablet 03/21/2021 10:00:00 PM [facility] olanzapine 2.5 MG Oral Tablet 03/21/2021 10:00:00 PM [facility] Simvastatin 20 MG Oral Tablet 03/21/2021 10:00:00 PM [facility] 60 ACTUAT Budesonide 0.16 MG/ACTUAT / fo rmoterol fumarate 0.0045 MG/ACTUAT Metered Dose Inhaler 03/21/2021 09:00:00 AM [facility] psyllium powder 1 packet 03/21/2021 09:00:00 AM [facility] POLYETHYLENE GLYCOL 3350 142 MG/ML Oral Solution 03/21/2021 09:00:0 0 AM [facility] tiotropium (SPIRIVA RESPIMAT) inhalation spray 2 puff 03/21/2021 09:00:00 AM [facility] ospital 0.4 ML Enoxaparin sodium 100 MG/ML Prefilled Syringe 021 09:00:00 AM [facility] Clonazepam 0.5 MG Oral Tablet 03/21/2021 04:46:26 AM [facility] Albuterol 0.83 MG/ML Inhalant Solution 03/20/2021 10:59:21 PM [facility] olanzapine 2.5 MG Oral Tablet VITAMIN D, CHOLECALCIFEROL, PO Simvastatin 40 MG Oral Tablet Simvastatin 80 MG Oral Tablet rizatriptan 10 MG Oral Tablet Psyllium 14.2 MG/ML Oral Suspension Omeprazole 20 MG Delayed Release Oral Capsule midodrine hydrochloride 5 MG Oral Tablet flunisolide (NASALIDE) 25 MCG/ACT (0.025%) SOLN [place]-3 Fatty Acids (FISH OIL PO) 72 HR Fentanyl 0.05 MG/HR Transdermal Patch Docusate Sodium 50 MG Oral Capsule Donepezil hydrochloride 5 MG Oral Tablet Ciprofloxacin 100 MG/ML Oral Suspension Carboxymethylcellulose Sodium 5 MG/ML Ophthalmic Solution Capsaicin 0.75 MG/ML Topical Cream
--- OUTSIDE RECORDS SUMMARY | 2021-09-01 00:04 | CCD | Continuity of Care Document ---
Author Author Adrien PEREZ DPM-PC Organization Unknown Address [address] [place] [address] Phone [phone] Care Team Providers Care Department Clerk Name Role Phone [facility] Iram AUTM [phone] Problems Active Problems Provider Date Essential hypertension Onset: 10/29/2018 Pure hypercholesterolemia Onset: 019 Ingrowing nail BLAKE EdmondM-pc Onset: 12/01/2018 Hammer toe Aleksandra Edmond Onset: 12/01/2018 Pain in limb Aleksandra Edmond Onset: 12/01/2018 Atherosclerosis of arteries of the extremities BLAKE MarcM-pc Onset: 12/01/2018 Cellulitis Aleksandra Edmond Onset: 02/09/2019 Peripheral vascular disease Aleksandra Edmond Onset: Dystrophia unguium BLAKE EdmondMLindapc Onset: 11/07/2019 Contusion of foot LISSA Edmondpc Onset: 01/08/2021 Corns and callosities BLAKE EdmondM-pc Onset: 05/02/20 20 Edema Aleksandra Edmond Onset: 05/02/2020 Social History Type Date Description Comments Sex Unknown Tobacco Use Start: Unknown Never Smoked Cigarettes Tobacco Use Start: Unknown End: Unknown Former Cigar Smoker, Smoked an Occasional Cigar Tobacco Use Start: Unknown Never Smoked A Pipe Smoking Status Reviewed: 05/28/21 Never Smoked A Pipe Tobacco Use Start: Unknown Never Used Smokeless Tobacco Tobacco Use Start: Unknown End: Unknown Patient is a former smoker Allergies and adverse reactions Active Allergies Criticality Reaction | Severity Comments Date Carbamazepine Unable to assess criticality 10/20/2018 Chocolate Unable to assess criticality 10/20/2018 Depakote Unable to assess criticality 10/20/2018 Erythromycin Unable to assess criticality 10/20/2018 Keppra Unable to assess criticality 10/20/2018 Lamictal Unable to assess criticality 10/20/2018 Nicotine Polacrilex Unable to assess criticality 10/20/2018 Olanzapine Unable to assess criticality 10/20/2018 Phenytoin Unable to assess criticality 10/20/2018 Sertraline Unable to assess criticality 10/20/2018 Terazosin Unable to assess criticality 10/20/2018 Medications Active Medications SIG Qnty Indications Ordering Provide r Date Albuterol Sulfate (2 .5mg/3ML) 0.083% Nebulizer 1 unit dose vial every 4-6 hours as needed for cough or wheezing 180ml Aleksandra Edmond 10/20/[address] 2 by mouth Twice A day Unknown Psyllium Husk Powder Unknown Phenobarbital 16.2mg Tablets Unknown Olanzapine 5mg Tablets Unknown HM Lidocaine Patch 4% Patches Unknown Vitamin D (Cholecalciferol) 25mcg (1000 Ut) Capsules Unknown Simvastatin 80mg Tablets take 1/2 tablet by mouth at bedtime Unknown Zonisamide 100mg Capsules 3 capsules by mouth at bedtime Unknown Venlafaxine HCL ER 150mg Caps ER 2 4HR 1 by mouth every day Unknown Trospium Chloride 20mg Tablets 1 tab twice a day Unknown Polyethylene Glycol 3350 [id number] Po wder 1 capful daily as needed for constipation Unknown Mirtazapine 15mg Tablets Dispers 1/2 tab by mouth daily at bedtime Unknown Metaxalone 800mg Tablets 1 Tab Every 8 HRS Unknown Docu Soft 100mg Capsules 1 by mouth every day Unknown Donepezil HCL 10mg Tablets 1 Tab Daily Unknown Clonazepam 1mg Tablets 1 tab by mouth twice a day as needed Unknown Carbidopa-Levodopa 25-100mg Tablet s 1 Tab Three Times A Day Unknown Calcium 600 High Potency 600mg Tab lets 1 by mouth every day Unknown Budesonide 0.25mg/2ML Suspension 2 milliliters ampule administered via nebulizer twice a day Unknown Alendronate Sodium 70mg Tablets 1 Tab 30 Min Before Meal Unknown Acetaminophen 325mg Tablets 2 tabs by mouth every 4 hours as needed Unknown Immunizations Description No Information Available Vital Signs Date Vital Result Comment 10/29/2020 9:28am Weight 188.00 lb Weight 85.277 kg Height 69 inches 5'9" BMI (Body Mass Index) 27.8 kg/m2 BSA (Body Surface Area) 2.01 m2 11/07/2019 9:52am Weight 215.00 lb Weight 97.524 kg Results Description No Information Available Procedures Date Code Description Status 05/28/2021 04420 Pare Hyperkeratotic Lesion, 2-4 Completed 03/19/2021 36950 Pare Hyperkeratotic Lesion, 2-4 Completed Medical Devices Description No Information Available Encounters Description No Information Available Assessments Date Code Description Provider 05/28/2021 I70.203 Unspecified atherosc lerosis of [place] arteries of extremities, bilateral legs Susan BLAKE PerezM-pc 05/28/2021 R60.1 Generalized edema BLAKE EdmondM-pc 05/28/2021 L60.0 Ingrowing nail Susan BLAKE Perez-pc 05/28/2021 M20.40 Other hammer toe(s) (acquired), unspecified foot Susan BLAKE PerezM-pc 05/28/2021 L84 Corns and callosities Susan BLAKE MilanM-pc 05/28/2021 L60.3 Nail dystrophy Susan BLAKE PerezM-pc 05/28/2021 M79.671 Pain in right foot Susan gallagher DPM-pc 05/28/2021 M79.672 Pain in left foot Susan ZELALEM Perez-pc 03/19/2021 I70.203 Unspecified atherosc lerosis of [place] arteries of extremities, bilateral legs Susan BLAKE PerezM-pc 03/19/2021 R60.1 Generalized edema BLAKE EdmondM-pc 03/19/2021 L60.0 Ingrowing nail BLAKE EdmondM-pc 03/19/2021 M20.40 Other hammer toe(s) (acquired), unspecified foot Aleksandra Edmond 03/19/2021 L84 Corns and callosities Aleksandra Garcia 03/19/2021 L60.3 Nail dystrophy Aleksandra Edmond 03/19/2021 M79.671 Pain in right foot Aleksandra Marc 03/19/2021 M79.672 Pain in left foot Aleksandra Edmond Plan of Treatment Future Appointment(s):* 10/16/2021 11:15 am - Aleksandra Edmond at [facility] Functional Status Description No Information Available Mental Status Description No Information Available Referrals Description No Information Available
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
[2021-09-01 00:38] VITALS: BP 144/74
--- OUTSIDE RECORDS SUMMARY | 2021-09-01 01:24 | CCD ---
Author Author [facility] Organization [facility] Address Unknown Phone Unavailable Care Team Providers Care Telephone Ad Taker Name Role Phone Farzana Zepeda Unavailable Unavailable Farzana Zepeda Unavailable Unavailable Farzana Zepeda Unavailable Unavailable DuaneFarzana loreod Unavailable Unavailable DuaneFarzana loredo Unavailable Unavailable DuaneFarzana [...] Unavailable HEMIRIAM WOO MD Unavailable Unavailable SILVIA, SUZIE PA Unavailable Unavailable [...] SUZIE PA Unavailable Unavailable Jumalon, M Екатерина DOOR OPERATOR Unavailable Unavailable Jumalon, M Екатерина DOOR OPERATOR Unavailable Unavailable Jumalon, M Екатерина DOOR OPERATOR Unavailable Unavailable Jumalon, M Екатерина DOOR OPERATOR Unavailable Unavailable Jumalon, M Екатерина DOOR OPERATOR Unavailable Unavailable Jumalon, M Екатерина DOOR OPERATOR Unavailable Unavailable Jumalon, M Екатерина DOOR OPERATOR Unavailable Unavailable Jumalon, M Екатерина DOOR OPERATOR Unavailable Unavailable Jumalon, M Екатерина DOOR OPERATOR Unavailable Unavailable Jumalon, M Екатерина DOOR OPERATOR Unavailable Unavailable Jumalon, M Екатерина DOOR OPERATOR Unavailable Unavailable Jumalon, M Екатерина DOOR OPERATOR Unavailable Unavailable Jumalon, M Екатерина DOOR OPERATOR Unavailable Unavailable Jumalon, M Екатерина DOOR OPERATOR Unavailable Unavailable Jumalon, M Екатерина DOOR OPERATOR Unavailable Unavailable Jumalon, M Екатерина DOOR OPERATOR Unavailable Unavailable Jumalon, M Екатерина DOOR OPERATOR Unavailable Unavailable Jumalon, M Екатерина DOOR OPERATOR Unavailable Unavailable Jumalon, M Екатерина DOOR OPERATOR Unavailable Unavailable Jumalon, M Екатерина DOOR OPERATOR Unavailable Unavailable Jumalon, M Екатерина DOOR OPERATOR Unavailable Unavailable Jumalon, M Екатерина DOOR OPERATOR Unavailable Unavailable Jumalon, M Екатерина DOOR OPERATOR Unavailable Unavailable Jumalon, M Екатерина DOOR OPERATOR Unavailable Unavailable Jumalon, M Екатерина DOOR OPERATOR Unavailable Unavailable Jumalon, M Екатерина DOOR OPERATOR Unavailable Unavailable Jumalon, M Екатерина DOOR OPERATOR Unavailable Unavailable Jumalon, M Екатерина DOOR OPERATOR Unavailable Unavailable Jumalon, M Екатерина DOOR OPERATOR Unavailable Unavailable Jumalon, M Екатерина DOOR OPERATOR Unavailable Unavailable Lencho PHILLIPS MD Unavailable [...] Lencho [facility] Unavailable Unavailable Lenhco [facility] Unavailable Unavailable Lencho [...] is protected by Article 27-F of the [facility] Public Health law. If you continue you may have access to information: Regarding HIV / AIDS; Provided by facilities licensed or operated by the [facility] Office of Mental Health; or Provided by the [facility] Office for People With Developmental Disabilities. If such information is present, then the following [facility] mandated warning applies: This information has been [...] law may result in a fine or mcc sentence or both. A general authorization for the release of medical or other information is NOT sufficient authorization for further disc losure. Allergies and Adverse Reactions Type Description Substance Reaction Status Data Source(s ) Propensity to adverse reactions CARBAMAZEPINE CARBAMAZEPINE [facility] Propensity to adverse reactions LAMOTRIGINE LAMOTRIGINE [facility] Drug allergy DIVALPROEX SODIUM DIVALPROEX SODIUM [facility] Propensity to adverse reactions CHOCOLATE CHOCOLATE [facility] Propensity to adverse reactions NO KNOWN ALLERGIES NO KNOWN ALLERGIES [facility] Family History Family Member Name Family Member Gender Family Member Status Date o f Status Description Data Source(s) Unknown Unknown Problem MEDENT ([facility], ) Encounters Encounter Providers Location Date Indications Data Source(s ) Outpatient Attender: DELFINO PHILLIPS MD 08/20/2021 11:15: 00 AM [facility] Outpatient Attender: MARCELLA PEREZ DPM 08/07/2021 10:57:00 AM EDT - 08/07/2021 10:57:00 AM EDT [facility] Outpatient Attender: MARCELLA FRANKS 05/28/2021 09:56:00 AM EDT - 05/28/2021 09:56:00 AM EDT [facility] (Cysto1) Urology [address] [place] [address] 05/10/2021 12:00:00 AM EDT eCW1 ([facility]) Outpatient Attender: Matthew Zepeda MD Main office [facility] 04/22/2021 12:30:00 PM EDT MEDENT ([facility], ) Outpatient [address] [facility] [address] 04/05/2021 12:00:00 AM EDT eCW1 ([facility]) Outpatient Attender: MIRIAM ARNDT MDAkasandra tender: MARLO JUAREZ IIIAdmitter: KATE Bailey MDReferrer: KATE Bailey MD [id number] 03/20/2021 12:00:00 A M EDT - 03/21/2021 04:22:00 PM EDT Tachycardia, unspecified [facility] Tachycardia, unspecified Patient discharged. Outpatient Attender: MARCELLA PEREZ DPM 03/19/2021 09:11:00 AM EDT - 03/19/2021 09:11:00 AM EDT [facility] Outpatient Attender: MARCELLA PEREZ [facility] 01/08/2021 08:55:00 AM EDT - 01/08/2021 08:55:00 AM EDT [facility] Outpatient Attender: SUZIE finnegan 01/07/2021 09:40:00 AM EDT MEDENT ([facility]) Outpatient Attender: MARCELLA PEREZ [facility] 10/29/2020 09:26:00 AM EST - 10/29/2020 09:26:00 AM [facility] Outpatient Attender: MARCELLA PEREZ [facility] 08/20/2020 09:25:00 AM EST - 08/20/2020 09:25:00 AM [facility] Е[facility]атерина [facility], AUDITOR/QUALITY: [address], [address], [place] [address], Ph. Attender: Екатерина Riley DOOR OPERATOR [place] - [facility] - Main Office 08/06/2020 12:00:00 AM EDT ATHE NA ([facility]) Office Visit Attender: Matthew Zepeda MD Main office - [facility] 07/31/2020 11:00:00 AM EDT MED[facility] ([facility] ) Medications Medication Brand Name Start Date Product Form Dose Route Admi nistrative Instructions Pharmacy Instructions Status Indications Reaction Description Data Source(s) Carbidopa 25 MG / Levodopa 100 MG Oral Tablet [Sinemet] Sine met 04/22/2021 12:00:00 AM EDT ORAL active M EDENT ([facility]) Carbidopa 25 MG / Levodopa 100 MG Oral Tablet [Sinemet] Sine met 04/22/2021 12:00:00 AM EDT ORAL completed MEDENT ([facility]) Mirtazapine 15 MG Oral Tablet mirtazapine (REMERON) ta blet 7.5 mg mirtazapine (REMERON) tablet 7.5 mg 03/21/2021 10:00:00 PM EDT 7.5 mg Oral active 7.5 mg, Oral, Nightly, First dose on Thu03/21/21 at 2200, For 30 days [facility] Medication administered onsite olanzapine 2.5 MG Oral Tablet OLANZapine (ZYPREXA) tab let 2.5 mg OLANZapine (ZYPREXA) tablet 2.5 mg 03/21/2021 10:00:00 PM EDT 2.5 mg Oral active 2.5 mg, Oral, Nightly, First dose on [facility] 03/21/21 at 2200, For 30 days [facility] Medication administered onsite Donepezil hydrochloride 5 MG Oral Tablet donepezil (AR ICEPT) tablet 10 mg donepezil (ARICEPT) tablet 10 mg 03/21/2021 10:00:00 PM EDT 10 mg Oral active 10 mg, Oral, Nightly, First dose on [facility] 03/21/21 at 2200, For 30 days [facility] Medication administered onsite Simvastatin 20 MG Oral Tablet simvastatin (ZOCOR) tabl et 40 mg simvastatin (ZOCOR) tablet 40 mg 03/21/2021 10:00:00 PM EDT 40 mg Oral active 40 mg, Oral, Nightly, First dose on [facility] 03/21/21 at 2200, For 30 days [facility] Medication administered onsite Phenobarbital 16.2 MG Oral Tablet PHENobarbital (LUMIN AL) tablet 16.2 mg PHENobarbital (LUMINAL) tablet 16.2 mg 03/21/2021 03:00:00 PM EDT 16.2 mg Oral active 16.2 mg, Oral, Every evening, First dose (after last modification) on [facility] 03/21/21 at 1500, For 30 days [facility] Medication administered onsite zonisamide 100 MG Oral Capsule zonisamide (ZONEGRAN) c apsule 300 mg zonisamide (ZONEGRAN) capsule 300 mg 03/21/2021 03:00:00 PM EDT 300 mg Oral active 300 mg, Oral, Every evening, First dose (after last modification) on [facility] 03/21/21 at 1500, For 30 days [facility] Medication administered onsite Carbidopa 25 MG / Levodopa 100 MG Oral T ablet carbidopa-levodopa (SINEMET) 25- 100 MG per tablet 1 tablet carbidopa-levodopa (SINEMET) 25-100 MG p er tablet 1 tablet 03/21/2021 03:00:00 PM EDT 1 {tbl} Oral active 1 tablet, Oral, Three Times Daily Standard, First dose (after last modification) on [facility] 03/21/21 at 1500, For 89 doses [facility] Medication administered onsite 0.4 ML Enoxaparin sodium 100 MG/ML Prefi lled Syringe enoxaparin sodium (LOVENOX) injection 40 mg enoxaparin sodium (LOVENOX) injection 40 mg 03/21/2021 09:00:00 AM EDT 40 mg Subcutaneous active 40 mg, Subcutaneous, Daily Standard, First dose on [facility] 03/21/21 at 0900, For 30 days
Non Patients: body weight < 150 kg, CrCl > 30 mL/min. Guidelines for Lovenox: MUST wait 24 hours before starting Enoxaparin if patient has epidural catheter. D/C Enoxaparin 10-12 hours prior to removing epidural catheter. May restart Enoxaparin 24 hours after epidural catheter has been removed.
[facility] Medication administered onsite 60 ACTUAT Budesonide 0.16 MG/ACTUAT / fo rmoterol fumarate 0.0045 MG/ACTUAT Metered Dose Inhaler budesonide-formoterol (SYMBICORT) 160-4.5 MCG/ACT inhaler 2 puff budesonide-formoterol (SYMBICORT) 160-4.5 MCG/ACT inha ler 2 puff 03/21/2021 09:00:00 AM EDT 2 {puff} Inhalation active 2 puff, Inhalation, 2 Times Daily, First dose on [facility] 03/21/21 at 0900, For 14 days
Shake well before using
[facility] Medication administered onsite Carbidopa 25 MG / Levodopa 100 MG Oral T ablet carbidopa-levodopa (SINEMET) 25- 100 MG per tablet 1 tablet carbidopa-levodopa (SINEMET) 25-100 MG p er tablet 1 tablet 03/21/2021 09:00:00 AM EDT 1 {tbl} Oral aborted 1 tablet, Oral, Three Times Daily Standard, First dose on [facility] 03/21/21 at 0900, For 30 days [facility] Medication administered onsite pantoprazole 40 MG Delayed Release Oral Tablet pantoprazole (PROTONIX) EC tablet 40 mg pantoprazole (PROTONIX) EC tablet 40 mg 03/21/2021 09:00:00 AM E DT 40 mg Oral active 40 mg, Ora l, Daily Standard, First dose on [facility] 03/21/21 at 0900, For 30 days
Do not crush or chew
[facility] Medication administered onsite psyllium powder 1 packet [id number] 03/21/2021 09:00:00 AM EDT 1 {p acket} Oral active 1 packet, Oral, Daily Standard, First dose on [facility] 03/21/21 at 0900, For 30 days [facility] Medication administered onsite POLYETHYLENE GLYCOL 3350 142 MG/ML Oral Solution polyethylene glycol (MIRALAX) packet 17 g polyethylene glycol (MIRALAX) packet 17 g 03/21/2021 0 9:00:00 AM EDT 17 g Oral active 17 g, Or al, Daily Standard, First dose on [facility] 03/21/21 at 0900, For 3 days [facility] Medication administered onsite tiotropium (SPIRIVA RESPIMAT) inhalation spray 2 puff [id number] 03/21/2021 09:00:00 AM EDT 2 {puff} Inhalation active 2 pu ff, Inhalation, Daily Standard, First dose on [facility] 03/21/21 at 0900, For 30 days [facility] Medication administered onsite 24 HR venlafaxine 150 MG Extended Releas e Oral Capsule venlafaxine (EFFEXOR-XR) 24 hr capsule 300 mg venlafaxine (EFFEXOR-XR) 24 hr capsule 300 mg 03/21/20 09:00:00 AM EDT 300 mg Oral active 300 mg, Oral, Daily Standard, First dose on [facility] 03/21/21 at 0900, For 30 days
Do not crush or chew
[facility] Medication administered onsite trospium chloride 20 MG Oral Tablet trospium (SANCTURA ) tablet 20 mg trospium (SANCTURA) tablet 20 mg 03/21/2021 09:00:00 AM EDT 20 mg Oral active 20 mg, Oral, 2 Times Daily, First dose on [facility] 03/21/21 at 0900, For 30 days [facility] Medication administered onsite Clonazepam 0.5 MG Oral Tablet clonazePAM (KLONOPIN) ta blet 0.25 mg clonazePAM (KLONOPIN) tablet 0.25 mg 03/21/2021 04:46:26 AM EDT 0.25 mg Oral active 0.25 mg, Oral, Three Times Daily-PRN, anxiety, Starting on Thu03/21/21 at 0446, For 3 days [facility] Medication administered onsite Carbidopa 25 MG / Levodopa 100 MG Extend ed Release Oral Tablet carbidopa- levodopa (SINEMET CR) 25-100 MG per tablet 1 tablet carbidopa-levodopa (SINEMET CR) 25-100 MG per tablet 1 tablet 03/21/2021 01:00:00 AM EDT 1 {tbl} Oral completed 1 tablet, Oral, Once , On [facility] 03/21/21 at 0100, For 1 dose
Do not crush or chew
[facility] Medication administered onsite Oxycodone Hydrochloride 5 MG Oral Tablet oxyCODONE (ROXICODONE) immediate release tablet 5 mg oxyCODONE (ROXICODONE) immediate release tablet 5 mg 03/21/2021 12:45:00 AM EDT 5 mg Oral completed 5 mg, Oral, Once, On [facility] 03/21/21 at 0045, For 1 dose
Oxycodone immediate release is limited to 10 mg per dose. Higher doses ( only) require Pain Service consultation and approval.
[facility] Medication administered onsite metaxalone 800 MG Oral Tablet metaxalone (SKELAXIN) ta blet 800 mg metaxalone (SKELAXIN) tablet 800 mg 03/20/2021 11:00:00 PM EDT 800 mg Oral active 800 mg, Oral, Every 8 hours, First dose on Thu 1 at 2300, For 30 days [facility] Medication administered onsite NaCl infusion 0.9 % [id number] 03/20/2021 11:00:00 PM EDT Intravenous active at 100 mL/hr, Intrav enous, Continuous, Starting on Thu03/20/21 at 2300, For 1 day [facility] Medication administered onsite Albuterol 0.83 MG/ML Inhalant Solution a lbuterol (PROVENTIL) nebulizer solution 2.5 mg albuterol (PROVENTIL) nebulizer solution 2.5 mg 2020 10:59:21 PM EDT 2.5 mg Nebulization active 2.5 mg, Nebulization, Every 6 hours PRN, Wheezing, Starting on Thu03/20/21 at 2259, For 4 days [facility] Medication administered onsite Acetaminophen 325 MG Oral [...] mg from all sources in 24 hours.
[facility] Medication administered onsite sodium chloride 0.9 % bolus 500 mL [id number] 03/20/2021 07:00:00 PM EDT 500 mL Intravenous completed 500 mL, Intravenous, Once, On Thu03/20/21 at 1900, For 1 dose [facility] Medication administered onsite sodium chloride 0.9 % bolus 500 mL [id number] 03/20/2021 05:15:00 PM EDT 500 mL Intravenous completed 500 mL, Intravenous, Once, On Thu03/20/21 at 1715, For 1 dose [facility] Medication administered onsite iohexol (OMNIPAQUE) 350 MG/ML contrast injection 75 mL [id number] 03/20/2021 01:15:00 PM EDT 75 mL Given by IV completed 75 mL, Given by IV, 1 TIME IMAGING, On Thu03/20/21 at 1315, For 1 dose [facility] Medication administered onsite Simvastatin 40 MG Oral Tablet Simvastatin 40 MG Oral T ablet (ZOCOR) Simvastatin 40 MG Oral Tablet (ZOCOR) 40 mg Oral aborted Take 40 mg by mouth nightly [facility] Simvastatin 80 MG Oral Tablet simvastatin (ZOCOR) 80 M G tablet simvastatin (ZOCOR) 80 MG tablet 80 mg Oral aborted Take 80 mg by mouth nightly. [facility] rizatriptan 10 MG Oral Tablet rizatriptan (MAXALT) 10 MG tablet rizatriptan (MAXALT) 10 MG tablet 10 mg Oral aborted Take 10 mg by mouth as needed for Migraine. May repeat in 2 hours if needed [facility] Ciprofloxacin 100 MG/ML Oral Suspension ciprofloxacin (CIPRO) 500 MG/5ML (10%) suspension ciprofloxacin (CIPRO) 500 MG/5ML (10%) suspension Oral aborted Take by mouth Two Times Daily. [facility] VITAMIN D, CHOLECALCIFEROL, PO 1 {tbl} Oral aborted Take 1 tablet by mouth daily [facility] olanzapine 2.5 MG Oral Tablet OLANZapine 2.5 MG Oral T ablet (ZYPREXA) OLANZapine 2.5 MG Oral Tablet (ZYPREXA) 2.5 mg Oral aborted Take 2.5 mg by mouth nightly [facility] Capsaicin 0.75 MG/ML Topical Cream capsicum (ZOSTRIX) 0.075 % topical cream capsicum (ZOSTRIX) 0.075 % topical cream Topical aborted Apply topically Three times daily. [facility] Carboxymethylcellulose Sodium 5 MG/ML Op hthalmic Solution carboxymethylcellulose (REFRESH PLUS) 0.5 % SOLN carboxymethylcellulose (REFRESH PLUS) 0.5 % SOLN 1 [drp] Both Eyes aborted Place 1 dr op into both eyes Three times daily as needed [facility] Weems-3 Fatty Acids (FISH OIL PO) Oral aborte d Take by mouth. [facility] 72 HR Fentanyl 0.05 MG/HR Transdermal Patch fentaNYL ( DURAGESIC) 50 MCG/HR fentaNYL (DURAGESIC) 50 MCG/HR 1 {patch} Transdermal aborted Place 1 patch onto the skin every 3 (three) days. [facility] flunisolide (NASALIDE) 25 MCG/ACT (0.025%) SOLN [id number] 2 {spray} Inhalation aborted Inhale 2 spray s into the lungs every 12 (twelve) hours. [facility] Docusate Sodium 50 MG Oral Capsule docusate sodium (CO LACE) 50 MG capsule docusate sodium (COLACE) 50 MG capsule Oral aborted Take by mouth daily. [facility] Donepezil hydrochloride 5 MG Oral Tablet donepezil (AR ICEPT) 5 MG tablet donepezil (ARICEPT) 5 MG tablet 5 mg Oral aborte d Take 5 mg by mouth nightly. [facility] Omeprazole 20 MG Delayed Release Oral Ca psule omeprazole (PRILOSEC) 20 MG capsule omeprazole (PRILOSEC) 20 MG capsule 20 mg Oral aborted Take 20 mg by mouth daily. [facility] midodrine hydrochloride 5 MG Oral Tablet midodrine (PA OAMATINE) 5 MG tablet midodrine (PROAMATINE) 5 MG tablet 5 mg Oral abo rted Take 5 mg by mouth Three times daily. [facility] Psyllium 14.2 MG/ML Oral Suspension psyllium (METAMUCI L) 28.3 % PACK psyllium (METAMUCIL) 28.3 % PACK 1 {packet} Oral aborted Take 1 packet by mouth daily With juice [facility] Insurance Providers Payer name Policy type / Coverage type Policy ID Covered libertarian ID Covered libertarian's relationship to rivero Policy Rivero Plan Information State Ins Fund () Workers Compensation 1230 Self [id number] A OTHER B [id number] Self [id number] OTHER B [id number] Self [id number] COMMERCIAL GENERIC U [id number] Self [id number] HUMANA MEDICARE ADVANTAGE G [id number] Self [id number] OTHER B [id number] Self [id number] 2 OTHER B [id number] Self [id number] 'S ADMINISTRATION [id number] SP [id number] HUMANA GOLD [id number] SP [id number] [facility] OPTIONS [id number] SP [id number] MEDICARE PART A [facility] [id number] 18 [id number] OPTUM VA O [id number] S [id number] OPTUM VA O UNAVAILABLE [id number] S UNAVAILA BLE ONE CALL CARE MANAGEMENT O [id number] S [id number] MEDICARE [id number] SP [id number] [place]MIN[place] [id number] 18 [id number] MEDICARE [id number] SP [id number] HEALTH NET VA CHOICE [id number] SP [id number] [facility] O [id number] S [id number] MEDICARE [id number] SP [id number] MEDICARE PART A [facility] [id number] 18 [id number] ANSI-Commercial [id number] ANSI-Medicare Part B [id number] ANSI-Not a Secondary Insurance [id number] [place]/136E O [id number] AARP O [id number] S [id number] MEDICARE C [id number] S [id number] A STATE INSURANCE FUND [id number] SP [id number] [facility]/136E O [id number] S [id number] [facility] VA CHOICE [id number] SP [id number] [employer] B[employer] O [id number] S [id number] [employer] O [id number] S [id number] STATE INSURANCE FUND O [id number] S [id number] STATE INSURANCE FUND [id number] SP [id number] [facility] CHOICE O [id number] S [id number] Medicare [place] Medicare Primary [id number] Self [id number] [facility] Commercial [id number] Self [id number] OPTUM VA CCN [id number] SP [id number] STATE INSURANCE FUND [id number] SP [id number] NON VA CARE [id number] SP [id number] [facility]/136E [id number] SP [id number] Medicare [place] Medicare Primary [id number] Self VA CCN OPTUM [id number] S [id number] HUMANA MEDICARE O [id number] 18 [id number] VA CCN OPTUM [id number] 18 [id number] [employer] HE[facility] OPTIONS [id number] 18 [id number] OPTUM VA CCN [id number] SP [id number] [id number] [id number] SP [id number] 'S ADMINISTRATION [id number] SP [id number] Problems, Conditions, and Diagnoses Code Display Name Description Problem Type Effective Dates Data Source(s) R601 Generalized edema Generalized edema Diagnosis 08/07/2021 10:57:00 AM [facility] M2040 Other hammer toe(s) (acquired), unspecif ied foot Other hammer toe(s) (acquired), unspecified foot Diagnosis [facility]07[facility] Enthesopathy, unspecified Enthesopathy, unspecified Di agnosis 08/07/2021 10:57:00 AM [facility] N38052 Pain in left foot Pain in left foot Diagnosis 08/07/2021 10:57:00 AM [facility] R01412 Pain in right foot Pain in right foot Diagnosis 10:57:00 AM [facility] L84 Corns and callosities Corns and callosities Diagnosis 08/07/2021 10:57:00 AM [facility] L600 Ingrowing nail Ingrowing nail Diagnosis 08/07/2021 10:57: 00 AM [facility] 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 Diagnosis 08/07/2021 10:57: 00 AM [facility] 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, bilateral legs Unspecified atherosclerosis of [place] ar teries of extremities, bilateral legs Diagnosis 08/07/2021 10:57:00 AM [facility] R00.0 Tachycardia, unspecified Tachycardia, unspecified Diag nosis 03/21/2021 05:34:55 AM [facility] neurological evaluation neurological evaluation Diagno sis 03/20/2021 01:00:00 PM [facility] R33.9 [id number] Retention of urine Problem 04/05/2021 12:00: 00 AM EDT [facility] ([facility]) N35.911 [id number] 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, unspecified stricture type Problem 04/05/2021 12:00:00 AM EDT [facility] ([facility]) S90.32xA Contusion of foot Contusion of foot Problem 01/08/2021 12:00:00 AM EDT MEDENT ([facility]) Surgeries/Procedures Procedure Description Date Indications Data Source(s) [place] Hyperkeratotic Lesion, 2-4 05/28/2021 12:00:00 AM EDT MEDENT ([facility]) Med: Lidocaine Jelly 2% 6ml Intravesically (Glydo) 05/10/2021 12:00:00 AM EDT eCW1 ([facility]) OFFICE OUTPATIENT VISIT 25 MINUTES 04/22/2021 12:00:00 AM EDT MEDENT ([facility] ) STAPH AUREUS MRSA PCR <td>STAPH AUREUS MRSA PCR</td><td>Routine</td><td>03/21/2021 6:02 AM EDT</td><td></td><td> </td> 03/21/2021 06:02:00 AM [facility] HEPATITIS C ANTIBODY <td>HEPATITIS C ANTIBODY</td ><td>Routine</td><td>03/21/2021 1:03 AM EDT</td><td></td><td> </td> 03/21/2021 01:03:00 AM [facility] LACTATE <td>LACTIC ACID LEVEL, PLASM A</td><td>Routine</td><td>03/21/2021 1:03 AM EDT</td><td></td><td> </td> 03/21/2021 01:03:00 AM [facility] POCT ID NOW COVID-19 <td>POCT ID NOW COVID-19</td ><td>Routine</td><td>03/20/2021 10:40 PM EDT</td><td></td><td> </td> 03/20/2021 10:40:00 PM [facility] RESPIRATORY PATHOGEN PANEL <td>RESPIRATORY PATHOGEN PANEL</td><td>Routine</td><td>03/20/2021 10:32 PM EDT</td><td></td><td> </td> 03/20/2021 10:32:00 PM [facility] COVID-19 PCR <td>COVID-19 PCR</td><td>Rou misa</td><td>03/20/2021 10:32 PM EDT</td><td></td><td> </td> 03/20/2021 10:32:00 PM [facility] XR CHEST FRONTAL ONLY 77733 <td>XR CHEST FRONTAL ONLY 13369</td><td>STAT</td><td>03/20/2021 5:34 PM EDT</td><td></td><td> </td> 03/20/2021 05:34:04 PM [facility] URNLS DIP STICK/TABLET REAGENT AUTO MICROSCOPY <td>URI NALYSIS WITH MICROSCOPIC</td><td>STAT</td><td>03/20/2021 5:07 PM EDT</td><td></td><td> </td> 03/20/2021 05:07:00 PM [facility] EKG 12-LEAD - CMAXX REPORT <td>EKG 12-LEAD - CMAXX REPORT</td><td></td><td>03/20/2021 4:34 PM EDT</td><td></td><td></td> 03/20/2021 04:34:03 PM [facility] EKG 12-LEAD - CMAXX REPORT <td>EKG 12-LEAD - CMAXX REPORT</td><td></td><td>03/20/2021 4:34 PM EDT</td><td></td><td></td> 03/20/2021 04:34:03 PM [facility] EKG 12-LEAD <td>EKG 12-LEAD</td><td>STAT </td><td>03/20/2021 4:34 PM EDT</td><td></td><td> </td> 03/20/2021 04:34:03 PM [facility] EKG 12-LEAD - CMAXX REPORT <td>EKG 12-LEAD - CMAXX REPORT</td><td></td><td>03/20/2021 4:34 PM EDT</td><td></td><td></td> 03/20/2021 04:34:00 PM [facility] TROPONIN QUANTITATIVE <td>POCT ISTAT TROPONIN</td> <td>Routine</td><td>03/20/2021 1:32 PM EDT</td><td></td><td> </td> 03/20/2021 01:32:00 PM [facility] BASIC METABOLIC PANEL CALCIUM IONIZED <td>POCT ISTAT CHEM8</td><td>Routine</td><td>03/20/2021 1:30 PM EDT</td><td></td><td> </td> 03/20/2021 01:30:00 PM [facility] BLOOD GASES ANY COMBINATION PH PCO2 PO2 CO2 HCO3 <td>P OCT ISTAT VBG/LAC</td><td>Routine</td><td>03/20/2021 1:25 PM EDT</td><td></td><td> </td> 03/20/2021 01:25:00 PM [facility] COMPREHENSIVE METABOLIC PANEL <td>METABOLIC PANEL, COMPREHENSIVE</td><td>Routine</td><td>03/20/2021 1:21 PM EDT</td><td></td><td> </td> 03/20/2021 01:21:00 PM [facility] BLOOD COUNT COMPLETE AUTO&AUTO DIFRNTL WBC COUNT <td>C BC AND DIFFERENTIAL</td><td>Routine</td><td>03/20/2021 1:21 PM EDT</td><td></td><td> </td> 03/20/2021 01:21:00 PM [facility] TROPONIN QUANTITATIVE <td>TROPONIN T</td><td>Routi ne</td><td>03/20/2021 1:21 PM EDT</td><td></td><td> </td> 03/20/2021 01:21:00 PM [facility] DRUG SCREEN QUALITATIVE PHENOBARBITAL <td>PHENOBARBITA L LEVEL</td><td>Routine</td><td>03/20/2021 1:21 PM EDT</td><td></td><td> </td> 03/20/2021 01:21:[address] [facility] CT ANGIOGRAPHY NECK W/CONTRAST/NONCONTRAST <td>CT WOJCIECH OGRAPHY NECK 63185</td><td>CODE</td><td>03/20/2021 1:19 PM EDT</td><td></td><td> </td> 03/20/2021 01:19:09 [address] [facility] CT ANGIOGRAPHY HEAD W/CONTRAST/NONCONTRAST <td>CT WOJCIECH OGRAPHY HEAD 20324</td><td>CODE</td><td>03/20/2021 1:19 PM EDT</td><td></td><td> </td> 03/20/2021 01:19:09 PM [facility] Pare Hyperkeratotic Lesion, 2-4 03/19/2021 12:00:00 [facility] Pare Hyperkeratotic Lesion, 2-4 01/08/2021 12:00:00 AM EDT [facility] ([facility]) Pare Hyperkeratotic Lesion, 2-4 10/29/2020 12:00:00 AM EST [facility] ([facility]) Results ID Date Data Source URINE CULTURE 05/10/2021 12:00:00 AM EDT eCW1 ([facility]) Name Value Range Interpretation Code Description Data Yovana rce(s) Supporting Document(s) URINE CULTURE eCW1 ([facility]) ID Date Data Source UA URINALYSIS 05/10/2021 12:00:00 AM EDT eCW1 ([facility]) Name Value Range Interpretation Code Description Data Yovana rce(s) Supporting Document(s) UA URINALYSIS eCW1 ([facility]) ID Date Data Source [facility] RENAL US 04/12/2021 12:00:00 AM EDT eCW1 ([facility]) Name Value Range Interpretation Code Description Data Yovana rce(s) Supporting Document(s) [facility] RENAL US eCW1 ([facility]) ID Date Data Source [id number] 03/29/2021 10:00:35 AM EDT [facility] Name Value Range Interpretation Code Description Data Yovana rce(s) Supporting Document(s) ED Provider Note [facility] RTAQHm8yJpOMSiVd78/QHJsuOEMyj2WvZPrdXBh1IOemOSTfG7LjCUT6cR1tDBZ3WYkTBzNqCeUqYoE6 lbm [file] A+HP0kNOa+Uk2Qx4XkxbC2ntLkRTo9KsAmZN0IBYZKO8GRRe== ID Date Data Source [id number] 03/21/2021 10:41:51 PM EDT [facility] Name Value Range Interpretation Code Description Data Yovana rce(s) Supporting Document(s) Progress Note [facility] ESCTRb9oIpTEVnZr72/LQWliEVIyr9YrTSgdYYa7VZhqDCIhO2ZuUMG4iE3aFEK1NWqPUgPpYuWzRjNb lbm [file] ICAgICAgICAgICAgICAgICAgICAgICAgICAgICAgIC AgICAgICAgICAgICAgICAgICAgICAgICAgICAgICAgDQogICAgICAgICAgICAgICAgICAgICAgICAgIC AgICAgICAgICAgICAgICAgICAgICAgICAgICAgICAgICAgICAgICAgICAgICAgICAgICAgICAgICAgIC AgICAgICAgICAgICAgDQogICAgICAgICAgICAgICAg ICAgICAgICAgICAgICAgICAgICAgICAgICAgICAgICAgICAgICAgICAgICAgICAgICAgICAgICAgICAg ICAgICAgICAgICAgICAgICAgICAgICAgDQogICAgICAgICAgICAgICAgICAgICAgICAgICAgICAgICAg ICAgICAgICAgICAgICAgICAgICAgICAgICAgICAgIC AgICAgICAgICAgICAgICAgICAgICAgICAgICAgICAgICAgDQogICAgICAgICAgICAgICAgICAgICAgIC AgICAgICAgICAgICAgICAgICAgICAgICAgICAgICAgICAgICAgICAgICAgICAgICAgICAgICAgICAgIC AgICAgICAgICAgICAgICAgDQogICAgICAgICAgICAg ICAgICAgICAgICAgICAgICAgICAgICAgICAgICAgICAgICAgICAgICAgICAgICAgICAgICAgICAgICAg ICAgICAgICAgICAgICAgICAgICAgICAgICAgDQogICAgICAgICAgICAgICAgICAgICAgICAgICAgICAg ICAgICAgICAgICAgICAgICAgICAgICAgICAgICAgIC AgICAgICAgICAgICAgICAgICAgICAgICAgICAgICAgICAgICAgDQogICAgICAgICAgICAgICAgICAgIC AgICAgICAgICAgICAgICAgICAgICAgICAgICAgICAgICAgICAgICAgICAgICAgICAgICAgICAgICAgIC AgICAgICAgICAgICAgICAgICAgDQogICAgICAgICAg ICAgICAgICAgICAgICAgICAgICAgICAgICAgICAgICAgICAgICAgICAgICAgICAgICAgICAgICAgICAg ICAgICAgICAgICAgICAgICAgICAgICAgICAgICAgDQogICAgICAgICAgICAgICAgICAgICAgICAgICAg ICAgICAgICAgICAgICAgICAgICAgICAgICAgICAgIC OgBIYuEUIcQMLnKZAsZAErXTWuLYCpRHGvSMTtXDCvXMKlZJLeRGGoFHj7B2qzBKMwBTWwDU9tAHc0Ww 8+FIdXRgNzAPW7dfDjnJ1DGE4zg7BlHPdyPMUeu8VzKSj5ZY4IMHLxJFirFP1PZMbbez6IPAFyUNUucF OQx4kaYwMuGHA6MBDbEdsfES3OSSTnA8fsyvZrVHHa TNXDCJjuYFQBVKrhTAIZZBFiPEXbSeCuFuDaKMIpQPQgBKJVRYG5ZSHmSzNvESxlRC3Sw2DdgHY1YLl+ Ak8PKE0fp0VvFXaoPvGgMV2ige3ZDGtFUzTfS5WwydE6SNF2WQPtJu5LCVMoPTGanZRjBRRhKZBSTmOn Y0CqbL97PJTREn2+JJxmdoQmFvpKWiK7CXJqr3EzVM x5EV1TTPSaXZk2bWBkQPCoF7Vpi2DqIb41COXkFkotYVB6vbZzLPCPoN8lp99js2K3NUPMHGOcfVS6Mj QoLyAxWaUuWHE5GsSsCY0gJRieTJ6YOHT4ESuvNJRgMLAtO6eHIbMfRBBtGaXfwCalFR7MPkBrH3Ewsc VudCAzNyAwIFINCj4+MXzngnNkGdeLSbL8FMAcc9In ZLp8FQ1GVBGxZUujKQ1SIEEobH4oENpcOL4GBnTbDQKjUZGJNvHkR85yoGFxGIi2K9TeOrGtOYBcOabu ZXMgPDwvTmFtZXMgWyBdDQogID4+ID4+OTvdJK6XYKromoYsEGOkOf8VWRVgSEVnLF6xVLVrMITtO0D8 wJwcDCFSPhVyM5avgbgdIC5iXJJfC735tGekhgQbOJ K0DZMwNi5VHOOlUCP6JUCzsCQtToQcPNQREOhoIU1JmFBfUCP3wN6nJGafGYSfMPHbK1cEZfBziFbiSB 51bGwgbnVsbCBdDQo+Pl7EPD6fr8SgUEm8yzKiWRauXRFqBCmtUZBcTKXoXCJnFKS4ZCK7OZPRSzQrKR InQEYjUJxpJMWeJWUwzu0COKYfEDD5ZLzlIHFrGCSy HABnMRqsGLYeHWHlSJC9JBXxSGPkQH5LQjWxKRBoZSPeMUfqKBXuWZTvji8VMEXaQJSbPCVqOYCdRSLw GATuNGraUOHqZNS7YeL4OTKpRHXrRD8ZZvDjTOEzHTspFLBuWDEnXOEymo8VDABuTRCwUtIaNdQdMEWb SGVcUXjhZTSxHBJsOhX5XMQtQNPnJQ6ASnYmZAGoGW W3UUCzEEVfMPRqdv5ZDFOsMNIbUNBmYBWrGJAsEFHaHPvcIDTbHWL3KsC2JBVcTVTeLQ1QOfPlATQhDY qbDEDgKPXsXFSrlf5HWRKoSOCqRfZ3KbIbRNCeLXDuWVteJNQmHORsDYR2CUPnWXIgPI3VPrFrVYPzGm UwYTYqJSKzFAUnag7ETCOyJMMdCxt8RGVxLQWoMJZk YYvgOAJlQHP7NRy9AHHgKDBrTV2YMkRyOFErSuThJDLiIWRySJDorn2FRDIkXKWoJHL0GEPlPXRgIXFe CDdpEXXwMIS0IHW0MRKjZXFvBF5OMiSnRAPbLhUuOHKgFOHdBGFqyg3SAFTyORToZaV5QVScVJCrMRVl SJjfUDHbQVN2RkmiTPIbGYSfJK0XXmRbPZInMwt8EC FnFYDpAVRugg8LAHKqXQLaFjo7MFSnFHNcQTPwSGlaPHJlPXW7PJHpKUEkOCVkHU7LDrSxNXZjNhjjKG MiLIQqYANlhk6BSOQmJJRvGMYsOLAsKRToRIZwZBnaGOVfJUV0CBy1ZUClCQPmLA6MRuCqCNPjJMA7DZ QaCEOmEJLxvk5NIQJjMDR7AYY6UERhMZHgNTHgJGxx CURgFUErTAM1BWDtJYFiRN8AMwGyGFGvBMU3LYHfJHCkZQQfwl2PCZZuFOO6FVd1NsNlEUHbVFWqYJlo YSReGXMzFhM6LGFkVNGfAY4NIzKpANRqHEU3XNPzPFRyKQEeds9LKECnUPN9Wiw8RDKgHQXwVMAlPYdd TOYpHESrKND2FWOyLSPcQT7CNaUaRYdyMJUXVen5IT khU5s7XZH6DA0WU6Gay4MaWyfjDJGXYRpaTC8zmwCvUDCwPr6GK7gDJabuXLW8VZQjELZ1AtXuDCQgIt e8OMZpQON6PLU8DzGgLe5rLUOgCpwlOWGuWEyzBpPjHqZhUBl5LbZ3SDfpWNX4MrQ3PmHxGY6ESn7ESe L8XPP3dMHzOr1WECYxKbYXAyUtMW7NONj= ID Date Data Source [id number] 03/21/2021 10:38:15 PM EDT [facility] Name Value Range Interpretation Code Description Data Yovana rce(s) Supporting Document(s) Progress Note [facility] GBZBIt8dMxMLToMv40/CJKakWVZhi2QlYQukDQw5YBntAHLeE7DrMDS2xR0rTNM7EXoTWaKfYuSqSiLs lbm [file] NmX8ZNpxA1OkFsWeRoRiAOj6Iu5nWIWTIi2+XPyqzTZcaTdpGNGHZuu4UAzZPzDwOJ9CTBp= ID Date Data Source [id number] 03/21/2021 10:37:40 PM EDT [facility] Name Value Range Interpretation Code Description Data Yovana rce(s) Supporting Document(s) Consultation [facility] KVRDDb4wUhMCWrDh12/PKHcfEACks3ZuCOhsLMw9HMezSUZzO7GbBMB2uD3fOYH6JXjCSsEzRqVcElZc lbm [file] Maria E/iJ/kbUYtB/XJv2R/Pl/x3u8rw8PGD8ho1EbBCOm [file] ICAgICAgICAgICAgICAgICAgICAgICAgICAgICAgICAgICAgICAgICAgICAgICAgICAgICAgICAgICAg ICAgICAgICAgICAgICAgICAgICANCiAgICAgICAgICAgICAgICAgICAgICAgICAgICAgICAgICAgICAg ICAgICAgICAgICAgICAgICAgICAgICAgICAgICAgIC AgICAgICAgICAgICAgICAgICAgICAgICAgICAgICANCiAgICAgICAgICAgICAgICAgICAgICAgICAgIC AgICAgICAgICAgICAgICAgICAgICAgICAgICAgICAgICAgICAgICAgICAgICAgICAgICAgICAgICAgIC AgICAgICAgICAgICANCiAgICAgICAgICAgICAgICAg ICAgICAgICAgICAgICAgICAgICAgICAgICAgICAgICAgICAgICAgICAgICAgICAgICAgICAgICAgICAg ICAgICAgICAgICAgICAgICAgICAgICANCiAgICAgICAgICAgICAgICAgICAgICAgICAgICAgICAgICAg ICAgICAgICAgICAgICAgICAgICAgICAgICAgICAgIC AgICAgICAgICAgICAgICAgICAgICAgICAgICAgICAgICANCiAgICAgICAgICAgICAgICAgICAgICAgIC AgICAgICAgICAgICAgICAgICAgICAgICAgICAgICAgICAgICAgICAgICAgICAgICAgICAgICAgICAgIC AgICAgICAgICAgICAgICANCiAgICAgICAgICAgICAg ICAgICAgICAgICAgICAgICAgICAgICAgICAgICAgICAgICAgICAgICAgICAgICAgICAgICAgICAgICAg ICAgICAgICAgICAgICAgICAgICAgICAgICANCiAgICAgICAgICAgICAgICAgICAgICAgICAgICAgICAg ICAgICAgICAgICAgICAgICAgICAgICAgICAgICAgIC AgICAgICAgICAgICAgICAgICAgICAgICAgICAgICAgICAgICANCiAgICAgICAgICAgICAgICAgICAgIC AgICAgICAgICAgICAgICAgICAgICAgICAgICAgICAgICAgICAgICAgICAgICAgICAgICAgICAgICAgIC AgICAgICAgICAgICAgICAgICANCiAgICAgICAgICAg ICAgICAgICAgICAgICAgICAgICAgICAgICAgICAgICAgICAgICAgICAgICAgICAgICAgICAgICAgICAg ICAgICAgICAgICAgICAgICAgICAgICAgICAgICANCjw/vFWrM9iswEStrxR9U3xfDa8NDs5VHO1ln2Rw GBYhSVougeMgAcyJBwKfMBFgNukCDuu1TQrsSS0HoB HtU1CkN1UzGDbeLD4TZVKbSVDjeDZiLVFpQLCjJzZ0VZJaATcsZY0SyKQqNMutWRBfLOVhMoSjHODpBJ XoTYMpXFRnLHWWZDMkIHMkBkYuLEPbEALbEXntBOTIMR2DKsSdN6JxuP27QIxFBk0+DQplbmRvYmoNCj FbZYDol8FqJBb2NO3SUGHzSqvse7GoJXTmWHTPPMbn IE8RXQJ7ESLzMAMoVy4ZVKUyJ346ddVrPR5SYe6FVpNhAH2gde4GEGJkPNCoNxbCRow8MTorGI5XbNZq YRbRa89vkKr9ixUqwYRFr0losACqHNFfhQunoAivCLLoSYOwQi25EuRzXuKwMWK4WCOuFA5yIOzcAL7W ZZH1CKlfFHXbUIQnR7gONfKcXFEcZjJlfIrvCY5QUo FxP0GrvuBsyUZ2JDVeESZJEv7+YBlmqvNlPcrAFzJfJEHdh4GaYOd5IA5JMDEeQXeeTX1IHQSxiD1kAM krRX0HEyUwPLBjHREWInMuN45gpRPfLCf8O0RxFpSiOAHtCbwjLZUySPjvBiYdZUXdBpGzQVmyLB9+ID 4+AIgxID0HOIqfncBsJJLgPc5ZPWEuSBQsJF0fQWGh AGMdL5N1sZtnHMPFRbHwL3nbrlxqMD0bTNQnB503fBthnsYzLUFrFUPeQd9IKJAqWEZ3BEPwnBBgIjgl NMTFDLnxGK2NbTCtXUE4kP1vBPpwLTMdPEAyX0iPHaEvnNtdRA28oBpkpzMfmLFoZLl+Ip3QYO1gc3Ww KWv1rkThLHcbVHXsHEqlRJSqNTUdAYXbMJY6GJF2MS JBRvWxDJUzNLDcGRrhNWChCSKqdx9GUGGgHTR3QBLnJSCuLTSqFGWbEXeiXTJrVZZ8Qxy7QAOiGEBnEV 9TRtSbCLJmKQArRPviGKKiBBQxjl7KIGVaJOXdMFS8ILKjVIWvWCOdVBhzKVWsGJD8FyI6LVUuREAlFX 0IZqHnGTJmMNtdBkEbYKBcBQYegh4WRDVfUHCfHhDg IMKrOZMkVZUuSCpfCYGwRNDcNhE4IGPuJBYsXV9ECyTkCNKrKWR3UPnpTQWaRQCgrf0OYSLvFLTzFkj5 QwFxTADmQFNhKClfQOHuCJQkGSc0MVLlEEUhXP7BLsSmASWuSHj2KArfHIHgRGOxkh7SKKSwRTJuGxz2 FZDtPJZzKVNgARdvXCXgUWAhVWU8IXDcMHVvFY0FWv BuISKtXkXbDcOmMHHzRPFbuc2ECQObRFCcKZc0IrBmSDUtFVXtRVscBZFzBGQ7EIOqUPHsRGHvIP0PFl SpRNLqYlW4PuViHGTeBBRddq2LBXQjJHMfFpGyEHGjWXOdWAIwEIajRVPjZCM0OsKeXPIcNQSiNR7AUn SxPCPsQujnBcHfTZBfENHzid5HVXSgOIBuUVM3ZTGm SEIgKUBhGIvsEKInSEH6XlZhLDElIDJgQS8OSkNrHFMuKwj8BLFmXMZyJIYgbi9LAFAcICTuDLccYABv JYVjCAPtHWxrNNTmLHY3OIukXGHaEWFdWS4GDbIgPEMvDrP3CCFyOAVyPUMteh4OSSYaFKUqVXJ3WEPi IRWpLPFzRHxfLDKuAGZsWsN8UONsYLSoFV1PSsHhTV OzDvIzAIKeMFGbMHVozd9HQDXwYCPdGwHdKXKmLFIcFEAvWXnlUNTrWQZkCnW9WNDoDNDmNW2ZEyFmBQ KsCOZyGDQhIWIsSCXeyq0CAUXmZQP3SAPmGkQcOXAgETXzDCtxFLKiQWJ9MwGpALJtIQLvRW3NVkJgEH XrVUU3AlMkWVLsFGDqzb6GPTWuCZG8JGJrFeRoVUHa BBBeJVlmKWTnPYZ4BNQ3XJWaIAUhHF8UIiOtNIAvPYO4StZwHXHhAYYzot1GYDHwVOB6OgGiETZmJOJe HEDlJVrkENApAMX5NPL2UTCgNXTcXA4UJqJoMEsmULOWGfx5ICsgJ5y5FGA0Dm7DJ2Ldq8RxALRuHZVW KTkcKH4qisXiSFSoZy0OY8bAYfqmPpIkZXE5RsDkD9 M9Rbi6HYDxAly1PSN0QIJ1PrFsRF0cLKGiLXB9YTG5OeDqPzc0QRUjPQDbTKupSfxeXio1SIViOoOnUX 8FNk1OThU8KGX8kJJbTt5MSDfpZLMZXsWsMP9YJPj= ID Date Data Source [id number] 03/21/2021 10:36:45 PM EDT [facility] Name Value Range Interpretation Code Description Data Yovana rce(s) Supporting Document(s) Progress Note [facility] CQFJRt3iSjLXDgFe27/VJZyvWQHqc9YvYEfkDPg5TPhjINOcN9QmMMG3pW6hTNG7CWoRYpUqGoOeQuHw lbm [file] DT4b/uJPy0VOTtFWwId9SJs8FRcu4d1b876X38e798AnXbO/Television Operator++M5ZNQ0OUDl9XfCW+iscx8zx+xePq [file] ICAgICAgICAgICAgICAgICAgICAgICAgICAgICAgICAgICAgICAgICAgICAgICAgICAgICAgICAgICAg AAOeLCKjOUWkTMTyITRvRP8PWVSzHJWlCBJnKINdDMBuLZFtOQDxHENuWQGnLBZgGORrEQRjJOJaBCTv ICAgICAgICAgICAgICAgICAgICAgICAgICAgICAgIC LvGWGaAAAbXGWfNAUxYZJbWOFbWISgCBThAU5ZOCXjTAJrURRvVRWaMBOzOQJgJALzGCJzLGOuLEWpDC AgICAgICAgICAgICAgICAgICAgICAgICAgICAgICAgICAgICAgICAgICAgICAgICAgICAgICAgICAgIC YcJNXvGIHjVO7USMOuBGPpXPVgVIOyPYAgYJRaDCOf ICAgICAgICAgICAgICAgICAgICAgICAgICAgICAgICAgICAgICAgICAgICAgICAgICAgICAgICAgICAg CQNyARQvFWDsAQWiTOTlDZXqOA5GEWYxSZVpKFJrVICcSLFuSVQrEQIgQPZzETKvCPXwZDZmQQMlCIMd ICAgICAgICAgICAgICAgICAgICAgICAgICAgICAgIC QoZDPmAYExWUCaVJOkNMGeIYRtNBNkMRZqFWHlOK1NLTOaXEOiGDQsSUZtMEAuKVBqWBAwHYWaKMAxKT AgICAgICAgICAgICAgICAgICAgICAgICAgICAgICAgICAgICAgICAgICAgICAgICAgICAgICAgICAgIC HkOUBwOCQaLNGiQP1AOFDcQCPbMTKuRYLgFORxJBLt ICAgICAgICAgICAgICAgICAgICAgICAgICAgICAgICAgICAgICAgICAgICAgICAgICAgICAgICAgICAg EINbFCRyHUBwMJHzWFSvXWNkUSRlXW5HMEWbEKUuDGYnJTQeBXWvGMKuTGRgMUTxJIIdGTKbIZKgARTw ICAgICAgICAgICAgICAgICAgICAgICAgICAgICAgIC DkGSAdKWLgCHWlFJIzVLOoJGQeARQsBNWtJNOqIFZxKC4MUSIbSCOcRQBmARFgJKDjTENnHFRiEYZfZR AgICAgICAgICAgICAgICAgICAgICAgICAgICAgICAgICAgICAgICAgICAgICAgICAgICAgICAgICAgIC UnIHGuOQNqJCIjZEQbKN8AWPJqMRYmNAUrQMYdEXGp ICAgICAgICAgICAgICAgICAgICAgICAgICAgICAgICAgICAgICAgICAgICAgICAgICAgICAgICAgICAg LHLgXNYkKONrAYJsRQQdXBTcMJWnGJLvXD2QCL43uKWyc4K2UFOuIB5qzbn/Yf7IKRfkqtQvmKYnTE3K VbZaDY8tev4FGbYhJN2web3LAKvHJjScF7U1jJBaEE QdAPUVFlXrT53mYKrdUt26JUqsDZYzIuRqIEb2Ek3IAjMpD6hvJTGoCjQ6CDQwToD6LFCeSwTvKElpMO 3An4RthNPxRRx+Wg9WKJ9zg2NhVNvvEMXpDX3jtf0AJZcRTlEiW7RenqA5QVP9MZVcJo4RYEXuZNXsmM MeGTHkPJXOJjWlY7QnmW69RTBPBm1+DQplbmRvYmoN NcB2JBXjk4IiOGv3DI7XHORtTSr5vPMlSYRgR2Ljr9WdQk58SIDkOogwV27rz2xnkzDYSYjtwMfiBY8X NCC6EPXpYU8dSAKfFFMzBsM5EHDVXF6LCGFmDNQnnJIuIXOvELGOJN1ZTOvgINU5ISIggiDcnXSmUYir RK3UXGIfanJeDcRyEGKRGEk+Zi4VSY9rb1OsCZmcTt EvFF2jjp4QVUbTJcFrF5Q3cROcV9I2JUijBq3WIVBlVXAaInJpGSMKOOzhFX8EXM3mnrJ4YK3WkHQtNU PqMHKufUKgNJa1V50ejCIdWAuqQY5HTCJ+Brenda+Jn7KBFGrTGFrVJVxYoLaDJHJShIoB4ZtB0EXs4CaF5 YsIZ25nXigmbZhKXzlEI1VQY8zLWPqSBHVMV9KrYYc hR6zppOgHTVnIDSKNjGiK00aoTUgSSFgIUYyURGxIe2UGADbB0VmdgHywVhaebQoHDOjGAOQNR3JJEde vpQdgDJwfBgdNV87zAorLB6JZn9EQyGsFH6kft8NlYGzBv1ZMGZpQi6MWSNnUYQmMGNzVKP7ZUUiTiIq NSbtLWCaGKCsTSM8OYLgYVJkHK2RGtIgPAUsPqh6KP InVPNrONGqsb2AUXRoQEPhIBBbQIKgSQIgHIFqFLpdZDDrXRFgVET4ATPlZRUzIN6EDrIcRVJxUWLnSZ FdXCRaHYZxip5CZDKlZZScFCX5OFGkFPJwTGObSGfuDVAbHJX0EJR8KEYwDGObFH6OZdMbSUOyDZP0Nk iuRUSkUIIrnb6GGLGgUOLdHjU3ECStADGaKUVeCYqy PBYdHWQ4VMc2PKGpJKAcWC7SPoCjTZOzGIrbMiKxJAOsDBPhsd0UVGGySISiSCSnMHDsVTVdJPPwXWma WKXoWCV0OnV8FZGcECImTM1WRvXvKWCzERv7BWEaWRKtKVNufw7DUNPaGYWhMVE0SRRtIREwORGkHRsu PLSzLZCbUZzsEZPwVSJiKY6IHbCvEBZlGNL8SLNvGH BnKZRqmc5VVRSgSXLcNVAkNmJoKFBuNSJvPJkmRTWvNOX6CTH2RNPgKSOvJL0IOpUfVLQqNhgjQeYnYD MlSXJkji9GVNLsMATtXBIvXRXfFZGlJBAhXKquEMEjBEK8YPyjEEJpBFZmAP0IRzErHGScJdp9VBleLP LrTDGtnb5FPQDjCFRxSPY0RnQsXYOaNAZiPBcbSIRz MKEnJRQjCNEjPQYrWO8OCpDqBDAoGzX9JcQtWAYwZXTksf5VsCVidHtnms7NBNjRQd5VfQkaVMJ6YPim Oh8vqGOjSwFqAGIWVp5MkqJpYDMyPOKVGAbmKBOtYCZdKzGjCALxGAMpQVQ3CMF3EGicXEEkFWS9PTgs QpS0LkM2XIFzMCTeAeK5DWP5PAI6XmktW2Q9VUOkGc ZjIUV8Uzo+YP8uBIz+Tv9So3WvbwD9voJlPRwoWIbmTM5KZTXTI7ORMk== ID Date Data Source [id number] 03/21/2021 02:24:53 PM EDT [facility] Name Value Range Interpretation Code Description Data Yovana rce(s) Supporting Document(s) Progress Note [facility] RJWYDl9jTgDIFpCd55/CASvmEMGfs7KaAKenUNw9ODqvZKThV9BwIWH1kB5qTXM4WOlCNaWhReGmScRd lbm [file] P0VORjTJOkHX5ySMMMOj2+DOwuoSWasWgjFBPBOpZ6Wvf2MRwxUUMVAc0Z ID Date Data Source [id number] 03/21/2021 02:17:15 PM EDT [facility] Name Value Range Interpretation Code Description Data Yovana rce(s) Supporting Document(s) Discharge Summary [facility] OZOMKf2xQtSIIwMn35/OCInnIWXkh4FaZLpaDKe3EIjtLRDxE5RhBGC9gM9hTFL7VGqURhPhYwQoQbUu lbm [file] uhCLNBPiDjRzKjCTtbACPVDo4V ID Date Data Source [id number] 03/21/2021 12:49:09 PM EDT [facility] Name Value Range Interpretation Code Description Data Yovana rce(s) Supporting Document(s) Progress Note [facility] WIRCTh4dOnTLKbWe02/VFFhoAAKqb6PhSQwjEHq7GWmnAOAcV0RnVOC5oP1sCJH4LBsNUmMcGfVmXmDa lbm [file] AgICAgICAgICAgICAgICAgICAgICAgICAgICAgICAg ONVmCVGxWORbAJNzVOAcSQFiIJFsHKDkHQQxUNOzHUNvKA1LCHXyYEMcSAPmGIFqNEOjQCOnGRMzDNOs ICAgICAgICAgICAgICAgICAgICAgICAgICAgICAgICAgICAgICAgICAgICAgICAgICAgICAgICAgICAg NNQvSCEeNKJiJCXoGJNlCY5PIIZxMAXkZAZyIVNlMA AgICAgICAgICAgICAgICAgICAgICAgICAgICAgICAgICAgICAgICAgICAgICAgICAgICAgICAgICAgIC RvUSDgGNMiCCShWDUaCWWiLDAlTMZrMCIhKH5COZXoPHOiFXOpZAUrDQRdRJZyZKFvLEQnEHYgFUQwUF AgICAgICAgICAgICAgICAgICAgICAgICAgICAgICAg WXBqKDYhOEItDAHkQDTtNEQeMKIfGGGmLUWeUBTmVRVuLEWdSP2GUJRyBHPqZGGtVKKgAXLuUDIiITSe ICAgICAgICAgICAgICAgICAgICAgICAgICAgICAgICAgICAgICAgICAgICAgICAgICAgICAgICAgICAg WOSnWZTuTXVqBTEjKODqDPTgQW9XQZAbALTiHVNzCD AgICAgICAgICAgICAgICAgICAgICAgICAgICAgICAgICAgICAgICAgICAgICAgICAgICAgICAgICAgIC IsBSTbKQWxKWQhGNPtAVAuFLKyPLZaBMZkVQDuTZ9EAVVuBKBaIGOrNJGlKDVgCHLtVLVjZRHcXJOuCO AgICAgICAgICAgICAgICAgICAgICAgICAgICAgICAg BBYxBAKdCDMhSBOoKKZeWGFiZUXsKNVbCNDwDUStCWLtRCPsMEJiCH9NNRGkHJZlZWXkCXVwQOBmATVw ICAgICAgICAgICAgICAgICAgICAgICAgICAgICAgICAgICAgICAgICAgICAgICAgICAgICAgICAgICAg RSLaOSDaBDAwVYDiISMaIWTlAKCpXP6VIZYfSIIgLS AgICAgICAgICAgICAgICAgICAgICAgICAgICAgICAgICAgICAgICAgICAgICAgICAgICAgICAgICAgIC DqOZSkNVPgCVAbGFMyPRMnCSArNKPiEYYrWLGkUMPjDS4RTUYxPGTtBGWgJPJrVOTqTQFeUHLfAVLcMM AgICAgICAgICAgICAgICAgICAgICAgICAgICAgICAg WSIcPMAoJEEpQARsSGLhWOCmDTQeUMRqVAZxSFFkLMHwGWKlGBNmCEEbFL3TOJ18hMLgg3H8IIAsIJ9s dyc/Tf5UAIuvxbMclNSgDD5ALmZhAJ6cws3AFwVyVR3saz9WIPaCAlApC4H4vAVaROPiKXZYAwOxU93c YPoqXh60JHolPQSoUmTzMGr0De2ZKdXaQ5lfQBZqWu C2DSVeCnHgKKesIQ5Ft8FhaHCsYVy+Nn4SDU8cg9HoZBhhUAVtIH9bdt2SCNwKWrNeA0CyhbW7YCI9IX JaYf6FWWBlKDEiaBDnUHVmQWWFQyPrY8XjkV00TPAGXi0+IVegcuPoEhqQScZ6SXSnt6OhPPm9LO2JNJ FbZOa4hPVxTHMnX6Sds0LyRb85TGTwLdkyBh1zeTIb BKYIy3MagvwqTt5lAJXfPr1yRT2uGCUzMDAtIvS0THDCGK0NYEQxCHPtbEJiNPFbNHHPWC8VRDtsPQS6 YEGzclDimANjSTddYT8WHSUdjbJnFYQwFEALAGb+Aw1AZJ9on1RzYDjsBxVxTA5kgf4UTThWNaUmW0D8 hTClE6Z6TOmfHy0TTYXxTPJbKWHpETRGRFmgUO3OBF 5vzwG5WC2TpOMmCTXiTAVztMDyTIz8D35rqBWxXJnlWW6FQIF+Brenda+Yp8FKXTrTJYrDTCdFjAiREXBSb PtP0UfT0UJi0ItZ3CaVV19rGhdfkZuFFrsBC5SXX4nUMXkKYVBFZ9FiBPrsB7iagFcHVCbKNNRIgPpP7 9hjUGhPBWgFLJkHGOxSs4YCDMgM9QaynLgdFxddoCy YGCwAXAJOF3LGRoxmbQdySQxpZayAX48gPcvYL1OJs5XTmToSF5akh6HsJNdWt2DJJVgEs5JAQJgWKTz XXHiZMS8BIVsRmJmAHrmCBBiPYLuBUE9XPEuFSKaAF8RZtHbFFVcMFA2QteoJYGbMOIewj9ETSJrUZZa TlR8CWFvSZOsYSDnQWtbTIUhFIHlFMA5AFOjGAEdEE 4TIpZaDWIsWCX9BsgkZRXzVJLcab8XUYDbDIXrKqmuQuEzBJWyENLjZCgpYFBzBOOkYXeoVLMjHFXhLF 2EBgSuFJZrZYYbCKlxVXUkADPhvf7OTHNeKDLqZHG9JRYsKSOsOTBhWHgvDCSiWLV4UcM1AVUuPSCwOF 1HUmZgKYMoCFG8LfguARGqDTDwrs4PUBFzEXJeMLEi VTMsMJKiLGLdOEdoMNMqYRO5BNM1RKAxBNBqIT1TCkIjHTQoAMh1TLbwVNEsEBNqxu3ZNGEmRVCiHcJb SXGlKXMdXCVoXBzgVGNvOUL7Vng6JPRqRZXhVO3KTlLtBWgzRLNUXtd5IVyeS1n2WORdCi0CS5Kgb9Eg ZLOzMQWYGFhbEI4invWpAGIoBn8HG8dDChlyLFQ8DM DsVfK4XMZ7KfIqRnGbSXZcNPe0RRJ4IaOoUa2vIBMwIPgwWLB3RDn6UifkRNGeYrZyAfIlXKVrDlipXL EfGaVmJA7ATz0NZxE2JXL9mZNgSh4RQxauUG2UVIBHE5HSAo== ID Date Data Source [id number] 03/21/2021 11:19:52 AM EDT [facility] Name Value Range Interpretation Code Description Data Yovana rce(s) Supporting Document(s) [facility] FXXPTy0vSnTSHuVvn9RiGbTsPROfJE6hjou0X5L9zNCtJ5QvoFRsk6pwY8AnG5ZgAEYjCYOJGL5QpWOy jb2 [file] AwMDAwNzAyODUgMDAwMDAgbiAKMDAwMDAwMTYwOSAw NUWpJDRkRZzpDJLpGEBaZgI2JJJhPKNjJD8jOgIaSMDnZWH8USWmEUGnMJLhjaGBYKPqKUNdYBKdIRH6 JGDaCTDwKMn3vlHlkOJyVif2Sz0UjYjnNNK3Nh4GypVeDVBiUXPBEu5Zf730PIMyUUCMLiq+PgpzdGFy eMlmRCZELjY9ZtUQIWQQR1I= ID Date Data Source [id number] 03/21/2021 07:34:07 AM EDT [facility] Name Value Range Interpretation Code Description Data Yovana [facility](s) Supporting Document(s) History and Physical [facility] KOSOMh7cNnPBNyCu62/MIPlmWVSne0IeEMkhHBs8BLvqVKJbD0CqRQK1lI2aDEM7REoCZnHcNbOeIyEc lbm [file] AgICAgICAgICAgICAgICAgICAgICAgICAgICAgICAg ICAgICAgICAgICAgICAgICAgICAgICAgICAgICAgICAgICAgICAgDQogICAgICAgICAgICAgICAgICAg ICAgICAgICAgICAgICAgICAgICAgICAgICAgICAgICAgICAgICAgICAgICAgICAgICAgICAgICAgICAg ICAgICAgICAgICAgICAgICAgICAgDQogICAgICAgIC AgICAgICAgICAgICAgICAgICAgICAgICAgICAgICAgICAgICAgICAgICAgICAgICAgICAgICAgICAgIC AgICAgICAgICAgICAgICAgICAgICAgICAgICAgICAgDQogICAgICAgICAgICAgICAgICAgICAgICAgIC AgICAgICAgICAgICAgICAgICAgICAgICAgICAgICAg ICAgICAgICAgICAgICAgICAgICAgICAgICAgICAgICAgICAgICAgICAgDQogICAgICAgICAgICAgICAg ICAgICAgICAgICAgICAgICAgICAgICAgICAgICAgICAgICAgICAgICAgICAgICAgICAgICAgICAgICAg ICAgICAgICAgICAgICAgICAgICAgICAgDQogICAgIC AgICAgICAgICAgICAgICAgICAgICAgICAgICAgICAgICAgICAgICAgICAgICAgICAgICAgICAgICAgIC AgICAgICAgICAgICAgICAgICAgICAgICAgICAgICAgICAgDQogICAgICAgICAgICAgICAgICAgICAgIC AgICAgICAgICAgICAgICAgICAgICAgICAgICAgICAg ICAgICAgICAgICAgICAgICAgICAgICAgICAgICAgICAgICAgICAgICAgICAgDQogICAgICAgICAgICAg ICAgICAgICAgICAgICAgICAgICAgICAgICAgICAgICAgICAgICAgICAgICAgICAgICAgICAgICAgICAg ICAgICAgICAgICAgICAgICAgICAgICAgICAgDQogIC AgICAgICAgICAgICAgICAgICAgICAgICAgICAgICAgICAgICAgICAgICAgICAgICAgICAgICAgICAgIC AgICAgICAgICAgICAgICAgICAgICAgICAgICAgICAgICAgICAgDQogICAgICAgICAgICAgICAgICAgIC AgICAgICAgICAgICAgICAgICAgICAgICAgICAgICAg PJUtUKMvUCIxOZHkQBIjEDObSOEoKAPgHREjGMRaZPCoZTCmDMKzMKGkRLNwNLAfSVy9C0ykKWEiBKFs RJ2xQCf2My7+NTbTTtZfHLM5jkGxfU1MQU6jb6XoSMqdKYMoj7OkYFn6XM9GCLUxLQfbJD9JCFlvxd4T TVQaRZQmaFTUt5gqZrHhTPC7NKVsDbryRJ7YUCAjP5 kpvaMjFJPtMHSBKNiyJVYRLQmxUOBVFHUaHRHyNaXqStAvPUTuFESpWQZNLRS7GZFvDtXxVNBlDJGzQW 9WWQZwJ233smSwCO3QXc8ZQdMkWO2wpv1JSAMbZZCxDmkSBiq8FSrkAH0QyYHsfWN2XkKjQSRSLtVbV9 mps5RdRPRuFCJHNLnsAR9Dl3HeeFOsVKx+Rj1WXX1j d8EqUYh8TqYpDX8giv2UKSyFBpCnX6KviZnhEPhdEOZnkRFXjtdwZMRvBhwkF9iqXA9EFOS7SZEnOZ4c IIWbNZWaGlQcNMAWWJ1AGXBySICseEQlAULkYMVJZQ2SMFlbQUY1IAHwhtQogIOtIPmcBT9RXADlixUi NDIgMCBSDQo+Wy7WYF5hf3QdIEp9SUCiQL9fvs9XZE aRDdMtJ2U4oPNyX4R4SXzlUv5NQMJtWRYcXIYxXIXHRTrqGP2EKL2jrxN2GI8JmEEhAUEkCDXxhOKuPJ j8O69kxWNbKEjyID4KFCQ+Brenda+Sg7ETBKtPTEfZOBoThMoXVPQBuKbL8XoD3RLd1MfB6UpPP19dZzior FmXZtqHW9XTU4pBVTsOHRLXA1PzJHniT0zbgV9IfKv CIDHIbTbU48fcMItDRGbRNXjOLCaUq0GERMoL8QpuaYmdNqnrwOyPYVqLYNEGH0RHJorcqYbsJAvhEfj CI16zAarNL7NGs9MYcNdIO5run5RiLEvPg4DLJX3TG9JEJKyXCVxJSInXXE4HOJoCkYuDTohIPJqZFDl YJY2PBZpKNCeSB3CAcMdCLAfYVp6PlIcSTEaHYInpk 9MDEVpROV8WLU4UJOrVNAlRFOsVMgnNDTqFWCuWVL5XKKuFRNaXM5BRpAyZYTnIHWnWIAuLYBtGVMohz 7QEQYsOGMlCZL3BiAoLIJkRNLeSWxoWSDhUTV9DsH0ORVjXAMfPD3HGqKwGCKxESp6LPnzHMKcENYnrt 9JANBmIATjHrQiRfKrPAMvKJWhSJmzQKTeSQOfQsJ4 YRQkETPuUF6ZGnOmMHYeKAK1JZXzPKAoVEVqct5XUFSlCJFdTdZ1VHQqIXZmBNLlIRnqASOkZHJ7KZos ZCTqRTMlTT1HOyWiJQRiLSs0VQyhCCQuHPNaac8NJVHxRMYyFWQ2SIPbWVEzHLZvLMquBLIlKGB4FZz3 FHEgQQDrBK9SVcWsDAVxAma8NxgwBOQuDFFhot1VNI UzOUWuRVR9CWIySOWyCCFxWTnwGOLkYCO2RrSqJYIbCOIxGU1VKyYyKANzBfr5TZFbCFTpICIqgb6VGS GrGFIwIDYmYbSyTHWgLQAeMKbdYYVaPAQlViRpSWFoMAOrCD3IByUmKQQeDaK3QTXlWJSmBCXmqs2WOD UhGRQlNEa2NHEzCMCpRZCuFCpsRWTlMOVcYTA8WXYe GTXsEN8LCfWdSTSpSuAiFlAdWNXzVCXcvf6FUJMdCYWuPjI0ZGKoMPJjCCKqNQgxBZCoFAKuXvnrXDMb PIYuFT2CBeWsBLCyRsO9McOdSATwNGZdsc1AFLIpDJHuLCXmVPBxPFRjBWFgRVesVBPnFXI0CeE3IKGx ZFIeGD0HFuWbFEFoAiX1JhXxQXYcXJZmpw4YZGXbIS T1NzC4CfOyCJBrTGGbXVbwTHSyUPI9Ppf9KFNwAELnPH7RCkVdEYWzRED1ZCSnJBUfCDWvzx3OHCRhSD G9UzU9GAEuJRDyZYZvMYtiOFRpITV1EhotVSSbWKKbXW8BSqCsTDIpCMnhBzKaJFIaDCRxau5DXNSeNJ S9ANRcUdLlPJYePVReRAhxSBKjQQY5QnHqPYAiQNIs XM2DZiXxRHOqIUojJPPvQFJaUUZtes6JWGGuTNJ7AUKqBTFiSPLfGPTjQQefDEEeDVBxAiN6EXWaHTBf HZ6ITnKdALRsAWF7SSXxPHMtYNRglg6PmTPsrDczrr9LMMiSXk5KgFzxHFT9KMvkOu1efGV9NMVbVSIH Zj5BxeTmGSAdEEBFQIfyKXDyYJBaJHduZoN6TMZ6Ng UxHBAjWcpzB8TwOWBpT8RsBGBiKdW5ZMMiYDWbOsd5Obc5MfJlLrGrD3A4XMPjGoSiWwI2MlC+IF0gDQ o+Sl2Co9FlxeI1tfVzFFq3LZg9WX1ZPNTBH9UOEx== ID Date Data Source [id number] 03/25/2021 05:06:08 PM EDT [facility] Name Value Range Interpretation Code Description Data Yovana rce(s) Supporting Document(s) Zonisamide [Mass/volume] in Serum or Plasma 5.1 ug/mL 10.0-40.0 L [facility] (NOTE)This test was developed and its pe rformance characteristicsdetermined by [facility]. It has not been cleared or approvedby the Food and Drug Administration. Detection Limit = 1.0Performed At: [facility] [address] [place], [place] [id number] Sanjai MD Ph:[phone] ID Date Data Source [id number] 03/21/2021 09:21:11 AM EDT [facility] Service Cmnt XXX-Imp : NoneMicroorganism XXX Cult : Polymerase chain reaction assay was POSITIVE for methicillin- RESISTANT Staphylococcus aureus (MRSA).Isolation precautions required-refer to Infection Control Manual. Name Value Range Interpretation Code Description Data Yovana rce(s) Supporting Document(s) ID Date Data Source [id number] 03/21/2021 04:46:00 AM EDT [facility] Name Value Range Interpretation Code Description Data Yovana rce(s) Supporting Document(s) Progress Note [facility] NARTEt3xHsNEKiJx39/TDUgqDDCrg9ZdOJwuOSu2MGmhWZXoG2FwINW0aJ7iNOQ1RUgCAmQwFsOcRxDu lbm KgNzrSEdPwSBWmUesZMeIwGKttHxpftVVtVY1QpAO6GNPiH82hTVShGEDpI0EfRGCgRUD+Th4BNCVheP TdDM1MBymY6EsvhaT6KW8m0Y1rNPBTGpkkmDxs3+VhBvcVonvwBeBKFqIQkujRTgayw14eKzUtnrUS2U 9KThNtA8ESo8T4d0uuGaKT/v9SPzAUyfd6/2mKuIe6 A9HjfwB7YSzefq1EQGGZVUUTvDBxF84/VfNnPeriZrUbA0NCHNzmRaKyF5xWzFS1E6/P8WsVU2CbBySN nyWazUZLJBZWx3Gylf8FF6pJTZzsDuol5sQTLaFGUuCw1YVXirhk5zMvStmscGpBJ8FaMJBvZLdt22Wn AZNB4i4h0dtYZF35j3sEKOnT0kj7twsT7XPuhVNwkq TMZB+ayFiHPDDuJ7l1KZSEZjILlnzrs9cacxnml6J3RBWUNy+xi7LOPGTjgpN3jczbAsGLjne8eQzrIf Z+ybRFX5KpYeX0HQ4eKzseaBoGqWh4xeWcJktfQ3NlvkrYyUVn0ZIHZbosMQbNxiUyUD6NgSKmegt91K epreatfrjqtReE03l7rkfsjkuTgZzX2RxsLxh/OtUi [file] ICAgICAgICAgICAgICAgICAgICAgICAgICAgICAgICAgICAgICAgICAgICAgICAgICAgICAgICAgICAg ICAgICAgICAgICAgICAgICAgICAgICAgICAgICAgIC AgICANCiAgICAgICAgICAgICAgICAgICAgICAgICAgICAgICAgICAgICAgICAgICAgICAgICAgICAgIC AgICAgICAgICAgICAgICAgICAgICAgICAgICAgICAgICAgICAgICAgICAgICANCiAgICAgICAgICAgIC AgICAgICAgICAgICAgICAgICAgICAgICAgICAgICAg ICAgICAgICAgICAgICAgICAgICAgICAgICAgICAgICAgICAgICAgICAgICAgICAgICAgICAgICANCiAg ICAgICAgICAgICAgICAgICAgICAgICAgICAgICAgICAgICAgICAgICAgICAgICAgICAgICAgICAgICAg ICAgICAgICAgICAgICAgICAgICAgICAgICAgICAgIC AgICAgICANCiAgICAgICAgICAgICAgICAgICAgICAgICAgICAgICAgICAgICAgICAgICAgICAgICAgIC AgICAgICAgICAgICAgICAgICAgICAgICAgICAgICAgICAgICAgICAgICAgICAgICANCiAgICAgICAgIC AgICAgICAgICAgICAgICAgICAgICAgICAgICAgICAg ICAgICAgICAgICAgICAgICAgICAgICAgICAgICAgICAgICAgICAgICAgICAgICAgICAgICAgICAgICAN CiAgICAgICAgICAgICAgICAgICAgICAgICAgICAgICAgICAgICAgICAgICAgICAgICAgICAgICAgICAg ICAgICAgICAgICAgICAgICAgICAgICAgICAgICAgIC AgICAgICAgICANCiAgICAgICAgICAgICAgICAgICAgICAgICAgICAgICAgICAgICAgICAgICAgICAgIC AgICAgICAgICAgICAgICAgICAgICAgICAgICAgICAgICAgICAgICAgICAgICAgICAgICANCiAgICAgIC AgICAgICAgICAgICAgICAgICAgICAgICAgICAgICAg ICAgICAgICAgICAgICAgICAgICAgICAgICAgICAgICAgICAgICAgICAgICAgICAgICAgICAgICAgICAg ICANCiAgICAgICAgICAgICAgICAgICAgICAgICAgICAgICAgICAgICAgICAgICAgICAgICAgICAgICAg ICAgICAgICAgICAgICAgICAgICAgICAgICAgICAgIC AgICAgICAgICAgICANCjw/vISnH2tsvUUlmjH1Y6njUh6OXf6FNV2mb7RoAYCfBLwhrwLkJemOUiFzAN QuRpsQNej8LVwfRP3YxNSfH9JbH2NjDAgxRZ8PBZRwGQFraZQcIHDgIZVjHzI9RUAxIXouUR2GtZTwUU wpKGIkNFZiKG3EHAEhC734akQgAS9BZl2BUhRdVG3z wt6FGZsiCREzUcvDWgd9DEtvOH5AhHUmeTWqDYBuKLIRLqSrK3iwc5FcQDutIOINPRkhQQ9Pf6BfoLXy DQo+Bo1WBI8ma8BcTOegSCGlLE8noo8KAYmCNzVnY0ZcxTzbUYWaj6fdTTQzMQ6bfWTjJIV6JQGdpJ3u CEXYqSRdeVliJBHwRDWwIx0mZW7tKWCuLEJ8VnX2AQ ZCSY5WVYSjJBPhkCYpVJJzMRJQCB9RZQvtQRP3IRZgsnDvgBKhHWpjEF2NHCPmqmSdVWyxONBYZRx+Pg 2TJE4jj7WdRXqmAWCjJJ0kwc2VJLkIUgIpN8T8sJLbR3V4BCzeXm5HFXQsIWObEDHgOUAPKEavOH9JWJ 4qcvM2SZ1IjFRwRKRvBGGddAUkDMc0M39flAHnVRfp ZU6DDKY+Brenda+Bc4BXKRzNCLvWBZuCiZxVJCNZoYtA2RgJ6BTe1CoE9YrLQ66wKfwkgNoFGjtIJ2LUW3t VGStLXMIIH0XkEUllP0itpYdWvLbAHDTRbBmI04lfADyYJFbWZN8YPHzJe6OGINxQ8TqlfDroVowzpSp XJPwCYTFRW2JMPmbtwTmaTLnnAclBR75tUlbZM1RGh 4NJgNnXA2qyg8HjGXcPj7OAJCoDY5LWMXoBNYnJKMyRDK6DOSkYaHgWJxaCDAaEPWxUZI3OMEpVRScHB 2DUaEvIUXeHHK2EOAcXOEtTKUfkk3XKIBeCHNeQuP8YBJyASNpGPWeVWraSADxIWVvVFP7COBgETWaUM 5UNtFbTDWjCZL5MBDdXGNvJZPhbs8ICMTiTFJhRVP5 WzVeVCMeDKEtFQdgMOGrILJuJvX4IMNxMJGuYQ5XQhIwJFBvTUZ5WFMwKGHdSKVmup6BJJTyHDWmCiBm LATlDBIvOYWyHWumYVAmXCSpUTo0GSKkJRIwHF0HHxJtTBQfPOMmLACvZPCgGZXsbv1SWDYwATQbLGI5 WVGmZSSnFINdVPnnHZDlBFI2FmU4DFYuDUQpQU3XEr EnLLOmXYK1MfUxQZDgZXDvgj0XLBTlHQKfWWnjBPZfDXKpESAcEPfaTFXlIIF0EJAhXWJbGUNbYI7OPz UrJMHaABf9FveeURZeUAJall8MCYVpKMMhChU9PMCpSUNjYBMmTUflJEToYGS2Hgs0LRJdLVYcSG1FZc AiJOixCGOGBhd5EQfsO8p6JNXaZL6KB9Xms8EhSYpm XQXZESnbUB3vusEvTUMfWd4LD8pZGnh2FbY3IrN0YxY0SuQwHaZyWOA0ZCGoE9RcHbPdWDe4MM3gJTsd PSOsUmXuUDFwGVV0GpI3DIW1IhM3A8HoAvZzLkPvRsQqWR3XEb1KBdY5SNI5jGFrMt6VWHE2YE3SKNND T0YNCg== ID Date Data Source [id number] 03/21/2021 01:51:31 AM EDT [facility] Name Value Range Interpretation Code Description Data Yovana rce(s) Supporting Document(s) Hepatitis C virus Ab [Presence] in Serum or Plasma by Immuno assay Non Reactive [facility] No serological evidence of active infect ion. If recent exposure is suspected, test for HCV RNA. ID Date Data Source [id number] 03/21/2021 01:38:45 AM EDT [facility] Name Value Range Interpretation Code Description Data Yovana rce(s) Supporting Document(s) Lactate [Moles/volume] in Serum or Plasma 1.2 mmol/l 0.5-2.2 [facility] ID Date Data Source [id number] 03/20/2021 10:40:00 PM EDT [facility] Name Value Range Interpretation Code Description Data Yovana rce(s) Supporting Document(s) SARS coronavirus 2 RdRp gene https://www.fda.gov/media/427370/downloa d [facility] This lab was ordered by [facility] and reported by [facility]. ID Date Data Source [id number] 03/20/2021 10:51:37 PM EDT [facility] Name Value Range Interpretation Code Description Data Yovana rce(s) Supporting Document(s) SARS coronavirus 2 RdRp gene Negative [facility] Test performed using the Transmit Prom[employer] ID NOW C OVID-19 assay. This test is only for use under the Food and Drug Administration's Emergency Use Authorization. Additional information is available on the following FDA websites for health care providers and patients.https://www.fda.gov/media/703907/downloadhttps://www.fda.gov/media/1365 24/download Patients first test for [facility] 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 [facility] Patient has symptoms related to [facility] When did you start to experience these symptoms [Date and time] [Phen X] [facility] Patient was hospitalized because of this condition [facility] patient was admitted to ICU for [facility] Patient resides in a congregate care setting [facility] status [facility] ID Date Data Source [id number] 03/20/2021 10:32:00 PM EDT [facility] Name Value Range Interpretation Code Description Data Yovana rce(s) Supporting Document(s) SARS-CoV-2 RNA 2019 nCoV Real-Time RT-PCR: NOT DETECTED [facility] This lab was ordered by [facility] and reported by [facility]. ID Date Data Source [id number] 03/21/2021 12:27:12 AM EDT [facility] Service Cmnt XXX-Imp : NoneRespiratory P CR Panel : PCR ResultsMicroorganism XXX Cult : See Labs Tab for 2019 nCoV RT-PCR resultsHAdV DNA QI GONZALO+non-probe : Not DetectedHCoV [id number] Nph QI GONZALO+non-probe : Not DetectedHCoV [id number] Nph QI GONZALO+non-probe : Not [id number] RNA Nph QI GONZALO+non-probe : Not [id number] RNA Upper resp QI GONZALO+probe : Not [...] DNA Nph Q GONZALO+non-probe : Not DetectedB [id number] DNA Nph GONZALO+non-probe : Not Detected Name Value Range Interpretation Code Description Data Yovana rce(s) Supporting Document(s) ID Date Data Source [id number] 03/21/2021 12:24:50 AM EDT [facility] Name Value Range Interpretation Code Description Data Yovana rce(s) Supporting Document(s) Specimen source [Identifier] of Unspecified specimen [facility] SARS-CoV-2 RNA 2019 nCoV Real-Time RT-PCR: NOT DETECTED [facility] Assay Performed [facility] Patients first test for [facility] 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 [facility] Patient has symptoms related to [facility] When did you start to experience these symptoms [Date and time] [Phen X] [facility] Patient was hospitalized because of this condition [facility] patient was admitted to ICU for [facility] Patient resides in a congregate care setting [facility] status [facility] ID Date Data Source [id number] 03/20/2021 05:34:31 PM EDT [facility] XR CHEST FRONTAL ONLY [id number] RESULTI nterpreted by:Cathy Amos MDINDICATION: Stroke.TECHNIQUE: XR CHEST FRONTAL ONLY [id number].COMPARISON: None available.FINDINGS: There are degenerative changes of the thoracic spine.The mediastinal contours are normal.There is no evidence of pleural disease.The lungs are clear apart from emphysematous changes.IMPRESSION: No acute cardiopulmonary disease.This document has been electronically signed by Parviz Marcano MD on 03/20/2021 5:16 PM Name Value Range Interpretation Code Description Data Yovana rce(s) Supporting Document(s) ID Date Data Source [id number] 03/20/2021 06:01:59 PM EDT [facility] Name Value Range Interpretation Code Description Data Yovana rce(s) Supporting Document(s) Color of Urine [facility] Clarity of Urine [facility] Specific gravity of Urine by Refractometry automated 1.017 1.003 -1.030 [facility] pH of Urine by Automated test strip 7.0 5.0-8.0 [facility] Protein [Mass/volume] in Urine by Automated test strip Neg [facility] Glucose [Mass/volume] in Urine by Automated test strip Neg [facility] Ketones [Mass/volume] in Urine by Automated test strip Neg [facility] Bilirubin.total [Presence] in Urine by Automated test strip Negative [facility] Hemoglobin [Presence] in Urine by [facility] test [facility] Leuk[facility] esterase [Presence] in Urine by Automated test strip Negative A [facility] Nitrite [Presence] in Urine by Automated test strip Negati ve [facility] Leukocytes [#/area] in Urine sediment by Automated count 1 /HPF 0 -5 [facility] Erythrocytes [#/area] in Urine sediment by Automated count 2 /HPF 0-3 [facility] ID Date Data Source [id number] 03/20/2021 01:40:39 PM T [facility] CT ANGIOGRAPHY HEAD [id number] RESULTInt erpreted by:Merced Jorgensen MDINDICATION: Left sided [...] artery. There is origin of the bilateral roll bucker. The intracranial segments of both internal carotid, [...] rce(s) Supporting Document(s) ID Date Data Source [id number] 03/20/2021 01:40:[address] [facility] [address] ANGIOGRAPHY NECK [id number] RESULTInt erpreted by:Merced Jorgensen MDINDICATION: Left sided [...] artery. There is origin of the bilateral roll bucker. The intracranial segments of both internal carotid, [...] rce(s) Supporting Document(s) ID Date Data Source [id number] 03/20/2021 01:48:13 PM [facility] Value Range Interpretation Code Description Data Yovana rce(s) Supporting Document(s) Troponin I.cardiac [Mass/volume] in Blood 0.01 ng/mL 0.00-0.08 [facility] ID Date Data Source [id number] 03/20/2021 01:48:13 PM [facility] Value Range Interpretation Code Description Data Yovana rce(s) Supporting Document(s) Sodium [Moles/volume] in Blood 138 mmol/L 136-145 [facility] Potassium [Moles/volume] in Blood 3.7 mmol/L 3.4-5.1 [facility] Chloride [Moles/volume] in Blood 108 mmol/L 98-107 H [facility] Carbon dioxide, total [Moles/volume] in Blood 21 mmol/L 22-29 L [facility] Calcium.ionized [Moles/volume] in Blood 1.16 mmol/L 1.13-1.32 [facility] Glucose [Mass/volume] in Blood 102 mg/dL 70-140 [facility] Urea nitrogen [Mass/volume] in Blood 8 mg/dL 8-23 [facility] Creatinine [Mass/volume] in Blood 1.1 mg/dL 0.70-1.20 [facility] Hematocrit [Volume Fraction] of Blood 33 % 41-53 L [facility] Hemoglobin [Mass/volume] in Blood by calculation 11.2 g/dL 13.5-18.0 [facility] System ID Date Data Source [id number] 03/20/2021 01:48:13 PM [facility] Value Range Interpretation Code Description Data Yovana rce(s) Supporting Document(s) pH of Venous blood 7.31 7.36-7.41 L [facility] Carbon dioxide [Partial pressure] in Venous blood 41 mmHg 40-45 [facility] Oxygen [Partial pressure] in Venous blood 29 mmHg [facility] Base excess standard in Venous blood by calculation [facility] Oxygen saturation Calculated from oxygen partial pressure in Venous blood 50 % 60-85 L [facility] Lactate [Moles/volume] in Venous blood 3.0 mmol/L 0.5-2.2 H [facility] Bicarbonate [Moles/volume] in Venous blood 22 mmol/L [facility] ID Date Data Source [id number] 03/20/2021 04:08:36 PM [facility] Name Value Range Interpretation Code Description Data Yovana rce(s) Supporting Document(s) Phenobarbital [Mass/volume] in Serum or Plasma 3.3 ug/ml 15-40 L [facility] ID Date Data Source [id number] 03/20/2021 05:23:47 PM [facility] Name Value Range Interpretation Code Description Data Yovana rce(s) Supporting Document(s) Albumin [Mass/volume] in Serum or Plasma by Bromocresol green (BCG) dye binding method 3.2 g/dL 3.5-5.2 L [facility] Bilirubin.total [Mass/volume] in Serum or Plasma <1.2 [facility] Calcium [Mass/volume] in Serum or Plasma 8.2 mg/dL 8.8-10.2 L [facility] Chloride [Moles/volume] in Serum or Plasma 105 mmol/L 98-107 [facility] Creatinine [Mass/volume] in Serum or Plasma 0.90 mg/dL 0.70-1.20 [facility] Glucose [Mass/volume] in Serum or Plasma 98 mg/dL 70-140 [facility] Alkaline phosphatase [Enzymatic activity/volume] in Serum or Plasma 55 U/L 40-129 [facility] Potassium [Moles/volume] in Serum or Plasma 3.6 mmol/L 3.4-5.1 [facility] Protein [Mass/volume] in Serum or Plasma 5.9 g/dL 6.4-8.3 L [facility] Sodium [Moles/volume] in Serum or Plasma 136 mmol/L 136-145 [facility] Aspartate aminotransferase [Enzymatic activity/volume] in Serum or Plasma 49 U/L <40 H [facility] Urea nitrogen [Mass/volume] in Serum or Plasma 8 mg/dL 8-23 [facility] Osmolality of Serum or Plasma by calculation 280 mosm/kg 275-300 [facility] Creatinine/Urea nitrogen [Mass Ratio] in Serum or Plasma 9 [facility] Bicarbonate [Moles/volume] in Serum 19 mmol/L 22-29 L [facility] Alanine aminotransferase [Enzymatic activity/volume] in Seru m or Plasma 31 U/L <41 [facility] Anion gap 3 in Serum or Plasma 13 mmol/L 8-15 [facility] Glomerular filtration rate/1.73 sq M pre dicted among non-blacks [Volume Rate/Area] in Serum or Plasma by Creatinine-based formula (MDRD) 82 mL/min/1.73m2 >60 [facility] Glomerular filtration rate/1.73 sq M pre dicted among blacks [Volume Rate/Area] in Serum or Plasma by Creatinine-based formula (MDRD) >60 [facility] ID Date Data Source [id number] 03/20/2021 05:34:42 PM EDT [facility] Name Value Range Interpretation Code Description Data Yovana rce(s) Supporting Document(s) Leukocytes [#/volume] in Blood by Automated count 5.0 10*3/uL 4-10 [facility] Erythrocytes [#/volume] in Blood by Automated count 2.56 10*6/uL 4.6- 6.1 L [facility] Hemoglobin [Mass/volume] in Blood 9.5 g/dL 13.5-18 L [facility] Hematocrit [Volume Fraction] of Blood by Automated count 28.4 % 4 1-53 L [facility] Erythrocyte mean corpuscular volume [Entitic volume] b y Automated count 110.8 fL 80-96 H [facility] Erythrocyte mean corpuscular hemoglobin [Entitic mass] by Automated count 37.0 pg 27-33 H [facility] Erythrocyte mean corpuscular hemoglobin concentration [Mass/volume] by Automated count 33.4 g/dL 32.0-36.0 [facility] Erythrocyte distribution width [Ratio] by Automated count 16.3 % 11.5-14.5 H [facility] Platelets [#/volume] in Blood by Automated count 241 10*3/uL 150-400 [facility] Differential cell count method - Blood [facility] Neutrophils/100 leukocytes in Blood by Automated count 73 % [facility] Lymphocytes/100 leukocytes in Blood by Automated count 14 % [facility] Monocytes/100 leukocytes in Blood by Automated count 12 % [facility] Eosinophils/100 leukocytes in Blood by Automated count 0 % [facility] Basophils/100 leukocytes in Blood by Automated count 1 % [facility] Neutrophils [#/volume] in Blood by Automated count 3.61 10*3/uL 1.8-7 .0 [facility] Lymphocytes [#/volume] in Blood by Automated count 0.70 10*3/uL 1.2-4 .0 L [facility] Monocytes [#/volume] in Blood by Automated count 0.61 10*3/uL 0-0.8 [facility] Eosinophils [#/volume] in Blood by Automated count 0.01 10*3/uL 0-0.5 [facility] Basophils [#/volume] in Blood by Automated count 0.05 10*3/uL 0-0.2 [facility] Nucleated erythrocytes/100 leukocytes [Ratio] in Blood by Automated count 0 /100{WBCs} 0-0 [facility] ID Date Data Source [id number] 03/20/2021 06:10:42 PM EDT [facility] Name Value Range Interpretation Code Description Data Yovana rce(s) Supporting Document(s) Troponin T.cardiac [Mass/volume] in Serum or Plasma <0.01 [facility] Procedure Social History Code Duration Value Status Description Data Source(s ) Smoking 05/28/2021 12:00:00 AM EDT Never Smoked A Pipe complet ed Never Smoked A Pipe MEDENT ([facility]) Smoking 05/10/2021 12:00:00 AM EDT Former Smoker completed Former Smoker eCW1 ([facility]) Smoking 04/05/2021 12:00:00 AM EDT Former Smoker completed Former Smoker eCW1 ([facility]) Smoking 01/07/2021 12:00:00 AM EDT Patient is a former smoker completed Patient is a former smoker MEDENT ([facility]) Vital Signs ID Date Data Source UNK Name Value Range Interpretation Code Description Data Source(s) Systolic blood pressure 134 mm[Hg] 134 mm[Hg] e CW1 ([facility]) Body weight 231 [lb_av] 231 [lb_av] eCW1 ([facility]) Diastolic blood pressure 76 mm[Hg] 76 mm[Hg] eCW1 ([facility]) Body height 69 [in_i] 69 [in_i] eCW1 ([facility]) Body mass index (BMI) [Ratio] 34.11 kg/m2 34.11 kg/m2 eCW1 ([facility]) Heart rate 88 /min 88 /min eCW1 ([facility]) Respiratory rate 20 /min 20 /min eCW1 ([facility]) Body temperature 96.4 [degF] 96.4 [degF] eCW1 ( [facility]) Body weight 231 [lb_av] 231 [lb_av] eCW1 ([facility]) Body height 69 [in_i] 69 [in_i] eCW1 ([facility]) Body mass index (BMI) [Ratio] 34.11 kg/m2 34.11 kg/m2 eCW1 ([facility]) Heart rate 83 /min 83 /min eCW1 ([facility]) Respiratory rate 19 /min 19 /min eCW1 ([facility]) Body temperature 98.1 [degF] 98.1 [degF] eCW1 ( [facility]) Systolic blood pressure 130 mm[Hg] 130 mm[Hg] e CW1 ([facility]) Diastolic blood pressure 79 mm[Hg] 79 mm[Hg] eCW1 ([facility]) Systolic blood pressure 113 mm[Hg] 113 mm[Hg] M EDENT ([facility], [facility]) Diastolic blood pressure 69 mm[Hg] 69 mm[Hg] MEDENT ([facility], [facility]) Heart rate 90 /min 90 /min MED[facility] ([facility], [facility]) Respiratory rate 15 /min 15 /min MED[facility] ( [facility]) Oxygen saturation in Arterial blood by Pulse oximetry 99 % 99 % MEDENT ([facility], [facility]) Body temperature 97.7 [degF] 97.7 [degF] MEDENT ([facility], [facility]) Body weight 182.00 [lb_av] 182.00 [lb_av] MEDEN T ([facility], [facility]) Body height 69 [in_i] 69 [in_i] MEDENT ([facility]) 5'9" Body mass index (BMI) [Ratio] 26.9 kg/m2 26.9 k g/m2 [facility] ([facility]) Body weight 188.00 [lb_av] 188.00 [lb_av] MEDEN T ([facility]) Body weight 85.277 kg 85.277 kg MEDENT ([facility]) Body height 69 [in_i] 69 [in_i] MEDENT ([facility]) 5'9" Body mass index (BMI) [Ratio] 27.8 kg/m2 27.8 k [facility] Body surface area Derived from formula 2.01 m2 2.01 m2 [facility] ([facility]) ID Date Data Source [id number] 03/29/2021 10:00:35 AM [facility] Name Value Range Interpretation Code Description Data Source(s) WEIGHT RECORDED 193.[address] [facility] Patient Treatment Plan of Care Planned Activity Planned Date Details Description Data Source (s) Donepezil hydrochloride 5 MG Oral Tablet 03/21/2021 10:00:00 PM [facility] Mirtazapine 15 MG Oral Tablet 03/21/2021 10:00:00 PM [facility] olanzapine 2.5 MG Oral Tablet 03/21/2021 10:00:00 PM [facility] Simvastatin 20 MG Oral Tablet 03/21/2021 10:00:00 PM [facility] 60 ACTUAT Budesonide 0.16 MG/ACTUAT / fo rmoterol fumarate 0.0045 MG/ACTUAT Metered Dose Inhaler 03/21/2021 09:00:00 AM [facility] psyllium powder 1 packet 03/21/2021 09:00:00 AM [facility] POLYETHYLENE GLYCOL 3350 142 MG/ML Oral Solution 03/21/2021 09:00:0 0 AM [facility] tiotropium (SPIRIVA RESPIMAT) inhalation spray 2 puff 03/21/2021 09:00:00 AM [facility] ospital 0.4 ML Enoxaparin sodium 100 MG/ML Prefilled Syringe 021 09:00:00 AM [facility] Clonazepam 0.5 MG Oral Tablet 03/21/2021 04:46:26 AM [facility] Albuterol 0.83 MG/ML Inhalant Solution 03/20/2021 10:59:21 PM [facility] olanzapine 2.5 MG Oral Tablet [facility] VITAMIN D, CHOLECALCIFEROL, PO [facility] Simvastatin 40 MG Oral Tablet [facility] Simvastatin 80 MG Oral Tablet [facility] rizatriptan 10 MG Oral Tablet [facility] Psyllium 14.2 MG/ML Oral Suspension [facility] Omeprazole 20 MG Delayed Release Oral Capsule [facility] midodrine hydrochloride 5 MG Oral Tablet [facility] flunisolide (NASALIDE) 25 MCG/ACT (0.025%) SOLN [facility] Weems-3 Fatty Acids (FISH OIL PO) [facility] 72 HR Fentanyl 0.05 MG/HR Transdermal Patch [facility] Docusate Sodium 50 MG Oral Capsule [facility] Donepezil hydrochloride 5 MG Oral Tablet [facility] Ciprofloxacin 100 MG/ML Oral Suspension [facility] Carboxymethylcellulose Sodium 5 MG/ML Ophthalmic Solution [facility] Capsaicin 0.75 MG/ML Topical Cream [facility]
== END 2021-09-01 01:43 | disposition home or self-care (01) ==
LOC: M ED 23:59
DX: T83.098A Other mechanical complication of other urinary catheter, initial encounter (principal); I10 Essential (primary) hypertension; F33.9 Major depressive disorder, recurrent, unspecified; K21.9 Gastro-esophageal reflux disease without esophagitis; Z85.46 Personal history of malignant neoplasm of prostate; Z79.899 Other long term (current) drug therapy; Z88.1 Allergy status to other antibiotic agents; Z88.8 Allergy status to other drugs, medicaments and biological substances; Z91.018 Allergy to other foods; Z91.048 Other nonmedicinal substance allergy status

== ENCOUNTER → 2021-10-25 | Outpatient (CLI) | payer OTHER ==
[~2021-10-25] MED LIST changes: -ALEN70SO PO; +ALEN70SO2 PO; -CEFD1CAP8 PO; +CEFD300C41 PO; +DONE-1 PO; -DONETAB6 PO; -LEVO500T3 PO; +LEVO500T4 PO
[2021-10-25 09:36] LABS: CALCIUM LEVEL 9.6 MG/DL (8.8-10.2); CREATININE FOR GFR 1.4 MG/DL (0.70-1.30); GLOMERULAR FILTRATION RATE 52.6 (>42); POTASSIUM SERUM 4.4 MEQ/L (3.5-5.1)
== END ==
LOC: M RAD 07:42
PROVIDERS: ATTEND Urology
DX: N28.89 Other specified disorders of kidney and ureter (principal)

== ENCOUNTER → 2021-10-31 | Outpatient (CLI) | payer OTHER ==
[~2021-10-31] MED LIST changes: +ISOVUE-370 76% 100ML VIAL As Ordered ONE
== END ==
LOC: M RAD 09:18
PROVIDERS: ATTEND Urology
DX: N28.89 Other specified disorders of kidney and ureter (principal)
CPT/HCPCS: 74178; Q9967

== ENCOUNTER → 2022-03-27 | Outpatient (CLI) | payer OTHER ==
[~2022-03-27] MED LIST changes: +ALBU2.5V10 INH; -ALBU83IN INH; -ISOVUE-370 76% 100ML VIAL As Ordered ONE; -ZONI100C17 PO; +ZONI100C67 PO
== END ==
LOC: M WHC 13:45
PROVIDERS: ATTEND Nurse Practitioner Family
DX: R60.0 Localized edema (principal); Z86.718 Personal history of other venous thrombosis and embolism

== ENCOUNTER → 2022-03-27 | Outpatient (CLI) | payer OTHER | LOC: M PLAIMG 13:14 | PROVIDERS: ATTEND Nurse Practitioner Family | DX: M54.12 Radiculopathy, cervical region (principal); J98.11 Atelectasis; R60.0 Localized edema; Z86.718 Personal history of other venous thrombosis and embolism ==

== ENCOUNTER → 2022-04-17 | Outpatient (REF) | payer OTHER ==
[2022-04-17 13:48] LABS: APPEARANCE, URINE CLOUDY (CLEAR); BACTERIA, URINE AUTO 1+ (NEGATIVE); BILIRUBIN, URINE AUTO NEGATIVE (NEGATIVE); BLOOD, URINE BLOOD 2+ (NEGATIVE); COLOR, URINE RED (YELLOW); GLUCOSE, URINE (UA) AUTO NEGATIVE (NEGATIVE); KETONE, URINE AUTO NEGATIVE (NEGATIVE); LEUKOCYTE ESTERASE, URINE AUTO 1+ (NEGATIVE); MUCUS, URINE SMALL (NEGATIVE); NITRITE, URINE AUTO NEGATIVE (NEGATIVE); PROTEIN, URINE AUTO NEGATIVE (NEGATIVE); RBC, URINE AUTO 3 /HPF (0-3); SPECIFIC GRAVITY URINE AUTO 1.004 (1.002-1.035); SQUAMOUS EPITHELIAL CELL UR AU 0 /HPF (0-6); UROBILINOGEN, URINE AUTO 0.2 mg/dL (0.0-2.0); WBC, URINE AUTO 5 /HPF (0-3)
== END ==
LOC: M SMT 12:54
PROVIDERS: ATTEND Urology
DX: R33.9 Retention of urine, unspecified (principal)

== ENCOUNTER → 2022-05-02 | Outpatient (CLI) | payer OTHER | LOC: M WHC 10:03 | PROVIDERS: ATTEND Nurse Practitioner Family | DX: M85.852 Other specified disorders of bone density and structure, left thigh (principal); M81.0 Age-related osteoporosis without current pathological fracture; Z12.5 Encounter for screening for malignant neoplasm of prostate | CPT/HCPCS: 36415; 77080; G0103 ==

== ENCOUNTER → 2022-05-02 | Outpatient (CLI) | payer OTHER | LOC: M WUC 11:13 | PROVIDERS: ATTEND Urology | DX: Z12.5 Encounter for screening for malignant neoplasm of prostate (principal) ==

== ENCOUNTER 2022-05-17 07:18 | Emergency (ER) | payer OTHER ==
[~2022-05-17] VITALS: Ht 172.7 cm; Wt 94.5 kg
[~2022-05-17 07:18] MED LIST changes: +LEVO1TAB39 PO; -LEVO500T4 PO
[2022-05-17] MEDS ORDERED: COMBIVENT RESPIMAT 100-20MCG INHALER 4GM INH STA (07:43)
[2022-05-17] MEDS ORDERED: NS 1,000 ML IV SCH (07:45)
[2022-05-17] MEDS ORDERED: ACETAMINOPHEN 325 MG TAB PO ONE (07:45)
[2022-05-17 08:59] LABS: VENOUS BASE EXCESS -4.8 (-2.0-2.0); VENOUS HCO3 19.1 MEQ/L (23.0-27.0); VENOUS O2 SATURATION 98.3 % (60.0-80.0); VENOUS PARTIAL PRESSURE CO2 31.8 mmHg (38.0-50.0); VENOUS PARTIAL PRESSURE O2 108.6 mmHg (30.0-50.0); VENOUS PH 7.396 UNITS (7.330-7.430); VENOUS STANDARD HCO3 20.5 MEQ/L; VENOUS TOTAL CO2 20.1 MEQ/L (24.0-28.0)
[2022-05-17 09:06] LABS: BASO # 0.1 10^3/uL (0.0-0.2); BASO % 0.4 % (0.0-1.0); EOS % 0.3 % (0.0-3.0); HEMATOCRIT 36.2 % (42.0-52.0); HEMOGLOBIN 11.4 g/dl (13.5-17.5); LYMPH # 0.9 10^3/uL (1.5-5.0); LYMPH % 8.2 % (24.0-44.0); MEAN CORPUSCULAR HEMOGLOBIN 31.4 pg (27.0-33.0); MEAN CORPUSCULAR HGB CONC 31.5 g/dl (32.0-36.5); MEAN CORPUSCULAR VOLUME 99.7 fl (80.0-96.0); MONO # 0.8 10^3/uL (0.0-0.8); MONO % 6.9 % (2.0-8.0); NEUTROPHILS # 9.5 10^3/uL (1.5-8.5); NEUTROPHILS % 83.5 % (36.0-66.0); PLATELET COUNT, AUTOMATED 227 10^3/uL (150-450); RED BLOOD COUNT 3.63 10^6/uL (4.30-6.10); WHITE BLOOD COUNT 11.4 10^3/uL (4.0-10.0)
[2022-05-17 10:13] LABS: ALBUMIN 2.8 GM/DL (3.2-5.2); ALT/SGPT 15 U/L (12-78); BILIRUBIN,DIRECT 0.1 MG/DL (0.0-0.2); BILIRUBIN,TOTAL 0.2 MG/DL (0.2-1.0); BLOOD UREA NITROGEN 10 MG/DL (7-18); CARBON DIOXIDE LEVEL 21 MEQ/L (21-32); CHLORIDE LEVEL 101 MEQ/L (98-107); CREATININE FOR GFR 1.07 MG/DL (0.70-1.30); GLOMERULAR FILTRATION RATE > 60.0 (>42); GLUCOSE, FASTING 138 MG/DL (70-100); POTASSIUM SERUM 4.1 MEQ/L (3.5-5.1); SODIUM LEVEL 131 MEQ/L (136-145); TOTAL PROTEIN 7.1 GM/DL (6.4-8.2)
[2022-05-17] MEDS ORDERED: ISOVUE-370 76% 100ML VIAL As Ordered ONE (10:33)
[2022-05-17] MEDS ORDERED: DOXY-342 PO (13:44)
[2022-05-17] MEDS ORDERED: AMOX875T2 PO (13:44)
[2022-05-17 14:03] VITALS: BP 157/71
== END 2022-05-17 14:15 | disposition home or self-care (01) ==
LOC: EDBD 07:18 → M ED 07:18
DX: J18.9 Pneumonia, unspecified organism (principal); R94.31 Abnormal electrocardiogram [ECG] [EKG]; J44.9 Chronic obstructive pulmonary disease, unspecified; R56.9 Unspecified convulsions; N28.1 Cyst of kidney, acquired; Z87.891 Personal history of nicotine dependence; R33.9 Retention of urine, unspecified; Z96.0 Presence of urogenital implants; Z88.8 Allergy status to other drugs, medicaments and biological substances; Z79.899 Other long term (current) drug therapy; Z79.51 Long term (current) use of inhaled steroids
CPT/HCPCS: 71045; 71275; 74177; 80048; 80076; 80184; 81001; 82803; 83605; 84443; 84484; 85025; 87040; 87088; 87186; 87486; 87581; 87633; 87798; 93005; 93041; 94640; 94760; 96360; 96361; 99285; Q9967

== ENCOUNTER → 2022-07-22 | Outpatient (CLI) | payer OTHER ==
[~2022-07-22] MED LIST changes: +AMOX875T2 PO; +DOXY-342 PO; -MAXA10TA14 PO; +RIZA10TA64 PO
== END ==
LOC: M PLAIMG 12:58
PROVIDERS: ATTEND Internal Medicine Pulmonary Disease
DX: R91.8 Other nonspecific abnormal finding of lung field (principal)

== ENCOUNTER → 2023-02-18 | Day surgery (SDC) | payer MEDICARE, OTHER ==
[~2023-02-18] VITALS: Ht 176.5 cm; Wt 90.7 kg
[~2023-02-18] MED LIST changes: +CAPS42.54 EX; +DOCU100C16 PO; -DOXY-342 PO; +DOXY100C81 PO; +ESMOLOL INJ 100MG/10ML VIAL As Ordered ONE; +NS 1,000 ML IV ONE; +QC F0.52 PO; +propofoL 200 MG/20 ML VIAL As Ordered ONE
[2023-02-18 11:33] VITALS: BP 134/74
== END | disposition home or self-care (01) ==
LOC: M OPP 09:36
PROVIDERS: ATTEND Internal Medicine Gastroenterology
DX: Z12.11 Encounter for screening for malignant neoplasm of colon (principal); K64.0 First degree hemorrhoids; K22.89 Other specified disease of esophagus; K44.9 Diaphragmatic hernia without obstruction or gangrene; F17.290 Nicotine dependence, other tobacco product, uncomplicated; Z79.51 Long term (current) use of inhaled steroids; Z79.899 Other long term (current) drug therapy; Z88.0 Allergy status to penicillin; Z88.8 Allergy status to other drugs, medicaments and biological substances; Z91.018 Allergy to other foods

== ENCOUNTER → 2023-06-11 | Outpatient (CLI) | payer MEDICARE, OTHER ==
[~2023-06-11] MED LIST changes: +CLON0.5T2 PO; +DICL100G10 TD; -DICL1GEL3 TD; -DOXY100C81 PO; +DOXY100C82 PO; -ESMOLOL INJ 100MG/10ML VIAL As Ordered ONE; +MIRT1TAB PO; -NS 1,000 ML IV ONE; +OMEP40CA4 PO; +POTA-165 PO; +POTA10CA60 PO; +RA M500C PO; -propofoL 200 MG/20 ML VIAL As Ordered ONE
== END ==
LOC: M PLARAD 10:32
PROVIDERS: ATTEND Pain Medicine Interventional Pain Medicine
DX: M54.16 Radiculopathy, lumbar region (principal)

== ENCOUNTER 2023-06-13 16:52 | Observation (INO) | payer MEDICARE, OTHER ==
[~2023-06-13] VITALS: Ht 175.3 cm; Wt 88.0 kg
[~2023-06-13 16:52] MED LIST changes: -CLON0.5T2 PO; -MIRT-62 PO; +MIRT-88 PO; -MIRT1TAB PO; -OMEP40CA4 PO; -POTA-165 PO; -POTA10CA60 PO; -RA M500C PO
[2023-06-13 18:09] LABS: BASO % 0.5 % (0.0-1.0); EOS # 0.1 10^3/uL (0.0-0.5); EOS % 1.5 % (0.0-3.0); HEMATOCRIT 33.6 % (42.0-52.0); HEMOGLOBIN 10.8 g/dl (13.5-17.5); LYMPH # 1.6 10^3/uL (1.5-5.0); LYMPH % 20.6 % (24.0-44.0); MEAN CORPUSCULAR HEMOGLOBIN 34.5 pg (27.0-33.0); MEAN CORPUSCULAR HGB CONC 32.1 g/dl (32.0-36.5); MEAN CORPUSCULAR VOLUME 107.3 fl (80.0-96.0); MONO # 0.9 10^3/uL (0.0-0.8); MONO % 11.6 % (2.0-8.0); NEUTROPHILS # 4.9 10^3/uL (1.5-8.5); RED BLOOD COUNT 3.13 10^6/uL (4.30-6.10); WHITE BLOOD COUNT 7.6 10^3/uL (4.0-10.0)
[2023-06-13 18:20] LABS: ALBUMIN 3.3 G/DL (3.2-5.2); ALKALINE PHOSPHATASE 49 U/L (46-116); ALT/SGPT < 9 U/L (7.0-40); AST/SGOT 33 U/L (<34); BILIRUBIN,DIRECT 0.1 MG/DL (<0.4); BILIRUBIN,TOTAL 0.3 MG/DL (0.3-1.2); BLOOD UREA NITROGEN 6 MG/DL (9-23); CALCIUM LEVEL 8.8 MG/DL (8.3-10.6); CARBON DIOXIDE LEVEL 21 MMOL/L (20-31); CHLORIDE LEVEL 104 MMOL/L (98-107); CREATININE FOR GFR 0.85 MG/DL (0.70-1.30); FREE T4 0.94 NG/DL (0.89-1.76); GLOMERULAR FILTRATION RATE > 60.0 (>42); GLUCOSE, FASTING 94 MG/DL (74-106); MAGNESIUM LEVEL 1.5 MG/DL (1.8-2.4); POTASSIUM SERUM 4.2 MMOL/L (3.5-5.1); SODIUM LEVEL 134 MMOL/L (136-145); THYROID STIMULATING HORMONE 4.056 uIU/ML (0.55-4.78); TOTAL PROTEIN 7.3 G/DL (5.7-8.2)
[2023-06-13] MEDS ORDERED: MAG SULF 1GM/100ML (MAG RUN) 1 GM in IV 1 EA IV ONE (18:30)
[2023-06-13 19:09] LABS: PLATELET COUNT, AUTOMATED 288 10^3/uL (150-450)
[2023-06-13] MEDS ORDERED: MED REC IN PROGRESS XX SCH (19:40)
[2023-06-13] MEDS ORDERED: OLAN1TAB16 PO (20:14)
[2023-06-13] MEDS ORDERED: CLON0.5T2 PO (20:14)
[2023-06-13] MEDS ORDERED: OMEP40CA4 PO (20:14)
[2023-06-13] MEDS ORDERED: MIRT1TAB PO (20:14)
[2023-06-13] MEDS ORDERED: HOME MED LIST COMPLETE! XX SCH (20:15)
[2023-06-13] MEDS ORDERED: FLUTICASONE PROP 0.05% NASAL SPRAY 16 GM (FLONASE) PRN (20:35)
[2023-06-13] MEDS ORDERED: RIZATRIPTAN BENZOATE 10 MG TAB PO PRN (20:35)
[2023-06-13] MEDS ORDERED: ALBUTEROL 90 MCG/ACT 8GM HFA INHALER INH PRN (20:35)
[2023-06-13] MEDS ORDERED: ALBUTEROL SULFATE 2.5MG/0.5ML INH NEB SOLN INH PRN (20:35)
[2023-06-13] MEDS ORDERED: SIMVASTATIN 40 MG TAB PO SCH (21:00)
[2023-06-13] MEDS ORDERED: MIRTAZAPINE 7.5MG PER 1/2 TABLET PO SCH (21:00)
[2023-06-13] MEDS ORDERED: PHENobarbitaL 30 MG TAB PO SCH (21:00)
[2023-06-13] MEDS ORDERED: OLANZapine 5 MG TAB PO SCH (21:00)
[2023-06-13] MEDS ORDERED: ZONISAMIDE 100 MG CAP (ZONEGRAN) PO SCH (21:00)
[2023-06-13 21:40] VITALS: BP 140/63; TEMP 98.6; O2SAT 99
[2023-06-13] MEDS ORDERED: PILL CUTTER 1 EACH XX PRN (21:45)
[2023-06-13] MEDS: LR 1,000 ML IV SCH (21:59)
[2023-06-13] MEDS: clonazePAM 0.5 MG TAB PO SCH (23:01)
[2023-06-13] MEDS: METAXALONE 800 MG TABLET PO SCH (23:01)
[2023-06-13] MEDS: OMEPRAZOLE 20MG CAP PO SCH (23:02)
[2023-06-13] MEDS: SINEMET 25-100 MG TAB PO SCH (23:02)
[2023-06-14] MEDS: ACETAMINOPHEN TAB 650MG DOSE (2X325MG) PO PRN ×3 (00:11→09:49)
[2023-06-14 04:18] VITALS: BP 167/73; TEMP 97; O2SAT 100
[2023-06-14] MEDS: LR 1,000 ML IV SCH (04:47)
[2023-06-14 06:00] LABS: HEMATOCRIT 31.2 % (42.0-52.0); HEMOGLOBIN 10.1 g/dl (13.5-17.5); MEAN CORPUSCULAR HEMOGLOBIN 34.5 pg (27.0-33.0); MEAN CORPUSCULAR HGB CONC 32.4 g/dl (32.0-36.5); MEAN CORPUSCULAR VOLUME 106.5 fl (80.0-96.0); PLATELET COUNT, AUTOMATED 234 10^3/uL (150-450); RED BLOOD COUNT 2.93 10^6/uL (4.30-6.10); WHITE BLOOD COUNT 8.4 10^3/uL (4.0-10.0)
[2023-06-14 06:48] LABS: ALBUMIN 2.7 G/DL (3.2-5.2); ALKALINE PHOSPHATASE 51 U/L (46-116); ALT/SGPT < 9 U/L (7.0-40); AST/SGOT 16 U/L (<34); BILIRUBIN,TOTAL 0.3 MG/DL (0.3-1.2); BLOOD UREA NITROGEN 6 MG/DL (9-23); CALCIUM LEVEL 8.6 MG/DL (8.3-10.6); CARBON DIOXIDE LEVEL 24 MMOL/L (20-31); CHLORIDE LEVEL 103 MMOL/L (98-107); CREATININE FOR GFR 0.82 MG/DL (0.70-1.30); GLOMERULAR FILTRATION RATE > 60.0 (>42); GLUCOSE, FASTING 109 MG/DL (74-106); MAGNESIUM LEVEL 1.6 MG/DL (1.8-2.4); POTASSIUM SERUM 3.4 MMOL/L (3.5-5.1); SODIUM LEVEL 134 MMOL/L (136-145); TOTAL PROTEIN 6.2 G/DL (5.7-8.2)
[2023-06-14] MEDS ORDERED: RA M500C PO ×2 (07:51→07:53)
[2023-06-14] MEDS ORDERED: POTA10CA60 PO (07:51)
[2023-06-14] MEDS ORDERED: POTA-165 PO (07:53)
[2023-06-14] MEDS ORDERED: TIOTROPIUM INHALER/CAPSULE (SPIRIVA) INH SCH (08:00)
[2023-06-14 08:13] VITALS: BP 162/74; TEMP 97.5; O2SAT 98
[2023-06-14] MEDS: MAG SULF 1GM/100ML (MAG RUN) 1 GM in IV 1 EA IV SCH ×3 (08:24→10:42)
[2023-06-14] MEDS ORDERED: VENLAFAXINE **XR** 75MG CAPSULE PO SCH (09:00)
[2023-06-14] MEDS ORDERED: ENOXAPARIN 40MG/0.4ML SYRINGE (J1650 PER 10MG) SC SCH (09:00)
[2023-06-14] MEDS ORDERED: DONEPEZIL 5 MG TAB PO SCH (09:00)
[2023-06-14] MEDS ORDERED: POTASSIUM CHLORIDE 10% LIQ 20MEQ/15ML UDC PO ONE (09:00)
[2023-06-14] MEDS: SINEMET 25-100 MG TAB PO SCH (09:48)
[2023-06-14] MEDS: clonazePAM 0.5 MG TAB PO SCH (09:48)
[2023-06-14] MEDS: OMEPRAZOLE 20MG CAP PO SCH (09:48)
[2023-06-14] MEDS: METAXALONE 800 MG TABLET PO SCH (09:49)
== END 2023-06-14 13:17 | disposition home health service (06) ==
LOC: EDBD 16:52 → M ED 16:52 → M ED INP 19:35 → M PCU 21:37
PROVIDERS: ADMIT Internal Medicine; ATTEND Internal Medicine
DX: R41.82 Altered mental status, unspecified (principal); G20 Parkinson's disease; I10 Essential (primary) hypertension; E83.42 Hypomagnesemia; E87.6 Hypokalemia; R10.30 Lower abdominal pain, unspecified; R19.7 Diarrhea, unspecified; H91.90 Unspecified hearing loss, unspecified ear; G40.909 Epilepsy, unspecified, not intractable, without status epilepticus; Z87.820 Personal history of traumatic brain injury; F43.10 Post-traumatic stress disorder, unspecified; F41.9 Anxiety disorder, unspecified; F32.A Depression, unspecified; M54.9 Dorsalgia, unspecified; G89.29 Other chronic pain; J44.9 Chronic obstructive pulmonary disease, unspecified; Z99.81 Dependence on supplemental oxygen; Z99.3 Dependence on wheelchair; E78.5 Hyperlipidemia, unspecified; K21.9 Gastro-esophageal reflux disease without esophagitis; Z88.8 Allergy status to other drugs, medicaments and biological substances; Z88.1 Allergy status to other antibiotic agents; Z91.018 Allergy to other foods; Z79.899 Other long term (current) drug therapy; F17.200 Nicotine dependence, unspecified, uncomplicated
CPT/HCPCS: 36415; 70450; 71045; 80048; 80053; 80076; 83735; 84132; 84439; 84443; 85025; 85027; 87486; 87581; 87633; 87798; 93005; 93041; 94640; 94760; 96365; 96376; 97161; 97530; 99285; G0378; J3475

== ENCOUNTER → 2023-11-23 | Outpatient (CLI) | payer MEDICARE, OTHER ==
[~2023-11-23] MED LIST changes: +CEFD1CAP9 PO; -CEFD300C41 PO; +CLON0.5T2 PO; +MIRT1TAB PO; +OMEP40CA4 PO; +POTA-165 PO; +POTA10CA60 PO; +RA M500C PO
== END ==
LOC: M RAD 10:39
PROVIDERS: ATTEND Internal Medicine Pulmonary Disease
DX: Z12.2 Encounter for screening for malignant neoplasm of respiratory organs (principal); Z87.891 Personal history of nicotine dependence; J43.9 Emphysema, unspecified; I70.0 Atherosclerosis of aorta; I25.10 Atherosclerotic heart disease of native coronary artery without angina pectoris

== ENCOUNTER 2024-01-24 19:18 | Emergency (ER) | payer OTHER, MEDICARE ==
[~2024-01-24 19:18] MED LIST changes: -SENN1TAB41 PO; +SENN1TAB85 PO
[2024-01-24 19:32] VITALS: TEMP 99.3
[2024-01-24 19:40] LABS: VENOUS BASE EXCESS -7.4 (-2.0-2.0); VENOUS HCO3 17.5 MMOL/L (23.0-27.0); VENOUS O2 SATURATION 98.1 % (60.0-80.0); VENOUS PARTIAL PRESSURE CO2 33.3 mmHg (38.0-50.0); VENOUS PARTIAL PRESSURE O2 100.7 mmHg (30.0-50.0); VENOUS PH 7.338 UNITS (7.330-7.430); VENOUS STANDARD HCO3 18.5 MMOL/L; VENOUS TOTAL CO2 18.5 MMOL/L (24.0-28.0)
[2024-01-24 19:41] LABS: IONIZED CALCIUM 4.4 MG/DL (4.5-5.3)
[2024-01-24 19:45] LABS: BASO # 0.1 10^3/uL (0.0-0.2); BASO % 0.5 % (0.0-1.0); EOS # 0.1 10^3/uL (0.0-0.5); EOS % 0.8 % (0.0-3.0); HEMATOCRIT 35.3 % (42.0-52.0); HEMOGLOBIN 11.1 g/dl (13.5-17.5); LYMPH # 1.6 10^3/uL (1.5-5.0); LYMPH % 14.8 % (24.0-44.0); MEAN CORPUSCULAR HEMOGLOBIN 32.2 pg (27.0-33.0); MEAN CORPUSCULAR HGB CONC 31.4 g/dl (32.0-36.5); MEAN CORPUSCULAR VOLUME 102.3 fl (80.0-96.0); MONO # 1.1 10^3/uL (0.0-0.8); MONO % 10.3 % (2.0-8.0); NEUTROPHILS # 8.1 10^3/uL (1.5-8.5); NEUTROPHILS % 73.3 % (36.0-66.0); PLATELET COUNT, AUTOMATED 273 10^3/uL (150-450); RED BLOOD COUNT 3.45 10^6/uL (4.30-6.10); WHITE BLOOD COUNT 11.1 10^3/uL (4.0-10.0)
[2024-01-24 20:09] LABS: ETHYL ALCOHOL (ETHANOL) < 0.003 % (0.000-0.010)
[2024-01-24 20:11] LABS: ALBUMIN 3.1 G/DL (3.2-5.2); ALKALINE PHOSPHATASE 53 U/L (46-116); ALT/SGPT < 9 U/L (7.0-40); AST/SGOT 22 U/L (<34); BILIRUBIN,DIRECT < 0.1 MG/DL (<0.4); BILIRUBIN,TOTAL 0.2 MG/DL (0.3-1.2); BLOOD UREA NITROGEN 16 MG/DL (9-23); CALCIUM LEVEL 8.8 MG/DL (8.3-10.6); CARBON DIOXIDE LEVEL 22 MMOL/L (20-31); CHLORIDE LEVEL 103 MMOL/L (98-107); CREATININE FOR GFR 1.08 MG/DL (0.70-1.30); GLOMERULAR FILTRATION RATE > 60.0 (>42); GLUCOSE, FASTING 94 MG/DL (74-106); MAGNESIUM LEVEL 1.6 MG/DL (1.8-2.4); PHOSPHORUS LEVEL 2.4 MG/DL (2.4-5.1); SODIUM LEVEL 135 MMOL/L (136-145); TOTAL PROTEIN 6.6 G/DL (5.7-8.2)
[2024-01-24] MEDS: PHENobarbital 65MG/ML 1ML VIAL IV ONE (20:20)
[2024-01-24 21:09] LABS: AMPHETAMINES LEVEL URINE NEGATIVE (NEGATIVE); BENZODIAZEPINES URINE NEGATIVE (NEGATIVE); COCAINE METABOLITE URINE NEGATIVE (NEGATIVE); METHADONE URINE NEGATIVE (NEGATIVE)
[2024-01-24 21:10] LABS: CANNABINOIDS URINE NEGATIVE (NEGATIVE); OPIATES URINE NEGATIVE (NEGATIVE); PHENCYCLIDINE URINE NEGATIVE (NEGATIVE)
[2024-01-24 21:30] LABS: BARBITURATES URINE POSITIVE (NEGATIVE)
[2024-01-24 21:51] VITALS: BP 160/75; O2SAT 96
== END 2024-01-25 01:09 | disposition home or self-care (01) ==
LOC: EDBD 19:18 → M ED 19:18
DX: G40.909 Epilepsy, unspecified, not intractable, without status epilepticus (principal); F43.10 Post-traumatic stress disorder, unspecified; J45.909 Unspecified asthma, uncomplicated; N18.9 Chronic kidney disease, unspecified; Z88.1 Allergy status to other antibiotic agents; Z88.8 Allergy status to other drugs, medicaments and biological substances; Z87.891 Personal history of nicotine dependence; Z86.718 Personal history of other venous thrombosis and embolism; Z91.02 Food additives allergy status; Z91.048 Other nonmedicinal substance allergy status; Z79.52 Long term (current) use of systemic steroids; Z79.810 Long term (current) use of selective estrogen receptor modulators (SERMs); Z79.83 Long term (current) use of bisphosphonates; Z79.899 Other long term (current) drug therapy
CPT/HCPCS: 70450; 72125; 80048; 80076; 80184; 80307; 82077; 82140; 82330; 82803; 83605; 83735; 84100; 85025; 93041; 96374; 99284; J2560

== ENCOUNTER → 2024-02-03 | Outpatient (CLI) | payer OTHER, MEDICARE | LOC: M RAD 10:33 | PROVIDERS: ATTEND Urology | DX: N20.0 Calculus of kidney (principal) ==

== ENCOUNTER 2024-05-23 10:26 | Observation (INO) | payer OTHER, MEDICARE ==
[~2024-05-23] VITALS: Ht 175.3 cm; Wt 79.5 kg
[2024-05-23] VITALS (11 sets, daily range): BP systolic 131–165; BP diastolic 59–76; TEMP 97.9–98.1; O2SAT 97–100
[~2024-05-23 10:26] MED LIST changes: -FLON1SPR; +FLON1SPR NARES; -POTA10CA60 PO; +POTA10CA70 PO
[2024-05-23] MEDS: ONDANSETRON 4MG 2ML VIAL IV ONE (10:53)
[2024-05-23] MEDS: MORPHINE 2 MG/ML 1ML VIAL IV PRN ×2 (10:54→22:45)
[2024-05-23 13:03] LABS: ALBUMIN 3.1 G/DL (3.2-5.2); ALKALINE PHOSPHATASE 43 U/L (46-116); ALT/SGPT < 9 U/L (7.0-40); AST/SGOT 17 U/L (<34); BILIRUBIN,TOTAL 0.3 MG/DL (0.3-1.2); BLOOD UREA NITROGEN 15 MG/DL (9-23); CALCIUM LEVEL 9.9 MG/DL (8.3-10.6); CARBON DIOXIDE LEVEL 25 MMOL/L (20-31); CHLORIDE LEVEL 109 MMOL/L (98-107); CREATININE FOR GFR 0.94 MG/DL (0.70-1.30); GLOMERULAR FILTRATION RATE > 60.0 (>42); GLUCOSE, FASTING 86 MG/DL (74-106); POTASSIUM SERUM 4.1 MMOL/L (3.5-5.1); SODIUM LEVEL 139 MMOL/L (136-145); TOTAL PROTEIN 6.6 G/DL (5.7-8.2)
[2024-05-23 13:32] LABS: BASO # 0.1 10^3/uL (0.0-0.2); BASO % 0.8 % (0.0-1.0); EOS # 0.1 10^3/uL (0.0-0.5); EOS % 1.8 % (0.0-3.0); HEMATOCRIT 37.3 % (42.0-52.0); LYMPH # 1.9 10^3/uL (1.5-5.0); LYMPH % 23.8 % (24.0-44.0); MEAN CORPUSCULAR HEMOGLOBIN 32.1 pg (27.0-33.0); MEAN CORPUSCULAR HGB CONC 32.2 g/dl (32.0-36.5); MEAN CORPUSCULAR VOLUME 99.7 fl (80.0-96.0); MONO # 0.8 10^3/uL (0.0-0.8); MONO % 10.5 % (2.0-8.0); NEUTROPHILS % 62.7 % (36.0-66.0); PLATELET COUNT, AUTOMATED 213 10^3/uL (150-450); RED BLOOD COUNT 3.74 10^6/uL (4.30-6.10)
[2024-05-23 13:50] LABS: INR 0.93; PROTHROMBIN TIME 12.2 SECONDS (12.5-14.5)
[2024-05-23] MEDS ORDERED: PERCOCET 5MG/325MG TAB PO PRN (16:05)
[2024-05-23] MEDS ORDERED: ACETAMINOPHEN TAB 650MG DOSE (2X325MG) PO PRN (16:05)
[2024-05-23] MEDS ORDERED: MAALOX 30 ML SUSP *UDC PO PRN (16:05)
[2024-05-23] MEDS ORDERED: MOM 30ML SUSPENSION UDC PO PRN (16:05)
[2024-05-23] MEDS ORDERED: MIRALAX *UNIT DOSE* 17GM PACKET PO PRN (16:05)
[2024-05-23] MEDS ORDERED: MIRT-84 PO (17:23)
[2024-05-23] MEDS ORDERED: ADV250INH INH (17:25)
[2024-05-23] MEDS ORDERED: RIZATRIPTAN BENZOATE 10 MG TAB PO PRN (17:30)
[2024-05-23] MEDS ORDERED: HOME MED LIST COMPLETE! XX SCH (17:30)
[2024-05-23] MEDS ORDERED: ALBUTEROL 90 MCG/ACT 8GM HFA INHALER INH PRN (17:30)
[2024-05-23] MEDS ORDERED: FLUTICASONE PROP 0.05% NASAL SPRAY 16 GM (FLONASE) NARES PRN (17:30)
[2024-05-23] MEDS ORDERED: clonazePAM 0.5 MG TAB PO PRN (17:30)
[2024-05-23] MEDS: CALCIUM/VITAMIN D 500 MG TAB PO SCH (21:00)
[2024-05-23] MEDS ORDERED: CALCIUM/VITAMIN D 500 MG TAB PO SCH (21:00)
[2024-05-23] MEDS: PHENobarbitaL 30 MG TAB PO SCH (22:48)
[2024-05-23] MEDS: SENOKOT S TAB PO SCH (22:48)
[2024-05-23] MEDS: METAXALONE 800 MG TABLET PO SCH (22:48)
[2024-05-23] MEDS: ZONISAMIDE 100 MG CAP (ZONEGRAN) PO SCH (22:48)
[2024-05-23] MEDS: SIMVASTATIN 40 MG TAB PO SCH (22:48)
[2024-05-23] MEDS: OMEPRAZOLE 20MG CAP PO SCH (22:49)
[2024-05-23] MEDS: MIRTAZAPINE 15 MG TAB PO SCH (22:49)
[2024-05-23] MEDS: SINEMET 25-100 MG TAB PO SCH (22:49)
[2024-05-23] MEDS: OLANZapine 5 MG TAB PO SCH (22:49)
[2024-05-24] VITALS (7 sets, daily range): BP systolic 117–149; BP diastolic 58–65; TEMP 97.4–97.9; O2SAT 98–100
[2024-05-24] MEDS: ADVAIR HFA 115/21MCG INHALER INH SCH (02:23)
[2024-05-24] MEDS: KETOROLAC 30 MG/ML 1ML VIAL IV ONE (06:37)
[2024-05-24 06:50] LABS: BASO # 0.1 10^3/uL (0.0-0.2); EOS # 0.2 10^3/uL (0.0-0.5); EOS % 2.3 % (0.0-3.0); HEMATOCRIT 36.7 % (42.0-52.0); HEMOGLOBIN 11.8 g/dl (13.5-17.5); LYMPH # 1.5 10^3/uL (1.5-5.0); LYMPH % 21.6 % (24.0-44.0); MEAN CORPUSCULAR HEMOGLOBIN 32.7 pg (27.0-33.0); MEAN CORPUSCULAR HGB CONC 32.2 g/dl (32.0-36.5); MEAN CORPUSCULAR VOLUME 101.7 fl (80.0-96.0); MONO # 0.8 10^3/uL (0.0-0.8); MONO % 11.1 % (2.0-8.0); NEUTROPHILS # 4.4 10^3/uL (1.5-8.5); NEUTROPHILS % 63.7 % (36.0-66.0); PLATELET COUNT, AUTOMATED 217 10^3/uL (150-450); RED BLOOD COUNT 3.61 10^6/uL (4.30-6.10)
[2024-05-24 07:29] LABS: BLOOD UREA NITROGEN 10 MG/DL (9-23); CALCIUM LEVEL 9.4 MG/DL (8.3-10.6); CARBON DIOXIDE LEVEL 28 MMOL/L (20-31); CHLORIDE LEVEL 107 MMOL/L (98-107); CREATININE FOR GFR 0.89 MG/DL (0.70-1.30); GLOMERULAR FILTRATION RATE > 60.0 (>42); GLUCOSE, FASTING 80 MG/DL (74-106); MAGNESIUM LEVEL 1.8 MG/DL (1.8-2.4); POTASSIUM SERUM 3.7 MMOL/L (3.5-5.1); SODIUM LEVEL 139 MMOL/L (136-145)
[2024-05-24] MEDS: TIOTROPIUM INHALER/CAPSULE (SPIRIVA) INH SCH (08:09)
[2024-05-24] MEDS: DONEPEZIL 5 MG TAB PO SCH (08:12)
[2024-05-24] MEDS: VENLAFAXINE **XR** 75MG CAPSULE PO SCH (08:13)
[2024-05-24] MEDS: ENOXAPARIN 40MG/0.4ML SYRINGE (J1650 PER 10MG) SC SCH (08:14)
[2024-05-24] MEDS ORDERED: DICL50TA2 PO (09:44)
[2024-05-24] MEDS ORDERED: LIDO1PAD TOP (09:45)
== END 2024-05-24 16:29 | disposition home or self-care (01) ==
LOC: EDBD 10:26 → M ED 10:26 → M ED INP 10:27
PROVIDERS: ADMIT Internal Medicine; ATTEND Internal Medicine
DX: S72.431A Displaced fracture of medial condyle of right femur, initial encounter for closed fracture (principal); W05.0XXA Fall from non-moving wheelchair, initial encounter; Y92.89 Other specified places as the place of occurrence of the external cause; Y99.9 Unspecified external cause status; Y93.9 Activity, unspecified; M25.461 Effusion, right knee; G20.C Parkinsonism, unspecified; G40.909 Epilepsy, unspecified, not intractable, without status epilepticus; Z87.820 Personal history of traumatic brain injury; R33.8 Other retention of urine; J44.9 Chronic obstructive pulmonary disease, unspecified; K21.9 Gastro-esophageal reflux disease without esophagitis; G43.909 Migraine, unspecified, not intractable, without status migrainosus; Z86.73 Personal history of transient ischemic attack (TIA), and cerebral infarction without residual deficits; F43.10 Post-traumatic stress disorder, unspecified; F41.9 Anxiety disorder, unspecified; F32.A Depression, unspecified; M81.0 Age-related osteoporosis without current pathological fracture; Z79.899 Other long term (current) drug therapy; Z88.1 Allergy status to other antibiotic agents; Z91.018 Allergy to other foods; Z88.8 Allergy status to other drugs, medicaments and biological substances
CPT/HCPCS: 36415; 70450; 73502; 73564; 73610; 73700; 80048; 80053; 83735; 85025; 85610; 86850; 86900; 86901; 96372; 96374; 96375; 96376; 97161; 97165; 97530; 99285; G0378; J1650; J1885; J2405

== ENCOUNTER → 2024-06-10 | Outpatient (CLI) | payer OTHER ==
[~2024-06-10] MED LIST changes: +ADV250INH INH; +DICL50TA2 PO; +LIDO1PAD TOP; +MIRT-84 PO
== END ==
LOC: M SOG 08:10
PROVIDERS: ATTEND Orthopaedic Surgery
DX: M25.561 Pain in right knee (principal)

== ENCOUNTER → 2024-07-13 | Outpatient (CLI) | payer OTHER ==
[~2024-07-13] MED LIST changes: +GABA-1172 PO; -GABA-282 PO; -OLAN15TA13 PO; +OLAN15TA69 PO
== END ==
LOC: M SOG 07:24
PROVIDERS: ATTEND Physician Assistant
DX: Z53.9 Procedure and treatment not carried out, unspecified reason (principal)

== ENCOUNTER → 2024-08-03 | Outpatient (CLI) | payer OTHER | LOC: M SOG 07:28 | PROVIDERS: ATTEND Physician Assistant | DX: Z53.9 Procedure and treatment not carried out, unspecified reason (principal) ==

== ENCOUNTER → 2024-08-24 | Outpatient (CLI) | payer OTHER ==
[~2024-08-24] MED LIST changes: +CARB15DR64 OU; -LIDO1CRE2 TOP; +LIDO4CRE12 TOP; -LUBR0.5D OU; +META-10 PO; -META1TAB22 PO
== END ==
LOC: M SOG 07:57
PROVIDERS: ATTEND Physician Assistant
DX: M25.561 Pain in right knee (principal); Z53.9 Procedure and treatment not carried out, unspecified reason

== ENCOUNTER 2024-10-09 05:56 | Emergency (ER) | payer OTHER ==
[~2024-10-09] VITALS: Ht 177.8 cm; Wt 109.1 kg
[~2024-10-09 05:56] MED LIST changes: -ADV250INH INH; +ADVA1AER9 INH
[2024-10-09 06:24] LABS: BASO # 0.1 10^3/uL (0.0-0.2); BASO % 1.1 % (0.0-1.0); EOS # 0.1 10^3/uL (0.0-0.5); EOS % 1.6 % (0.0-3.0); HEMATOCRIT 34.6 % (42.0-52.0); HEMOGLOBIN 11.1 g/dl (13.5-17.5); LYMPH # 2.5 10^3/uL (1.5-5.0); LYMPH % 44.4 % (24.0-44.0); MEAN CORPUSCULAR HEMOGLOBIN 34.2 pg (27.0-33.0); MEAN CORPUSCULAR HGB CONC 32.1 g/dl (32.0-36.5); MEAN CORPUSCULAR VOLUME 106.5 fl (80.0-96.0); MONO # 0.6 10^3/uL (0.0-0.8); MONO % 10.9 % (2.0-8.0); NEUTROPHILS # 2.3 10^3/uL (1.5-8.5); NEUTROPHILS % 41.5 % (36.0-66.0); PLATELET COUNT, AUTOMATED 428 10^3/uL (150-450); RED BLOOD COUNT 3.25 10^6/uL (4.30-6.10); WHITE BLOOD COUNT 5.6 10^3/uL (4.0-10.0)
[2024-10-09 06:40] LABS: KETONE, URINE AUTO RFX NEGATIVE (NEGATIVE); LEUKOCYTE ESTERASE UR AUTO RFX 2+ (NEGATIVE)
[2024-10-09 06:55] LABS: CK-MB VALUE MASS 1.6 NG/ML (<3.6)
[2024-10-09 06:56] LABS: ETHYL ALCOHOL (ETHANOL) 0.282 % (0.000-0.010)
[2024-10-09 06:58] LABS: ALBUMIN 3.4 G/DL (3.2-5.2); ALKALINE PHOSPHATASE 43 U/L (40-129); ALT/SGPT < 9 U/L (7.0-40); AST/SGOT 15 U/L (<34); BILIRUBIN,DIRECT < 0.1 MG/DL (<0.4); BILIRUBIN,TOTAL < 0.2 MG/DL (0.3-1.2); BLOOD UREA NITROGEN 10 MG/DL (9-23); CALCIUM LEVEL 9.6 MG/DL (8.3-10.6); CARBON DIOXIDE LEVEL 19 MMOL/L (20-31); CHLORIDE LEVEL 108 MMOL/L (98-107); GLOMERULAR FILTRATION RATE > 60.0 (>42); GLUCOSE, FASTING 83 MG/DL (74-106); POTASSIUM SERUM 3.8 MMOL/L (3.5-5.1); SODIUM LEVEL 143 MMOL/L (136-145); TOTAL PROTEIN 6.8 G/DL (5.7-8.2)
[2024-10-09 07:00] LABS: THYROID STIMULATING HORMONE 1.478 uIU/ML (0.55-4.78)
[2024-10-09 07:03] LABS: CPK CREATINE PHOSPHOKINASE 55 U/L (46-171)
[2024-10-09 07:20] LABS: AMPHETAMINES LEVEL URINE NEGATIVE (NEGATIVE); BENZODIAZEPINES URINE NEGATIVE (NEGATIVE); CANNABINOIDS URINE NEGATIVE (NEGATIVE); COCAINE METABOLITE URINE NEGATIVE (NEGATIVE); METHADONE URINE NEGATIVE (NEGATIVE); OPIATES URINE NEGATIVE (NEGATIVE); PHENCYCLIDINE URINE NEGATIVE (NEGATIVE)
[2024-10-09 07:23] LABS: BARBITURATES URINE POSITIVE (NEGATIVE)
[2024-10-09] MEDS: NS 500 ML IV ONE (09:22)
[2024-10-09 09:56] LABS: ETHYL ALCOHOL (ETHANOL) 0.235 % (0.000-0.010)
[2024-10-09 16:11] VITALS: BP 160/76; TEMP 97; O2SAT 95
== END 2024-10-09 16:35 | disposition home or self-care (01) ==
LOC: M ED 05:56
DX: F10.129 Alcohol abuse with intoxication, unspecified (principal); G20.C Parkinsonism, unspecified; R56.9 Unspecified convulsions; N40.0 Benign prostatic hyperplasia without lower urinary tract symptoms; Z86.73 Personal history of transient ischemic attack (TIA), and cerebral infarction without residual deficits; F43.10 Post-traumatic stress disorder, unspecified; F17.200 Nicotine dependence, unspecified, uncomplicated; Z79.899 Other long term (current) drug therapy; Z88.1 Allergy status to other antibiotic agents; Z88.8 Allergy status to other drugs, medicaments and biological substances; Z91.018 Allergy to other foods

== ENCOUNTER 2024-10-17 13:27 | Emergency (ER) | payer MEDICARE, OTHER ==
[~2024-10-17] VITALS: Ht 167.6 cm; Wt 73.9 kg
[2024-10-17 13:43] VITALS: TEMP 97.4
[2024-10-17 16:24] LABS: BASO % 0.2 % (0.0-1.0); EOS % 0.1 % (0.0-3.0); HEMATOCRIT 32.5 % (42.0-52.0); HEMOGLOBIN 10.8 g/dl (13.5-17.5); LYMPH # 1.3 10^3/uL (1.5-5.0); LYMPH % 11.4 % (24.0-44.0); MEAN CORPUSCULAR HEMOGLOBIN 34.3 pg (27.0-33.0); MEAN CORPUSCULAR HGB CONC 33.2 g/dl (32.0-36.5); MEAN CORPUSCULAR VOLUME 103.2 fl (80.0-96.0); MONO # 1.5 10^3/uL (0.0-0.8); MONO % 13.4 % (2.0-8.0); NEUTROPHILS # 8.3 10^3/uL (1.5-8.5); NEUTROPHILS % 74.5 % (36.0-66.0); PLATELET COUNT, AUTOMATED 284 10^3/uL (150-450); RED BLOOD COUNT 3.15 10^6/uL (4.30-6.10); WHITE BLOOD COUNT 11.1 10^3/uL (4.0-10.0)
[2024-10-17 16:34] LABS: CK-MB VALUE MASS < 1.0 NG/ML (<3.6)
[2024-10-17 16:35] LABS: CPK CREATINE PHOSPHOKINASE 32 U/L (46-171)
[2024-10-17 16:36] LABS: ALBUMIN 2.4 G/DL (3.2-5.2); ALKALINE PHOSPHATASE 61 U/L (40-129); ALT/SGPT 21 U/L (7.0-40); AST/SGOT 198 U/L (<34); BILIRUBIN,DIRECT 0.2 MG/DL (<0.4); BILIRUBIN,TOTAL 0.3 MG/DL (0.3-1.2); BLOOD UREA NITROGEN 11 MG/DL (9-23); CALCIUM LEVEL 9.5 MG/DL (8.3-10.6); CARBON DIOXIDE LEVEL 25 MMOL/L (20-31); CHLORIDE LEVEL 101 MMOL/L (98-107); CPK CREATINE PHOSPHOKINASE 30 U/L (46-171); CREATININE FOR GFR 0.65 MG/DL (0.70-1.30); GLOMERULAR FILTRATION RATE > 60.0 (>42); GLUCOSE, FASTING 92 MG/DL (74-106); MB/CK RELATIVE INDEX 3.33 (< OR =4); POTASSIUM SERUM 3.2 MMOL/L (3.5-5.1); SODIUM LEVEL 136 MMOL/L (136-145); TOTAL PROTEIN 6.8 G/DL (5.7-8.2)
[2024-10-17] MEDS: MORPHINE 4 MG/ML 1ML VIAL IV ONE (16:37)
[2024-10-17] MEDS ORDERED: ISOVUE-370 76% 100ML VIAL As Ordered ONE (17:21)
[2024-10-17 17:50] LABS: CK-MB VALUE MASS < 1.0 NG/ML (<3.6)
[2024-10-17 17:56] LABS: CPK CREATINE PHOSPHOKINASE 30 U/L (46-171); MB/CK RELATIVE INDEX 3.33 (< OR =4)
[2024-10-17 19:15] VITALS: BP 145/66; O2SAT 92
[2024-10-17] MEDS: POTASSIUM CHLORIDE 10MEQ SR TABLET PO ONE (19:16)
== END 2024-10-17 19:24 | disposition home or self-care (01) ==
LOC: EDBD 13:27 → M ED 13:27
DX: R52 Pain, unspecified (principal); G20.C Parkinsonism, unspecified; J44.9 Chronic obstructive pulmonary disease, unspecified; K21.9 Gastro-esophageal reflux disease without esophagitis; G43.909 Migraine, unspecified, not intractable, without status migrainosus; F43.10 Post-traumatic stress disorder, unspecified; G40.909 Epilepsy, unspecified, not intractable, without status epilepticus; Z86.73 Personal history of transient ischemic attack (TIA), and cerebral infarction without residual deficits; F17.200 Nicotine dependence, unspecified, uncomplicated; Z99.3 Dependence on wheelchair; Z79.899 Other long term (current) drug therapy; Z88.0 Allergy status to penicillin; Z88.8 Allergy status to other drugs, medicaments and biological substances; Z91.018 Allergy to other foods
CPT/HCPCS: 70450; 71260; 72125; 73060; 73090; 73502; 74177; 80048; 80076; 82550; 82553; 84484; 85025; 93005; 93041; 94760; 96374; 99285; Q9967